=== PATIENT | male | born 1965 | race African-American/Black ===

== ENCOUNTER 2016-10-09 10:42 | Inpatient (IN) | payer OTHER ==
[2016-10-09 11:45] VITALS: BMI 19.5
--- NOTE | 2016-10-09 13:53 | HP ---
CIWA Score - CIWA Score Nausea/Vomitin-No Nausea/No Vomiting Muscle Tremors: 4-Moderate,w/Arms Extend Anxiety: 4-Mod. Anxious/Guarded Agitation: 4-Moderately Restless Paroxysmal Sweats: 3 Orientation: 0-Oriented Tacttile Disturbances: 0-None Auditory Disturbances: 0-None Visual Disturbances: 0-None Headache: 2-Mild CIWA-Ar Total Score: 17 Admission ROS BHS - HPI Chief Complaint: I am here to detox. Allergies/Adverse Reactions: Allergies Allergy/AdvReac Type Severity Reaction Status Date / Time No Known Allergies Allergy Verified 10/09/16 12:02 History of Present Illness: pt is a 50yr old male with a history of alcohol and cocaine dependence seeking detox for treatment. Exam Limitations: No Limitations - Ebola screening Have you traveled outside of the country in the last 21 days: No Have you had contact with anyone from an Ebola affected area: No Have you been sick,other than usual withdrawal symptoms: No Do you have a fever: No - Review of Systems Constitutional: Diaphoresis, Changes in sleep EENT: reports: No Symptoms Reported Respiratory: reports: No Symptoms reported Cardiac: reports: Syncope GI: reports: Poor Appetite, Poor Fluid Intake : reports: No Symptoms Reported Musculoskeletal: reports: Back Pain, Muscle Weakness (siatica) Integumentary: reports: No Symptoms Reported Neuro: reports: Headache, Tingling, Tremors Endocrine: reports: [place] Hematology: reports: No Symptoms Reported Psychiatric: reports: Judgement Intact, Mood/Affect Appropiate, Orientated x3, Agitated, Anxious Other Systems: Reviewed and Negative Patient History - Patient Medical History Hx Anemia: No Hx Asthma: No Hx Chronic Obstructive Pulmonary Disease (COPD): No Hx Cancer: No Hx Cardiac Disorders: No Hx Congestive Heart Failure: No Hx Hypertension: No Hx Hypercholesterolemia: No Hx Pacemaker: No HX Cerebrovascular Accident: No Hx Seizures: No Hx Dementia: No Hx Diabetes: No Hx Gastrointestinal Disorders: No Hx Liver Disease: No Hx Genitourinary Disorders: No Hx Sexually Transmitted Disorders: No Hx Renal Disease (ESRD): No Hx Thyroid Disease: No Hx Human Immunodeficiency Virus (HIV): No (negative) Hx Hepatitis C: No (negative) Hx Depression: Yes Hx Suicide Attempt: No (two years tried to OD with pills. no S/H ideations today. ) Hx Bipolar Disorder: Yes Hx Schizophrenia: No - Patient Surgical History Past Surgical History: No - PPD History Previous Implant?: Yes Documented Results: Negative w/o proof Implanted On Prior R Admission?: No PPD to be Administered?: Yes - Reproductive History Patient is a Female of Child Bearing Age (11 -55 yrs old): No - Smoking Cessation Smoking history: Current every day smoker Have you smoked in the past 12 months: Yes Aproximately how many cigarettes per day: 4 Hx Chewing Tobacco Use: No Initiated information on smoking cessation: Yes 'Breaking Loose' booklet given: 10/09/16 - Substance & Tx. History Hx Alcohol Use: Yes Hx Substance Use: Yes Substance Use Type: Alcohol, Cocaine Hx Substance Use Treatment: Yes - Substances Abused Alcohol Route: Oral Frequency: Daily Amount used: vodka(2 pints) Age of first use: 16 Date of Last Use: 10/08/16 Cocaine Route: Smoking Frequency: Daily Amount used: $50 Age of first use: 28 Date of Last Use: 10/08/16 Family Disease History - Family Disease History Family History: Denies Admission Physical Exam [facility] - Vital Signs Vital Signs: Vital Signs - 24 hr 10/09/16 11:43 Temperature 98 F Pulse Rate 76 Respiratory 20 Rate Blood Pressure 136/89 - Physical General Appearance: Yes: Appropriately Dressed, Moderate Distress, Thin, Tremorous, Irritable, Sweating, Anxious HEENTM: Yes: Normal Voice Respiratory: Yes: Lungs Clear, Normal Breath Sounds, No Respiratory Distress Neck: Yes: No masses,lesions,Nodules Breast: Yes: Within Normal Limits, No Discharge, No masses Cardiology: Yes: Regular Rhythm, Regular Rate, S1, S2 Abdominal: Yes: Normal Bowel Sounds Genitourinary: Yes: Within Normal Limits Back: Yes: Normal Inspection Musculoskeletal: Yes: full range of Motion Extremities: Yes: Normal Capillary Refill, Non-Tender, Tremors Neurological: Yes: Fully Oriented, Alert, Normal Response Integumentary: Yes: Normal Color, Diaphoresis Lymphatic: Yes: Within Normal Limits - Diagnostic (1) Alcohol dependence with uncomplicated withdrawal Current Visit: Yes Status: Chronic (2) Cocaine dependence Current Visit: Yes Status: Chronic Qualifiers: Substance use status: uncomplicated Qualified Code(s): F14.20 - Cocaine dependence, uncomplicated (3) Nicotine dependence Current Visit: Yes Status: Chronic Qualifiers: Nicotine product type: cigarettes Substance use status: uncomplicated Qualified Code(s): F17.210 - Nicotine dependence, cigarettes, uncomplicated (4) Sciatic leg pain Current Visit: No Status: Chronic Cleared for Admission [facility] - Detox or Rehab [facility] Level of Care: Medically Managed Detox Regimen/Protocol: Librium [facility] Breath Alcohol Content Breath Alcohol Content: 0 Urine Drug Screen - Results Drug Screen Negative: No Urine Drug Screen Results: DAVID-Cocaine
[2016-10-09] MEDS ORDERED: chlordiazePOXIDE HCL 25 MG CAPSULE PO ONE (14:00)
[2016-10-09] MEDS ORDERED: MAGNESIUM CITRATE 300 ML BOTTLE PO PRN (14:00)
[2016-10-09] MEDS ORDERED: MENTHOL/PHENOL 1 EACH UD MM PRN (14:00)
[2016-10-09] MEDS ORDERED: LOPERAMIDE HCL 2 MG CAPSULE PO PRN (14:00)
[2016-10-09] MEDS ORDERED: IBUPROFEN 400 MG TABLET (FP) PO PRN (14:00)
[2016-10-09] MEDS ORDERED: diphenhydrAMINE HCL 50 MG CAPSULE PO PRN (14:00)
[2016-10-09] MEDS ORDERED: chlordiazePOXIDE HCL 25 MG CAPSULE PO PRN (14:00)
[2016-10-09] MEDS ORDERED: guaiFENesin/D-METHORPHAN HB 10 ML UNIT-DOSE CUPS PO PRN (14:00)
[2016-10-09] MEDS ORDERED: ACETAMINOPHEN 325 MG TABLET (FP) PO PRN (14:00)
[2016-10-09] MEDS ORDERED: P-EPHED 60MG/TRIPROLIDI 2.5MG TABLET PO PRN (14:00)
[2016-10-09] MEDS ORDERED: MAGNESIUM HYDROX 2400MG/30ML ORAL SUSPENSION 30 ML CUP PO PRN (14:00)
[2016-10-09] MEDS ORDERED: MAG HYDROX/AL HYDROX/SIMETH 30 ML UNIT-DOSE CUP PO PRN (14:00)
[2016-10-09] MEDS ORDERED: hydrOXYzine PAMOATE 50 MG CAPSULE (FP) PO PRN (14:00)
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
--- NOTE | 2016-10-09 15:49 | PN ---
[facility] Progress Note Note: EKG with Normal sinus rhythm T wave abnormality,consider anterolateral ischemia prolonged QT Abnormal EKG Pt is asymtomatic, no hx CAD or HTN. no previous EKG repeat EKG today .
[2016-10-09] MEDS: chlordiazePOXIDE HCL 25 MG CAPSULE PO SCH ×2 (17:39→22:28)
[2016-10-09 21:11] LABS: URINE APPEARANCE CLEAR; URINE BILIRUBIN NEGATIVE (NEGATIVE); URINE BLOOD NEGATIVE (NEGATIVE); URINE COLOR YELLOW; URINE GLUCOSE (UA) NEGATIVE (NEGATIVE); URINE KETONE NEGATIVE (NEGATIVE); URINE LEUK ESTERASE NEGATIVE (NEGATIVE); URINE NITRITE NEGATIVE (NEGATIVE); URINE PROTEIN NEGATIVE (NEGATIVE); URINE UROBILINOGEN NEGATIVE E.U./dl (0.2-1.0)
[2016-10-09] MEDS: THIAMINE HCL 100 MG TABLET (FP) PO SCH (22:28)
[2016-10-09] MEDS: QUEtiapine FUMARATE 200 MG TABLET PO SCH (22:28)
[2016-10-10] MEDS: chlordiazePOXIDE HCL 25 MG CAPSULE PO SCH ×4 (07:18→23:14)
[2016-10-10 10:03] LABS: MCH 22.9 pg (25.7-33.7); MCHC 30.7 g/dl (32.0-35.9); MEAN CELL VOLUME 74.7 fl (80-96); MEAN PLT VOLUME 8.7 fl (7.5-11.1); PLATELET COUNT 233 K/MM3 (134-434); RDW 15.2 % (11.9-15.9); WHITE BLOOD COUNT 3.2 K/mm3 (4.0-10.0)
[2016-10-10] MEDS: PRENATAL VITAMINS W/ FOLIC ACID TABLET (FP) PO SCH (10:30)
[2016-10-10] MEDS: QUEtiapine FUMARATE 200 MG TABLET PO SCH ×2 (10:30→23:14)
--- NOTE | 2016-10-10 11:43 | EKG ---
Test Reason : Blood Pressure : / mmHG Vent. Rate : 074 BPM Atrial Rate : 074 BPM P-R Int : 140 ms QRS Dur : 080 ms QT Int : 424 ms P-R-T Axes : 073 078 095 degrees QTc Int : 470 ms NORMAL SINUS RHYTHM POSSIBLE LEFT ATRIAL ENLARGEMENT T WAVE ABNORMALITY, CONSIDER ANTEROLATERAL ISCHEMIA PROLONGED QT ABNORMAL ECG Confirmed by MORA LU MD ([id number]) on 10/10/2016 11:42:57 AM Referred By: Confirmed By:MORA LU MD
--- NOTE | 2016-10-10 11:45 | EKG ---
Test Reason : Blood Pressure : / mmHG Vent. Rate : 064 BPM Atrial Rate : 064 BPM P-R Int : 144 ms QRS Dur : 110 ms QT Int : 478 ms P-R-T Axes : 060 082 103 degrees QTc Int : 493 ms NORMAL SINUS RHYTHM T WAVE ABNORMALITY, CONSIDER ANTEROLATERAL ISCHEMIA PROLONGED QT ABNORMAL ECG NO PREVIOUS ECGS AVAILABLE Confirmed by MORA LU MD ([id number]) on 10/10/2016 11:45:42 AM Referred By: Confirmed By:MORA LU MD
--- NOTE | 2016-10-10 12:02 | PN ---
[facility] CIWA - CIWA Score Nausea/Vomitin-No Nausea/No Vomiting Muscle Tremors: 4-Moderate,w/Arms Extend Anxiety: 4-Mod. Anxious/Guarded Agitation: 4-Moderately Restless Paroxysmal Sweats: 1-Minimal Palms Moist Orientation: 0-Oriented Tacttile Disturbances: 3-Moderate Itch/Numb/Burn Auditory Disturbances: 0-None Visual Disturbances: 0-None Headache: 0-None Present CIWA-Ar Total Score: 16 S Progress Note (SOAP) Subjective: ANXIETY,IRRITABILITY,RESTLESSNESS, CHILLS,FATIGUE, Objective: 10/10/16 12:01 Vital Signs Temperature 96.9 F L 10/10/16 10:32 Pulse Rate 95 H 10/10/16 10:32 Respiratory Rate 18 10/10/16 10:32 Blood Pressure 138/83 10/10/16 10:32 O2 Sat by Pulse Oximetry (%) Laboratory Last Values WBC 3.2 K/mm3 (4.0-10.0) L 10/10/16 06:00 RBC 5.22 M/mm3 (4.00-5.60) 10/10/16 06:00 Hgb 12.0 GM/dL (11.7-16.9) 10/10/16 06:00 Hct 39.0 % (35.4-49) 10/10/16 06:00 MCV 74.7 fl (80-96) L 10/10/16 06:00 MCHC 30.7 g/dl (32.0-35.9) L 10/10/16 06:00 RDW 15.2 % (11.9-15.9) 10/10/16 06:00 Plt Count 233 K/MM3 (134-434) 10/10/16 06:00 MPV 8.7 fl (7.5-11.1) 10/10/16 06:00 Urine Color Yellow 10/09/16 15:00 Urine Appearance Clear 10/09/16 15:00 Urine pH 5.0 (5.0-8.0) 10/09/16 15:00 Urine Protein Negative (NEGATIVE) 10/09/16 15:00 Urine Glucose (UA) Negative (NEGATIVE) 10/09/16 15:00 Urine Ketones Negative (NEGATIVE) 10/09/16 15:00 Urine Blood Negative (NEGATIVE) 10/09/16 15:00 Urine Nitrite Negative (NEGATIVE) 10/09/16 15:00 Urine Bilirubin Negative (NEGATIVE) 10/09/16 15:00 Urine Urobilinogen Negative E.U./dl (0.2-1.0) 10/09/16 15:00 Ur Leukocyte Esterase Negative (NEGATIVE) 10/09/16 15:00 Assessment: 10/10/16 12:01 WITHDRAWAL SX Plan: CONTINUE DETOX
[2016-10-10 15:05] LABS: ALBUMIN 3.7 g/dl (3.4-5.0); ALK PHOS 72 U/L (45-117); ANION GAP 6 (8-16); BILIRUBIN,TOTAL 0.3 mg/dL (0.2-1.0); CALCIUM 8.9 mg/dL (8.5-10.1); CO2 30 mmol/L (21-32); COCKROFT - GAULT 64.67; CREATININE 1.2 mg/dL (0.7-1.3); GLUCOSE,RANDOM 77 mg/dL (74-106); SGOT/AST 24 U/L (15-37); SGPT/ALT 28 U/L (12-78); TOT PROT 6.7 g/dl (6.4-8.2)
[2016-10-10] MEDS: THIAMINE HCL 100 MG TABLET (FP) PO SCH (23:14)
[2016-10-11] MEDS: chlordiazePOXIDE HCL 25 MG CAPSULE PO SCH ×2 (05:59→10:22)
[2016-10-11] MEDS: QUEtiapine FUMARATE 200 MG TABLET PO SCH (10:22)
[2016-10-11] MEDS: PRENATAL VITAMINS W/ FOLIC ACID TABLET (FP) PO SCH (10:22)
[2016-10-11 10:55] VITALS: BP 139/75; PULSE 104; TEMP 96.4
--- NOTE | 2016-10-11 16:18 | DS ---
[facility] Detox Discharge Summary Admission Date: 10/09/16 Discharge Date: 10/11/16 - History Present History: Alcohol Dependence, Cocaine Dependence Additional Comments: ADVISED PATIENT TO FOLLOW-UP WITH [facility] FOR GENERAL MEDICAL ASSESSMENT. Pertinent Past History: Depression, Bipolar disorder. - Physical Exam Results Vital Signs: Vital Signs Temperature 96.4 F L 10/11/16 10:55 Pulse Rate 104 H 10/11/16 10:55 Respiratory Rate 18 10/11/16 10:55 Blood Pressure 139/75 10/11/16 10:55 O2 Sat by Pulse Oximetry (%) Pertinent Admission Physical Exam Findings: WITHDRAWAL SYMPTOMS. Laboratory Last Values WBC 3.2 K/mm3 (4.0-10.0) L 10/10/16 06:00 RBC 5.22 M/mm3 (4.00-5.60) 10/10/16 06:00 Hgb 12.0 GM/dL (11.7-16.9) 10/10/16 06:00 Hct 39.0 % (35.4-49) 10/10/16 06:00 MCV 74.7 fl (80-96) L 10/10/16 06:00 MCHC 30.7 g/dl (32.0-35.9) L 10/10/16 06:00 RDW 15.2 % (11.9-15.9) 10/10/16 06:00 Plt Count 233 K/MM3 (134-434) 10/10/16 06:00 MPV 8.7 fl (7.5-11.1) 10/10/16 06:00 Sodium 143 mmol/L (136-145) 10/10/16 06:00 Potassium 5.3 mmol/L (3.5-5.1) H 10/10/16 06:00 Chloride 107 mmol/L (98-107) 10/10/16 06:00 Carbon Dioxide 30 mmol/L (21-32) 10/10/16 06:00 Anion Gap 6 (8-16) L 10/10/16 06:00 BUN 17 mg/dL (7-18) 10/10/16 06:00 Creatinine 1.2 mg/dL (0.7-1.3) 10/10/16 06:00 Creat Clearance w eGFR > 60 (>60) 10/10/16 06:00 Random Glucose 77 mg/dL (74-106) 10/10/16 06:00 Calcium 8.9 mg/dL (8.5-10.1) 10/10/16 06:00 Total Bilirubin 0.3 mg/dL (0.2-1.0) 10/10/16 06:00 AST 24 U/L (15-37) 10/10/16 06:00 ALT 28 U/L (12-78) 10/10/16 06:00 Alkaline Phosphatase 72 U/L (45-117) 10/10/16 06:00 Total Protein 6.7 g/dl (6.4-8.2) 10/10/16 06:00 Albumin 3.7 g/dl (3.4-5.0) 10/10/16 06:00 Urine Color Yellow 10/09/16 15:00 Urine Appearance Clear 10/09/16 15:00 Urine pH 5.0 (5.0-8.0) 10/09/16 15:00 Ur Specific Martell 1.025 (1.005-1.025) 10/09/16 15:00 Urine Protein Negative (NEGATIVE) 10/09/16 15:00 Urine Glucose (UA) Negative (NEGATIVE) 10/09/16 15:00 Urine Ketones Negative (NEGATIVE) 10/09/16 15:00 Urine Blood Negative (NEGATIVE) 10/09/16 15:00 Urine Nitrite Negative (NEGATIVE) 10/09/16 15:00 Urine Bilirubin Negative (NEGATIVE) 10/09/16 15:00 Urine Urobilinogen Negative E.U./dl (0.2-1.0) 10/09/16 15:00 Ur Leukocyte Esterase Negative (NEGATIVE) 10/09/16 15:00 RPR Titer Nonreactive (NONREACTIVE) 10/10/16 06:00 LABS NOTED. - Treatment Hospital Course: Detoxed Safely - Medication Discharge Medications: Ambulatory Orders Quetiapine Fumarate [Seroquel -] 200 mg PO BID 10/09/16 Quetiapine Fumarate [Seroquel -] 200 mg PO BID #60 tab 10/09/16 - Diagnosis (1) PTSD (post-traumatic stress disorder) Status: Chronic (2) Paranoid schizophrenia Status: Chronic (3) Alcohol dependence with uncomplicated withdrawal Status: Acute (4) Cocaine dependence Status: Acute Qualifiers: Substance use status: uncomplicated Qualified Code(s): F14.20 - Cocaine dependence, uncomplicated (5) Nicotine dependence Status: Chronic Qualifiers: Nicotine product type: cigarettes Substance use status: uncomplicated Qualified Code(s): F17.210 - Nicotine dependence, cigarettes, uncomplicated (6) Sciatic leg pain Status: Chronic - AMA Did Patient Leave Against Medical Advice: Yes (PATIENT DID NOT WANT TO STAY ON UNIT TO COMPLETE DETOX REGIMEN.)
[2016-10-11] MEDS ORDERED: chlordiazePOXIDE 5 MG CAPSULE PO SCH (17:00)
[2016-10-12] MEDS ORDERED: chlordiazePOXIDE HCL 10 MG CAPSULE PO SCH (17:00)
== END 2016-10-11 11:06 | disposition left against medical advice (07) | DRG 770 ==
LOC: YASAS 10:42 → Y3N 12:37
PROVIDERS: ADMIT Internal Medicine; ATTEND Internal Medicine
PROC: HZ2ZZZZ Detoxification Services for Substance Abuse Treatment (ICD-10-PCS; principal; 2016-10-11)
DX: F10.230 Alcohol dependence with withdrawal, uncomplicated (principal); F14.20 Cocaine dependence, uncomplicated; F17.210 Nicotine dependence, cigarettes, uncomplicated; F25.9 Schizoaffective disorder, unspecified; F43.10 Post-traumatic stress disorder, unspecified; M54.30 Sciatica, unspecified side
CPT/HCPCS: 36415; 80053; 81003; 85027; 86593; 93005; 93010

== ENCOUNTER 2017-11-06 14:48 | Inpatient (IN) | payer OTHER ==
[2017-11-06 15:32] VITALS: BMI 18.3
--- NOTE | 2017-11-06 17:18 | HP ---
CIWA Score - CIWA Score Nausea/Vomitin-Mild Nausea/No Vomiting Muscle Tremors: 1-None Visible, but [place] Anxiety: 3 Agitation: 2 Paroxysmal Sweats: 1-Minimal Palms Moist Orientation: 0-Oriented Tacttile Disturbances: 1-Very Mild Itch/Numbness Auditory Disturbances: 0-None Visual Disturbances: 0-None Headache: 3-Moderate CIWA-Ar Total Score: 12 Admission ROS BHS - HPI Chief Complaint: ETOH WITHDRAWAL SYMPTOMS Allergies/Adverse Reactions: Allergies Allergy/AdvReac Type Severity Reaction Status Date / Time No Known Allergies Allergy Verified 11/06/17 16:07 History of Present Illness: PATIENT PRESENTS WITH ETOH WITHDRAWAL SYMPTOMS. LAST TIME DETOX ATTEMPTED WAS LAST YEAR 10/22 HERE AT [facility]. PATIENT STARTED DRINKING AT AGE 16. DRINKS UP TO 2- 3 PINTS DAILY. LAST DRINK TODAY AT 10AM. DENIES SEIZURES FROM ETOH USE. PATIENT ALSO SMOKES CRACK/COCAINE. LAST TIME USED WAS TODAY. PATIENT SMOKES UP TO 5 BAGS DAILY. HAS HX OF DEPRESSION, PTSD AND BIPLOAR DISORDER. DENIES SI/HI. ATTEMPT SUICIDE 2 YEARS AGO BY OVERDOSING ON PILLS. Exam Limitations: No Limitations - Ebola screening Have you traveled outside of the country in the last 21 days: No Have you had contact with anyone from an Ebola affected area: No Have you been sick,other than usual withdrawal symptoms: No Do you have a fever: No - Review of Systems Constitutional: Changes in sleep, Unintentional Wgt. Loss EENT: reports: Recent change in vision, Nose Congestion Respiratory: reports: Cough Cardiac: reports: No Symptoms Reported GI: reports: Nausea, Poor Appetite, Poor Fluid Intake : reports: No Symptoms Reported Musculoskeletal: reports: Back Pain Integumentary: reports: Sweating Neuro: reports: Headache, Tremors Endocrine: reports: No Symptoms Reported Hematology: reports: No Symptoms Reported Psychiatric: reports: Orientated x3, Anxious, Depressed Patient History - Patient Medical History Hx Anemia: No Hx Asthma: Yes (UNTREATED) Hx Chronic Obstructive Pulmonary Disease (COPD): No Hx Cancer: No Hx Cardiac Disorders: No Hx Congestive Heart Failure: No Hx Hypertension: Yes (UNTREATED) Hx Hypercholesterolemia: No Hx Pacemaker: No HX Cerebrovascular Accident: No Hx Seizures: No Hx Dementia: No Hx Diabetes: No Hx Gastrointestinal Disorders: No Hx Liver Disease: No Hx Genitourinary Disorders: No Hx Sexually Transmitted Disorders: No Hx Renal Disease (ESRD): No Hx Thyroid Disease: No Hx Human Immunodeficiency Virus (HIV): No (negative) Hx Hepatitis C: No (negative) Hx Depression: Yes Hx Suicide Attempt: Yes (pill overdose in 2014) Hx Bipolar Disorder: Yes Hx Schizophrenia: Yes - Patient Surgical History Past Surgical History: No Hx Neurologic Surgery: No Hx Cataract Extraction: No Hx Cardiac Surgery: No Hx Lung Surgery: No Hx Breast Surgery: No Hx Breast Biopsy: No Hx Abdominal Surgery: No Hx Appendectomy: No Hx Cholecystectomy: No Hx Genitourinary Surgery: No Hx Orthopedic Surgery: No Anesthesia Reaction: No - PPD History Previous Implant?: Yes Documented Results: Negative w/proof Implanted On Prior R Admission?: Yes Date: 09/14/17 Results: 0 mm - Smoking Cessation Smoking history: Current every day smoker Have you smoked in the past 12 months: Yes Aproximately how many cigarettes per day: 6 Hx Chewing Tobacco Use: No Initiated information on smoking cessation: Yes 'Breaking Loose' booklet given: 11/06/17 - Substance & Tx. History Hx Alcohol Use: Yes Hx Substance Use: Yes Substance Use Type: Alcohol, Cocaine Hx Substance Use Treatment: Yes - Substances Abused Cocaine Route: Smoking Frequency: Daily Amount used: $200 Age of first use: 42 Date of Last Use: 11/06/17 Alcohol-vodka Route: Oral Frequency: Daily Amount used: 3 pts. Age of first use: 15 Date of Last Use: 11/06/17 Family Disease History - Family Disease History Family History: Denies Admission Physical Exam BHS - Vital Signs Vital Signs: Vital Signs - 24 hr 11/06/17 15:31 Temperature 98.6 F Pulse Rate 113 H Respiratory 20 Rate Blood Pressure 140/59 - Physical General Appearance: Yes: Thin, Tremorous, Sweating, Anxious HEENTM: Yes: EOMI, Hearing grossly Normal, Normal ENT Inspection, Normocephalic , Normal Voice, ERNESTINA, Pharynx Normal Respiratory: Yes: Chest Non-Tender, Lungs Clear, Normal Breath Sounds, No Respiratory Distress, No Accessory Muscle Use Neck: Yes: No masses,lesions,Nodules, Supple, Trachea in good position Breast: Yes: Breast Exam Deferred Cardiology: Yes: Regular Rhythm, Regular Rate, S1, S2 Abdominal: Yes: Normal Bowel Sounds, Non Tender, Flat, Soft Genitourinary: Yes: Within Normal Limits Back: Yes: Muscle Spasm Musculoskeletal: Yes: full range of Motion, Gait Steady, Back pain Extremities: Yes: Normal Range of Motion, Non-Tender, Tremors Neurological: Yes: medical radiation therapist II-XII NML intact, Fully Oriented, Alert, Normal Response , Depressed Affect Integumentary: Yes: Normal Color, Warm, Moist Lymphatic: Yes: Within Normal Limits - Diagnostic (1) Depressed affect Current Visit: Yes Status: Suspected (2) Bipolar disorder Current Visit: Yes Status: Chronic Qualifiers: Active/Remission status: remission status unspecified Qualified Code(s): F31.9 - Bipolar disorder, unspecified (3) Alcohol dependence with uncomplicated withdrawal Current Visit: Yes Status: Acute (4) Cocaine dependence Current Visit: Yes Status: Acute Qualifiers: Substance use status: uncomplicated Qualified Code(s): F14.20 - Cocaine dependence, uncomplicated (5) Nicotine dependence Current Visit: Yes Status: Chronic Qualifiers: Nicotine product type: cigarettes Substance use status: uncomplicated Qualified Code(s): F17.210 - Nicotine dependence, cigarettes, uncomplicated (6) PTSD (post-traumatic stress disorder) Current Visit: Yes Status: Chronic Cleared for Admission [facility] - Detox or Rehab [facility] Level of Care: Medically Managed Detox Regimen/Protocol: Librium [facility] Breath Alcohol Content Breath Alcohol Content: 0.069 Urine Drug Screen - Results Drug Screen Negative: No Urine Drug Screen Results: DAVID-Cocaine
[2017-11-06] MEDS ORDERED: IBUPROFEN 400 MG TABLET (FP) PO PRN (17:27)
[2017-11-06] MEDS ORDERED: hydrOXYzine PAMOATE 50 MG CAPSULE (FP) PO PRN (17:27)
[2017-11-06] MEDS ORDERED: MAG HYDROX/AL HYDROX/SIMETH 30 ML UNIT-DOSE CUP PO PRN (17:27)
[2017-11-06] MEDS ORDERED: LOPERAMIDE HCL 2 MG CAPSULE PO PRN (17:27)
[2017-11-06] MEDS ORDERED: NICOTINE POLACRILEX 2 MG GUM BC PRN (17:27)
[2017-11-06] MEDS ORDERED: MAGNESIUM CITRATE 300 ML BOTTLE PO PRN (17:27)
[2017-11-06] MEDS ORDERED: MAGNESIUM HYDROX 2400MG/30ML ORAL SUSPENSION 30 ML CUP PO PRN (17:27)
[2017-11-06] MEDS ORDERED: ALBUTEROL SO4 18 GM HFA INHALER IH PRN (17:29)
[2017-11-06] MEDS ORDERED: chlordiazePOXIDE HCL 25 MG CAPSULE PO PRN (17:30)
[2017-11-06] MEDS ORDERED: chlordiazePOXIDE HCL 25 MG CAPSULE PO ONE (18:00)
[2017-11-06] MEDS: ACETAMINOPHEN 325 MG TABLET (FP) PO PRN (18:33)
[2017-11-06] MEDS ORDERED: MELATONIN 5 MG TABLETS PO PRN (22:00)
[2017-11-06] MEDS: chlordiazePOXIDE HCL 25 MG CAPSULE PO SCH (22:21)
[2017-11-06] MEDS: THIAMINE HCL 100 MG TABLET (FP) PO SCH (22:21)
[2017-11-07 04:09] LABS: URINE APPEARANCE CLEAR; URINE BILIRUBIN NEGATIVE (<2.0 mg/dL); URINE BLOOD NEGATIVE (NEGATIVE); URINE COLOR LTYELLOW; URINE GLUCOSE (UA) 1+ (NEGATIVE); URINE KETONE NEGATIVE (NEGATIVE); URINE LEUK ESTERASE NEGATIVE (NEGATIVE); URINE NITRITE NEGATIVE (NEGATIVE); URINE PROTEIN NEGATIVE (NEGATIVE); URINE UROBILINOGEN NEGATIVE mg/dL (0.2-1.0)
[2017-11-07] MEDS: chlordiazePOXIDE HCL 25 MG CAPSULE PO SCH ×4 (06:20→22:16)
[2017-11-07 10:18] LABS: HEMOGLOBIN 12.2 GM/dL (11.7-16.9); MCH 22.8 pg (25.7-33.7); MCHC 31.4 g/dl (32.0-35.9); MEAN CELL VOLUME 72.7 fl (80-96); MEAN PLT VOLUME 8.8 fl (7.5-11.1); PLATELET COUNT 243 K/MM3 (134-434); RBC 5.36 M/mm3 (4.00-5.60); WHITE BLOOD COUNT 6.7 K/mm3 (4.0-10.0)
[2017-11-07] MEDS: PRENATAL VITAMINS W/ FOLIC ACID TABLET (FP) PO SCH (10:28)
[2017-11-07] MEDS: MENTHOL/PHENOL 1 EACH UD MM PRN (10:28)
[2017-11-07] MEDS: NICOTINE 21 MG/24 HOURS TOPICAL PATCH TD SCH (10:28)
[2017-11-07] MEDS: ACETAMINOPHEN 325 MG TABLET (FP) PO PRN (10:29)
[2017-11-07] MEDS: P-EPHED 60MG/TRIPROLIDI 2.5MG TABLET PO PRN (10:29)
[2017-11-07 10:50] LABS: CHLORIDE 101 mmol/L (98-107); POTASSIUM 4.5 mmol/L (3.5-5.1); SODIUM 140 mmol/L (136-145)
[2017-11-07 11:02] LABS: ALBUMIN 3.4 g/dl (3.4-5.0); ALK PHOS 74 U/L (45-117); ANION GAP 6 (8-16); BILIRUBIN,TOTAL 0.3 mg/dL (0.2-1.0); BLOOD UREA NITROGEN 7 mg/dL (7-18); CALCIUM 8.6 mg/dL (8.5-10.1); CO2 33 mmol/L (21-32); GLUCOSE,RANDOM 102 mg/dL (74-106); SGOT/AST 55 U/L (15-37); SGPT/ALT 71 U/L (12-78); TOT PROT 6.4 g/dl (6.4-8.2)
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
--- NOTE | 2017-11-07 15:03 | PN ---
[facility] CIWA - CIWA Score Nausea/Vomitin-No Nausea/No Vomiting Muscle Tremors: 3 Anxiety: 3 Agitation: 0-Normal Activity Paroxysmal Sweats: 3 Orientation: 0-Oriented Tacttile Disturbances: 3-Moderate Itch/Numb/Burn Auditory Disturbances: 0-None Visual Disturbances: 3-Moderate Sensitivity Headache: 0-None Present CIWA-Ar Total Score: 15 BHS Progress Note (SOAP) Subjective: Body Aches, Sweating, Tremors, Fatigue. Objective: PATIENT A & O X 3. NO ACUTE DISTRESS. 11/07/17 15:01 Vital Signs Temperature 99 F 11/07/17 13:59 Pulse Rate 94 H 11/07/17 13:59 Respiratory Rate 18 11/07/17 13:59 Blood Pressure 123/80 11/07/17 13:59 O2 Sat by Pulse Oximetry (%) Laboratory Tests 11/06/17 11/07/17 11/07/17 22:30 07:30 07:30 WBC 6.7 D RBC 5.36 Hgb 12.2 Hct 39.0 MCV 72.7 L MCH 22.8 L MCHC 31.4 L RDW 15.0 Plt Count 243 MPV 8.8 Sodium 140 Potassium 4.5 Chloride 101 Carbon Dioxide 33 H Anion Gap 6 L BUN 7 D Creatinine 1.0 Creat Clearance w eGFR > 60 Random Glucose 102 D Calcium 8.6 Total Bilirubin 0.3 AST 55 H D ALT 71 D Alkaline Phosphatase 74 Total Protein 6.4 Albumin 3.4 Urine Color Ltyellow Urine Appearance Clear Urine pH 6.0 Ur Specific [place] 1.008 Urine Protein Negative Urine Glucose (UA) 1+ H Urine Ketones Negative Urine Blood Negative Urine Nitrite Negative Urine Bilirubin Negative Urine Urobilinogen Negative Ur Leukocyte Esterase Negative LABS NOTED. RPR RESULT PENDING. 11/07/17 15:02 Assessment: 11/07/17 15:01 WITHDRAWAL SYMPTOMS. Plan: CONTINUE DETOX. ENCOURAGE AMBULATION.
[2017-11-07] MEDS: THIAMINE HCL 100 MG TABLET (FP) PO SCH (22:16)
[2017-11-07] MEDS: QUEtiapine FUMARATE 200 MG TABLET PO SCH (22:16)
[2017-11-08] MEDS: chlordiazePOXIDE HCL 25 MG CAPSULE PO SCH ×3 (06:16→16:42)
[2017-11-08] MEDS: PRENATAL VITAMINS W/ FOLIC ACID TABLET (FP) PO SCH (10:10)
[2017-11-08] MEDS: NICOTINE 21 MG/24 HOURS TOPICAL PATCH TD SCH (10:10)
[2017-11-08] MEDS: MENTHOL/PHENOL 1 EACH UD MM PRN ×2 (10:14→22:33)
--- NOTE | 2017-11-08 16:13 | PN ---
S CIWA - CIWA Score Nausea/Vomitin-No Nausea/No Vomiting Muscle Tremors: 3 Anxiety: 5 Agitation: 1-Slight > Activity Paroxysmal Sweats: 3 Orientation: 0-Oriented Tacttile Disturbances: 2-Mild Itch/Numbness/Burn Auditory Disturbances: 0-None Visual Disturbances: 0-None Headache: 0-None Present CIWA-Ar Total Score: 14 BHS Progress Note (SOAP) Subjective: Body Aches, Tremors, Fatigue, Interrupted Sleep. Objective: PATIENT A & O X 3, OBSERVED AMBULATING ON UNIT. NO ACUTE DISTRESS. 11/08/17 16:10 Vital Signs Temperature 97.5 F L 11/08/17 13:48 Pulse Rate 104 H 11/08/17 13:32 Respiratory Rate 20 11/08/17 13:32 Blood Pressure 137/79 11/08/17 13:32 O2 Sat by Pulse Oximetry (%) Laboratory Tests 11/06/17 11/07/17 11/07/17 22:30 07:30 07:30 WBC 6.7 D RBC 5.36 Hgb 12.2 Hct 39.0 MCV 72.7 L MCH 22.8 L MCHC 31.4 L RDW 15.0 Plt Count 243 MPV 8.8 Sodium 140 Potassium 4.5 Chloride 101 Carbon Dioxide 33 H Anion Gap 6 L BUN 7 D Creatinine 1.0 Creat Clearance w eGFR > 60 Random Glucose 102 D Calcium 8.6 Total Bilirubin 0.3 AST 55 H D ALT 71 D Alkaline Phosphatase 74 Total Protein 6.4 Albumin 3.4 Urine Color Ltyellow Urine Appearance Clear Urine pH 6.0 Ur Specific [place] 1.008 Urine Protein Negative Urine Glucose (UA) 1+ H Urine Ketones Negative Urine Blood Negative Urine Nitrite Negative Urine Bilirubin Negative Urine Urobilinogen Negative Ur Leukocyte Esterase Negative RPR Titer 11/07/17 07:30 WBC RBC Hgb Hct MCV MCH MCHC RDW Plt Count MPV Sodium Potassium Chloride Carbon Dioxide Anion Gap BUN Creatinine Creat Clearance w eGFR Random Glucose Calcium Total Bilirubin AST ALT Alkaline Phosphatase Total Protein Albumin Urine Color Urine Appearance Urine pH Ur Specific [place] Urine Protein Urine Glucose (UA) Urine Ketones Urine Blood Urine Nitrite Urine Bilirubin Urine Urobilinogen Ur Leukocyte Esterase RPR Titer Nonreactive LABS NOTED. Assessment: 11/08/17 16:10 WITHDRAWAL SYMPTOMS. Plan: CONTINUE DETOX.
[2017-11-08] MEDS: guaiFENesin/D-METHORPHAN HB 10 ML UNIT-DOSE CUPS PO PRN ×2 (16:35→22:33)
[2017-11-08] MEDS: ACETAMINOPHEN 325 MG TABLET (FP) PO PRN (16:35)
[2017-11-08] MEDS: THIAMINE HCL 100 MG TABLET (FP) PO SCH (22:29)
[2017-11-08] MEDS: chlordiazePOXIDE 5 MG CAPSULE PO SCH (22:29)
[2017-11-08] MEDS: QUEtiapine FUMARATE 200 MG TABLET PO SCH (22:30)
--- NOTE | 2017-11-08 22:44 | EKG ---
Test Reason : Blood Pressure : / mmHG Vent. Rate : 092 BPM Atrial Rate : 092 BPM P-R Int : 138 ms QRS Dur : 088 ms QT Int : 384 ms P-R-T Axes : 067 076 092 degrees QTc Int : 474 ms NORMAL SINUS RHYTHM ANTEROSEPTAL INFARCT (CITED ON OR BEFORE 06-NOV-2017) ABNORMAL ECG WHEN COMPARED WITH ECG OF 06-NOV-2017 17:57, NO SIGNIFICANT CHANGE WAS FOUND Confirmed by PARDEEP MCDOWELL MD ([id number]) on 11/08/2017 10:43:57 PM Referred By: Confirmed By:PARDEEP MCDOWELL MD
--- NOTE | 2017-11-08 22:46 | EKG ---
Test Reason : Blood Pressure : / mmHG Vent. Rate : 086 BPM Atrial Rate : 086 BPM P-R Int : 134 ms QRS Dur : 086 ms QT Int : 412 ms P-R-T Axes : 078 082 093 degrees QTc Int : 493 ms NORMAL SINUS RHYTHM RIGHT ATRIAL ENLARGEMENT MINIMAL VOLTAGE CRITERIA FOR LVH, MAY BE NORMAL VARIANT ANTERIOR INFARCT , AGE UNDETERMINED ABNORMAL ECG WHEN COMPARED WITH ECG OF 09-OCT-2016 17:09, COMPARED TO EKG NO SIGNIFICANT CHANGE IS FOUND Confirmed by PARDEEP MCDOWELL MD ([id number]) on 11/08/2017 10:45:45 PM Referred By: Confirmed By:PARDEEP MCDOWELL MD
[2017-11-09] MEDS: MENTHOL/PHENOL 1 EACH UD MM PRN (05:47)
[2017-11-09] MEDS: chlordiazePOXIDE 5 MG CAPSULE PO SCH ×3 (05:47→17:38)
[2017-11-09] MEDS: P-EPHED 60MG/TRIPROLIDI 2.5MG TABLET PO PRN (05:47)
[2017-11-09] MEDS: guaiFENesin/D-METHORPHAN HB 10 ML UNIT-DOSE CUPS PO PRN (05:47)
[2017-11-09] MEDS: PRENATAL VITAMINS W/ FOLIC ACID TABLET (FP) PO SCH (10:18)
[2017-11-09] MEDS: NICOTINE 21 MG/24 HOURS TOPICAL PATCH TD SCH (10:19)
--- NOTE | 2017-11-09 10:29 | PN ---
BHS Progress Note (SOAP) Subjective: C/O PRODUCTIVE COUGH, SWEATS, CHILLS, NASAL CONGESTION, IRRITABILITY, FATIGUE, INTERMITTENT SLEEP. Objective: 11/09/17 10:26 Vital Signs - 24 hr 11/08/17 11/08/17 11/08/17 13:32 13:48 18:21 Temperature 101.0 F H 97.5 F L 101.6 F H Pulse Rate 104 H 109 H Respiratory 20 18 Rate Blood Pressure 137/79 131/73 11/08/17 11/09/17 11/09/17 21:51 00:30 03:30 Temperature 98.0 F Pulse Rate 112 H Respiratory 18 18 20 Rate Blood Pressure 147/80 11/09/17 11/09/17 06:43 09:10 Temperature 96.8 F L 98.6 F Pulse Rate 92 H 95 H Respiratory 18 18 Rate Blood Pressure 104/61 110/66 Laboratory Tests 11/06/17 11/07/17 11/07/17 22:30 07:30 07:30 WBC 6.7 D RBC 5.36 Hgb 12.2 Hct 39.0 MCV 72.7 L MCH 22.8 L MCHC 31.4 L RDW 15.0 Plt Count 243 MPV 8.8 Sodium 140 Potassium 4.5 Chloride 101 Carbon Dioxide 33 H Anion Gap 6 L BUN 7 D Creatinine 1.0 Creat Clearance w eGFR > 60 Random Glucose 102 D Calcium 8.6 Total Bilirubin 0.3 AST 55 H D ALT 71 D Alkaline Phosphatase 74 Total Protein 6.4 Albumin 3.4 Urine Color Ltyellow Urine Appearance Clear Urine pH 6.0 Ur Specific [place] 1.008 Urine Protein Negative Urine Glucose (UA) 1+ H Urine Ketones Negative Urine Blood Negative Urine Nitrite Negative Urine Bilirubin Negative Urine Urobilinogen Negative Ur Leukocyte Esterase Negative RPR Titer 11/07/17 07:30 WBC RBC Hgb Hct MCV MCH MCHC RDW Plt Count MPV Sodium Potassium Chloride Carbon Dioxide Anion Gap BUN Creatinine Creat Clearance w eGFR Random Glucose Calcium Total Bilirubin AST ALT Alkaline Phosphatase Total Protein Albumin Urine Color Urine Appearance Urine pH Ur Specific [place] Urine Protein Urine Glucose (UA) Urine Ketones Urine Blood Urine Nitrite Urine Bilirubin Urine Urobilinogen Ur Leukocyte Esterase RPR Titer Nonreactive LUNGS: DIMINISHED BREATH SOUNDS WITH SCATTERED RHONCHI, BILATERALLY Assessment: 11/09/17 10:27 WITHDRAWAL SX Plan: CONTINUE DETOX CXR R/O PNEUMONIA INCREASE PO FLUIDS
--- NOTE | 2017-11-09 15:30 | PN ---
BHS Progress Note Note: CXR WNL PLAN:CONTINUE WITH ROBITUSSIN AND ACTIFED PRN INCREASE PO FLUIDS.
[2017-11-09] MEDS: chlordiazePOXIDE HCL 10 MG CAPSULE PO SCH (22:06)
[2017-11-09] MEDS: THIAMINE HCL 100 MG TABLET (FP) PO SCH (22:06)
[2017-11-09] MEDS: QUEtiapine FUMARATE 200 MG TABLET PO SCH (22:06)
[2017-11-10] MEDS: chlordiazePOXIDE HCL 10 MG CAPSULE PO SCH (06:07)
[2017-11-10 06:20] VITALS: TEMP 97
[2017-11-10 09:13] VITALS: BP 120/77; PULSE 98
--- NOTE | 2017-11-10 11:32 | PN ---
BHS Progress Note (SOAP) Subjective: DETOX COMPLETED. ALERT O X 3. NAD Objective: 11/10/17 11:23 Vital Signs 11/10/17 11/10/17 11/10/17 03:30 05:50 09:12 Temperature 97 F L Pulse Rate 20 L 98 H Respiratory 18 116 H 20 Rate Blood Pressure 116/80 120/77 Laboratory Tests 11/06/17 11/07/17 11/07/17 22:30 07:30 07:30 WBC 6.7 D RBC 5.36 Hgb 12.2 Hct 39.0 MCV 72.7 L MCH 22.8 L MCHC 31.4 L RDW 15.0 Plt Count 243 MPV 8.8 Sodium 140 Potassium 4.5 Chloride 101 Carbon Dioxide 33 H Anion Gap 6 L BUN 7 D Creatinine 1.0 Creat Clearance w eGFR > 60 Random Glucose 102 D Calcium 8.6 Total Bilirubin 0.3 AST 55 H D ALT 71 D Alkaline Phosphatase 74 Total Protein 6.4 Albumin 3.4 Urine Color Ltyellow Urine Appearance Clear Urine pH 6.0 Ur Specific [place] 1.008 Urine Protein Negative Urine Glucose (UA) 1+ H Urine Ketones Negative Urine Blood Negative Urine Nitrite Negative Urine Bilirubin Negative Urine Urobilinogen Negative Ur Leukocyte Esterase Negative RPR Titer 11/07/17 07:30 WBC RBC Hgb Hct MCV MCH MCHC RDW Plt Count MPV Sodium Potassium Chloride Carbon Dioxide Anion Gap BUN Creatinine Creat Clearance w eGFR Random Glucose Calcium Total Bilirubin AST ALT Alkaline Phosphatase Total Protein Albumin Urine Color Urine Appearance Urine pH Ur Specific [place] Urine Protein Urine Glucose (UA) Urine Ketones Urine Blood Urine Nitrite Urine Bilirubin Urine Urobilinogen Ur Leukocyte Esterase RPR Titer Nonreactive Assessment: 11/10/17 11:32 MEDICALLY STABLE Plan: D/C PT TODAY PT WILL FOLLOW UP WITH REHAB BED IN A.M
--- NOTE | 2017-11-10 11:38 | DS ---
[facility] Detox Discharge Summary Admission Date: 11/06/17 Discharge Date: 11/10/17 - History Present History: Alcohol Dependence, Cocaine Dependence Additional Comments: DETOX COMPLETED. ALERT O X 3. NAD. PT TO RETURN TO THE [facility] TO FOLLOW UP WITH REHAB IN A.M. PT REPORTS HIS [facility] [address] [place] Pertinent Past History: PLEASE SEE DX BELOW. - Physical Exam Results Vital Signs: Vital Signs Temperature 97 F L 11/10/17 05:50 Pulse Rate 98 H 11/10/17 09:12 Respiratory Rate 20 11/10/17 09:12 Blood Pressure 120/77 11/10/17 09:12 O2 Sat by Pulse Oximetry (%) Pertinent Admission Physical Exam Findings: WITHDRAWAL SX Vital Signs 11/10/17 11/10/17 05:50 09:12 Temperature 97 F L Pulse Rate 20 L 98 H Respiratory 116 H 20 Rate Blood Pressure 116/80 120/77 Laboratory Tests 11/06/17 11/07/17 11/07/17 22:30 07:30 07:30 WBC 6.7 D RBC 5.36 Hgb 12.2 Hct 39.0 MCV 72.7 L MCH 22.8 L MCHC 31.4 L RDW 15.0 Plt Count 243 MPV 8.8 Sodium 140 Potassium 4.5 Chloride 101 Carbon Dioxide 33 H Anion Gap 6 L BUN 7 D Creatinine 1.0 Creat Clearance w eGFR > 60 Random Glucose 102 D Calcium 8.6 Total Bilirubin 0.3 AST 55 H D ALT 71 D Alkaline Phosphatase 74 Total Protein 6.4 Albumin 3.4 Urine Color Ltyellow Urine Appearance Clear Urine pH 6.0 Ur Specific [place] 1.008 Urine Protein Negative Urine Glucose (UA) 1+ H Urine Ketones Negative Urine Blood Negative Urine Nitrite Negative Urine Bilirubin Negative Urine Urobilinogen Negative Ur Leukocyte Esterase Negative RPR Titer 11/07/17 07:30 WBC RBC Hgb Hct MCV MCH MCHC RDW Plt Count MPV Sodium Potassium Chloride Carbon Dioxide Anion Gap BUN Creatinine Creat Clearance w eGFR Random Glucose Calcium Total Bilirubin AST ALT Alkaline Phosphatase Total Protein Albumin Urine Color Urine Appearance Urine pH Ur Specific [place] Urine Protein Urine Glucose (UA) Urine Ketones Urine Blood Urine Nitrite Urine Bilirubin Urine Urobilinogen Ur Leukocyte Esterase RPR Titer Nonreactive CXR WNL NO PATHOLOGICAL FINDINGS RECORDED. - Treatment Hospital Course: Detox Protocol Followed, Detoxed Safely, Responded well, Discharged Condition Good, Rehab Referral Accepted Patient has Accepted a Rehab Referral to: [facility] - Medication Discharge Medications: Ambulatory Orders Quetiapine Fumarate [Seroquel -] 200 mg PO BID #60 tab 10/09/16 Albuterol Sulfate Inhaler - [Ventolin HFA Inhaler -] 2 inh PO Q4H PRN 11/06/17 - Diagnosis (1) Alcohol dependence with uncomplicated withdrawal Status: Acute (2) Cocaine dependence Status: Acute Qualifiers: Substance use status: uncomplicated Qualified Code(s): F14.20 - Cocaine dependence, uncomplicated (3) Nicotine dependence Status: Acute Qualifiers: Nicotine product type: cigarettes Substance use status: in withdrawal Qualified Code(s): F17.213 - Nicotine dependence, cigarettes, with withdrawal - AMA Did Patient Leave Against Medical Advice: No
== END 2017-11-10 09:33 | disposition home or self-care (01) | DRG 774 ==
LOC: YASAS 14:48 → Y3N 17:32
PROVIDERS: ADMIT Surgery; ATTEND Surgery
PROC: HZ2ZZZZ Detoxification Services for Substance Abuse Treatment (ICD-10-PCS; principal; 2017-11-06)
DX: F10.230 Alcohol dependence with withdrawal, uncomplicated (principal); F14.20 Cocaine dependence, uncomplicated; F17.213 Nicotine dependence, cigarettes, with withdrawal; F31.9 Bipolar disorder, unspecified; F43.10 Post-traumatic stress disorder, unspecified; F32.9 Major depressive disorder, single episode, unspecified; G47.00 Insomnia, unspecified; Z91.5 Personal history of self-harm
CPT/HCPCS: 36415; 71046-TC-FY; 80053; 81003; 85027; 86593; 93005; 93010

== ENCOUNTER 2018-01-03 22:30 | Emergency (ER) | payer OTHER ==
[2018-01-03 22:43] VITALS: BP 128/81; PULSE 102; TEMP 97.4; BMI 19.5
[2018-01-04] MEDS ORDERED: FOLIC ACID INJECTION - 1 MG, THIAMINE HCL 100 MG, MULTIVIT INJECTION ADULT 10 ML in SOD... IVPB ONE (00:15)
--- NOTE | 2018-01-04 00:16 | PDOC ---
Attending Attestation - Resident Resident Name: Forest Villa - ED Attending Attestation I have performed the following: I have examined & evaluated the patient, The case was reviewed & discussed with the resident, I agree w/resident's findings & plan - HPI HPI: 01/04/18 01:01 Pt has abrasion on head; states he may have fallen. He was being evaluated at detox and sent for a CT to r/o any injury in the brain. - Physicial Exam PE: 01/04/18 01:02 Agree with resident exam. - Medical Decision Making 01/04/18 01:02 Back to [facility] for admission for alcohol and cocaine detox. 01/04/18 01:04 Referring Physician: PHIL GOLD Patient Name: HODAN MACIAS THIS IS A PRELIMINARY REPORT FROM IMAGING FIELD DIRECTOR DATE OF SERVICE: 2018-01-04 00:53:10 IMAGES: 177 EXAM: HEAD CT WITHOUT CONTRAST HISTORY: Status post fall COMPARISON: None. FINDINGS: The ventricular system is midline and nondilated. The sulcal pattern is normal for the patient's age. There is no bleed, mass, extra-axial fluid collection or mass effect. No skull fracture or skull lesion is identified. The visualized paranasal sinuses and mastoid air cells are clear. IMPRESSION: Normal exam.
--- NOTE | 2018-01-04 01:12 | PDOC ---
History of Present Illness - General Chief Complaint: Injury Stated Complaint: Seizure Time Seen by Provider: 01/04/18 00:14 History Source: Patient Exam Limitations: No Limitations - History of Present Illness Initial Comments: 01/04/18 01:06 Patient is a 52M with history of alcohol and cocaine abuse sent here from [facility] for head ct after found to have a scratch on his head. Patient states that he was sitting down when he fell over 2 days ago. He is not sure what happened beyond that, reports that he blacked out. Denies chest pain, shortness of breath , prodromal symptoms. He states that a witness did not describe him as shaking. Last drink was today. Past History - Past Medical History Allergies/Adverse Reactions: Allergies Allergy/AdvReac Type Severity Reaction Status Date / Time No Known Allergies Allergy Verified 01/04/18 01:22 Home Medications: Ambulatory Orders Quetiapine Fumarate [Seroquel -] 200 mg PO BID #60 tab 10/09/16 Albuterol Sulfate Inhaler - [Ventolin HFA Inhaler -] 2 inh PO Q4H PRN 11/06/17 Anemia: No Asthma: Yes Cancer: No Cardiac Disorders: No CVA: No COPD: No CHF: No DVT: No Dementia: No Diabetes: No GI Disorders: No Disorders: No HTN: Yes Hypercholesterolemia: No Kidney Stones: No Liver Disease: No Psychiatric Problems: Yes (Alcohol, cocaine abuse) Seizures: Yes (01/02/18) Thyroid Disease: No - Surgical History Abdominal Surgery: No Appendectomy: No Cardiac Surgery: No Cholecystectomy: No Lung Surgery: No Neurologic Surgery: No Orthopedic Surgery: No - Reproductive History Testicular Surgery: No - Suicide/Smoking/Psychosocial Hx Smoking History: Current every day smoker Have you smoked in the past 12 months: Yes Number of Cigarettes Smoked Daily: 6 Cigars Per Day: 0 Information on smoking cessation initiated: No 'Breaking Loose' booklet given: 01/03/18 Hx Alcohol Use: No Drug/Substance Use Hx: No Substance Use Type: Alcohol, Cocaine Hx Substance Use Treatment: Yes Review of Systems - Review of Systems Comments:: 01/04/18 01:12 GENERAL/CONSTITUTIONAL: No fever or chills. No weakness. HEAD, EYES, EARS, NOSE AND THROAT: No change in vision. No sore throat. CARDIOVASCULAR: No chest pain or shortness of breath RESPIRATORY: No cough, wheezing, or hemoptysis. GASTROINTESTINAL: No nausea, vomiting, diarrhea or constipation. GENITOURINARY: No dysuria, frequency, or change in urination. MUSCULOSKELETAL: No joint or muscle swelling or pain. No neck or back pain. SKIN: No rash NEUROLOGIC: No headache, vertigo, loss of consciousness, or change in strength/ sensation. ENDOCRINE: No increased thirst. No abnormal weight change HEMATOLOGIC/LYMPHATIC: No anemia, easy bleeding, or history of blood clots. ALLERGIC/IMMUNOLOGIC: No hives or skin allergy. *Physical Exam - Vital Signs Last Vital Signs Temp Pulse Resp BP Pulse Ox 97.4 F L 102 H 20 128/81 100 01/03/18 22:39 01/03/18 22:39 01/03/18 22:39 01/03/18 22:39 01/03/18 22:39 - Physical Exam Comments: 01/04/18 01:12 GENERAL: Awake, alert, and fully oriented, in no acute distress HEAD: Normocephalic, small 2x2cm abrasion along left aspect of head. EYES: PERRLA, EOMI, sclera anicteric, conjunctiva clear ENT: Auricles normal inspection, hearing grossly normal, nares patent, oropharynx clear without exudates. Moist mucosa NECK: Normal ROM, supple, no lymphadenopathy, JVD, or masses, no midline tenderness LUNGS: No distress, speaks full sentences, clear to auscultation bilaterally HEART: Regular rate and rhythm, normal S1 and S2, no murmurs, rubs or gallops, peripheral pulses normal and equal bilaterally. ABDOMEN: Soft, nontender, normoactive bowel sounds. No guarding, no rebound. No masses EXTREMITIES: Normal inspection, Normal range of motion, no edema. No clubbing or cyanosis. NEUROLOGICAL: Cranial nerves II through XII grossly intact. Normal speech, no focal sensorimotor deficits SKIN: Warm, Dry, normal turgor, no rashes or lesions noted. ED Treatment Course - RADIOLOGY Radiology Studies Ordered: Category Date Time Status HEAD CT WITHOUT CONTRAST [CT] Stat CT Scan 01/04/18 00:15 Taken - Medications Given in the ED: ED Medications Discontinued Medications Generic Name Dose Route Start Last Admin Trade Name Freq PRN Reason Stop Dose Admin Folic Acid 1 mg/ Thiamine HCl 1,000 mls @ 125 mls/hr 01/04/18 00:15 01/04/18 00:30 100 mg/ Multivitamins/Minerals IVPB 01/04/18 08:14 Not Given 10 ml/ Sodium Chloride ONCE ONE Medical Decision Making - Medical Decision Making 01/04/18 01:13 Patient is a 52M with history of cocaine and alcohol abuse here today for medical clearance. Vital signs stable. Head ct negative. EKG shows normal sinus rhythm with rate of 88. No st elevations/depressions. T wave inversions in V3/V4/V5. Normal intervals. Similar to prior EKG. Patient is medically cleared for detox. LOC is possibly caused by syncope, alcohol use, unlikely to be seizure. Discharged to [facility]. *DC/Admit/Observation/Transfer Diagnosis at time of Disposition: Alcohol abuse - Discharge Dispostion Disposition: [facility] Condition at time of disposition: Fair Decision to Admit order: No - Referrals - Patient Instructions - Post Discharge Activity
--- NOTE | 2018-01-04 10:11 | EKG ---
Test Reason : Blood Pressure : / mmHG Vent. Rate : 088 BPM Atrial Rate : 088 BPM P-R Int : 138 ms QRS Dur : 084 ms QT Int : 408 ms P-R-T Axes : 069 079 098 degrees QTc Int : 493 ms NORMAL SINUS RHYTHM POSSIBLE LEFT ATRIAL ENLARGEMENT T WAVE ABNORMALITY, CONSIDER ANTERIOR ISCHEMIA PROLONGED QT ABNORMAL ECG WHEN COMPARED WITH ECG OF 07-NOV-2017 11:01, T WAVE INVERSION NOW EVIDENT IN ANTERIOR LEADS Confirmed by RJ PEREZ MD ([id number]) on 01/04/2018 10:11:15 AM Referred By: Confirmed By:RJ PEREZ MD
== END 2018-01-04 02:00 | disposition other institution (70) ==
LOC: JER 22:30
DX: S00.01XA Abrasion of scalp, initial encounter (principal); W19.XXXA Unspecified fall, initial encounter; Y93.89 Activity, other specified; Y92.9 Unspecified place or not applicable; Y99.9 Unspecified external cause status; F10.10 Alcohol abuse, uncomplicated; F14.10 Cocaine abuse, uncomplicated; I10 Essential (primary) hypertension; J45.909 Unspecified asthma, uncomplicated; F17.210 Nicotine dependence, cigarettes, uncomplicated
CPT/HCPCS: 70450-TC; 93005; 93010; 99282-25; J7030

== ENCOUNTER 2018-02-06 13:09 | Inpatient (IN) | payer OTHER ==
--- NOTE | 2018-02-06 16:16 | HP ---
CIWA Score - CIWA Score Nausea/Vomitin Muscle Tremors: 4-Moderate,w/Arms Extend Anxiety: 3 Agitation: 1-Slight > Activity Paroxysmal Sweats: 1-Minimal Palms Moist Orientation: 1-Uncertain about Date Tacttile Disturbances: 1-Very Mild Itch/Numbness Auditory Disturbances: 1-Very Mild Visual Disturbances: 1-Very Mild Sensitivity Headache: 1-Very Mild CIWA-Ar Total Score: 16 Admission ROS BHS - HPI Chief Complaint: I want to get out of [place], I keep having black outs Allergies/Adverse Reactions: Allergies Allergy/AdvReac Type Severity Reaction Status Date / Time No Known Allergies Allergy Verified 01/04/18 01:22 History of Present Illness: 52 yo gentleman here for detox from alcohol. History of seizure, black outs. Last time here December 2017, relapsed shortly after. Exam Limitations: Clinical Condition - Ebola screening Have you traveled outside of the country in the last 21 days: No (N) Have you had contact with anyone from an Ebola affected area: No Have you been sick,other than usual withdrawal symptoms: No Do you have a fever: No - Review of Systems Constitutional: Loss of Appetite, Night Sweats, Changes in sleep, Weakness EENT: reports: Blurred Vision Respiratory: reports: No Symptoms reported Cardiac: reports: No Symptoms Reported GI: reports: Poor Appetite, Indigestion, Abdominal cramping : reports: Frequency Musculoskeletal: reports: Back Pain, Muscle Pain Integumentary: reports: Dryness Neuro: reports: Headache Endocrine: reports: No Symptoms Reported Hematology: reports: No Symptoms Reported Psychiatric: reports: Judgement Intact, Mood/Affect Appropiate, Anxious Other Systems: Reviewed and Negative Patient History - Patient Medical History Hx Anemia: No Hx Asthma: Yes (NO MED MGMT) Hx Chronic Obstructive Pulmonary Disease (COPD): No Hx Cancer: No Hx Cardiac Disorders: No Hx Congestive Heart Failure: No Hx Hypertension: Yes (NO MED MGT) Hx Hypercholesterolemia: No Hx Pacemaker: No HX Cerebrovascular Accident: No Hx Seizures: Yes (once ) Hx Dementia: No Hx Diabetes: No Hx Gastrointestinal Disorders: No Hx Liver Disease: No Hx Genitourinary Disorders: No Hx Sexually Transmitted Disorders: No Hx Renal Disease (ESRD): No Hx Thyroid Disease: No Hx Human Immunodeficiency Virus (HIV): No Hx Hepatitis C: No Hx Depression: Yes Hx Suicide Attempt: Yes (pill overdose in 2014) Hx Bipolar Disorder: Yes (hospitalized last month x 2 days at [place]) Hx Schizophrenia: Yes Other Medical History: back pain/sciatica - Patient Surgical History Past Surgical History: No Hx Neurologic Surgery: No Hx Cataract Extraction: No Hx Cardiac Surgery: No Hx Lung Surgery: No Hx Breast Surgery: No Hx Breast Biopsy: No Hx Abdominal Surgery: No Hx Appendectomy: No Hx Cholecystectomy: No Hx Genitourinary Surgery: No Hx Section: No Hx Orthopedic Surgery: No Anesthesia Reaction: No - PPD History Date: 09/14/17 Results: 0 mm - Reproductive History Patient is a Female of Child Bearing Age (11 -55 yrs old): No (male) - Smoking Cessation Smoking history: Current every day smoker Have you smoked in the past 12 months: Yes Aproximately how many cigarettes per day: 6 Cigars Per Day: 0 Hx Chewing Tobacco Use: No Initiated information on smoking cessation: Yes 'Breaking Loose' booklet given: 02/06/18 (give on floor) - Substance & Tx. History Hx Alcohol Use: Yes Hx Substance Use: Yes Substance Use Type: Alcohol, Cocaine Hx Substance Use Treatment: Yes (detox, rehab) - Substances Abused alcohol Route: Oral Frequency: Daily Amount used: 2 pints Age of first use: 16 Date of Last Use: 02/06/18 cocaine Route: Inhalation Frequency: Daily Amount used: $50 Age of first use: 33 Date of Last Use: 02/06/18 Family Disease History - Family Disease History Family Disease History: Other: Father (, drowned, hx etoh), Mother ( living, healthy), Brother (one - healthy), Sister (one - healthy) Admission Physical Exam [facility] - Vital Signs Vital Signs: Vital Signs - 24 hr 02/06/18 14:42 Temperature 97.8 F Pulse Rate 103 H Respiratory 18 Rate Blood Pressure 133/86 - Physical General Appearance: Yes: Nourished, Appropriately Dressed, Moderate Distress, Anxious HEENTM: Yes: Hearing grossly Normal, Normocephalic, Normal Voice, Pharynx Normal Respiratory: Yes: Normal Breath Sounds, No Respiratory Distress Neck: Yes: No masses,lesions,Nodules, Supple Breast: Yes: Breast Exam Deferred Cardiology: Yes: Regular Rhythm, Regular Rate Abdominal: Yes: Non Tender, Flat Genitourinary: Yes: Frequency Back: Yes: Normal Inspection Musculoskeletal: Yes: full range of Motion, Gait Steady Extremities: Yes: Normal Inspection, Non-Tender Neurological: Yes: Fully Oriented, Alert, Normal Mood/Affect, Normal Response Integumentary: Yes: Normal Color, Warm Lymphatic: Yes: Within Normal Limits - Diagnostic (1) Alcohol dependence with uncomplicated withdrawal Current Visit: No Status: Acute (2) Cocaine dependence Current Visit: No Status: Acute Qualifiers: Substance use status: uncomplicated Qualified Code(s): F14.20 - Cocaine dependence, uncomplicated (3) Nicotine dependence Current Visit: No Status: Acute Qualifiers: Nicotine product type: cigarettes Substance use status: in withdrawal Qualified Code(s): F17.213 - Nicotine dependence, cigarettes, with withdrawal (4) History of asthma Current Visit: No Status: Chronic (5) Sciatic leg pain Current Visit: No Status: Chronic Cleared for Admission [facility] - Detox or Rehab [facility] Level of Care: Medically Managed Detox Regimen/Protocol: Librium [facility] Breath Alcohol Content Breath Alcohol Content: 0.048 Urine Drug Screen - Results Drug Screen Negative: No Urine Drug Screen Results: DAVID-Cocaine, MET-Methamphetamine, BZO-Benzodiazepines , TCA-Tricyclic Antidepress
[2018-02-06] MEDS ORDERED: P-EPHED 60MG/TRIPROLIDI 2.5MG TABLET PO PRN (16:19)
[2018-02-06] MEDS ORDERED: MENTHOL/PHENOL 1 EACH UD MM PRN (16:19)
[2018-02-06] MEDS ORDERED: chlordiazePOXIDE HCL 25 MG CAPSULE PO PRN (16:19)
[2018-02-06] MEDS ORDERED: MAG HYDROX/AL HYDROX/SIMETH 30 ML UNIT-DOSE CUP PO PRN (16:19)
[2018-02-06] MEDS ORDERED: MAGNESIUM HYDROX 2400MG/30ML ORAL SUSPENSION 30 ML CUP PO PRN (16:19)
[2018-02-06] MEDS ORDERED: MAGNESIUM CITRATE 300 ML BOTTLE PO PRN (16:19)
[2018-02-06] MEDS ORDERED: ACETAMINOPHEN 325 MG TABLET (FP) PO PRN (16:19)
[2018-02-06] MEDS ORDERED: LOPERAMIDE HCL 2 MG CAPSULE PO PRN (16:19)
[2018-02-06] MEDS ORDERED: guaiFENesin/D-METHORPHAN HB 10 ML UNIT-DOSE CUPS PO PRN (16:19)
[2018-02-06] MEDS ORDERED: IBUPROFEN 400 MG TABLET (FP) PO PRN (16:19)
[2018-02-06] MEDS: THIAMINE HCL 100 MG TABLET (FP) PO SCH (22:34)
[2018-02-06] MEDS: chlordiazePOXIDE HCL 25 MG CAPSULE PO SCH (22:35)
[2018-02-06] MEDS: MELATONIN 5 MG TABLETS PO PRN (22:36)
[2018-02-07] MEDS: chlordiazePOXIDE HCL 25 MG CAPSULE PO SCH ×4 (05:05→22:06)
--- NOTE | 2018-02-07 09:45 | PN ---
S CIWA - CIWA Score Nausea/Vomitin-Mild Nausea/No Vomiting Muscle Tremors: 1-None Visible, but [place] Anxiety: 0-No Anxiety, at Ease Agitation: 0-Normal Activity Paroxysmal Sweats: No Perspiration Orientation: 0-Oriented Tacttile Disturbances: 0-None Auditory Disturbances: 0-None Visual Disturbances: 0-None Headache: 0-None Present CIWA-Ar Total Score: 2 BHS Progress Note (SOAP) Subjective: pt came in yesterday, feeling fine today O: Vital Signs - 24 hr 02/06/18 02/06/18 02/07/18 14:42 22:21 00:30 Temperature 97.8 F 98.5 F Pulse Rate 103 H 108 H Respiratory 18 20 18 Rate Blood Pressure 133/86 135/84 02/07/18 02/07/18 03:30 05:59 Temperature 97.7 F Pulse Rate 73 Respiratory 18 18 Rate Blood Pressure 112/73 a/p: no lab results, continue detox protocol- pt states he is doing fine
[2018-02-07 10:46] LABS: URINE APPEARANCE TURBID; URINE BILIRUBIN NEGATIVE (<2.0 mg/dL); URINE COLOR YELLOW; URINE GLUCOSE (UA) NEGATIVE (NEGATIVE); URINE KETONE NEGATIVE (NEGATIVE); URINE LEUK ESTERASE NEGATIVE (NEGATIVE); URINE NITRITE NEGATIVE (NEGATIVE); URINE PROTEIN NEGATIVE (NEGATIVE); URINE UROBILINOGEN 4.0 E.U/dl mg/dL (0.2-1.0)
[2018-02-07 11:01] LABS: CALCIUM 8.3 mg/dL (8.5-10.1); CHLORIDE 103 mmol/L (98-107); SODIUM 141 mmol/L (136-145)
[2018-02-07 11:07] LABS: ALK PHOS 68 U/L (45-117); BILIRUBIN,TOTAL 0.4 mg/dL (0.2-1.0); BLOOD UREA NITROGEN 8 mg/dL (7-18); CO2 33 mmol/L (21-32); GLUCOSE,RANDOM 83 mg/dL (74-106); SGOT/AST 26 U/L (15-37); SGPT/ALT 27 U/L (12-78); TOT PROT 5.8 g/dl (6.4-8.2)
[2018-02-07 11:32] LABS: HEMATOCRIT 37.1 % (35.4-49); HEMOGLOBIN 11.7 GM/dL (11.7-16.9); MCH 22.8 pg (25.7-33.7); MCHC 31.4 g/dl (32.0-35.9); MEAN CELL VOLUME 72.7 fl (80-96); MEAN PLT VOLUME 8.7 fl (7.5-11.1); PLATELET COUNT 227 K/MM3 (134-434); RBC 5.11 M/mm3 (4.00-5.60); RDW 17.6 % (11.9-15.9); WHITE BLOOD COUNT 2.8 K/mm3 (4.0-10.0)
[2018-02-07] MEDS: PRENATAL VITAMINS W/ FOLIC ACID TABLET (FP) PO SCH (12:03)
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
[2018-02-07] MEDS: THIAMINE HCL 100 MG TABLET (FP) PO SCH (22:06)
[2018-02-07] MEDS: QUEtiapine FUMARATE 200 MG TABLET PO SCH (22:06)
[2018-02-08] MEDS: chlordiazePOXIDE HCL 25 MG CAPSULE PO SCH ×3 (05:24→18:01)
--- NOTE | 2018-02-08 10:05 | PN ---
S CIWA - CIWA Score Nausea/Vomitin-No Nausea/No Vomiting Muscle Tremors: 4-Moderate,w/Arms Extend Anxiety: 4-Mod. Anxious/Guarded Agitation: 4-Moderately Restless Paroxysmal Sweats: 1-Minimal Palms Moist Orientation: 0-Oriented Tacttile Disturbances: 0-None Auditory Disturbances: 0-None Visual Disturbances: 0-None Headache: 0-None Present CIWA-Ar Total Score: 13 BHS Progress Note (SOAP) Subjective: ANXIETY,TREMORS, SWEATS, FATIGUE. Objective: 02/08/18 10:08 Vital Signs 02/08/18 02/08/18 02/08/18 03:30 06:00 06:30 Temperature 97.6 F Pulse Rate 68 Respiratory 18 18 18 Rate Blood Pressure 107/70 02/08/18 09:03 Temperature 97.0 F L Pulse Rate 76 Respiratory 18 Rate Blood Pressure 103/66 Laboratory Tests 02/07/18 02/07/18 02/07/18 07:40 07:40 07:40 WBC 2.8 L RBC 5.11 Hgb 11.7 Hct 37.1 MCV 72.7 L MCH 22.8 L MCHC 31.4 L RDW 17.6 H Plt Count 227 MPV 8.7 Sodium 141 Potassium 4.0 Chloride 103 Carbon Dioxide 33 H Anion Gap No Result Required. BUN 8 Creatinine 1.0 Creat Clearance w eGFR > 60 Random Glucose 83 Calcium 8.3 L Total Bilirubin 0.4 AST 26 ALT 27 Alkaline Phosphatase 68 Total Protein 5.8 L Albumin 3.0 L Urine Color Urine Appearance Urine pH Ur Specific [place] Urine Protein Urine Glucose (UA) Urine Ketones Urine Blood Urine Nitrite Urine Bilirubin Urine Urobilinogen Ur Leukocyte Esterase RPR Titer Nonreactive 02/07/18 08:20 WBC RBC Hgb Hct MCV MCH MCHC RDW Plt Count MPV Sodium Potassium Chloride Carbon Dioxide Anion Gap BUN Creatinine Creat Clearance w eGFR Random Glucose Calcium Total Bilirubin AST ALT Alkaline Phosphatase Total Protein Albumin Urine Color Yellow Urine Appearance Turbid Urine pH 5.0 Ur Specific [place] 1.029 Urine Protein Negative Urine Glucose (UA) Negative Urine Ketones Negative Urine Blood Negative Urine Nitrite Negative Urine Bilirubin Negative Urine Urobilinogen 4.0 e.u/dl Ur Leukocyte Esterase Negative RPR Titer Assessment: 02/08/18 10:08 WITHDRAWAL SX Plan: CONTINUE DETOX
[2018-02-08] MEDS: PRENATAL VITAMINS W/ FOLIC ACID TABLET (FP) PO SCH (10:25)
--- NOTE | 2018-02-08 14:20 | EKG ---
Test Reason : Blood Pressure : / mmHG Vent. Rate : 079 BPM Atrial Rate : 079 BPM P-R Int : 152 ms QRS Dur : 088 ms QT Int : 432 ms P-R-T Axes : 064 077 093 degrees QTc Int : 495 ms NORMAL SINUS RHYTHM MINIMAL VOLTAGE CRITERIA FOR LVH, MAY BE NORMAL VARIANT T WAVE ABNORMALITY, CONSIDER ANTEROLATERAL ISCHEMIA PROLONGED QT ABNORMAL ECG WHEN COMPARED WITH ECG OF 04-JAN-2018 00:43, NO SIGNIFICANT CHANGE WAS FOUND Confirmed by GENE FERNANDEZ MD ([id number]) on 02/08/2018 2:19:51 PM Referred By: Confirmed By:GENE FERNANDEZ MD
[2018-02-08] MEDS: chlordiazePOXIDE 5 MG CAPSULE PO SCH (22:08)
[2018-02-08] MEDS: QUEtiapine FUMARATE 200 MG TABLET PO SCH (22:08)
[2018-02-08] MEDS: THIAMINE HCL 100 MG TABLET (FP) PO SCH (22:08)
[2018-02-08] MEDS: MELATONIN 5 MG TABLETS PO PRN (22:08)
[2018-02-09] MEDS: chlordiazePOXIDE 5 MG CAPSULE PO SCH ×2 (06:00→10:07)
[2018-02-09] MEDS: PRENATAL VITAMINS W/ FOLIC ACID TABLET (FP) PO SCH (10:07)
--- NOTE | 2018-02-09 10:15 | PN ---
BHS Progress Note (SOAP) Subjective: SWEATS,ANXIETY,FATIGUE. Objective: 02/09/18 10:14 Vital Signs 02/09/18 02/09/18 02/09/18 03:30 05:52 06:30 Temperature 97.2 F L Pulse Rate 70 Respiratory 18 18 18 Rate Blood Pressure 101/61 02/09/18 09:35 Temperature 97.6 F Pulse Rate 90 Respiratory 18 Rate Blood Pressure 112/72 Laboratory Tests 02/07/18 02/07/18 02/07/18 07:40 07:40 07:40 WBC 2.8 L RBC 5.11 Hgb 11.7 Hct 37.1 MCV 72.7 L MCH 22.8 L MCHC 31.4 L RDW 17.6 H Plt Count 227 MPV 8.7 Sodium 141 Potassium 4.0 Chloride 103 Carbon Dioxide 33 H Anion Gap No Result Required. BUN 8 Creatinine 1.0 Creat Clearance w eGFR > 60 Random Glucose 83 Calcium 8.3 L Total Bilirubin 0.4 AST 26 ALT 27 Alkaline Phosphatase 68 Total Protein 5.8 L Albumin 3.0 L Urine Color Urine Appearance Urine pH Ur Specific [place] Urine Protein Urine Glucose (UA) Urine Ketones Urine Blood Urine Nitrite Urine Bilirubin Urine Urobilinogen Ur Leukocyte Esterase RPR Titer Nonreactive 02/07/18 08:20 WBC RBC Hgb Hct MCV MCH MCHC RDW Plt Count MPV Sodium Potassium Chloride Carbon Dioxide Anion Gap BUN Creatinine Creat Clearance w eGFR Random Glucose Calcium Total Bilirubin AST ALT Alkaline Phosphatase Total Protein Albumin Urine Color Yellow Urine Appearance Turbid Urine pH 5.0 Ur Specific [place] 1.029 Urine Protein Negative Urine Glucose (UA) Negative Urine Ketones Negative Urine Blood Negative Urine Nitrite Negative Urine Bilirubin Negative Urine Urobilinogen 4.0 e.u/dl Ur Leukocyte Esterase Negative RPR Titer Assessment: 02/09/18 10:14 WITHDRAWAL SX Plan: CONTINUE DETOX
[2018-02-09 12:50] VITALS: BP 104/65; PULSE 78; TEMP 96
--- NOTE | 2018-02-09 16:54 | DS ---
[facility] Detox Discharge Summary Admission Date: 02/06/18 Discharge Date: 02/09/18 - History Present History: Alcohol Dependence, Cocaine Dependence Additional Comments: PT SIGNED OUT AMA FOR PERSONAL REASONS. FOLLOW UP AT [facility] WITH YOUR PRIMARY CARE FOR MEDICAL MANAGEMENT. Pertinent Past History: PLEASE SEE DX BELOW - Physical Exam Results Vital Signs: Vital Signs Temperature 96.0 F L 02/09/18 12:49 Pulse Rate 78 02/09/18 12:49 Respiratory Rate 20 02/09/18 12:49 Blood Pressure 104/65 02/09/18 12:49 O2 Sat by Pulse Oximetry (%) Pertinent Admission Physical Exam Findings: WITHDRAWAL SX - Treatment Hospital Course: Discharged Condition Good - Medication Discharge Medications: Ambulatory Orders Quetiapine Fumarate [Seroquel -] 200 mg PO BID #60 tab 10/09/16 Albuterol Sulfate Inhaler - [Ventolin HFA Inhaler -] 2 inh PO Q4H PRN 11/06/17 - Diagnosis (1) History of asthma Status: Chronic (2) Sciatic leg pain Status: Chronic (3) Alcohol dependence with uncomplicated withdrawal Status: Acute (4) Cocaine dependence Status: Acute Qualifiers: Substance use status: uncomplicated Qualified Code(s): F14.20 - Cocaine dependence, uncomplicated (5) Nicotine dependence Status: Acute Qualifiers: Nicotine product type: cigarettes Substance use status: in withdrawal Qualified Code(s): F17.213 - Nicotine dependence, cigarettes, with withdrawal - AMA Did Patient Leave Against Medical Advice: Yes (AMA)
[2018-02-09] MEDS ORDERED: chlordiazePOXIDE HCL 10 MG CAPSULE PO SCH (23:00)
== END 2018-02-09 15:10 | disposition left against medical advice (07) | DRG 770 ==
LOC: YASAS 13:09 → Y3N 17:06
PROC: HZ2ZZZZ Detoxification Services for Substance Abuse Treatment (ICD-10-PCS; principal; 2018-02-06)
DX: F10.230 Alcohol dependence with withdrawal, uncomplicated (principal); F14.20 Cocaine dependence, uncomplicated; F17.213 Nicotine dependence, cigarettes, with withdrawal; F31.9 Bipolar disorder, unspecified; F43.10 Post-traumatic stress disorder, unspecified; G47.00 Insomnia, unspecified; I10 Essential (primary) hypertension; J45.909 Unspecified asthma, uncomplicated; M54.30 Sciatica, unspecified side; Z86.69 Personal history of other diseases of the nervous system and sense organs; Z91.5 Personal history of self-harm
CPT/HCPCS: 36415; 80053; 81003; 85027; 86593; 93005; 93010

== ENCOUNTER 2018-05-23 15:35 | Inpatient (IN) | payer OTHER ==
[2018-05-23 17:09] VITALS: BMI 20.6
--- NOTE | 2018-05-23 18:00 | HP ---
CIWA Score Nausea/Vomitin-Mild Nausea/No Vomiting Muscle Tremors: 2 Anxiety: 3 Agitation: 2 Paroxysmal Sweats: 3 Orientation: 0-Oriented Tacttile Disturbances: 0-None Auditory Disturbances: 0-None Visual Disturbances: 0-None Headache: 0-None Present CIWA-Ar Total Score: 11 - Admission Criteria [facility]ASAS Guidelines: Admission for Medically Managed Detox: Requires at least one of the followin. CIWA greater than 12 2. Seizures within the past 24 hours 3. Delirium tremens within the past 24 hours 4. Hallucinations within the past 24 hours 5. Acute intervention needed for co occurring medical disorder 6. Acute intervention needed for co occurring psychiatric disorder 7. Severe withdrawal that cannot be handled at a lower level of care (continued vomiting, continued diarrhea, abnormal vital signs) requiring intravenous medication and/or fluids 8. Patient presents the following: Seizures, delirium tremens or hallucinations in the past 12 hours Admission Criteria Met: Admission criteria met Admission ROS S - [facility] Chief Complaint: "I want detox" Allergies/Adverse Reactions: Allergies Allergy/AdvReac Type Severity Reaction Status Date / Time No Known Allergies Allergy Verified 05/23/18 17:16 History of Present Illness: 52 y/o male with a hx of alcohol and cocaine addiction presents for detox. Pt was last here in feb. DEnies alcohol induced seizures but gets blackouts, his last known blackout was in December. Admits to Suicidal attempt in the past ("a couple of yrs back"), denies current SI/HI Hx - PTSD, HTN, sciatica P states he smokes about 6 cig/day, declines NRT Exam Limitations: No Limitations - Ebola screening Have you traveled outside of the country in the last 21 days: No Have you had contact with anyone from an Ebola affected area: No Have you been sick,other than usual withdrawal symptoms: No Do you have a fever: No - Review of Systems Constitutional: Loss of Appetite, Night Sweats, Changes in sleep, Unintentional Wgt. Loss EENT: reports: Blurred Vision, Dental Problems (missing teeth) Respiratory: reports: No Symptoms reported Cardiac: reports: No Symptoms Reported GI: reports: Constipated, Nausea : reports: No Symptoms Reported Musculoskeletal: reports: Back Pain Integumentary: reports: No Symptoms Reported Neuro: reports: Headache Endocrine: reports: No Symptoms Reported Hematology: reports: No Symptoms Reported Psychiatric: reports: Orientated x3, Anxious Other Systems: Reviewed and Negative Patient History - Patient Medical History Hx Anemia: No Hx Asthma: No (DENIES HISTORY OF ASTHMA) Hx Chronic Obstructive Pulmonary Disease (COPD): No Hx Cancer: No Hx Cardiac Disorders: No Hx Congestive Heart Failure: No Hx Hypertension: Yes (NOt on meds) Hx Hypercholesterolemia: No Hx Pacemaker: No HX Cerebrovascular Accident: No Hx Seizures: No (DENIES HISTORY OF SEIZURE) Hx Dementia: No Hx Diabetes: No Hx Gastrointestinal Disorders: No Hx Liver Disease: No Hx Genitourinary Disorders: No Hx Sexually Transmitted Disorders: No Hx Renal Disease (ESRD): No Hx Thyroid Disease: No Hx Human Immunodeficiency Virus (HIV): No Hx Hepatitis C: No Hx Depression: Yes Hx Suicide Attempt: Yes (pill overdose in 2014) Hx Bipolar Disorder: Yes (hospitalized last month x 2 days at [place]) Hx Schizophrenia: No - Patient Surgical History Past Surgical History: No Hx Neurologic Surgery: No Hx Cataract Extraction: No Hx Cardiac Surgery: No Hx Lung Surgery: No Hx Breast Surgery: No Hx Breast Biopsy: No Hx Abdominal Surgery: No Hx Appendectomy: No Hx Cholecystectomy: No Hx Genitourinary Surgery: No Hx Section: No Hx Orthopedic Surgery: No Anesthesia Reaction: No - PPD History Previous Implant?: Yes Documented Results: Negative w/proof Implanted On Prior [facility] Admission?: Yes Date: 02/08/18 Results: NEGATIVE PPD to be Administered?: Yes - Reproductive History Patient is a Female of Child Bearing Age (11 -55 yrs old): No - Smoking Cessation Smoking history: Current every day smoker Have you smoked in the past 12 months: Yes Aproximately how many cigarettes per day: 6 Cigars Per Day: 0 Hx Chewing Tobacco Use: No Initiated information on smoking cessation: Yes 'Breaking Loose' booklet given: 05/23/18 - Substance & Tx. History Hx Alcohol Use: Yes Hx Substance Use: Yes Substance Use Type: Alcohol, Cocaine Hx Substance Use Treatment: Yes - Substances Abused Alcohol Route: Oral Frequency: Daily Amount used: 3 PINTS VODKA Age of first use: 16 Date of Last Use: 05/23/18 Cocaine Route: Smoking Frequency: Daily Amount used: $100-$150 Age of first use: 33 Date of Last Use: 05/22/18 Family Disease History - Family Disease History Family Disease History: Other: Father (, drowned, hx etoh), Mother ( living, healthy), Brother (one - healthy), Sister (one - healthy) Admission Physical Exam [facility] - Vital Signs Vital Signs: Vital Signs - 24 hr 05/23/18 17:07 Temperature 98.4 F Pulse Rate 94 H Respiratory 18 Rate Blood Pressure 135/85 - Physical General Appearance: Yes: Mild Distress, Anxious HEENTM: Yes: Other (missing some upper and lower teeth) Respiratory: Yes: Lungs Clear, No Respiratory Distress, No Accessory Muscle Use Neck: Yes: Trachea in good position Breast: Yes: Breast Exam Deferred Cardiology: Yes: Regular Rhythm Abdominal: Yes: Non Tender, Soft Genitourinary: Yes: Within Normal Limits, Hesitency Back: Yes: Normal Inspection Musculoskeletal: Yes: full range of Motion, Other (gait steady s/p sciatica) Extremities: Yes: Normal Capillary Refill, Normal Inspection, Normal Range of Motion Neurological: Yes: Fully Oriented, Alert Integumentary: Yes: Normal Color, Dry, Warm Lymphatic: Yes: Within Normal Limits - Diagnostic (1) Alcohol dependence with uncomplicated withdrawal Current Visit: Yes Status: Acute (2) Nicotine dependence Current Visit: Yes Status: Chronic Qualifiers: Nicotine product type: cigarettes Substance use status: in withdrawal Qualified Code(s): F17.213 - Nicotine dependence, cigarettes, with withdrawal (3) Cocaine dependence Current Visit: Yes Status: Chronic Qualifiers: Substance use status: uncomplicated Qualified Code(s): F14.20 - Cocaine dependence, uncomplicated (4) Bipolar disorder Current Visit: Yes Status: Chronic Qualifiers: Active/Remission status: remission status unspecified Qualified Code(s): F31.9 - Bipolar disorder, unspecified Comment: As per records and self-report.On medications. (5) History of hypertension Current Visit: Yes Status: Chronic (6) PTSD (post-traumatic stress disorder) Current Visit: Yes Status: Chronic Comment: As per self-report and existing records. (7) Sciatic leg pain Current Visit: Yes Status: Chronic (8) Depressed affect Current Visit: Yes Status: Suspected (9) Anemia Current Visit: Yes Status: Suspected Qualifiers: Anemia type: unspecified type Qualified Code(s): D64.9 - Anemia, unspecified Cleared for Admission [facility] - Detox or Rehab [facility] Level of Care: Medically Managed Detox Regimen/Protocol: Librium [facility] Breath Alcohol Content Breath Alcohol Content: 0.013 Urine Drug Screen - Results Drug Screen Negative: No Urine Drug Screen Results: DAVID-Cocaine, BZO-Benzodiazepines
[2018-05-23] MEDS ORDERED: MENTHOL/PHENOL 1 EACH UD MM PRN (18:16)
[2018-05-23] MEDS ORDERED: P-EPHED 60MG/TRIPROLIDI 2.5MG TABLET PO PRN (18:16)
[2018-05-23] MEDS ORDERED: MAG HYDROX/AL HYDROX/SIMETH 30 ML UNIT-DOSE CUP PO PRN (18:16)
[2018-05-23] MEDS ORDERED: guaiFENesin/D-METHORPHAN HB 10 ML UNIT-DOSE CUPS PO PRN (18:16)
[2018-05-23] MEDS ORDERED: MAGNESIUM CITRATE 300 ML BOTTLE PO PRN (18:16)
[2018-05-23] MEDS ORDERED: chlordiazePOXIDE HCL 25 MG CAPSULE PO PRN (18:16)
[2018-05-23] MEDS ORDERED: IBUPROFEN 400 MG TABLET (FP) PO PRN (18:16)
[2018-05-23] MEDS ORDERED: MAGNESIUM HYDROX 2400MG/30ML ORAL SUSPENSION 30 ML CUP PO PRN (18:16)
[2018-05-23] MEDS ORDERED: LOPERAMIDE HCL 2 MG CAPSULE PO PRN (18:16)
[2018-05-23] MEDS ORDERED: ACETAMINOPHEN 325 MG TABLET (FP) PO PRN (18:16)
[2018-05-23] MEDS ORDERED: chlordiazePOXIDE HCL 25 MG CAPSULE PO ONE (19:00)
[2018-05-23] MEDS ORDERED: MELATONIN 5 MG TABLETS PO PRN (22:00)
[2018-05-23] MEDS: chlordiazePOXIDE HCL 25 MG CAPSULE PO SCH (22:49)
[2018-05-23] MEDS: THIAMINE HCL 100 MG TABLET (FP) PO SCH (22:49)
[2018-05-24] MEDS: chlordiazePOXIDE HCL 25 MG CAPSULE PO SCH ×4 (06:01→22:26)
[2018-05-24 10:11] LABS: HEMATOCRIT 40.1 % (35.4-49); HEMOGLOBIN 12.1 GM/dL (11.7-16.9); MCH 22.1 pg (25.7-33.7); MCHC 30.1 g/dl (32.0-35.9); MEAN CELL VOLUME 73.3 fl (80-96); MEAN PLT VOLUME 8.6 fl (7.5-11.1); PLATELET COUNT 259 K/MM3 (134-434); RBC 5.47 M/mm3 (4.00-5.60); RDW 16.4 % (11.9-15.9); WHITE BLOOD COUNT 3.9 K/mm3 (4.0-10.0)
[2018-05-24 10:16] LABS: ALBUMIN 3.1 g/dl (3.4-5.0); ALK PHOS 65 U/L (45-117); ANION GAP 5 MMOL/L (8-16); BILIRUBIN,TOTAL 0.3 mg/dL (0.2-1); BLOOD UREA NITROGEN 9 mg/dL (7-18); CALCIUM 8.4 mg/dL (8.5-10.1); CHLORIDE 105 mmol/L (98-107); CO2 30 mmol/L (21-32); CREATININE 1.2 mg/dL (0.55-1.3); GLUCOSE,RANDOM 78 mg/dL (74-106); POTASSIUM 4.5 mmol/L (3.5-5.1); SGOT/AST 18 U/L (15-37); SGPT/ALT 19 U/L (13-61); SODIUM 140 mmol/L (136-145); TOT PROT 5.7 g/dl (6.4-8.2)
[2018-05-24] MEDS: PRENATAL VITAMINS W/ FOLIC ACID TABLET (FP) PO SCH (10:28)
--- NOTE | 2018-05-24 13:28 | PN ---
S CIWA - CIWA Score Nausea/Vomitin-Mild Nausea/No Vomiting Muscle Tremors: 4-Moderate,w/Arms Extend Anxiety: 2 Agitation: 3 Paroxysmal Sweats: 1-Minimal Palms Moist Orientation: 0-Oriented Tacttile Disturbances: 0-None Auditory Disturbances: 0-None Visual Disturbances: 0-None Headache: 1-Very Mild CIWA-Ar Total Score: 12 BHS Progress Note (SOAP) Subjective: tremor sweat restlessness anxiety trouble sleep through the night Objective: 05/24/18 13:27 Vital Signs Temperature 96.9 F L 05/24/18 13:06 Pulse Rate 81 05/24/18 13:06 Respiratory Rate 18 05/24/18 13:06 Blood Pressure 95/62 05/24/18 13:06 O2 Sat by Pulse Oximetry (%) Laboratory Last Values WBC 3.9 K/mm3 (4.0-10.0) L 05/24/18 07:00 RBC 5.47 M/mm3 (4.00-5.60) 05/24/18 07:00 Hgb 12.1 GM/dL (11.7-16.9) 05/24/18 07:00 Hct 40.1 % (35.4-49) 05/24/18 07:00 MCV 73.3 fl (80-96) L 05/24/18 07:00 MCH 22.1 pg (25.7-33.7) L 05/24/18 07:00 MCHC 30.1 g/dl (32.0-35.9) L 05/24/18 07:00 RDW 16.4 % (11.9-15.9) H 05/24/18 07:00 Plt Count 259 K/MM3 (134-434) 05/24/18 07:00 MPV 8.6 fl (7.5-11.1) 05/24/18 07:00 Sodium 140 mmol/L (136-145) 05/24/18 07:00 Potassium 4.5 mmol/L (3.5-5.1) 05/24/18 07:00 Chloride 105 mmol/L (98-107) 05/24/18 07:00 Carbon Dioxide 30 mmol/L (21-32) 05/24/18 07:00 Anion Gap 5 MMOL/L (8-16) L 05/24/18 07:00 BUN 9 mg/dL (7-18) 05/24/18 07:00 Creatinine 1.2 mg/dL (0.55-1.3) 05/24/18 07:00 Creat Clearance w eGFR > 60 (>60) 05/24/18 07:00 Random Glucose 78 mg/dL (74-106) 05/24/18 07:00 Calcium 8.4 mg/dL (8.5-10.1) L 05/24/18 07:00 Total Bilirubin 0.3 mg/dL (0.2-1) 05/24/18 07:00 AST 18 U/L (15-37) 05/24/18 07:00 ALT 19 U/L (13-61) 05/24/18 07:00 Alkaline Phosphatase 65 U/L (45-117) 05/24/18 07:00 Total Protein 5.7 g/dl (6.4-8.2) L 05/24/18 07:00 Albumin 3.1 g/dl (3.4-5.0) L 05/24/18 07:00 RPR Titer Nonreactive (NONREACTIVE) 05/24/18 07:00 lab noted Assessment: 05/24/18 13:28 withdrawal sx Plan: continue detox
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
[2018-05-24] MEDS: QUEtiapine FUMARATE 50 MG TABLET PO SCH (22:26)
[2018-05-24] MEDS: THIAMINE HCL 100 MG TABLET (FP) PO SCH (22:26)
[2018-05-25] MEDS: chlordiazePOXIDE HCL 25 MG CAPSULE PO SCH ×3 (06:15→17:12)
[2018-05-25] MEDS: PRENATAL VITAMINS W/ FOLIC ACID TABLET (FP) PO SCH (11:04)
--- NOTE | 2018-05-25 14:22 | PN ---
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 tremor sweat gi distress Objective: 05/25/18 14:28 Vital Signs Temperature 97.0 F L 05/25/18 09:11 Pulse Rate 86 05/25/18 09:11 Respiratory Rate 18 05/25/18 09:11 Blood Pressure 101/62 05/25/18 09:11 O2 Sat by Pulse Oximetry (%) Laboratory Last Values WBC 3.9 K/mm3 (4.0-10.0) L 05/24/18 07:00 RBC 5.47 M/mm3 (4.00-5.60) 05/24/18 07:00 Hgb 12.1 GM/dL (11.7-16.9) 05/24/18 07:00 Hct 40.1 % (35.4-49) 05/24/18 07:00 MCV 73.3 fl (80-96) L 05/24/18 07:00 MCH 22.1 pg (25.7-33.7) L 05/24/18 07:00 MCHC 30.1 g/dl (32.0-35.9) L 05/24/18 07:00 RDW 16.4 % (11.9-15.9) H 05/24/18 07:00 Plt Count 259 K/MM3 (134-434) 05/24/18 07:00 MPV 8.6 fl (7.5-11.1) 05/24/18 07:00 Sodium 140 mmol/L (136-145) 05/24/18 07:00 Potassium 4.5 mmol/L (3.5-5.1) 05/24/18 07:00 Chloride 105 mmol/L (98-107) 05/24/18 07:00 Carbon Dioxide 30 mmol/L (21-32) 05/24/18 07:00 Anion Gap 5 MMOL/L (8-16) L 05/24/18 07:00 BUN 9 mg/dL (7-18) 05/24/18 07:00 Creatinine 1.2 mg/dL (0.55-1.3) 05/24/18 07:00 Creat Clearance w eGFR > 60 (>60) 05/24/18 07:00 Random Glucose 78 mg/dL (74-106) 05/24/18 07:00 Calcium 8.4 mg/dL (8.5-10.1) L 05/24/18 07:00 Total Bilirubin 0.3 mg/dL (0.2-1) 05/24/18 07:00 AST 18 U/L (15-37) 05/24/18 07:00 ALT 19 U/L (13-61) 05/24/18 07:00 Alkaline Phosphatase 65 U/L (45-117) 05/24/18 07:00 Total Protein 5.7 g/dl (6.4-8.2) L 05/24/18 07:00 Albumin 3.1 g/dl (3.4-5.0) L 05/24/18 07:00 RPR Titer Nonreactive (NONREACTIVE) 05/24/18 07:00 lab noted Assessment: 05/25/18 14:30 withdrawal sx Plan: continue detox
[2018-05-25] MEDS: THIAMINE HCL 100 MG TABLET (FP) PO SCH (22:05)
[2018-05-25] MEDS: QUEtiapine FUMARATE 50 MG TABLET PO SCH (22:05)
[2018-05-25] MEDS: chlordiazePOXIDE 5 MG CAPSULE PO SCH (22:05)
[2018-05-26] MEDS: chlordiazePOXIDE 5 MG CAPSULE PO SCH ×2 (05:33→10:13)
[2018-05-26] MEDS: PRENATAL VITAMINS W/ FOLIC ACID TABLET (FP) PO SCH (10:13)
--- NOTE | 2018-05-26 10:58 | PN ---
S Progress Note Note: PATIENT CONTINUES WITH DETOX REGIMEN. STATES HE FEELS BETTER JUST TIRED. Vital Signs Temperature 97.0 F L 05/26/18 06:11 Pulse Rate 73 05/26/18 06:11 Respiratory Rate 18 05/26/18 06:11 Blood Pressure 102/72 05/26/18 06:11 O2 Sat by Pulse Oximetry (%) Laboratory Tests 05/24/18 05/24/18 05/24/18 07:00 07:00 07:00 WBC 3.9 L RBC 5.47 Hgb 12.1 Hct 40.1 MCV 73.3 L MCH 22.1 L MCHC 30.1 L RDW 16.4 H Plt Count 259 MPV 8.6 Sodium 140 Potassium 4.5 Chloride 105 Carbon Dioxide 30 Anion Gap 5 L BUN 9 Creatinine 1.2 Creat Clearance w eGFR > 60 Random Glucose 78 Calcium 8.4 L Total Bilirubin 0.3 AST 18 ALT 19 Alkaline Phosphatase 65 Total Protein 5.7 L Albumin 3.1 L RPR Titer Nonreactive PE: ALERT AND ORIENTED X 3 SKIN WARM AND DRY EXT FULL ROM AMB AD [facility]OTT A/P: WITHDRAWAL SX CONTINUE DETOX FOR D/C IN AM
[2018-05-26 13:21] VITALS: BP 111/71; PULSE 74; TEMP 98.8
--- NOTE | 2018-05-26 14:06 | DS ---
[facility] Detox Discharge Summary Admission Date: 05/23/18 Discharge Date: 05/26/18 - History Present History: Alcohol Dependence - Physical Exam Results Vital Signs: Vital Signs Temperature 98.8 F 05/26/18 13:20 Pulse Rate 74 05/26/18 13:20 Respiratory Rate 18 05/26/18 13:20 Blood Pressure 111/71 05/26/18 13:20 O2 Sat by Pulse Oximetry (%) Pertinent Admission Physical Exam Findings: PATIENT REQUESTED EARLY DISCHARGE HE HAS TO LEAVE TODAY TO [facility]. PATIENT TOLERATED DETOX REGIMEN WITHOUT ADVERSE EVENT. CLINICALLY STABLE. PATIENT DENIES SI/HI. PATIENT ENCOURAGED TO ATTEND GROUP MEETINGS TO PREVENT RELAPSE AND TO SEEK MEDICAL ATTENTION IF WITHDRAWAL SX OCCUR. D/C INSTRUCTIONS PROVIDED TO PATIENT BY STAFF. - Treatment Hospital Course: Detox Protocol Followed, Detoxed Safely, Responded well, Discharged Condition Good - Medication Discharge Medications: Ambulatory Orders Quetiapine Fumarate [Seroquel -] 200 mg PO BID #60 tab 10/09/16 - Diagnosis (1) Alcohol dependence with uncomplicated withdrawal Current Visit: Yes Status: Resolved - AMA Did Patient Leave Against Medical Advice: No
[2018-05-26] MEDS ORDERED: chlordiazePOXIDE HCL 10 MG CAPSULE PO SCH (23:00)
== END 2018-05-26 13:52 | disposition home or self-care (01) | DRG 774 ==
LOC: YASAS 15:35 → Y3N 18:43
PROC: HZ2ZZZZ Detoxification Services for Substance Abuse Treatment (ICD-10-PCS; principal; 2018-05-23)
DX: F10.230 Alcohol dependence with withdrawal, uncomplicated (principal); F14.20 Cocaine dependence, uncomplicated; F17.213 Nicotine dependence, cigarettes, with withdrawal; F43.10 Post-traumatic stress disorder, unspecified; F19.24 Other psychoactive substance dependence with psychoactive substance-induced mood disorder; F31.9 Bipolar disorder, unspecified; G47.00 Insomnia, unspecified; D64.9 Anemia, unspecified; M54.30 Sciatica, unspecified side; Z91.14 Patient's other noncompliance with medication regimen; Z91.5 Personal history of self-harm
CPT/HCPCS: 36415; 80053; 85027; 86593

== ENCOUNTER 2018-09-05 09:14 | Inpatient (IN) | payer OTHER ==
[2018-09-05 10:18] VITALS: BMI 20.2
--- NOTE | 2018-09-05 10:25 | HP ---
CIWA Score Nausea/Vomitin Muscle Tremors: 2 Anxiety: 2 Agitation: 2 Paroxysmal Sweats: 1-Minimal Palms Moist Orientation: 0-Oriented Tacttile Disturbances: 1-Very Mild Itch/Numbness Auditory Disturbances: 1-Very Mild Visual Disturbances: 0-None Headache: 2-Mild CIWA-Ar Total Score: 13 - Admission Criteria [facility] Guidelines: Admission for Medically Managed Detox: Requires at least one of the followin. CIWA greater than 12 2. Seizures within the past 24 hours 3. Delirium tremens within the past 24 hours 4. Hallucinations within the past 24 hours 5. Acute intervention needed for co occurring medical disorder 6. Acute intervention needed for co occurring psychiatric disorder 7. Severe withdrawal that cannot be handled at a lower level of care (continued vomiting, continued diarrhea, abnormal vital signs) requiring intravenous medication and/or fluids 8. Admission ROS [facility] - HPI Chief Complaint: i need help to stop drinking alcohol and cocaine Allergies/Adverse Reactions: Allergies Allergy/AdvReac Type Severity Reaction Status Date / Time No Known Allergies Allergy Verified 09/05/18 11:08 History of Present Illness: this 52 years old male with alcohol and cocaine dependence seeking detox, withdrawal symptom, seen in [place] last night history of asthma on albuterol inhaler multiple admissions in detox,last treatment [facility] 05/23/18 to 05/26/18 stated keep relapsing nicotine dependence 6 cigarette/day,did not want nicotine replacemant weight loss longest period of sobriety 3 years plan for rehab after detox bipolar disorder ,ptsd Exam Limitations: No Limitations - Review of Systems Constitutional: Loss of Appetite, Malaise, Night Sweats, Changes in sleep, Weakness, Unintentional Wgt. Loss EENT: reports: Tearing, Nose Congestion Respiratory: reports: No Symptoms reported, Other (asthma) Cardiac: reports: No Symptoms Reported GI: reports: Nausea, Abdominal cramping : reports: No Symptoms Reported Musculoskeletal: reports: Back Pain, Muscle Pain Integumentary: reports: Dryness Neuro: reports: Headache, Tremors Endocrine: reports: No Symptoms Reported Hematology: reports: No Symptoms Reported Psychiatric: reports: No Sypmtoms Reported, Judgement Intact, Mood/Affect Appropiate, Orientated x3, other (bipolar disorder and ptsd) Patient History - Patient Medical History Hx Anemia: No Hx Asthma: No (DENIES HISTORY OF ASTHMA) Hx Chronic Obstructive Pulmonary Disease (COPD): No Hx Cancer: No Hx Cardiac Disorders: No Hx Congestive Heart Failure: No Hx Hypertension: Yes (NOt on meds) Hx Hypercholesterolemia: No Hx Pacemaker: No HX Cerebrovascular Accident: No Hx Seizures: No Hx Dementia: No Hx Diabetes: No Hx Gastrointestinal Disorders: No Hx Liver Disease: No Hx Genitourinary Disorders: No Hx Sexually Transmitted Disorders: No Hx Renal Disease (ESRD): No Hx Thyroid Disease: No Hx Human Immunodeficiency Virus (HIV): No (07/27 negative) Hx Hepatitis C: No Hx Depression: Yes Hx Suicide Attempt: Yes (pill overdose in 2014) Hx Bipolar Disorder: Yes (hospitalized last month x 2 days at [place]) Hx Schizophrenia: No Other Medical History: no sucidal,no homiidal,low back pain - Patient Surgical History Past Surgical History: No Hx Neurologic Surgery: No Hx Cataract Extraction: No Hx Cardiac Surgery: No Hx Lung Surgery: No Hx Breast Surgery: No Hx Breast Biopsy: No Hx Abdominal Surgery: No Hx Appendectomy: No Hx Cholecystectomy: No Hx Genitourinary Surgery: No Hx Section: No Hx Orthopedic Surgery: No Anesthesia Reaction: No - PPD History Previous Implant?: Yes Documented Results: Negative w/proof Implanted On Prior R Admission?: Yes Date: 02/08/18 Results: NEGATIVE PPD to be Administered?: No - Smoking Cessation Smoking history: Current every day smoker Have you smoked in the past 12 months: Yes Aproximately how many cigarettes per day: 6 Cigars Per Day: 0 Hx Chewing Tobacco Use: No Initiated information on smoking cessation: Yes 'Breaking Loose' booklet given: 09/05/18 - Substance & Tx. History Hx Alcohol Use: Yes Hx Substance Use: Yes Substance Use Type: Alcohol, Cocaine Hx Substance Use Treatment: Yes ([facility] 05/23/18 to 05/26/18) - Substances Abused Alcohol Route: Oral Frequency: Daily Amount used: pints of vodka Age of first use: 16 Date of Last Use: 09/04/18 Cocaine Route: Smoking Frequency: Daily Amount used: 50$ Age of first use: 33 Date of Last Use: 09/04/18 Family Disease History - Family Disease History Family Disease History: Other: Father (, drowned, hx etoh), Mother ( living, healthy), Brother (one - healthy), Sister (one - healthy) Admission Physical Exam [facility] - Vital Signs Vital Signs: Vital Signs Temperature 98.3 F 09/05/18 10:16 Pulse Rate 84 09/05/18 10:16 Respiratory Rate 18 09/05/18 10:16 Blood Pressure 129/84 09/05/18 10:16 O2 Sat by Pulse Oximetry (%) - Physical General Appearance: Yes: Moderate Distress, Tremorous, Irritable, Sweating, Anxious HEENTM: Yes: Normal ENT Inspection, ERNESTINA, Pharynx Normal, Other (poor dental with missing teeth) Respiratory: Yes: Lungs Clear, Normal Breath Sounds, No Respiratory Distress, Other (history of asthma) Neck: Yes: Within Normal Limits, Supple, Trachea in good position Breast: Yes: Within Normal Limits Cardiology: Yes: Within Normal Limits, Regular Rhythm, Regular Rate, S1, S2 Abdominal: Yes: Within Normal Limits, Normal Bowel Sounds, Non Tender, Flat, Soft Genitourinary: Yes: Within Normal Limits Back: Yes: Muscle Spasm Musculoskeletal: Yes: full range of Motion, Back pain, Muscle Pain Extremities: Yes: Tremors Neurological: Yes: surgical supply assistant II-XII NML intact, Fully Oriented, Alert, Motor Strength 5/5 Integumentary: Yes: Dry Lymphatic: Yes: Within Normal Limits - Diagnostic (1) Alcohol dependence with uncomplicated withdrawal Current Visit: No Status: Resolved (2) Cocaine dependence Current Visit: No Status: Chronic Qualifiers: Substance use status: uncomplicated Qualified Code(s): F14.20 - Cocaine dependence, uncomplicated (3) History of hypertension Current Visit: No Status: Chronic (4) Nicotine dependence Current Visit: No Status: Chronic Qualifiers: Nicotine product type: cigarettes Substance use status: in withdrawal Qualified Code(s): F17.213 - Nicotine dependence, cigarettes, with withdrawal (5) Asthma Current Visit: Yes Status: Acute (6) Weight loss Current Visit: Yes Status: Acute (7) Bipolar disorder Current Visit: No Status: Chronic Qualifiers: Active/Remission status: remission status unspecified Qualified Code(s): F31.9 - Bipolar disorder, unspecified Comment: As per records and self-report.On medications. (8) PTSD (post-traumatic stress disorder) Current Visit: No Status: Chronic Comment: As per self-report and existing records. (9) Low back pain Current Visit: Yes Status: Acute (10) Sciatica, right side Current Visit: Yes Status: Acute (11) Poor dental hygiene Current Visit: Yes Status: Acute Cleared for Admission [facility] - Detox or Rehab [facility] Level of Care: Medically Managed Detox Regimen/Protocol: Librium [facility] Breath Alcohol Content Breath Alcohol Content: 0.013 Inpatient Rehab Admission - Rehab Decision to Admit Inpatient rehab admission?: No
[2018-09-05] MEDS ORDERED: MAGNESIUM HYDROX 2400MG/30ML ORAL SUSPENSION 30 ML CUP PO PRN (10:40)
[2018-09-05] MEDS ORDERED: MAGNESIUM CITRATE 300 ML BOTTLE PO PRN (10:40)
[2018-09-05] MEDS ORDERED: ACETAMINOPHEN 325 MG TABLET (FP) PO PRN ×2 (10:40)
[2018-09-05] MEDS ORDERED: IBUPROFEN 400 MG TABLET (FP) PO PRN (10:40)
[2018-09-05] MEDS ORDERED: chlordiazePOXIDE HCL 25 MG CAPSULE PO PRN (10:40)
[2018-09-05] MEDS ORDERED: hydrOXYzine PAMOATE 25 MG CAPSULE (FP) PO PRN (10:40)
[2018-09-05] MEDS ORDERED: MELATONIN 5 MG TABLETS PO PRN (10:40)
[2018-09-05] MEDS ORDERED: MENTHOL/PHENOL 1 EACH UD MM PRN (10:40)
[2018-09-05] MEDS ORDERED: BISMUTH SUBSALICYLATE 524 MG/30 ML UD PO PRN (10:40)
[2018-09-05] MEDS ORDERED: MAG HYDROX/AL HYDROX/SIMETH 30 ML UNIT-DOSE CUP PO PRN (10:40)
[2018-09-05] MEDS: chlordiazePOXIDE HCL 25 MG CAPSULE PO SCH ×2 (17:43→22:26)
[2018-09-05] MEDS: THIAMINE HCL 100 MG TABLET (FP) PO SCH (22:26)
[2018-09-06] MEDS: chlordiazePOXIDE HCL 25 MG CAPSULE PO SCH ×4 (06:39→23:05)
--- NOTE | 2018-09-06 09:55 | PN ---
S CIWA - CIWA Score Nausea/Vomitin-No Nausea/No Vomiting Muscle Tremors: 3 Anxiety: 3 Agitation: 3 Paroxysmal Sweats: 3 Orientation: 0-Oriented Tacttile Disturbances: 0-None Auditory Disturbances: 0-None Visual Disturbances: 0-None Headache: 0-None Present CIWA-Ar Total Score: 12 [facility] Progress Note (SOAP) Subjective: sweats low back pain shakes interrupted sleep Objective: 09/06/18 09:53 Vital Signs Temperature 97.7 F 09/06/18 08:48 Pulse Rate 89 09/06/18 08:48 Respiratory Rate 18 09/06/18 08:48 Blood Pressure 119/59 L 09/06/18 08:48 O2 Sat by Pulse Oximetry (%) labs pending aaox3 ambulating no acute distress Assessment: 09/06/18 09:53 withdrawal sx Plan: continue detox increase fluids lidocaine patch motrin/tylenol prn
[2018-09-06] MEDS: PRENATAL VITAMINS W/ FOLIC ACID TABLET (FP) PO SCH (10:00)
[2018-09-06 10:06] LABS: HEMATOCRIT 38.9 % (35.4-49); HEMOGLOBIN 11.9 GM/dL (11.7-16.9); MCH 22.1 pg (25.7-33.7); MCHC 30.4 g/dl (32.0-35.9); MEAN CELL VOLUME 72.5 fl (80-96); MEAN PLT VOLUME 8.6 fl (7.5-11.1); PLATELET COUNT 267 K/MM3 (134-434); RBC 5.37 M/mm3 (4.00-5.60); RDW 16.9 % (11.9-15.9); WHITE BLOOD COUNT 3.6 K/mm3 (4.0-10.0)
[2018-09-06 10:19] LABS: ALBUMIN 3.4 g/dl (3.4-5.0); ALK PHOS 63 U/L (45-117); ANION GAP 6 MMOL/L (8-16); BILIRUBIN,TOTAL 0.4 mg/dL (0.2-1); BLOOD UREA NITROGEN 18 mg/dL (7-18); CALCIUM 8.5 mg/dL (8.5-10.1); CHLORIDE 104 mmol/L (98-107); CO2 29 mmol/L (21-32); CREATININE 1.1 mg/dL (0.55-1.3); GLUCOSE,RANDOM 101 mg/dL (74-106); POTASSIUM 4.3 mmol/L (3.5-5.1); SGOT/AST 26 U/L (15-37); SGPT/ALT 32 U/L (13-61); SODIUM 139 mmol/L (136-145); TOT PROT 6.2 g/dl (6.4-8.2)
[2018-09-06] MEDS: LIDOCAINE 5% TOPICAL PATCH TP SCH (10:53)
[2018-09-06] MEDS: ALBUTEROL SO4 8 GM HFA INHALER IH SCH (12:25)
--- NOTE | 2018-09-06 14:09 | CONSULT ---
[facility] Psychiatric Consult - Data Date of interview: 09/06/18 Admission source: [facility] ED Identifying data: Mr Daugherty is a 52 years old single Black male, unemployed receiving food stamp, homeless seeking detox treatment for alcohol and cocaine Substance Abuse History: Reports history of alcohol and cocaine use. Refer to addiction counselor's summary for further information Medical History: Significant for bronchial asthma, hypertension and low back pain. Smokes 6 cigarettes daily Psychiatric History: Reports being diagnosed with Bipolar Disorder and PTSD in 2016. Reports multiple psychiatric hospitalizations at various facilities including [facility], [facility], [facility] and most recently in June 2018 at [facility] for depression and Mood swings. Reports a few suicidal attempts by self-mutilation and overdose. Reports non adherence to OPD care but visits [facility] for medication refills. He is currently on Seroquel 200 mg po BID. External medication search shows script for 15 days of Seroquel 200 mg/bid filled at [facility] on 08/28/18. Reports few suicidal attempts by self- mutilation and overdose. Most recent suicidal attempt was in 2017. At present, reports feeling anxious and sleeping poorly Physical/Sexual Abuse/Trauma History: Denies history of emotional, physical or sexual abuse as well as DV relationship Additional Comment: Denies criminal history Mental Status Exam - Mental Status Exam Alert and Oriented to: Time, Place, Person Cognitive Function: Fair Patient Appearance: Disheveled Mood: Anxious Affect: Appropriate Patient Behavior: Cooperative Speech Pattern: Clear Voice Loudness: Normal Thought Process: Intact, Goal Oriented Thought Disorder: Not Present Hallucinations: Denies Suicidal Ideation: Denies Homicidal Ideation: Denies Insight/Judgement: Poor Sleep: Poorly Appetite: Good Muscle strength/Tone: Normal Gait/Station: Normal Psychiatric Findings - Problem List ([place] 1, 2,3) (1) Bipolar disorder Current Visit: No Status: Chronic Qualifiers: Active/Remission status: remission status unspecified Qualified Code(s): F31.9 - Bipolar disorder, unspecified Comment: As per records and self-report.On medications. (2) Paranoid schizophrenia Current Visit: No Status: Ruled-out (3) PTSD (post-traumatic stress disorder) Current Visit: No Status: Chronic Comment: As per self-report and existing records. (4) Substance-induced anxiety disorder Current Visit: Yes Status: Acute (5) Substance-induced sleep disorder Current Visit: Yes Status: Acute (6) Alcohol dependence with uncomplicated withdrawal Current Visit: Yes Status: Acute (7) Cocaine dependence Current Visit: No Status: Acute Qualifiers: Substance use status: uncomplicated Qualified Code(s): F14.20 - Cocaine dependence, uncomplicated (8) Nicotine dependence Current Visit: No Status: Chronic Qualifiers: Nicotine product type: cigarettes Substance use status: in withdrawal Qualified Code(s): F17.213 - Nicotine dependence, cigarettes, with withdrawal (9) Asthma Current Visit: Yes Status: Chronic (10) Low back pain Current Visit: Yes Status: Chronic (11) History of hypertension Current Visit: No Status: Chronic (12) Anemia Current Visit: No Status: Suspected Qualifiers: Anemia type: unspecified type Qualified Code(s): D64.9 - Anemia, unspecified - Initial Treatment Plan Initial Treatment Plan: 1) Start Seroquel 200 mg po HS. 2) Continue inpatient detoxification
[2018-09-06 14:32] LABS: PH,URINE 8.5 (5.0-8.0); URINE APPEARANCE CLEAR; URINE BILIRUBIN NEGATIVE (NEGATIVE); URINE COLOR YELLOW; URINE GLUCOSE (UA) NEGATIVE (NEGATIVE); URINE KETONE NEGATIVE (NEGATIVE); URINE LEUK ESTERASE NEGATIVE (NEGATIVE); URINE NITRITE NEGATIVE (NEGATIVE); URINE PROTEIN NEGATIVE (NEGATIVE); URINE UROBILINOGEN 0.2 mg/dL (0.2-1.0)
[2018-09-06] MEDS: METHOCARBAMOL 500 MG TABLET PO PRN (15:49)
[2018-09-06] MEDS ORDERED: LIDOCAINE PATCH REMOVAL MC SCH (22:00)
[2018-09-06] MEDS: THIAMINE HCL 100 MG TABLET (FP) PO SCH (22:05)
[2018-09-07] MEDS: chlordiazePOXIDE HCL 25 MG CAPSULE PO SCH ×2 (05:46→10:14)
--- NOTE | 2018-09-07 09:55 | PN ---
S CIWA - CIWA Score Nausea/Vomitin Muscle Tremors: 2 Anxiety: 2 Agitation: 2 Paroxysmal Sweats: 1-Minimal Palms Moist Orientation: 0-Oriented Tacttile Disturbances: 1-Very Mild Itch/Numbness Auditory Disturbances: 1-Very Mild Visual Disturbances: 0-None Headache: 2-Mild CIWA-Ar Total Score: 13 [facility] Progress Note (SOAP) Subjective: alert,irritable,anxious,interrupted sleep,tremor Objective: 09/07/18 09:49 Vital Signs Temperature 98.1 F 09/07/18 09:34 Pulse Rate 92 H 09/07/18 09:34 Respiratory Rate 16 09/07/18 09:34 Blood Pressure 102/67 09/07/18 09:34 O2 Sat by Pulse Oximetry (%) Laboratory Last Values WBC 3.6 K/mm3 (4.0-10.0) L 09/06/18 07:00 RBC 5.37 M/mm3 (4.00-5.60) 09/06/18 07:00 Hgb 11.9 GM/dL (11.7-16.9) 09/06/18 07:00 Hct 38.9 % (35.4-49) 09/06/18 07:00 MCV 72.5 fl (80-96) L 09/06/18 07:00 MCH 22.1 pg (25.7-33.7) L 09/06/18 07:00 MCHC 30.4 g/dl (32.0-35.9) L 09/06/18 07:00 RDW 16.9 % (11.9-15.9) H 09/06/18 07:00 Plt Count 267 K/MM3 (134-434) 09/06/18 07:00 MPV 8.6 fl (7.5-11.1) 09/06/18 07:00 Sodium 139 mmol/L (136-145) 09/06/18 07:00 Potassium 4.3 mmol/L (3.5-5.1) 09/06/18 07:00 Chloride 104 mmol/L (98-107) 09/06/18 07:00 Carbon Dioxide 29 mmol/L (21-32) 09/06/18 07:00 Anion Gap 6 MMOL/L (8-16) L 09/06/18 07:00 BUN 18 mg/dL (7-18) 09/06/18 07:00 Creatinine 1.1 mg/dL (0.55-1.3) 09/06/18 07:00 Creat Clearance w eGFR 69.76 (>60) 09/06/18 07:00 Random Glucose 101 mg/dL (74-106) 09/06/18 07:00 Calcium 8.5 mg/dL (8.5-10.1) 09/06/18 07:00 Total Bilirubin 0.4 mg/dL (0.2-1) 09/06/18 07:00 AST 26 U/L (15-37) 09/06/18 07:00 ALT 32 U/L (13-61) 09/06/18 07:00 Alkaline Phosphatase 63 U/L (45-117) 09/06/18 07:00 Total Protein 6.2 g/dl (6.4-8.2) L 09/06/18 07:00 Albumin 3.4 g/dl (3.4-5.0) 09/06/18 07:00 Urine Color Yellow 09/06/18 12:10 Urine Appearance Clear 09/06/18 12:10 Urine pH 8.5 (5.0-8.0) H D 09/06/18 12:10 Ur Specific [place] 1.010 (1.010-1.035) 09/06/18 12:10 Urine Protein Negative (NEGATIVE) 09/06/18 12:10 Urine Glucose (UA) Negative (NEGATIVE) 09/06/18 12:10 Urine Ketones Negative (NEGATIVE) 09/06/18 12:10 Urine Blood Negative (NEGATIVE) 09/06/18 12:10 Urine Nitrite Negative (NEGATIVE) 09/06/18 12:10 Urine Bilirubin Negative (NEGATIVE) 09/06/18 12:10 Urine Urobilinogen 0.2 mg/dL (0.2-1.0) 09/06/18 12:10 Ur Leukocyte Esterase Negative (NEGATIVE) 09/06/18 12:10 RPR Titer Nonreactive (NONREACTIVE) 09/06/18 07:00 Assessment: 09/07/18 09:56 withdrawal symptom Plan: continue detox
[2018-09-07] MEDS: PRENATAL VITAMINS W/ FOLIC ACID TABLET (FP) PO SCH (10:14)
[2018-09-07] MEDS: LIDOCAINE 5% TOPICAL PATCH TP SCH (10:14)
[2018-09-07] MEDS: ALBUTEROL SO4 8 GM HFA INHALER IH SCH (10:17)
[2018-09-07] MEDS: METHOCARBAMOL 500 MG TABLET PO PRN (12:49)
[2018-09-07 14:05] VITALS: BP 117/69; PULSE 81; TEMP 97.1
--- NOTE | 2018-09-07 14:07 | PN ---
[facility] Progress Note Note: patient did not want to complete treatment,all attempts to convince patient to stay with no avail, signed release ama,the risk of relapsing is high,patient aware,advise to go to nearest emergency room if any problem
--- NOTE | 2018-09-07 14:11 | DS ---
[facility] Detox Discharge Summary Admission Date: 09/05/18 Discharge Date: 09/07/18 - History Present History: Alcohol Dependence, Cocaine Dependence Additional Comments: patient signed release ama Pertinent Past History: asthma low back pain hypertension - Physical Exam Results Vital Signs: Vital Signs Temperature 97.1 F L 09/07/18 14:04 Pulse Rate 81 09/07/18 14:04 Respiratory Rate 16 09/07/18 14:04 Blood Pressure 117/69 09/07/18 14:04 O2 Sat by Pulse Oximetry (%) Pertinent Admission Physical Exam Findings: withdrawal signs and symptom Vital Signs Temperature 97.1 F L 09/07/18 14:04 Pulse Rate 81 09/07/18 14:04 Respiratory Rate 16 09/07/18 14:04 Blood Pressure 117/69 09/07/18 14:04 O2 Sat by Pulse Oximetry (%) Laboratory Last Values WBC 3.6 K/mm3 (4.0-10.0) L 09/06/18 07:00 RBC 5.37 M/mm3 (4.00-5.60) 09/06/18 07:00 Hgb 11.9 GM/dL (11.7-16.9) 09/06/18 07:00 Hct 38.9 % (35.4-49) 09/06/18 07:00 MCV 72.5 fl (80-96) L 09/06/18 07:00 MCH 22.1 pg (25.7-33.7) L 09/06/18 07:00 MCHC 30.4 g/dl (32.0-35.9) L 09/06/18 07:00 RDW 16.9 % (11.9-15.9) H 09/06/18 07:00 Plt Count 267 K/MM3 (134-434) 09/06/18 07:00 MPV 8.6 fl (7.5-11.1) 09/06/18 07:00 Sodium 139 mmol/L (136-145) 09/06/18 07:00 Potassium 4.3 mmol/L (3.5-5.1) 09/06/18 07:00 Chloride 104 mmol/L (98-107) 09/06/18 07:00 Carbon Dioxide 29 mmol/L (21-32) 09/06/18 07:00 Anion Gap 6 MMOL/L (8-16) L 09/06/18 07:00 BUN 18 mg/dL (7-18) 09/06/18 07:00 Creatinine 1.1 mg/dL (0.55-1.3) 09/06/18 07:00 Creat Clearance w eGFR 69.76 (>60) 09/06/18 07:00 Random Glucose 101 mg/dL (74-106) 09/06/18 07:00 Calcium 8.5 mg/dL (8.5-10.1) 09/06/18 07:00 Total Bilirubin 0.4 mg/dL (0.2-1) 09/06/18 07:00 AST 26 U/L (15-37) 09/06/18 07:00 ALT 32 U/L (13-61) 09/06/18 07:00 Alkaline Phosphatase 63 U/L (45-117) 09/06/18 07:00 Total Protein 6.2 g/dl (6.4-8.2) L 09/06/18 07:00 Albumin 3.4 g/dl (3.4-5.0) 09/06/18 07:00 Urine Color Yellow 09/06/18 12:10 Urine Appearance Clear 09/06/18 12:10 Urine pH 8.5 (5.0-8.0) H D 09/06/18 12:10 Ur Specific [place] 1.010 (1.010-1.035) 09/06/18 12:10 Urine Protein Negative (NEGATIVE) 09/06/18 12:10 Urine Glucose (UA) Negative (NEGATIVE) 09/06/18 12:10 Urine Ketones Negative (NEGATIVE) 09/06/18 12:10 Urine Blood Negative (NEGATIVE) 09/06/18 12:10 Urine Nitrite Negative (NEGATIVE) 09/06/18 12:10 Urine Bilirubin Negative (NEGATIVE) 09/06/18 12:10 Urine Urobilinogen 0.2 mg/dL (0.2-1.0) 09/06/18 12:10 Ur Leukocyte Esterase Negative (NEGATIVE) 09/06/18 12:10 RPR Titer Nonreactive (NONREACTIVE) 09/06/18 07:00 - Medication Discharge Medications: Ambulatory Orders Quetiapine Fumarate [Seroquel -] 200 mg PO BID #60 tab 10/09/16 Albuterol Sulfate Inhaler - [Ventolin Hfa Inhaler -] 1 puff IH DAILY 09/05/18 - Diagnosis (1) Alcohol dependence with uncomplicated withdrawal Current Visit: No Status: Resolved (2) Cocaine dependence Current Visit: No Status: Acute Qualifiers: Substance use status: uncomplicated Qualified Code(s): F14.20 - Cocaine dependence, uncomplicated (3) History of hypertension Current Visit: No Status: Chronic (4) Nicotine dependence Current Visit: No Status: Chronic Qualifiers: Nicotine product type: cigarettes Substance use status: in withdrawal Qualified Code(s): F17.213 - Nicotine dependence, cigarettes, with withdrawal (5) Asthma Current Visit: Yes Status: Chronic (6) Weight loss Current Visit: Yes Status: Acute (7) Bipolar disorder Current Visit: No Status: Chronic Qualifiers: Active/Remission status: remission status unspecified Qualified Code(s): F31.9 - Bipolar disorder, unspecified (8) PTSD (post-traumatic stress disorder) Current Visit: No Status: Chronic (9) Low back pain Current Visit: Yes Status: Chronic (10) Sciatica, right side Current Visit: Yes Status: Acute (11) Poor dental hygiene Current Visit: Yes Status: Acute - AMA Did Patient Leave Against Medical Advice: Yes
[2018-09-07] MEDS ORDERED: chlordiazePOXIDE HCL 10 MG CAPSULE PO SCH (17:00)
[2018-09-07] MEDS ORDERED: chlordiazePOXIDE HCL 10 MG CAPSULE PO PRN (17:00)
[2018-09-08] MEDS ORDERED: chlordiazePOXIDE HCL 10 MG CAPSULE PO SCH (17:00)
== END 2018-09-07 14:18 | disposition left against medical advice (07) | DRG 770 ==
LOC: YASAS 09:14 → Y6N 11:14
PROVIDERS: ADMIT Surgery; ATTEND Surgery
PROC: HZ2ZZZZ Detoxification Services for Substance Abuse Treatment (ICD-10-PCS; principal; 2018-09-05)
DX: F10.230 Alcohol dependence with withdrawal, uncomplicated (principal); F14.20 Cocaine dependence, uncomplicated; F17.213 Nicotine dependence, cigarettes, with withdrawal; F19.280 Other psychoactive substance dependence with psychoactive substance-induced anxiety disorder; F19.282 Other psychoactive substance dependence with psychoactive substance-induced sleep disorder; F31.9 Bipolar disorder, unspecified; F43.10 Post-traumatic stress disorder, unspecified; I10 Essential (primary) hypertension; J45.909 Unspecified asthma, uncomplicated; M54.41 Lumbago with sciatica, right side; R63.4 Abnormal weight loss; Z68.20 Body mass index [BMI] 20.0-20.9, adult; R46.0 Very low level of personal hygiene
CPT/HCPCS: 36415; 80053; 81003; 85027; 86593

== ENCOUNTER 2018-12-23 08:16 | Inpatient (IN) | payer OTHER ==
[2018-12-23 09:00] VITALS: BMI 21.6
--- NOTE | 2018-12-23 09:43 | HP ---
CIWA Score Nausea/Vomitin-No Nausea/No Vomiting Muscle Tremors: None Anxiety: 4-Mod. Anxious/Guarded Agitation: 1-Slight > Activity Paroxysmal Sweats: No Perspiration Orientation: 0-Oriented Tacttile Disturbances: 0-None Auditory Disturbances: 2-Mild Harshness/Frighten Visual Disturbances: 3-Moderate Sensitivity Headache: 4-Moderately Severe CIWA-Ar Total Score: 14 - Admission Criteria OASAS Guidelines: Admission for Medically Managed Detox: Requires at least one of the followin. CIWA greater than 12 2. Seizures within the past 24 hours 3. Delirium tremens within the past 24 hours 4. Hallucinations within the past 24 hours 5. Acute intervention needed for co occurring medical disorder 6. Acute intervention needed for co occurring psychiatric disorder 7. Severe withdrawal that cannot be handled at a lower level of care (continued vomiting, continued diarrhea, abnormal vital signs) requiring intravenous medication and/or fluids 8. Admission ROS S - HPI Allergies/Adverse Reactions: Allergies Allergy/AdvReac Type Severity Reaction Status Date / Time No Known Allergies Allergy Verified 12/23/18 08:48 History of Present Illness: pt here requesting detox from etoh use , reports 2-3 pints liquor /day since years ago , previous detox @ this facility August 2018 , reports was at [facility] yesterday overnight and was allowed to stay there due to the rain , was not given meds per pt . cocaine : 50 $/day tobacco : 6 cigs/day PMHX : PTSD , bipolar d/o ,asthma pshx : denies Exam Limitations: No Limitations - Ebola screening Have you traveled outside of the country in the last 21 days: No Have you had contact with anyone from an Ebola affected area: No - Review of Systems Constitutional: See HPI, Loss of Appetite EENT: reports: No Symptoms Reported Respiratory: reports: No Symptoms reported Cardiac: reports: No Symptoms Reported GI: reports: See HPI, Poor Appetite : reports: No Symptoms Reported Musculoskeletal: reports: No Symptoms Reported Integumentary: reports: No Symptoms Reported Neuro: reports: No Symptoms reported Endocrine: reports: No Symptoms Reported Psychiatric: reports: Orientated x3 Patient History - Patient Medical History Hx Anemia: No Hx Asthma: No (DENIES HISTORY OF ASTHMA) Hx Chronic Obstructive Pulmonary Disease (COPD): No Hx Cancer: No Hx Cardiac Disorders: No Hx Congestive Heart Failure: No Hx Hypertension: Yes (NOt on meds) Hx Hypercholesterolemia: No Hx Pacemaker: No HX Cerebrovascular Accident: No Hx Seizures: No Hx Dementia: No Hx Diabetes: No Hx Gastrointestinal Disorders: No Hx Liver Disease: No Hx Genitourinary Disorders: No Hx Sexually Transmitted Disorders: No Hx Renal Disease (ESRD): No Hx Thyroid Disease: No Hx Human Immunodeficiency Virus (HIV): No (07/27 negative) Hx Hepatitis C: No Hx Depression: Yes Hx Suicide Attempt: Yes (pill overdose in 2014) Hx Bipolar Disorder: Yes (hospitalized last month x 2 days at [place]) Hx Schizophrenia: No - Patient Surgical History Past Surgical History: No Hx Neurologic Surgery: No Hx Cataract Extraction: No Hx Cardiac Surgery: No Hx Lung Surgery: No Hx Breast Surgery: No Hx Breast Biopsy: No Hx Abdominal Surgery: No Hx Appendectomy: No Hx Cholecystectomy: No Hx Genitourinary Surgery: No Hx Section: No Hx Orthopedic Surgery: No Anesthesia Reaction: No - PPD History Date: 02/08/18 Results: NEGATIVE - Smoking Cessation Smoking history: Current every day smoker Have you smoked in the past 12 months: Yes Aproximately how many cigarettes per day: 6 Cigars Per Day: 0 Hx Chewing Tobacco Use: No Initiated information on smoking cessation: No - Substances abused Cocaine Substance route: Smoking Frequency: Daily Amount used: 50usd Age of first use: 33 Date of last use: 12/21/18 Alcohol Substance route: Oral Frequency: Daily Amount used: 3 pints vodka Age of first use: 16 Date of last use: 12/22/18 Family Disease History - Family Disease History Family Disease History: Other: Father (, drowned, hx etoh), Mother ( living, healthy), Brother (one - healthy), Sister (one - healthy) Admission Physical Exam S - Vital Signs Vital Signs: Vital Signs - 24 hr 12/23/18 08:51 Temperature 97 F L Pulse Rate 80 Respiratory 16 Rate Blood Pressure 117/86 - Physical General Appearance: Yes: No Apparent Distress HEENTM: Yes: Hearing grossly Normal, Normocephalic, Normal Voice Respiratory: Yes: Lungs Clear, Normal Breath Sounds, No Respiratory Distress, No Accessory Muscle Use Neck: Yes: No masses,lesions,Nodules, Trachea in good position Cardiology: Yes: Regular Rhythm, Regular Rate, S1, S2 Abdominal: Yes: Non Tender, Soft Back: Yes: Normal Inspection Extremities: Yes: Normal Range of Motion, Non-Tender Neurological: Yes: Fully Oriented, Alert, Motor Strength 5/5 Integumentary: Yes: Warm - Diagnostic (1) Alcohol dependence with uncomplicated withdrawal Current Visit: Yes Status: Acute (2) Cocaine dependence Current Visit: Yes Status: Acute Qualifiers: Substance use status: uncomplicated Qualified Code(s): F14.20 - Cocaine dependence, uncomplicated Breathalyzer - Breathalyzer Breathalyzer: 0 Urine Drug Screen - Test Device Lot number: [id number] Expiration date: 10/05/20 - Control Is test valid?: Yes - Results Drug screen NEGATIVE: No Urine drug screen results: DAVID-Cocaine, BZO-Benzodiazepines Inpatient Rehab Admission - Rehab Decision to Admit Inpatient rehab admission?: No
[2018-12-23] MEDS ORDERED: NICOTINE POLACRILEX 2 MG GUM BUC PRN (10:19)
[2018-12-23] MEDS ORDERED: MAGNESIUM HYDROX 2400MG/30ML ORAL SUSPENSION 30 ML CUP PO PRN (10:19)
[2018-12-23] MEDS ORDERED: hydrOXYzine HCL 25 MG TABLET (FP) PO PRN (10:19)
[2018-12-23] MEDS ORDERED: MELATONIN 5 MG TABLETS PO PRN (10:19)
[2018-12-23] MEDS ORDERED: BISMUTH SUBSALICYLATE 262 MG/15 ML BTL PO PRN (10:19)
[2018-12-23] MEDS ORDERED: MAGNESIUM CITRATE 300 ML BOTTLE PO PRN (10:19)
[2018-12-23] MEDS ORDERED: MENTHOL/PHENOL 1 EACH UD MM PRN (10:19)
[2018-12-23] MEDS ORDERED: MAG HYDROX/AL HYDROX/SIMETH 30 ML UNIT-DOSE CUP PO PRN (10:19)
[2018-12-23] MEDS ORDERED: IBUPROFEN 400 MG TABLET (FP) PO PRN (10:19)
[2018-12-23] MEDS ORDERED: ACETAMINOPHEN 325 MG TABLET (FP) PO PRN ×2 (10:19)
[2018-12-23] MEDS ORDERED: ALBUTEROL SO4 8 GM HFA INHALER IH PRN (10:21)
[2018-12-23] MEDS: diazePAM 5 MG TABLET PO SCH ×2 (13:25→22:37)
[2018-12-23 14:27] LABS: HEMATOCRIT 41.1 % (35.4-49); HEMOGLOBIN 12.9 GM/dL (11.7-16.9); MCH 22.9 pg (25.7-33.7); MCHC 31.4 g/dl (32.0-35.9); MEAN CELL VOLUME 72.8 fl (80-96); MEAN PLT VOLUME 8.8 fl (7.5-11.1); RBC 5.65 M/mm3 (4.00-5.60); RDW 16.6 % (11.9-15.9); WHITE BLOOD COUNT 4.1 K/mm3 (4.0-10.0)
[2018-12-23 14:41] LABS: BILIRUBIN,TOTAL 0.4 mg/dL (0.2-1); BLOOD UREA NITROGEN 21.7 mg/dL (7-18); CALCIUM 9.4 mg/dL (8.5-10.1); CREATININE 1.5 mg/dL (0.55-1.3); POTASSIUM 4.5 mmol/L (3.5-5.1); TOT PROT 7.6 g/dl (6.4-8.2)
[2018-12-23 14:42] LABS: PLATELET COUNT 349 K/MM3 (134-434)
[2018-12-23] MEDS: THIAMINE HCL 100 MG TABLET (FP) PO SCH (22:37)
[2018-12-24] MEDS: diazePAM 5 MG TABLET PO SCH ×3 (07:05→21:11)
[2018-12-24] MEDS: PRENATAL VITAMINS W/ FOLIC ACID TABLET (FP) PO SCH (09:54)
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
--- NOTE | 2018-12-24 14:53 | PN ---
S CIWA - CIWA Score Nausea/Vomitin-Mild Nausea/No Vomiting Muscle Tremors: 1-None Visible, but [place] Anxiety: 1-Mildly Anxious Agitation: 1-Slight > Activity Paroxysmal Sweats: 3 Orientation: 0-Oriented Tacttile Disturbances: 1-Very Mild Itch/Numbness Auditory Disturbances: 0-None Visual Disturbances: 0-None Headache: 0-None Present CIWA-Ar Total Score: 8 BHS Progress Note (SOAP) Subjective: intwerrupted slepp, sweats Objective: 12/24/18 14:51 Vital Signs Temperature 96.8 F L 12/24/18 13:43 Pulse Rate 68 12/24/18 13:43 Respiratory Rate 18 12/24/18 13:43 Blood Pressure 116/77 12/24/18 13:43 O2 Sat by Pulse Oximetry (%) Laboratory Tests 12/23/18 12/23/18 12/23/18 11:10 11:10 11:10 WBC 4.1 RBC 5.65 H Hgb 12.9 Hct 41.1 MCV 72.8 L MCH 22.9 L MCHC 31.4 L RDW 16.6 H Plt Count 349 D MPV 8.8 Sodium 138 Potassium 4.5 Chloride 100 Carbon Dioxide 34 H Anion Gap 4 L BUN 21.7 H Creatinine 1.5 H Est GFR (CKD-EPI)AfAm 59.88 Est GFR (CKD-EPI)NonAf 51.67 Random Glucose 92 Calcium 9.4 Total Bilirubin 0.4 AST 25 ALT 27 Alkaline Phosphatase 84 Total Protein 7.6 Albumin 4.0 RPR Titer Nonreactive pt aox3 in nad lying in bed . Assessment: 12/24/18 14:52 witthdrawal sx's renal insufficiency 12/24/18 14:55 Plan: cont. detox increase fluids repeat basic metabolic
[2018-12-24] MEDS: THIAMINE HCL 100 MG TABLET (FP) PO SCH (21:11)
[2018-12-24] MEDS: QUEtiapine FUMARATE 200 MG TABLET PO SCH (21:11)
[2018-12-25] MEDS: diazePAM 5 MG TABLET PO SCH ×2 (06:34→18:43)
[2018-12-25] MEDS: PRENATAL VITAMINS W/ FOLIC ACID TABLET (FP) PO SCH (11:04)
--- NOTE | 2018-12-25 15:22 | PN ---
S CIWA - CIWA Score Nausea/Vomitin-No Nausea/No Vomiting Muscle Tremors: None Anxiety: 2 Agitation: 1-Slight > Activity Paroxysmal Sweats: No Perspiration Orientation: 0-Oriented Tacttile Disturbances: 0-None Auditory Disturbances: 0-None Visual Disturbances: 0-None Headache: 0-None Present CIWA-Ar Total Score: 3 BHS Progress Note (SOAP) Subjective: Body Aches. Objective: PATIENT A & O X 3, OBSERVED AMBULATING ON UNIT UNASSISTED. IN NO ACUTE DISTRESS. 12/25/18 15:20 Vital Signs Temperature 95.1 F L 12/25/18 14:08 Pulse Rate 84 12/25/18 14:08 Respiratory Rate 18 12/25/18 14:08 Blood Pressure 132/77 12/25/18 14:08 O2 Sat by Pulse Oximetry (%) Laboratory Tests 12/23/18 12/23/18 12/23/18 11:10 11:10 11:10 WBC 4.1 RBC 5.65 H Hgb 12.9 Hct 41.1 MCV 72.8 L MCH 22.9 L MCHC 31.4 L RDW 16.6 H Plt Count 349 D MPV 8.8 Sodium 138 Potassium 4.5 Chloride 100 Carbon Dioxide 34 H Anion Gap 4 L BUN 21.7 H Creatinine 1.5 H Est GFR (CKD-EPI)AfAm 59.88 Est GFR (CKD-EPI)NonAf 51.67 Random Glucose 92 Calcium 9.4 Total Bilirubin 0.4 AST 25 ALT 27 Alkaline Phosphatase 84 Total Protein 7.6 Albumin 4.0 RPR Titer Nonreactive LABS NOTED. Assessment: 12/25/18 15:21 WITHDRAWAL SYMPTOMS. AZOTEMIA. Plan: CONTINUE DETOX. INCREASE DAILY PO WATER INTAKE. D/C MAGNESIUM-CONTAINING MEDS. FOR ABNORMAL ADMISSION RENAL LAB VALUES. PATIENT SCHEDULED FOR D/C TOMORROW.
[2018-12-25] MEDS: QUEtiapine FUMARATE 200 MG TABLET PO SCH (22:53)
[2018-12-25] MEDS: THIAMINE HCL 100 MG TABLET (FP) PO SCH (22:53)
[2018-12-26] MEDS ORDERED: diazePAM 5 MG TABLET PO ONE (06:00)
[2018-12-26 09:15] VITALS: BP 114/78; PULSE 86; TEMP 97.4
[2018-12-26] MEDS: PRENATAL VITAMINS W/ FOLIC ACID TABLET (FP) PO SCH (09:32)
--- NOTE | 2018-12-26 14:41 | DS ---
[facility] Detox Discharge Summary Admission Date: 12/23/18 Discharge Date: 12/26/18 - History Present History: Alcohol Dependence Additional Comments: 53 years old male admitted on 12/23/18 for acute alcohol withdrawal sx management no complication throughout the detox stay alert oriented x 3 after[facility] cardiac S1S2 no chest pain no shortness of breath no dizziness abdomen soft none tender - Physical Exam Results Vital Signs: Vital Signs Temperature 97.4 F L 12/26/18 09:14 Pulse Rate 86 12/26/18 09:14 Respiratory Rate 18 12/26/18 09:14 Blood Pressure 114/78 12/26/18 09:14 O2 Sat by Pulse Oximetry (%) Pertinent Admission Physical Exam Findings: alcohol withdrawal sx Laboratory Last Values WBC 4.1 K/mm3 (4.0-10.0) 12/23/18 11:10 RBC 5.65 M/mm3 (4.00-5.60) H 12/23/18 11:10 Hgb 12.9 GM/dL (11.7-16.9) 12/23/18 11:10 Hct 41.1 % (35.4-49) 12/23/18 11:10 MCV 72.8 fl (80-96) L 12/23/18 11:10 MCH 22.9 pg (25.7-33.7) L 12/23/18 11:10 MCHC 31.4 g/dl (32.0-35.9) L 12/23/18 11:10 RDW 16.6 % (11.9-15.9) H 12/23/18 11:10 Plt Count 349 K/MM3 (134-434) D 12/23/18 11:10 MPV 8.8 fl (7.5-11.1) 12/23/18 11:10 Sodium 138 mmol/L (136-145) 12/23/18 11:10 Potassium 4.5 mmol/L (3.5-5.1) 12/23/18 11:10 Chloride 100 mmol/L (98-107) 12/23/18 11:10 Carbon Dioxide 34 mmol/L (21-32) H 12/23/18 11:10 Anion Gap 4 MMOL/L (8-16) L 12/23/18 11:10 BUN 21.7 mg/dL (7-18) H 12/23/18 11:10 Creatinine 1.5 mg/dL (0.55-1.3) H 12/23/18 11:10 Est GFR (CKD-EPI)AfAm 59.88 12/23/18 11:10 Est GFR (CKD-EPI)NonAf 51.67 12/23/18 11:10 Random Glucose 92 mg/dL (74-106) 12/23/18 11:10 Calcium 9.4 mg/dL (8.5-10.1) 12/23/18 11:10 Total Bilirubin 0.4 mg/dL (0.2-1) 12/23/18 11:10 AST 25 U/L (15-37) 12/23/18 11:10 ALT 27 U/L (13-61) 12/23/18 11:10 Alkaline Phosphatase 84 U/L (45-117) 12/23/18 11:10 Total Protein 7.6 g/dl (6.4-8.2) 12/23/18 11:10 Albumin 4.0 g/dl (3.4-5.0) 12/23/18 11:10 RPR Titer Nonreactive (NONREACTIVE) 12/23/18 11:10 lab noted - Treatment Hospital Course: Detox Protocol Followed, Detoxed Safely, Responded well, Discharged Condition Good, Rehab Referral Accepted Patient has Accepted a Rehab Referral to: [facility] - Medication Discharge Medications: Ambulatory Orders Quetiapine Fumarate [Seroquel -] 200 mg PO BID #60 tab 10/09/16 Albuterol Sulfate Inhaler - [Ventolin HFA Inhaler -] 2 puff IH Q4H PRN #1 inhaler 12/25/18 - Diagnosis (1) Alcohol dependence with uncomplicated withdrawal Status: Acute (2) Substance induced mood disorder Status: Suspected (3) Asthma Status: Chronic Qualifiers: Asthma severity: mild Asthma persistence: intermittent Asthma complication type: with status asthmaticus Qualified Code(s): J45.22 - Mild intermittent asthma with status asthmaticus (4) Weight loss Status: Acute - AMA Did Patient Leave Against Medical Advice: No
== END 2018-12-26 09:30 | disposition home or self-care (01) | DRG 774 ==
LOC: YASAS 08:16 → Y3N 10:22
PROVIDERS: ADMIT Surgery; ATTEND Surgery
PROC: HZ2ZZZZ Detoxification Services for Substance Abuse Treatment (ICD-10-PCS; principal; 2018-12-23)
DX: F10.230 Alcohol dependence with withdrawal, uncomplicated (principal); F14.20 Cocaine dependence, uncomplicated; F17.210 Nicotine dependence, cigarettes, uncomplicated; F19.24 Other psychoactive substance dependence with psychoactive substance-induced mood disorder; F31.9 Bipolar disorder, unspecified; F43.10 Post-traumatic stress disorder, unspecified; R63.4 Abnormal weight loss; R79.89 Other specified abnormal findings of blood chemistry; N28.9 Disorder of kidney and ureter, unspecified; Z91.5 Personal history of self-harm
CPT/HCPCS: 36415; 80053; 85027; 86593

== ENCOUNTER 2019-03-14 16:10 | Inpatient (IN) | payer OTHER ==
[2019-03-14 20:12] VITALS: BMI 23.3
--- NOTE | 2019-03-14 21:39 | HP ---
CIWA Score Nausea/Vomitin-No Nausea/No Vomiting Muscle Tremors: 4-Moderate,w/Arms Extend Anxiety: 4-Mod. Anxious/Guarded Agitation: 3 Paroxysmal Sweats: No Perspiration Orientation: 0-Oriented Tacttile Disturbances: 0-None Auditory Disturbances: 0-None Visual Disturbances: 1-Very Mild Sensitivity Headache: 0-None Present CIWA-Ar Total Score: 12 - Admission Criteria OASAS Guidelines: Admission for Medically Managed Detox: Requires at least one of the followin. CIWA greater than 12 2. Seizures within the past 24 hours 3. Delirium tremens within the past 24 hours 4. Hallucinations within the past 24 hours 5. Acute intervention needed for co occurring medical disorder 6. Acute intervention needed for co occurring psychiatric disorder 7. Severe withdrawal that cannot be handled at a lower level of care (continued vomiting, continued diarrhea, abnormal vital signs) requiring intravenous medication and/or fluids 8. Patient presents the following: CIWA greater than 12 (ENRRIQUE 0.080) Admission Criteria Met: Admission criteria met Admitting History and Physical - Smoking History Smoking history: Current every day smoker Have you smoked in the past 12 months: Yes Aproximately how many cigarettes per day: 6 - Alcohol/Substance Use Hx Alcohol Use: Yes Admission ROS BHS - HPI Chief Complaint: Here for alcohol detox. Having some anxiety and shakes." Allergies/Adverse Reactions: Allergies Allergy/AdvReac Type Severity Reaction Status Date / Time No Known Allergies Allergy Verified 03/14/19 20:00 History of Present Illness: 53 yo presents w/ alcohol withdrawal symptoms seeking detox. States began drinking the day of discharge (12/26/18) because was unable to get into rehab. Patient denies recent treatment despite [employer] results. ENRRIQUE: 0.080 UTox: DAVID/BZO Alcohol use since age 16. Currently drinking 2+ pints liquor/day. Cocaine use since age 33. Daily use. Nicotine use since age 33. Currently smokes 4-5 cigs/day Denies hx seizures, blackouts, overdoses. PMHx: Asthma - evidenced by SOB: Denies hx HTN EKG - 02/2018: Abn: RPR: 12/24/18: Nonreactive MHHx: PTSD, Bipolar; Depression. Denies thoughts of harming self or others. Does not see a MH Provider. Goes to emergency rooms. SHx: Homeless. Unemployed. Patient Name: Fernando Daugherty Date: 1965 Address: [address] [place] [address] Sex: Male Rx Written Rx Dispensed Drug Quantity Days Supply Prescriber Name 03/04/2019 03/05/2019 chlordiazepoxide 10 mg capsule 6 1 SilviojethronuriaJuancarlos dawkinsa 12/27/2018 12/29/2018 chlordiazepoxide 10 mg capsule 30 10 Tiffanie Paulson) 12/07/2018 12/07/2018 chlordiazepoxide 10 mg capsule 4 3 Tiffanie Paulson MD) 11/12/2018 11/12/2018 chlordiazepoxide 10 mg capsule 4 2 Tiffanie Paulson MD) 11/09/2018 11/09/2018 chlordiazepoxide 10 mg capsule 30 10 Tiffanie Paulson) 06/11/2018 06/17/2018 chlordiazepoxide 10 mg capsule 2 1 Asiya Ann MD 06/09/2018 06/09/2018 chlordiazepoxide 10 mg capsule 20 7 Asiya Ann MD Exam Limitations: Intoxication (ENRRIQUE: 0.080) - Ebola screening Have you traveled outside of the country in the last 21 days: No (N) Have you had contact with anyone from an Ebola affected area: No Have you been sick,other than usual withdrawal symptoms: No Do you have a fever: No - Review of Systems Constitutional: Changes in sleep (Difficulty falling and staying asleep - has taken Trazodone in the past) EENT: reports: Blurred Vision, Dental Problems (issing some teeth. Chews and swallows ok), Other (Light sensitivity) Respiratory: reports: No Symptoms reported Cardiac: reports: No Symptoms Reported GI: reports: Indigestion (Heart burn - r/t alcohol) : reports: No Symptoms Reported Musculoskeletal: reports: Back Pain (Chronic intermittent sharp LBP - sometimes associated w/ sciatica. No pain at this time. Triggered by weather, increased walking. Improves w/ rest.) Integumentary: reports: No Symptoms Reported Neuro: reports: Tremors Endocrine: reports: Increased Thirst Hematology: reports: No Symptoms Reported Psychiatric: reports: Orientated x3, Agitated, Anxious, Depressed (Denies thoughts of harmings self or others) Patient History - Patient Medical History Hx Anemia: No Hx Asthma: No (DENIES HISTORY OF ASTHMA) Hx Chronic Obstructive Pulmonary Disease (COPD): No Hx Cancer: No Hx Cardiac Disorders: No Hx Congestive Heart Failure: No Hx Hypertension: Yes (NOt on meds) Hx Hypercholesterolemia: No Hx Pacemaker: No HX Cerebrovascular Accident: No Hx Seizures: No Hx Dementia: No Hx Diabetes: No Hx Gastrointestinal Disorders: No Hx Liver Disease: No Hx Genitourinary Disorders: No Hx Sexually Transmitted Disorders: No Hx Renal Disease (ESRD): No Hx Thyroid Disease: No Hx Human Immunodeficiency Virus (HIV): No (07/27 negative) Hx Hepatitis C: No Hx Depression: Yes Hx Suicide Attempt: Yes (pill overdose in 2014) Hx Bipolar Disorder: Yes (hospitalized last month x 2 days at [place]) Hx Schizophrenia: No - Patient Surgical History Past Surgical History: No Hx Neurologic Surgery: No Hx Cataract Extraction: No Hx Cardiac Surgery: No Hx Lung Surgery: No Hx Breast Surgery: No Hx Breast Biopsy: No Hx Abdominal Surgery: No Hx Appendectomy: No Hx Cholecystectomy: No Hx Genitourinary Surgery: No Hx Section: No Hx Orthopedic Surgery: No Anesthesia Reaction: No - PPD History Previous Implant?: Yes Documented Results: Negative w/proof Implanted On Prior R Admission?: Yes Date: 02/08/18 Results: NEGATIVE PPD to be Administered?: Yes - Smoking Cessation Smoking history: Current every day smoker Have you smoked in the past 12 months: Yes Aproximately how many cigarettes per day: 5 Cigars Per Day: 0 Hx Chewing Tobacco Use: No Initiated information on smoking cessation: Yes 'Breaking Loose' booklet given: 03/14/19 - Substance & Tx. History Hx Alcohol Use: Yes Hx Substance Use: Yes Substance Use Type: Alcohol, Cocaine, Marijuana Hx Substance Use Treatment: Yes (detox, rehab) - Substances abused Cocaine Substance route: Smoking Frequency: Daily Amount used: 50usd Age of first use: 33 Date of last use: 03/13/19 Alcohol Substance route: Oral Frequency: Daily Amount used: 3 pints vodka Age of first use: 16 Date of last use: 03/14/19 Admission Physical Exam BHS - Vital Signs Vital Signs: Vital Signs - 24 hr 03/14/19 20:03 Temperature 98.7 F Pulse Rate 111 H Respiratory 16 Rate Blood Pressure 184/91 H - Physical General Appearance: Yes: Nourished, Mild Distress, Tremorous, Anxious, Other HEENTM: Yes: EOMI (Jerking movement of eyes upon lateral gaze), Hearing grossly Normal, Normocephalic, Normal Voice, ERNESTINA, Pharynx Normal Respiratory: Yes: Lungs Clear (PUlse Ox = 98 %), Normal Breath Sounds, No Respiratory Distress Neck: Yes: No masses,lesions,Nodules Breast: Yes: Breast Exam Deferred Cardiology: Yes: Regular Rhythm, Regular Rate, S1, S2 Abdominal: Yes: Non Tender, Flat, Soft, Increased Bowel Sounds Genitourinary: Yes: Within Normal Limits Back: Yes: Normal Inspection Musculoskeletal: Yes: full range of Motion, Gait Steady Extremities: Yes: Normal Capillary Refill, Tremors 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 NML intact (Jerking movement of eyes upon lateral gaze), Fully Oriented, Alert, Motor Strength 5/5 Integumentary: Yes: Normal Color, Dry, Warm Lymphatic: Yes: Within Normal Limits - Diagnostic (1) Unspecified nystagmus Current Visit: Yes Status: Acute (2) Dry skin Current Visit: Yes Status: Chronic (3) Blood pressure elevated without history of HTN Current Visit: Yes Status: Acute (4) History of abnormal electrocardiogram Current Visit: Yes Status: Chronic (5) Alcohol dependence with uncomplicated withdrawal Current Visit: Yes Status: Acute (6) Cocaine dependence Current Visit: Yes Status: Chronic Qualifiers: Substance use status: uncomplicated Qualified Code(s): F14.20 - Cocaine dependence, uncomplicated (7) History of asthma Current Visit: Yes Status: Suspected Cleared for Admission [facility] - Detox or Rehab [facility] Level of Care: Medically Managed Detox Regimen/Protocol: Librium Claeared for Rehab Admission: No Breathalyzer - Breathalyzer Breathalyzer: 0.080 Urine Drug Screen - Test Device Lot number: [id number] Expiration date: 11/05/20 - Control Is test valid?: Yes - Results Drug screen NEGATIVE: No Urine drug screen results: DAVID-Cocaine, BZO-Benzodiazepines Inpatient Rehab Admission - Rehab Decision to Admit Inpatient rehab admission?: No
[2019-03-14] MEDS ORDERED: METHOCARBAMOL 500 MG TABLET PO PRN (22:29)
[2019-03-14] MEDS ORDERED: MELATONIN 5 MG TABLETS PO PRN (22:29)
[2019-03-14] MEDS ORDERED: MAG HYDROX/AL HYDROX/SIMETH 30 ML UNIT-DOSE CUP PO PRN (22:29)
[2019-03-14] MEDS ORDERED: MAGNESIUM CITRATE 300 ML BOTTLE PO PRN (22:29)
[2019-03-14] MEDS ORDERED: ACETAMINOPHEN 325 MG TABLET (FP) PO PRN ×2 (22:29)
[2019-03-14] MEDS ORDERED: IBUPROFEN 400 MG TABLET (FP) PO PRN (22:29)
[2019-03-14] MEDS ORDERED: NICOTINE POLACRILEX 2 MG GUM BUC PRN (22:29)
[2019-03-14] MEDS ORDERED: PROCHLORPERAZINE MALEATE 5 MG TABLET PO PRN (22:29)
[2019-03-14] MEDS ORDERED: MENTHOL/PHENOL 1 EACH UD MM PRN (22:29)
[2019-03-14] MEDS ORDERED: chlordiazePOXIDE HCL 25 MG CAPSULE PO PRN (22:29)
[2019-03-14] MEDS ORDERED: MAGNESIUM HYDROX 2400MG/30ML ORAL SUSPENSION 30 ML CUP PO PRN (22:29)
[2019-03-14] MEDS ORDERED: BISMUTH SUBSALICYLATE 524 MG/30 ML UD PO PRN (22:29)
[2019-03-14] MEDS ORDERED: cloNIDine HCL 0.1 MG TABLET PO ONE (22:33)
[2019-03-14] MEDS: chlordiazePOXIDE HCL 25 MG CAPSULE PO SCH (23:04)
[2019-03-15] MEDS: chlordiazePOXIDE HCL 25 MG CAPSULE PO SCH ×4 (05:59→22:34)
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
[2019-03-15 10:14] LABS: ALBUMIN 3.3 g/dl (3.4-5.0); BILIRUBIN,TOTAL 0.5 mg/dL (0.2-1); BLOOD UREA NITROGEN 12.9 mg/dL (7-18); CALCIUM 8.9 mg/dL (8.5-10.1); CREATININE 1.1 mg/dL (0.55-1.3); POTASSIUM 4.2 mmol/L (3.5-5.1); TOT PROT 6.1 g/dl (6.4-8.2)
[2019-03-15] MEDS: PRENATAL VITAMINS W/ FOLIC ACID TABLET (FP) PO SCH (10:21)
[2019-03-15] MEDS: VITAMINS A AND D TOPICAL OINTMENT 60 GM TUBE TP SCH ×2 (10:21→22:33)
[2019-03-15 10:22] LABS: HEMATOCRIT 36.3 % (35.4-49); HEMOGLOBIN 11.5 GM/dL (11.7-16.9); MCH 22.8 pg (25.7-33.7); MCHC 31.8 g/dl (32.0-35.9); MEAN CELL VOLUME 71.8 fl (80-96); MEAN PLT VOLUME 8.5 fl (7.5-11.1); PLATELET COUNT 262 K/MM3 (134-434); RBC 5.06 M/mm3 (4.00-5.60); RDW 16.4 % (11.9-15.9); WHITE BLOOD COUNT 3.9 K/mm3 (4.0-10.0)
--- NOTE | 2019-03-15 12:20 | EKG ---
Test Reason : Blood Pressure : / mmHG Vent. Rate : 087 BPM Atrial Rate : 087 BPM P-R Int : 150 ms QRS Dur : 072 ms QT Int : 382 ms P-R-T Axes : 064 071 102 degrees QTc Int : 459 ms NORMAL SINUS RHYTHM POSSIBLE LEFT ATRIAL ENLARGEMENT SEPTAL INFARCT , AGE UNDETERMINED T WAVE ABNORMALITY, CONSIDER ANTEROLATERAL ISCHEMIA ABNORMAL ECG WHEN COMPARED WITH ECG OF 06-FEB-2018 18:17, NON-SPECIFIC CHANGE IN ST SEGMENT IN ANTERIOR LEADS Confirmed by Robert Rivas ([id number]) on 03/15/2019 12:19:42 PM Referred By: Confirmed By:Robert Rivas
--- NOTE | 2019-03-15 14:40 | PN ---
S CIWA - CIWA Score Nausea/Vomitin-No Nausea/No Vomiting Muscle Tremors: 3 Anxiety: 3 Agitation: 3 Paroxysmal Sweats: 2 Orientation: 0-Oriented Tacttile Disturbances: 0-None Auditory Disturbances: 0-None Visual Disturbances: 0-None Headache: 0-None Present CIWA-Ar Total Score: 11 S Progress Note (SOAP) Subjective: sweats shakes interrupted sleep Objective: 03/15/19 14:39 Vital Signs Temperature 98.1 F 03/15/19 13:43 Pulse Rate 84 03/15/19 13:43 Respiratory Rate 18 03/15/19 13:43 Blood Pressure 116/64 03/15/19 13:43 O2 Sat by Pulse Oximetry (%) Laboratory Tests 03/15/19 03/15/19 03/15/19 08:00 08:00 08:00 WBC 3.9 L RBC 5.06 Hgb 11.5 L Hct 36.3 MCV 71.8 L MCH 22.8 L MCHC 31.8 L RDW 16.4 H Plt Count 262 D MPV 8.5 Sodium 139 Potassium 4.2 Chloride 103 Carbon Dioxide 32 Anion Gap 4 L BUN 12.9 Creatinine 1.1 Est GFR (CKD-EPI)AfAm 87.13 Est GFR (CKD-EPI)NonAf 75.17 Random Glucose 103 Calcium 8.9 Total Bilirubin 0.5 AST 42 H ALT 49 Alkaline Phosphatase 73 Total Protein 6.1 L Albumin 3.3 L RPR Titer Nonreactive labs noted aaox3 ambulating no acute distress Assessment: 03/15/19 14:40 withdrawals Plan: continue detox increase fluids
[2019-03-15] MEDS: QUEtiapine FUMARATE 200 MG TABLET PO SCH (22:33)
[2019-03-15] MEDS: THIAMINE HCL 100 MG TABLET (FP) PO SCH (22:33)
[2019-03-16] MEDS: chlordiazePOXIDE HCL 25 MG CAPSULE PO SCH ×4 (06:17→22:38)
[2019-03-16] MEDS: PRENATAL VITAMINS W/ FOLIC ACID TABLET (FP) PO SCH (10:59)
[2019-03-16] MEDS: QUEtiapine FUMARATE 200 MG TABLET PO SCH ×2 (10:59→22:37)
[2019-03-16] MEDS: VITAMINS A AND D TOPICAL OINTMENT 60 GM TUBE TP SCH ×2 (11:55→22:37)
--- NOTE | 2019-03-16 14:46 | PN ---
S CIWA - CIWA Score Nausea/Vomitin-No Nausea/No Vomiting Muscle Tremors: 2 Anxiety: 2 Agitation: 2 Paroxysmal Sweats: 1-Minimal Palms Moist Orientation: 0-Oriented Tacttile Disturbances: 0-None Auditory Disturbances: 0-None Visual Disturbances: 0-None Headache: 0-None Present CIWA-Ar Total Score: 7 BHS Progress Note (SOAP) Subjective: sweats shakes interrupted sleep Objective: 03/16/19 14:46 Vital Signs Temperature 98.2 F 03/16/19 13:01 Pulse Rate 117 H 03/16/19 13:01 Respiratory Rate 18 03/16/19 13:01 Blood Pressure 127/76 03/16/19 13:01 O2 Sat by Pulse Oximetry (%) Laboratory Tests 03/15/19 03/15/19 03/15/19 08:00 08:00 08:00 WBC 3.9 L RBC 5.06 Hgb 11.5 L Hct 36.3 MCV 71.8 L MCH 22.8 L MCHC 31.8 L RDW 16.4 H Plt Count 262 D MPV 8.5 Sodium 139 Potassium 4.2 Chloride 103 Carbon Dioxide 32 Anion Gap 4 L BUN 12.9 Creatinine 1.1 Est GFR (CKD-EPI)AfAm 87.13 Est GFR (CKD-EPI)NonAf 75.17 Random Glucose 103 Calcium 8.9 Total Bilirubin 0.5 AST 42 H ALT 49 Alkaline Phosphatase 73 Total Protein 6.1 L Albumin 3.3 L RPR Titer Nonreactive aaox3 ambulating no acute distress Assessment: 03/16/19 14:46 withdrawal sx Plan: continue detox increase fluids
[2019-03-16] MEDS: THIAMINE HCL 100 MG TABLET (FP) PO SCH (22:37)
[2019-03-17] MEDS ORDERED: chlordiazePOXIDE HCL 10 MG CAPSULE PO PRN
[2019-03-17] MEDS: chlordiazePOXIDE HCL 10 MG CAPSULE PO SCH ×4 (06:22→23:04)
[2019-03-17] MEDS ORDERED: cloNIDine HCL 0.1 MG TABLET PO ONE (09:44)
[2019-03-17] MEDS ORDERED: QUEtiapine FUMARATE 200 MG TABLET PO ONE (09:58)
[2019-03-17] MEDS: PRENATAL VITAMINS W/ FOLIC ACID TABLET (FP) PO SCH (10:34)
[2019-03-17] MEDS: VITAMINS A AND D TOPICAL OINTMENT 60 GM TUBE TP SCH ×2 (10:35→22:22)
--- NOTE | 2019-03-17 14:23 | PN ---
BHS CIWA - CIWA Score Nausea/Vomitin-No Nausea/No Vomiting Muscle Tremors: 2 Anxiety: 1-Mildly Anxious Agitation: 1-Slight > Activity Paroxysmal Sweats: 1-Minimal Palms Moist Orientation: 0-Oriented Tacttile Disturbances: 0-None Auditory Disturbances: 0-None Visual Disturbances: 0-None Headache: 0-None Present CIWA-Ar Total Score: 5 BHS Progress Note (SOAP) Subjective: irritable agitation i need my seroquel at 7am Objective: 03/17/19 14:21 Vital Signs Temperature 96.8 F L 03/17/19 12:51 Pulse Rate 91 H 03/17/19 12:51 Respiratory Rate 18 03/17/19 12:51 Blood Pressure 127/74 03/17/19 12:51 O2 Sat by Pulse Oximetry (%) aaox3 ambulating no acute distress Assessment: 03/17/19 14:21 withdrawals Plan: continue detox discussed with dr. Zhong psychiatrist that the timing for the will be changed and if it was ok.. he states thats ok because its a BID order. pt was made aware.
[2019-03-17] MEDS: QUEtiapine FUMARATE 200 MG TABLET PO SCH (23:04)
[2019-03-17] MEDS: THIAMINE HCL 100 MG TABLET (FP) PO SCH (23:05)
[2019-03-18] MEDS ORDERED: chlordiazePOXIDE HCL 10 MG CAPSULE PO SCH (05:00)
[2019-03-18] MEDS: QUEtiapine FUMARATE 200 MG TABLET PO SCH (06:38)
[2019-03-18 06:53] VITALS: BP 95/59; PULSE 72; TEMP 97.9
--- NOTE | 2019-03-18 10:17 | DS ---
[facility] Detox Discharge Summary Admission Date: 03/14/19 Discharge Date: 03/18/19 - History Present History: Alcohol Dependence - Physical Exam Results Vital Signs: Vital Signs Temperature 97.9 F 03/18/19 06:00 Pulse Rate 72 03/18/19 06:00 Respiratory Rate 18 03/18/19 06:00 Blood Pressure 95/59 L 03/18/19 06:00 O2 Sat by Pulse Oximetry (%) Pertinent Admission Physical Exam Findings: pt arrived in withdrawals Vital Signs Temperature 97.9 F 03/18/19 06:00 Pulse Rate 72 03/18/19 06:00 Respiratory Rate 18 03/18/19 06:00 Blood Pressure 95/59 L 03/18/19 06:00 O2 Sat by Pulse Oximetry (%) Laboratory Tests 03/15/19 03/15/19 03/15/19 08:00 08:00 08:00 WBC 3.9 L RBC 5.06 Hgb 11.5 L Hct 36.3 MCV 71.8 L MCH 22.8 L MCHC 31.8 L RDW 16.4 H Plt Count 262 D MPV 8.5 Sodium 139 Potassium 4.2 Chloride 103 Carbon Dioxide 32 Anion Gap 4 L BUN 12.9 Creatinine 1.1 Est GFR (CKD-EPI)AfAm 87.13 Est GFR (CKD-EPI)NonAf 75.17 Random Glucose 103 Calcium 8.9 Total Bilirubin 0.5 AST 42 H ALT 49 Alkaline Phosphatase 73 Total Protein 6.1 L Albumin 3.3 L RPR Titer Nonreactive pt is aaox3 ambulating no acute distress no s/s of withdrawals - Treatment Hospital Course: Detox Protocol Followed, Detoxed Safely, Responded well, Discharged Condition Good, Rehab Referral Accepted Patient has Accepted a Rehab Referral to: pt declined rehab; referral provided - Medication Discharge Medications: Ambulatory Orders Quetiapine Fumarate [Seroquel -] 200 mg PO BID #60 tab 10/09/16 Albuterol Sulfate Inhaler - [Ventolin HFA Inhaler -] 2 puff IH Q4H PRN #1 inhaler 12/25/18 - Diagnosis (1) Alcohol dependence with uncomplicated withdrawal Current Visit: Yes Status: Chronic (2) Blood pressure elevated without history of HTN Current Visit: Yes Status: Acute (3) Cocaine dependence Current Visit: Yes Status: Chronic Qualifiers: Substance use status: uncomplicated Qualified Code(s): F14.20 - Cocaine dependence, uncomplicated (4) Substance induced mood disorder Current Visit: Yes Status: Acute (5) Substance-induced sleep disorder Current Visit: Yes Status: Acute (6) History of abnormal electrocardiogram Current Visit: Yes Status: Chronic (7) History of asthma Current Visit: Yes Status: Suspected (8) Alcohol dependence with uncomplicated withdrawal Current Visit: Yes Status: Chronic (9) Poor dental hygiene Current Visit: Yes Status: Chronic (10) Sciatica, right side Current Visit: No Status: Acute (11) Substance-induced anxiety disorder Current Visit: No Status: Acute (12) Substance-induced sleep disorder Current Visit: No Status: Acute (13) Asthma Current Visit: Yes Status: Chronic Qualifiers: Asthma severity: mild Asthma persistence: intermittent Asthma complication type: with status asthmaticus Qualified Code(s): J45.22 - Mild intermittent asthma with status asthmaticus (14) Bipolar disorder Current Visit: No Status: Chronic Qualifiers: Active/Remission status: remission status unspecified Qualified Code(s): F31.9 - Bipolar disorder, unspecified (15) History of hypertension Current Visit: No Status: Chronic (16) Low back pain Current Visit: No Status: Chronic (17) Nicotine dependence Current Visit: No Status: Chronic Qualifiers: Nicotine product type: cigarettes Substance use status: in withdrawal Qualified Code(s): F17.213 - Nicotine dependence, cigarettes, with withdrawal (18) Non-compliant patient Current Visit: No Status: Chronic (19) PTSD (post-traumatic stress disorder) Current Visit: No Status: Chronic (20) Substance induced mood disorder Current Visit: No Status: Suspected - AMA Did Patient Leave Against Medical Advice: No
[2019-03-19] MEDS ORDERED: chlordiazePOXIDE HCL 10 MG CAPSULE PO ONE (05:00)
== END 2019-03-18 09:32 | disposition home or self-care (01) | DRG 774 ==
LOC: YASAS 16:10 → Y6N 22:17
PROVIDERS: ADMIT Allergy & Immunology; ATTEND Allergy & Immunology
PROC: HZ2ZZZZ Detoxification Services for Substance Abuse Treatment (ICD-10-PCS; principal; 2019-03-14)
DX: F10.230 Alcohol dependence with withdrawal, uncomplicated (principal); F14.20 Cocaine dependence, uncomplicated; F17.210 Nicotine dependence, cigarettes, uncomplicated; F19.282 Other psychoactive substance dependence with psychoactive substance-induced sleep disorder; F19.280 Other psychoactive substance dependence with psychoactive substance-induced anxiety disorder; F19.24 Other psychoactive substance dependence with psychoactive substance-induced mood disorder; F31.9 Bipolar disorder, unspecified; F43.10 Post-traumatic stress disorder, unspecified; J45.22 Mild intermittent asthma with status asthmaticus; I10 Essential (primary) hypertension; M54.31 Sciatica, right side; D64.9 Anemia, unspecified; L85.3 Xerosis cutis; H55.00 Unspecified nystagmus; R94.31 Abnormal electrocardiogram [ECG] [EKG]; Z91.19 Patient's noncompliance with other medical treatment and regimen
CPT/HCPCS: 36415; 80053; 85027; 86593; 93005; 93010; J0735

== ENCOUNTER 2019-04-21 14:15 | Inpatient (IN) | payer OTHER ==
[2019-04-21 16:32] VITALS: BMI 22.8
--- NOTE | 2019-04-21 18:16 | HP ---
"CIWA Score Nausea/Vomitin-No Nausea/No Vomiting Muscle Tremors: None Anxiety: 4-Mod. Anxious/Guarded Agitation: 0-Normal Activity Paroxysmal Sweats: 1-Minimal Palms Moist Orientation: 0-Oriented Tacttile Disturbances: 0-None Auditory Disturbances: 2-Mild Harshness/Frighten Visual Disturbances: 2-Mild Sensitivity Headache: 3-Moderate CIWA-Ar Total Score: 12 - Admission Criteria OASAS Guidelines: Admission for Medically Managed Detox: Requires at least one of the followin. CIWA greater than 12 2. Seizures within the past 24 hours 3. Delirium tremens within the past 24 hours 4. Hallucinations within the past 24 hours 5. Acute intervention needed for co occurring medical disorder 6. Acute intervention needed for co occurring psychiatric disorder 7. Severe withdrawal that cannot be handled at a lower level of care (continued vomiting, continued diarrhea, abnormal vital signs) requiring intravenous medication and/or fluids 8. Admitting History and Physical - Smoking History Smoking history: Current every day smoker Have you smoked in the past 12 months: Yes Aproximately how many cigarettes per day: 5 - Alcohol/Substance Use Hx Alcohol Use: Yes Admission ROS [facility] Allergies/Adverse Reactions: Allergies Allergy/AdvReac Type Severity Reaction Status Date / Time No Known Allergies Allergy Verified 03/14/19 20:00 History of Present Illness: This report was requested by: Kyra Sewell | Reference #: [id number] Others' Prescriptions Patient Name: Fernando Daugherty Date: 1965 Address: [address] [place] [address] Sex: Male Rx Written Rx Dispensed Drug Quantity Days Supply Prescriber Name 04/12/2019 04/14/2019 chlordiazepoxide 10 mg capsule 20 7 Tiffanie Paulson) 03/04/2019 03/05/2019 chlordiazepoxide 10 mg capsule 6 1 Kyra Gusman 12/27/2018 12/29/2018 chlordiazepoxide 10 mg capsule 30 10 Tiffanie Paulson) 12/07/2018 12/07/2018 chlordiazepoxide 10 mg capsule 4 3 Tiffanie Paulson) 11/12/2018 11/12/2018 chlordiazepoxide 10 mg capsule 4 2 Tiffanie Paulson) 11/09/2018 11/09/2018 chlordiazepoxide 10 mg capsule 30 10 Tiffanie Paulson () 06/11/2018 06/17/2018 chlordiazepoxide 10 mg capsule 2 1 Asiya Ann MD 06/09/2018 06/09/2018 chlordiazepoxide 10 mg capsule 20 7 Asiya Ann MD pt denies taking meds as above, admits to going to [facility] , claims only taking meds for pt here requesting detox from etoh use , reports 2-3 pints liquor /day , previous detox @ this facility March 2019 claims he had a blackout 1 week ago , cocaine : 50 $/day tobacco : 6 cigs/day PMHX : PTSD , bipolar d/o ,asthma Exam Limitations: No Limitations - Ebola screening Have you traveled outside of the country in the last 21 days: No Have you had contact with anyone from an Ebola affected area: No Do you have a fever: No - Review of Systems Constitutional: Loss of Appetite EENT: reports: Other (no teeth) Respiratory: reports: No Symptoms reported Cardiac: reports: No Symptoms Reported GI: reports: Constipated, Poor Appetite : reports: No Symptoms Reported Musculoskeletal: reports: Other (claims sciatica R LE x 10 yrs) Integumentary: reports: No Symptoms Reported Neuro: reports: Headache Endocrine: reports: No Symptoms Reported Psychiatric: reports: Orientated x3, Agitated, Anxious Patient History - Patient Medical History Hx Anemia: No Hx Asthma: No (DENIES HISTORY OF ASTHMA) Hx Chronic Obstructive Pulmonary Disease (COPD): No Hx Cancer: No Hx Cardiac Disorders: No Hx Congestive Heart Failure: No Hx Hypertension: Yes (NOt on meds) Hx Hypercholesterolemia: No Hx Pacemaker: No HX Cerebrovascular Accident: No Hx Seizures: No Hx Dementia: No Hx Diabetes: No Hx Gastrointestinal Disorders: No Hx Liver Disease: No Hx Genitourinary Disorders: No Hx Sexually Transmitted Disorders: No Hx Renal Disease (ESRD): No Hx Thyroid Disease: No Hx Human Immunodeficiency Virus (HIV): No (07/27 negative) Hx Hepatitis C: No Hx Depression: Yes Hx Suicide Attempt: Yes (pill overdose in 2014) Hx Bipolar Disorder: Yes (hospitalized last month x 2 days at [facility]) Hx Schizophrenia: No - Patient Surgical History Past Surgical History: No Hx Neurologic Surgery: No Hx Cataract Extraction: No Hx Cardiac Surgery: No Hx Lung Surgery: No Hx Breast Surgery: No Hx Breast Biopsy: No Hx Abdominal Surgery: No Hx Appendectomy: No Hx Cholecystectomy: No Hx Genitourinary Surgery: No Hx Section: No Hx Orthopedic Surgery: No Anesthesia Reaction: No - PPD History Date: 03/16/19 Results: NEGATIVE - Smoking Cessation Smoking history: Current every day smoker Have you smoked in the past 12 months: Yes Aproximately how many cigarettes per day: 5 Cigars Per Day: 0 Hx Chewing Tobacco Use: No Initiated information on smoking cessation: Yes 'Breaking Loose' booklet given: 04/21/19 - Substances abused Cocaine Substance route: Smoking Frequency: Daily Amount used: 100 dollars Age of first use: 33 Date of last use: 04/20/19 Alcohol Substance route: Oral Frequency: Daily Amount used: 3 pints vodka Age of first use: 16 Date of last use: 04/20/19 Admission Physical Exam BHS - Vital Signs Vital Signs: Vital Signs - 24 hr 04/21/19 16:14 Temperature 98.3 F Pulse Rate 86 Respiratory 16 Rate Blood Pressure 130/84 - Physical General Appearance: Yes: Mild Distress, Irritable, Anxious HEENTM: Yes: EOMI, Hearing grossly Normal, Normocephalic, Normal Voice, Other ( pooer dentition , most teeth missing) Respiratory: Yes: Chest Non-Tender, Lungs Clear, No Respiratory Distress, No Accessory Muscle Use Neck: Yes: No masses,lesions,Nodules, Trachea in good position Cardiology: Yes: Regular Rhythm, Regular Rate, S1, S2 Abdominal: Yes: Non Tender, Soft Back: Yes: Normal Inspection Musculoskeletal: Yes: Gait Steady Extremities: Yes: Non-Tender Neurological: Yes: Motor Strength 5/5, Depressed Affect Integumentary: Yes: Warm - Diagnostic (1) Alcohol dependence with uncomplicated withdrawal Current Visit: Yes Status: Chronic (2) Cocaine dependence Current Visit: Yes Status: Chronic Qualifiers: Substance use status: uncomplicated Qualified Code(s): F14.20 - Cocaine dependence, uncomplicated (3) Nicotine dependence Current Visit: Yes Status: Chronic Qualifiers: Nicotine product type: cigarettes Breathalyzer - Breathalyzer Breathalyzer: 0 Urine Drug Screen - Test Device Lot number: [id number] Expiration date: 12/05/20 - Control Is test valid?: Yes - Results Drug screen NEGATIVE: No Urine drug screen results: DAVID-Cocaine, BZO-Benzodiazepines Inpatient Rehab Admission - Rehab Decision to Admit Inpatient rehab admission?: No"
[2019-04-21] MEDS ORDERED: METHOCARBAMOL 500 MG TABLET PO PRN (18:28)
[2019-04-21] MEDS ORDERED: hydrOXYzine PAMOATE 25 MG CAPSULE (FP) PO PRN (18:28)
[2019-04-21] MEDS ORDERED: BISMUTH SUBSALICYLATE 524 MG/30 ML UD PO PRN (18:28)
[2019-04-21] MEDS ORDERED: MENTHOL/PHENOL 1 EACH UD MM PRN (18:28)
[2019-04-21] MEDS ORDERED: MAGNESIUM CITRATE 300 ML BOTTLE PO PRN (18:28)
[2019-04-21] MEDS ORDERED: IBUPROFEN 400 MG TABLET (FP) PO PRN (18:28)
[2019-04-21] MEDS ORDERED: MAGNESIUM HYDROX 2400MG/30ML ORAL SUSPENSION 30 ML CUP PO PRN (18:28)
[2019-04-21] MEDS ORDERED: ACETAMINOPHEN 325 MG TABLET (FP) PO PRN ×2 (18:28)
[2019-04-21] MEDS ORDERED: MAG HYDROX/AL HYDROX/SIMETH 30 ML UNIT-DOSE CUP PO PRN (18:28)
[2019-04-21] MEDS ORDERED: chlordiazePOXIDE HCL 25 MG CAPSULE PO PRN (18:29)
[2019-04-21] MEDS ORDERED: ALBUTEROL SO4 8 GM HFA INHALER IH PRN (18:30)
[2019-04-21] MEDS: chlordiazePOXIDE HCL 25 MG CAPSULE PO SCH (23:02)
[2019-04-21] MEDS: THIAMINE HCL 100 MG TABLET (FP) PO SCH (23:03)
[2019-04-21] MEDS: MELATONIN 5 MG TABLETS PO PRN (23:03)
[2019-04-22] MEDS: chlordiazePOXIDE HCL 25 MG CAPSULE PO SCH ×4 (06:26→22:33)
--- NOTE | 2019-04-22 10:24 | CONSULT ---
[facility] Psychiatric Consult - Data Date of interview: 04/22/19 Admission source: Self-referred Identifying data: Mr Daugherty is a 53 years old single Black male, unemployed receiving food stamp, homeless seeking detox treatment for alcohol and cocaine Psychiatric History: Patient was approached at bedside. Told principal technical writer:" I'm already getting my med. I don't want to talk to you" Psychiatric Findings - Problem List ([place] 1, 2,3) (1) Bipolar disorder Current Visit: No Status: Chronic Qualifiers: Active/Remission status: remission status unspecified Qualified Code(s): F31.9 - Bipolar disorder, unspecified Comment: As per records and self-report.On medications. (2) Paranoid schizophrenia Current Visit: Yes Status: Ruled-out (3) PTSD (post-traumatic stress disorder) Current Visit: No Status: Chronic Comment: As per self-report and existing records.
[2019-04-22 10:25] LABS: ALBUMIN 3.4 g/dl (3.4-5.0); BILIRUBIN,TOTAL 0.2 mg/dL (0.2-1); BLOOD UREA NITROGEN 11.9 mg/dL (7-18); CREATININE 1.2 mg/dL (0.55-1.3); POTASSIUM 4.2 mmol/L (3.5-5.1); TOT PROT 6.3 g/dl (6.4-8.2)
[2019-04-22 10:44] LABS: HEMATOCRIT 39.9 % (35.4-49); HEMOGLOBIN 12.4 GM/dL (11.7-16.9); MCH 22.9 pg (25.7-33.7); MEAN PLT VOLUME 8.4 fl (7.5-11.1); PLATELET COUNT 274 K/MM3 (134-434); RDW 17.3 % (11.9-15.9)
[2019-04-22] MEDS: PRENATAL VITAMINS W/ FOLIC ACID TABLET (FP) PO SCH (12:09)
--- NOTE | 2019-04-22 12:47 | PN ---
S CIWA - CIWA Score Nausea/Vomitin-No Nausea/No Vomiting Muscle Tremors: 3 Anxiety: 2 Agitation: 2 Paroxysmal Sweats: 1-Minimal Palms Moist Orientation: 0-Oriented Tacttile Disturbances: 0-None Auditory Disturbances: 0-None Visual Disturbances: 0-None Headache: 0-None Present CIWA-Ar Total Score: 8 BHS Progress Note (SOAP) Subjective: body aches sweats shakes interrupted sleep Objective: 04/22/19 12:33 Vital Signs Temperature 97.6 F 04/22/19 10:00 Pulse Rate 84 04/22/19 10:00 Respiratory Rate 18 04/22/19 10:00 Blood Pressure 108/74 04/22/19 10:00 O2 Sat by Pulse Oximetry (%) Laboratory Tests 04/22/19 04/22/19 04/22/19 07:00 07:00 07:00 WBC 3.0 L RBC 5.40 Hgb 12.4 Hct 39.9 MCV 74.0 L MCH 22.9 L MCHC 31.0 L RDW 17.3 H Plt Count 274 MPV 8.4 Sodium 137 Potassium 4.2 Chloride 100 Carbon Dioxide 31 Anion Gap 6 L BUN 11.9 Creatinine 1.2 Est GFR (CKD-EPI)AfAm 78.43 Est GFR (CKD-EPI)NonAf 67.67 Random Glucose 95 Calcium 9.0 Total Bilirubin 0.2 AST 20 ALT 22 Alkaline Phosphatase 76 Total Protein 6.3 L Albumin 3.4 RPR Titer Nonreactive labs noted aaox3 ambulating no acute distress Assessment: 04/22/19 12:47 withdrawals Plan: continue detox increase fluids
[2019-04-22] MEDS: THIAMINE HCL 100 MG TABLET (FP) PO SCH (22:33)
[2019-04-22] MEDS: MELATONIN 5 MG TABLETS PO PRN (22:33)
[2019-04-23] MEDS: chlordiazePOXIDE HCL 25 MG CAPSULE PO SCH ×2 (05:54→14:19)
[2019-04-23 06:18] VITALS: BP 124/69; PULSE 77; TEMP 98.1
[2019-04-23] MEDS: PRENATAL VITAMINS W/ FOLIC ACID TABLET (FP) PO SCH (14:19)
--- NOTE | 2019-04-23 16:21 | DS ---
[facility] Detox Discharge Summary Admission Date: 04/21/19 Discharge Date: 04/23/19 - History Present History: Alcohol Dependence, Cocaine Dependence Additional Comments: PATIENT REPORTS FAMILY ISSUE THAT HE HAS TO DEAL. PATIENT WALKED OFF DETOX UNIT ON HIS OWN WITHOUT ESCORT BEFORE PRE-DISCHARGE MEDICAL EVALUATION COULD BE DONE. Pertinent Past History: Nicotine Dependence, Bipolar Disorder, Paranoid Schizophrenia, PTSD, Asthma, HTN , Depression. - Physical Exam Results Vital Signs: Vital Signs Temperature 98.1 F 04/23/19 06:16 Pulse Rate 77 04/23/19 06:16 Respiratory Rate 18 04/23/19 06:16 Blood Pressure 124/69 04/23/19 06:16 O2 Sat by Pulse Oximetry (%) Pertinent Admission Physical Exam Findings: WITHDRAWAL SYMPTOMS. Laboratory Tests 04/22/19 04/22/19 04/22/19 07:00 07:00 07:00 WBC 3.0 L RBC 5.40 Hgb 12.4 Hct 39.9 MCV 74.0 L MCH 22.9 L MCHC 31.0 L RDW 17.3 H Plt Count 274 MPV 8.4 Sodium 137 Potassium 4.2 Chloride 100 Carbon Dioxide 31 Anion Gap 6 L BUN 11.9 Creatinine 1.2 Est GFR (CKD-EPI)AfAm 78.43 Est GFR (CKD-EPI)NonAf 67.67 Random Glucose 95 Calcium 9.0 Total Bilirubin 0.2 AST 20 ALT 22 Alkaline Phosphatase 76 Total Protein 6.3 L Albumin 3.4 RPR Titer Nonreactive LABS NOTED. - Medication Discharge Medications: Ambulatory Orders Quetiapine Fumarate [Seroquel -] 200 mg PO BID #60 tab 10/09/16 Albuterol Sulfate Inhaler - [Ventolin HFA Inhaler -] 2 puff IH Q4H PRN #1 inhaler 04/23/19 - Diagnosis (1) Alcohol dependence with uncomplicated withdrawal Status: Acute (2) Bipolar disorder Status: Chronic Qualifiers: Active/Remission status: remission status unspecified Qualified Code(s): F31.9 - Bipolar disorder, unspecified (3) PTSD (post-traumatic stress disorder) Status: Chronic (4) Cocaine dependence Status: Chronic Qualifiers: Substance use status: uncomplicated Qualified Code(s): F14.20 - Cocaine dependence, uncomplicated (5) Nicotine dependence Status: Chronic Qualifiers: Nicotine product type: cigarettes Substance use status: uncomplicated Qualified Code(s): F17.210 - Nicotine dependence, cigarettes, uncomplicated - AMA Did Patient Leave Against Medical Advice: Yes (PATIENT HAD FAMILY ISSUE, WALKED OFF DETOX UNIT WITHOUT ESCORT.)
[2019-04-24] MEDS ORDERED: chlordiazePOXIDE HCL 10 MG CAPSULE PO PRN
[2019-04-24] MEDS ORDERED: chlordiazePOXIDE HCL 10 MG CAPSULE PO SCH (05:00)
[2019-04-25] MEDS ORDERED: chlordiazePOXIDE HCL 10 MG CAPSULE PO ONE (05:00)
== END 2019-04-23 09:22 | disposition left against medical advice (07) | DRG 770 ==
LOC: YASAS 14:15 → Y6N 18:32
PROVIDERS: ADMIT Allergy & Immunology; ATTEND Allergy & Immunology
PROC: HZ2ZZZZ Detoxification Services for Substance Abuse Treatment (ICD-10-PCS; principal; 2019-04-21)
DX: F10.230 Alcohol dependence with withdrawal, uncomplicated (principal); F14.20 Cocaine dependence, uncomplicated; F17.210 Nicotine dependence, cigarettes, uncomplicated; F43.10 Post-traumatic stress disorder, unspecified; F31.9 Bipolar disorder, unspecified; Z91.5 Personal history of self-harm
CPT/HCPCS: 36415; 80053; 85027; 86593

== ENCOUNTER 2019-06-09 15:09 | Inpatient (IN) | payer OTHER ==
[2019-06-09 17:01] VITALS: BMI 24.7
--- NOTE | 2019-06-09 18:04 | HP ---
CIWA Score Nausea/Vomitin-Mild Nausea/No Vomiting Muscle Tremors: 3 Anxiety: 4-Mod. Anxious/Guarded Agitation: 4-Moderately Restless Paroxysmal Sweats: 2 Orientation: 0-Oriented Tacttile Disturbances: 0-None Auditory Disturbances: 0-None Visual Disturbances: 0-None Headache: 3-Moderate CIWA-Ar Total Score: 17 - Admission Criteria OASAS Guidelines: Admission for Medically Managed Detox: Requires at least one of the followin. CIWA greater than 12 2. Seizures within the past 24 hours 3. Delirium tremens within the past 24 hours 4. Hallucinations within the past 24 hours 5. Acute intervention needed for co occurring medical disorder 6. Acute intervention needed for co occurring psychiatric disorder 7. Severe withdrawal that cannot be handled at a lower level of care (continued vomiting, continued diarrhea, abnormal vital signs) requiring intravenous medication and/or fluids 8. Admitting History and Physical - Smoking History Smoking history: Current every day smoker Have you smoked in the past 12 months: Yes Aproximately how many cigarettes per day: 5 - Alcohol/Substance Use Hx Alcohol Use: Yes Admission [facility] Chief Complaint: Alcohol withdrawal symptoms Allergies/Adverse Reactions: Allergies Allergy/AdvReac Type Severity Reaction Status Date / Time No Known Allergies Allergy Verified 06/09/19 16:43 History of Present Illness: 53 years old male with a long history of alcohol withdrawal symptoms is seeking admission to detox. Patient has been in detox multiple times and reports insignificant period of sobriety. Patient has a history of leaving against medical advice and has signed a treatment contract to complete detoxification, abide by scheduled medication regimen, rules and protocol as specified. He has medical history of hypertension, low back pain and psychiatric history of PTSD, bipolar disorder and depression. He reports suicide attempt in 2015 and denies suicidal ideation at this time. Patient is homeless and lives with friends Exam Limitations: No Limitations - Ebola screening Have you traveled outside of the country in the last 21 days: No Have you had contact with anyone from an Ebola affected area: No Do you have a fever: No - Review of Systems Constitutional: Chills, Malaise, Changes in sleep EENT: reports: No Symptoms Reported Respiratory: reports: No Symptoms reported Cardiac: reports: No Symptoms Reported GI: reports: Nausea, Poor Fluid Intake, Abdominal cramping, Other Musculoskeletal: reports: Back Pain Integumentary: reports: Dryness, Flushing Neuro: reports: Headache, Tremors Endocrine: reports: No Symptoms Reported Hematology: reports: No Symptoms Reported Psychiatric: reports: Orientated x3, Anxious Other Systems: Reviewed and Negative Patient History - Patient Medical History Hx Anemia: No Hx Asthma: No (DENIES HISTORY OF ASTHMA) Hx Chronic Obstructive Pulmonary Disease (COPD): No Hx Cancer: No Hx Cardiac Disorders: No Hx Congestive Heart Failure: No Hx Hypertension: Yes (Not on meds) Hx Hypercholesterolemia: No Hx Pacemaker: No HX Cerebrovascular Accident: No Hx Seizures: No Hx Dementia: No Hx Diabetes: No Hx Gastrointestinal Disorders: No Hx Liver Disease: No Hx Genitourinary Disorders: No Hx Sexually Transmitted Disorders: No Hx Renal Disease (ESRD): No Hx Thyroid Disease: No Hx Human Immunodeficiency Virus (HIV): No (07/27 negative) Hx Hepatitis C: No Hx Depression: Yes Hx Suicide Attempt: Yes (Pill overdose in 2014. Denies suicidal ideation at this time) Hx Bipolar Disorder: Yes (hospitalized last month x 2 days at [place]) Hx Schizophrenia: No - Patient Surgical History Past Surgical History: No Hx Neurologic Surgery: No Hx Cataract Extraction: No Hx Cardiac Surgery: No Hx Lung Surgery: No Hx Abdominal Surgery: No Hx Appendectomy: No Hx Cholecystectomy: No Hx Genitourinary Surgery: No Hx Orthopedic Surgery: No Anesthesia Reaction: No - PPD History Previous Implant?: Yes Documented Results: Negative w/proof Implanted On Prior [facility] Admission?: Yes Date: 03/16/19 Results: NEGATIVE PPD to be Administered?: No - Reproductive History Patient is a Female of Child Bearing Age (11 -55 yrs old): No (male) - Smoking Cessation Smoking history: Current every day smoker Have you smoked in the past 12 months: Yes Aproximately how many cigarettes per day: 5 Cigars Per Day: 0 Hx Chewing Tobacco Use: No Initiated information on smoking cessation: Yes 'Breaking Loose' booklet given: 06/09/19 - Substance & Tx. History Hx Alcohol Use: Yes Hx Substance Use: Yes Substance Use Type: Alcohol, Cocaine Hx Substance Use Treatment: Yes ([facility]) - Substances abused Cocaine Substance route: Smoking Frequency: 1-2 times per week Amount used: 50 dollars Age of first use: 33 Date of last use: 06/07/19 Alcohol Substance route: Oral Frequency: Daily Amount used: 2 pints vodka Age of first use: 16 Date of last use: 06/09/19 Admission Physical Exam [facility] - Vital Signs Vital Signs: Vital Signs - 24 hr 06/09/19 16:42 Temperature 97.1 F L Pulse Rate 93 H Respiratory 20 Rate Blood Pressure 161/91 - Physical General Appearance: Yes: Moderate Distress, Tremorous, Sweating, Anxious HEENTM: Yes: Within Normal Limits, EOMI, Normocephalic, Normal Voice, ERNESTINA Respiratory: Yes: Lungs Clear, Normal Breath Sounds, No Respiratory Distress Neck: Yes: Within Normal Limits Breast: Yes: Breast Exam Deferred Cardiology: Yes: Regular Rhythm, Regular Rate Abdominal: Yes: Normal Bowel Sounds, Soft Genitourinary: Yes: Within Normal Limits Back: Yes: Normal Inspection Musculoskeletal: Yes: Back pain Neurological: Yes: Within Normal Limits, Alert, Motor Strength 5/5, Normal Mood/ Affect Integumentary: Yes: Warm Lymphatic: Yes: Within Normal Limits - Diagnostic (1) Alcohol dependence with uncomplicated withdrawal Current Visit: Yes Status: Acute (2) Cocaine dependence Current Visit: Yes Status: Chronic Qualifiers: Substance use status: uncomplicated Qualified Code(s): F14.20 - Cocaine dependence, uncomplicated (3) History of hypertension Current Visit: Yes Status: Chronic (4) Low back pain Current Visit: Yes Status: Chronic Cleared for Admission [facility] - Detox or Rehab [facility] Level of Care: Medically Managed Detox Regimen/Protocol: Librium Claeared for Rehab Admission: No Breathalyzer - Breathalyzer Breathalyzer: 0 Urine Drug Screen - Test Device Lot number: [id number] Expiration date: 01/05/21 - Control Is test valid?: Yes - Results Drug screen NEGATIVE: No Urine drug screen results: DAVID-Cocaine, BZO-Benzodiazepines Inpatient Rehab Admission - Rehab Decision to Admit Inpatient rehab admission?: No
[2019-06-09] MEDS ORDERED: MAG HYDROX/AL HYDROX/SIMETH 30 ML UNIT-DOSE CUP PO PRN (18:14)
[2019-06-09] MEDS ORDERED: MENTHOL/PHENOL 1 EACH UD MM PRN (18:14)
[2019-06-09] MEDS ORDERED: IBUPROFEN 400 MG TABLET (FP) PO PRN (18:14)
[2019-06-09] MEDS ORDERED: BISMUTH SUBSALICYLATE 524 MG/30 ML UD PO PRN (18:14)
[2019-06-09] MEDS ORDERED: hydrOXYzine PAMOATE 25 MG CAPSULE (FP) PO PRN (18:14)
[2019-06-09] MEDS ORDERED: MAGNESIUM HYDROX 2400MG/30ML ORAL SUSPENSION 30 ML CUP PO PRN (18:14)
[2019-06-09] MEDS ORDERED: MAGNESIUM CITRATE 300 ML BOTTLE PO PRN (18:14)
[2019-06-09] MEDS ORDERED: NICOTINE POLACRILEX 2 MG GUM BUC PRN (18:14)
[2019-06-09] MEDS ORDERED: METHOCARBAMOL 500 MG TABLET PO PRN (18:14)
[2019-06-09] MEDS ORDERED: chlordiazePOXIDE HCL 25 MG CAPSULE PO PRN (18:14)
[2019-06-09] MEDS ORDERED: ACETAMINOPHEN 325 MG TABLET (FP) PO PRN ×2 (18:14)
[2019-06-09] MEDS ORDERED: MELATONIN 5 MG TABLETS PO PRN (22:00)
[2019-06-09] MEDS: chlordiazePOXIDE HCL 25 MG CAPSULE PO SCH (22:49)
[2019-06-09] MEDS: THIAMINE HCL 100 MG TABLET (FP) PO SCH (22:51)
[2019-06-10] MEDS: chlordiazePOXIDE HCL 25 MG CAPSULE PO SCH ×4 (06:10→22:47)
[2019-06-10] MEDS: PRENATAL VITAMINS W/ FOLIC ACID TABLET (FP) PO SCH (09:47)
[2019-06-10] MEDS: NICOTINE 14 MG/24 HOURS TOPICAL PATCH TD SCH (09:48)
[2019-06-10 10:17] LABS: ALBUMIN 3.5 g/dl (3.4-5.0); BILIRUBIN,TOTAL 0.3 mg/dL (0.2-1); BLOOD UREA NITROGEN 14.2 mg/dL (7-18); CALCIUM 8.7 mg/dL (8.5-10.1); CREATININE 1.1 mg/dL (0.55-1.3); POTASSIUM 4.1 mmol/L (3.5-5.1); TOT PROT 6.4 g/dl (6.4-8.2)
[2019-06-10 10:18] LABS: HEMATOCRIT 39.6 % (35.4-49); HEMOGLOBIN 12.4 GM/dL (11.7-16.9); MCH 22.4 pg (25.7-33.7); MCHC 31.3 g/dl (32.0-35.9); MEAN CELL VOLUME 71.7 fl (80-96); MEAN PLT VOLUME 8.5 fl (7.5-11.1); PLATELET COUNT 291 K/MM3 (134-434); RBC 5.52 M/mm3 (4.00-5.60); RDW 16.7 % (11.9-15.9); WHITE BLOOD COUNT 3.7 K/mm3 (4.0-10.0)
--- NOTE | 2019-06-10 10:30 | PN ---
[facility] CIWA - CIWA Score Nausea/Vomitin-No Nausea/No Vomiting Muscle Tremors: 2 Anxiety: 3 Agitation: 2 Paroxysmal Sweats: 3 Orientation: 0-Oriented Tacttile Disturbances: 0-None Auditory Disturbances: 0-None Visual Disturbances: 0-None Headache: 2-Mild CIWA-Ar Total Score: 12 S Progress Note (SOAP) Subjective: c/o sweats, anxiety, headache, shakes, and irritability. Objective: 06/10/19 10:28 Vital Signs 06/10/19 06/10/19 06/10/19 03:30 06:31 09:17 Temperature 97.9 F 97.1 F L Pulse Rate 70 84 Respiratory 18 18 18 Rate Blood Pressure 115/75 106/74 Laboratory Last Values Sodium 139 mmol/L (136-145) 06/10/19 07:40 Potassium 4.1 mmol/L (3.5-5.1) 06/10/19 07:40 Chloride 104 mmol/L (98-107) 06/10/19 07:40 Carbon Dioxide 29 mmol/L (21-32) 06/10/19 07:40 Anion Gap 5 MMOL/L (8-16) L 06/10/19 07:40 BUN 14.2 mg/dL (7-18) 06/10/19 07:40 Creatinine 1.1 mg/dL (0.55-1.3) 06/10/19 07:40 Est GFR (CKD-EPI)AfAm 87.13 06/10/19 07:40 Est GFR (CKD-EPI)NonAf 75.17 06/10/19 07:40 Random Glucose 84 mg/dL (74-106) 06/10/19 07:40 Calcium 8.7 mg/dL (8.5-10.1) 06/10/19 07:40 Total Bilirubin 0.3 mg/dL (0.2-1) 06/10/19 07:40 AST 23 U/L (15-37) 06/10/19 07:40 ALT 29 U/L (13-61) 06/10/19 07:40 Alkaline Phosphatase 67 U/L (45-117) 06/10/19 07:40 Total Protein 6.4 g/dl (6.4-8.2) 06/10/19 07:40 Albumin 3.5 g/dl (3.4-5.0) 06/10/19 07:40 Labs noted. Assessment: AOX3, in no acute respiratory distress. Full ROM, ambulating in the unit. Withdrawal symptoms. Plan: continue detox. Increase fluids.
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
--- NOTE | 2019-06-10 13:27 | EKG ---
Test Reason : Blood Pressure : / mmHG Vent. Rate : 078 BPM Atrial Rate : 078 BPM P-R Int : 158 ms QRS Dur : 070 ms QT Int : 406 ms P-R-T Axes : 072 073 093 degrees QTc Int : 462 ms POOR DATA QUALITY, INTERPRETATION MAY BE ADVERSELY AFFECTED NORMAL SINUS RHYTHM NONSPECIFIC T WAVE ABNORMALITY PROLONGED QT ABNORMAL ECG WHEN COMPARED WITH ECG OF 14-MAR-2019 22:40, CRITERIA FOR SEPTAL INFARCT ARE NO LONGER PRESENT T WAVE INVERSION NO LONGER EVIDENT IN ANTERIOR LEADS Confirmed by JENS RODRIGUEZ MD ([id number]) on 06/10/2019 1:26:44 PM Referred By: Confirmed By:JENS RODRIGUEZ MD
[2019-06-10] MEDS: THIAMINE HCL 100 MG TABLET (FP) PO SCH (22:47)
[2019-06-10] MEDS: traZODone HCL 50 MG TABLET (FP) PO SCH (22:47)
[2019-06-10] MEDS: QUEtiapine FUMARATE 200 MG TABLET PO SCH (22:48)
[2019-06-11] MEDS: chlordiazePOXIDE HCL 25 MG CAPSULE PO SCH ×4 (06:11→22:41)
[2019-06-11] MEDS: PRENATAL VITAMINS W/ FOLIC ACID TABLET (FP) PO SCH (10:53)
[2019-06-11] MEDS: NICOTINE 14 MG/24 HOURS TOPICAL PATCH TD SCH (11:19)
--- NOTE | 2019-06-11 11:44 | PN ---
S CIWA - CIWA Score Nausea/Vomitin-No Nausea/No Vomiting Muscle Tremors: 2 Anxiety: 3 Agitation: 0-Normal Activity Paroxysmal Sweats: 3 Orientation: 0-Oriented Tacttile Disturbances: 0-None Auditory Disturbances: 0-None Visual Disturbances: 0-None Headache: 2-Mild CIWA-Ar Total Score: 10 BHS Progress Note (SOAP) Subjective: c/o headache, anxiety, and sweats. Objective: 06/11/19 11:44 Vital Signs 06/11/19 06/11/19 06:18 09:12 Temperature 97.2 F L 97.3 F L Pulse Rate 75 81 Respiratory 18 18 Rate Blood Pressure 108/69 113/67 Lab Results WBC 3.7 K/mm3 (4.0-10.0) L 06/10/19 07:40 RBC 5.52 M/mm3 (4.00-5.60) 06/10/19 07:40 Hgb 12.4 GM/dL (11.7-16.9) 06/10/19 07:40 Hct 39.6 % (35.4-49) 06/10/19 07:40 MCV 71.7 fl (80-96) L 06/10/19 07:40 MCHC 31.3 g/dl (32.0-35.9) L 06/10/19 07:40 RDW 16.7 % (11.9-15.9) H 06/10/19 07:40 Plt Count 291 K/MM3 (134-434) 06/10/19 07:40 Sodium 139 mmol/L (136-145) 06/10/19 07:40 Potassium 4.1 mmol/L (3.5-5.1) 06/10/19 07:40 Chloride 104 mmol/L (98-107) 06/10/19 07:40 Carbon Dioxide 29 mmol/L (21-32) 06/10/19 07:40 Anion Gap 5 MMOL/L (8-16) L 06/10/19 07:40 BUN 14.2 mg/dL (7-18) 06/10/19 07:40 Creatinine 1.1 mg/dL (0.55-1.3) 06/10/19 07:40 Random Glucose 84 mg/dL (74-106) 06/10/19 07:40 Calcium 8.7 mg/dL (8.5-10.1) 06/10/19 07:40 Labs noted. Assessment: 06/11/19 11:44 AOX3, in no acute respiratory distress. Full ROM, ambulating in the unit. Withdrawal symptoms. Plan: continue detox. Increase fluids.
[2019-06-11] MEDS: QUEtiapine FUMARATE 200 MG TABLET PO SCH (22:41)
[2019-06-11] MEDS: THIAMINE HCL 100 MG TABLET (FP) PO SCH (22:41)
[2019-06-11] MEDS: traZODone HCL 50 MG TABLET (FP) PO SCH (22:41)
[2019-06-12] MEDS ORDERED: chlordiazePOXIDE HCL 10 MG CAPSULE PO PRN
[2019-06-12] MEDS: chlordiazePOXIDE HCL 10 MG CAPSULE PO SCH ×4 (07:08→22:01)
[2019-06-12] MEDS: PRENATAL VITAMINS W/ FOLIC ACID TABLET (FP) PO SCH (10:26)
[2019-06-12] MEDS: NICOTINE 14 MG/24 HOURS TOPICAL PATCH TD SCH (10:26)
--- NOTE | 2019-06-12 10:51 | PN ---
[facility] CIWA - CIWA Score Nausea/Vomitin-Mild Nausea/No Vomiting Muscle Tremors: 2 Anxiety: 2 Agitation: 2 Paroxysmal Sweats: 1-Minimal Palms Moist Orientation: 1-Uncertain about Date (day of month) Tacttile Disturbances: 0-None Auditory Disturbances: 0-None Visual Disturbances: 0-None Headache: 0-None Present CIWA-Ar Total Score: 9 BHS Progress Note (SOAP) Subjective: 53 years old male admitted on 06/09/19 for alcohol withdrawal sx management treating with librium detox regimen doing ok today ate breakfast ambulating from bed to bathroom steady gait Objective: 06/12/19 10:50 Vital Signs Temperature 97.6 F 06/12/19 09:23 Pulse Rate 81 06/12/19 09:23 Respiratory Rate 18 06/12/19 09:23 Blood Pressure 123/74 06/12/19 09:23 O2 Sat by Pulse Oximetry (%) Laboratory Last Values WBC 3.7 K/mm3 (4.0-10.0) L 06/10/19 07:40 RBC 5.52 M/mm3 (4.00-5.60) 06/10/19 07:40 Hgb 12.4 GM/dL (11.7-16.9) 06/10/19 07:40 Hct 39.6 % (35.4-49) 06/10/19 07:40 MCV 71.7 fl (80-96) L 06/10/19 07:40 MCH 22.4 pg (25.7-33.7) L 06/10/19 07:40 MCHC 31.3 g/dl (32.0-35.9) L 06/10/19 07:40 RDW 16.7 % (11.9-15.9) H 06/10/19 07:40 Plt Count 291 K/MM3 (134-434) 06/10/19 07:40 MPV 8.5 fl (7.5-11.1) 06/10/19 07:40 Sodium 139 mmol/L (136-145) 06/10/19 07:40 Potassium 4.1 mmol/L (3.5-5.1) 06/10/19 07:40 Chloride 104 mmol/L (98-107) 06/10/19 07:40 Carbon Dioxide 29 mmol/L (21-32) 06/10/19 07:40 Anion Gap 5 MMOL/L (8-16) L 06/10/19 07:40 BUN 14.2 mg/dL (7-18) 06/10/19 07:40 Creatinine 1.1 mg/dL (0.55-1.3) 06/10/19 07:40 Est GFR (CKD-EPI)AfAm 87.13 06/10/19 07:40 Est GFR (CKD-EPI)NonAf 75.17 06/10/19 07:40 Random Glucose 84 mg/dL (74-106) 06/10/19 07:40 Calcium 8.7 mg/dL (8.5-10.1) 06/10/19 07:40 Total Bilirubin 0.3 mg/dL (0.2-1) 06/10/19 07:40 AST 23 U/L (15-37) 06/10/19 07:40 ALT 29 U/L (13-61) 06/10/19 07:40 Alkaline Phosphatase 67 U/L (45-117) 06/10/19 07:40 Total Protein 6.4 g/dl (6.4-8.2) 06/10/19 07:40 Albumin 3.5 g/dl (3.4-5.0) 06/10/19 07:40 RPR Titer Nonreactive (NONREACTIVE) 06/10/19 07:40 lab noted Assessment: 06/12/19 10:56 alcohol withdrawal Plan: librium regimen
[2019-06-12] MEDS: THIAMINE HCL 100 MG TABLET (FP) PO SCH (21:50)
[2019-06-12] MEDS: traZODone HCL 50 MG TABLET (FP) PO SCH (21:50)
[2019-06-12] MEDS: QUEtiapine FUMARATE 200 MG TABLET PO SCH (21:50)
[2019-06-13] MEDS ORDERED: chlordiazePOXIDE HCL 10 MG CAPSULE PO SCH (05:00)
[2019-06-13 06:28] VITALS: BP 111/71; PULSE 69; TEMP 97.7
[2019-06-13] MEDS: PRENATAL VITAMINS W/ FOLIC ACID TABLET (FP) PO SCH (09:13)
[2019-06-13] MEDS: NICOTINE 14 MG/24 HOURS TOPICAL PATCH TD SCH (09:13)
--- NOTE | 2019-06-13 12:14 | DS ---
[facility] Detox Discharge Summary Admission Date: 06/09/19 Discharge Date: 06/13/19 - History Present History: Alcohol Dependence Additional Comments: 53 years old male admitted on 06/09/19 treated with librium detox regimen patient tolerated well alert oriented x 3 cardiac s1s2 regular rate rhythm respiratory clear lungs bilaterally on auscultation skin warm and dry Pertinent Past History: patient prefers to leave the detox unit today one day early as per estimated day of 06/14/19 routine discharge is appropriated - Physical Exam Results Vital Signs: Vital Signs Temperature 97.7 F 06/13/19 06:28 Pulse Rate 69 06/13/19 06:28 Respiratory Rate 18 06/13/19 06:28 Blood Pressure 111/71 06/13/19 06:28 O2 Sat by Pulse Oximetry (%) Pertinent Admission Physical Exam Findings: alcohol withdrawal Laboratory Last Values WBC 3.7 K/mm3 (4.0-10.0) L 06/10/19 07:40 RBC 5.52 M/mm3 (4.00-5.60) 06/10/19 07:40 Hgb 12.4 GM/dL (11.7-16.9) 06/10/19 07:40 Hct 39.6 % (35.4-49) 06/10/19 07:40 MCV 71.7 fl (80-96) L 06/10/19 07:40 MCH 22.4 pg (25.7-33.7) L 06/10/19 07:40 MCHC 31.3 g/dl (32.0-35.9) L 06/10/19 07:40 RDW 16.7 % (11.9-15.9) H 06/10/19 07:40 Plt Count 291 K/MM3 (134-434) 06/10/19 07:40 MPV 8.5 fl (7.5-11.1) 06/10/19 07:40 Sodium 139 mmol/L (136-145) 06/10/19 07:40 Potassium 4.1 mmol/L (3.5-5.1) 06/10/19 07:40 Chloride 104 mmol/L (98-107) 06/10/19 07:40 Carbon Dioxide 29 mmol/L (21-32) 06/10/19 07:40 Anion Gap 5 MMOL/L (8-16) L 06/10/19 07:40 BUN 14.2 mg/dL (7-18) 06/10/19 07:40 Creatinine 1.1 mg/dL (0.55-1.3) 06/10/19 07:40 Est GFR (CKD-EPI)AfAm 87.13 06/10/19 07:40 Est GFR (CKD-EPI)NonAf 75.17 06/10/19 07:40 Random Glucose 84 mg/dL (74-106) 06/10/19 07:40 Calcium 8.7 mg/dL (8.5-10.1) 06/10/19 07:40 Total Bilirubin 0.3 mg/dL (0.2-1) 06/10/19 07:40 AST 23 U/L (15-37) 06/10/19 07:40 ALT 29 U/L (13-61) 06/10/19 07:40 Alkaline Phosphatase 67 U/L (45-117) 06/10/19 07:40 Total Protein 6.4 g/dl (6.4-8.2) 06/10/19 07:40 Albumin 3.5 g/dl (3.4-5.0) 06/10/19 07:40 RPR Titer Nonreactive (NONREACTIVE) 06/10/19 07:40 lab noted - Treatment Hospital Course: Detox Protocol Followed, Detoxed Safely, Responded well, Discharged Condition Good, Rehab Referral Accepted Patient has Accepted a Rehab Referral to: ready willing and able - Medication Discharge Medications: Ambulatory Orders Albuterol Sulfate Inhaler - [Ventolin HFA Inhaler -] 2 puff IH Q4H PRN #1 inhaler 04/23/19 Budesonide/Formeterol Fumarate [SYMBICORT 80/4.5mcg -] 1 inh PO BID 06/09/19 Quetiapine Fumarate [Seroquel -] 200 mg PO TID 06/09/19 traZODone HCL [Trazodone HCl] 100 mg PO HS 06/09/19 - Diagnosis (1) Alcohol dependence with uncomplicated withdrawal Status: Acute (2) Substance induced mood disorder Status: Suspected (3) Asthma Status: Chronic Qualifiers: Asthma severity: mild Asthma persistence: intermittent Asthma complication type: with status asthmaticus Qualified Code(s): J45.22 - Mild intermittent asthma with status asthmaticus (4) History of hypertension Status: Chronic (5) Nicotine dependence Status: Acute Qualifiers: Nicotine product type: cigarettes Substance use status: in withdrawal Qualified Code(s): F17.213 - Nicotine dependence, cigarettes, with withdrawal (6) Substance induced mood disorder Status: Suspected - AMA Did Patient Leave Against Medical Advice: No CIWA Score - CIWA Score Nausea/Vomitin-No Nausea/No Vomiting Muscle Tremors: 1-None Visible, but [place] Anxiety: 1-Mildly Anxious Agitation: 2 Paroxysmal Sweats: 1-Minimal Palms Moist Orientation: 0-Oriented (day of month) Tacttile Disturbances: 0-None Auditory Disturbances: 0-None Visual Disturbances: 0-None Headache: 0-None Present CIWA-Ar Total Score: 5
[2019-06-14] MEDS ORDERED: chlordiazePOXIDE HCL 10 MG CAPSULE PO ONE (05:00)
== END 2019-06-13 09:04 | disposition home or self-care (01) | DRG 774 ==
LOC: YASAS 15:09 → Y3N 18:51
PROVIDERS: ADMIT Allergy & Immunology; ATTEND Allergy & Immunology
PROC: HZ2ZZZZ Detoxification Services for Substance Abuse Treatment (ICD-10-PCS; principal; 2019-06-09)
DX: F10.230 Alcohol dependence with withdrawal, uncomplicated (principal); F14.20 Cocaine dependence, uncomplicated; F17.213 Nicotine dependence, cigarettes, with withdrawal; F19.24 Other psychoactive substance dependence with psychoactive substance-induced mood disorder; I10 Essential (primary) hypertension; G47.00 Insomnia, unspecified; M54.5 Low back pain; G89.29 Other chronic pain; Z86.69 Personal history of other diseases of the nervous system and sense organs; Z91.5 Personal history of self-harm
CPT/HCPCS: 36415; 80053; 85027; 86593; 93005; 93010

== ENCOUNTER 2019-07-28 12:33 | Inpatient (IN) | payer OTHER ==
--- NOTE | 2019-07-28 12:55 | BHS.RME ---
Substance Use & Tx History - Substance Use History Alcohol Substance amount: 2 pints vodka Frequency of use: Daily Date of Last Use: 07/28/19 Cocaine (Crack) Substance amount: $50 Frequency of use: Daily Date of Last Use: 07/27/19 - Last Treatment Date of last treatment: 06/2018 Treatment type: Substance Use Disorder (JORGE A) Where was last treatment: Detox (relapsed immediately after being discharged.) Physical/Psych/Mental Status - Behavior General Behavior: Increased activity (restlessness, agitation) Eye Contact: Normal - Cooperativeness Cooperativeness: Cooperative - Thinking Thought Processes: Tight, Logical Thought content: Future oriented - Physical Health Problems Is patient presently having any pain?: No Does patient presently have any injuries (include location): No Does patient currently have a fever: No Is patient : No CIWA Nausea/Vomitin Muscle Tremors: 4-Moderate,w/Arms Extend Anxiety: 3 Agitation: 2 Paroxysmal Sweats: 3 Orientation: 1-Uncertain about Date Tacttile Disturbances: 0-None Auditory Disturbances: 0-None Visual Disturbances: 0-None Headache: 0-None Present CIWA-Ar Total Score: 15
--- NOTE | 2019-07-28 13:18 | HP ---
CIWA Score Nausea/Vomitin Muscle Tremors: 4-Moderate,w/Arms Extend Anxiety: 3 Agitation: 2 Paroxysmal Sweats: 3 Orientation: 1-Uncertain about Date Tacttile Disturbances: 0-None Auditory Disturbances: 0-None Visual Disturbances: 0-None Headache: 0-None Present CIWA-Ar Total Score: 15 - Admission Criteria OASAS Guidelines: Admission for Medically Managed Detox: Requires at least one of the followin. CIWA greater than 12 2. Seizures within the past 24 hours 3. Delirium tremens within the past 24 hours 4. Hallucinations within the past 24 hours 5. Acute intervention needed for co occurring medical disorder 6. Acute intervention needed for co occurring psychiatric disorder 7. Severe withdrawal that cannot be handled at a lower level of care (continued vomiting, continued diarrhea, abnormal vital signs) requiring intravenous medication and/or fluids 8. Admitting History and Physical - Admission Chief Complaint: Mr. Daugherty is a 53 yo gentleman who presents to [facility] requesting detox for alcohol and cocaine use disorder as he states " I have been spiraling out of control". History of Present Illness: Mr. Daugherty is a 53 yo gentleman who presents to [facility] requesting detox for alcohol and cocaine use disorder as he states " I have been spiraling out of control". he was last her in June from the to the . He had a contract for that admission. PMH: HTN, low back pain Psych: PTSD, bipolar hospitalized May 2019 for 2 days, suicide attempt in 2015: pill over dose. No current SI Substance use history Alcohol: 2 pints Vodka daily, first use age 16y, last use today. Blacked out 2 days ago. No seizures Cocaine/crack: $50. 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 [employer] Education: [facility] Meets criteria for detox admission; homeless, poor judgement - Smoking History Smoking history: Current every day smoker Have you smoked in the past 12 months: Yes Aproximately how many cigarettes per day: 5 - Alcohol/Substance Use Hx Alcohol Use: Yes Admission ROS S - HPI Allergies/Adverse Reactions: Allergies Allergy/AdvReac Type Severity Reaction Status Date / Time No Known Allergies Allergy Verified 06/09/19 16:43 Exam Limitations: No Limitations - Ebola screening Have you traveled outside of the country in the last 21 days: No Have you had contact with anyone from an Ebola affected area: No Have you been sick,other than usual withdrawal symptoms: No Do you have a fever: No - Review of Systems Constitutional: Other (20 lb weight gain in 2 mos) EENT: reports: No Symptoms Reported Respiratory: reports: No Symptoms reported Cardiac: reports: No Symptoms Reported GI: reports: No Symptoms Reported : reports: No Symptoms Reported Musculoskeletal: reports: Back Pain Integumentary: reports: No Symptoms Reported Neuro: reports: Headache Endocrine: reports: No Symptoms Reported Hematology: reports: No Symptoms Reported Psychiatric: reports: Anxious Patient History - Patient Medical History Hx Anemia: No Hx Asthma: No (DENIES HISTORY OF ASTHMA) Hx Chronic Obstructive Pulmonary Disease (COPD): No Hx Cancer: No Hx Cardiac Disorders: No Hx Congestive Heart Failure: No Hx Hypertension: Yes (Not on meds) Hx Hypercholesterolemia: No Hx Pacemaker: No HX Cerebrovascular Accident: No Hx Seizures: No Hx Dementia: No Hx Diabetes: No Hx Gastrointestinal Disorders: No Hx Liver Disease: No Hx Genitourinary Disorders: No Hx Sexually Transmitted Disorders: No Hx Renal Disease (ESRD): No Hx Thyroid Disease: No Hx Human Immunodeficiency Virus (HIV): No (07/27 negative) Hx Hepatitis C: No Hx Depression: Yes Hx Suicide Attempt: Yes (Pill overdose in 2014. Denies suicidal ideation at this time) Hx Bipolar Disorder: Yes (hospitalized last month x 2 days at [facility]) Hx Schizophrenia: No - Patient Surgical History Past Surgical History: No Hx Neurologic Surgery: No Hx Cataract Extraction: No Hx Cardiac Surgery: No Hx Lung Surgery: No Hx Breast Surgery: No Hx Breast Biopsy: No Hx Abdominal Surgery: No Hx Appendectomy: No Hx Cholecystectomy: No Hx Genitourinary Surgery: No Hx Section: No Hx Orthopedic Surgery: No Anesthesia Reaction: No - PPD History Date: 03/16/19 Results: NEGATIVE - Smoking Cessation Smoking history: Current every day smoker Have you smoked in the past 12 months: Yes Aproximately how many cigarettes per day: 5 Cigars Per Day: 0 Hx Chewing Tobacco Use: No Initiated information on smoking cessation: Yes 'Breaking Loose' booklet given: 07/28/19 Admission Physical Exam BHS - Physical General Appearance: Yes: Disheveled HEENTM: Yes: Hearing grossly Normal, Normocephalic, Normal Voice Respiratory: Yes: Lungs Clear, Normal Breath Sounds Neck: Yes: Within Normal Limits Breast: Yes: Breast Exam Deferred Cardiology: Yes: S1, S2, Tachycardia Abdominal: Yes: Non Tender, Flat, Soft, Decreased BS Genitourinary: Yes: Other (deferred) Back: Yes: Normal Inspection Musculoskeletal: Yes: Within Normal Limits Extremities: Yes: Within Normal Limits Neurological: Yes: Alert Integumentary: Yes: Dry - Diagnostic (1) HTN (hypertension) Current Visit: No Status: Chronic (2) Alcohol dependence with uncomplicated withdrawal Current Visit: Yes Status: Acute (3) Cocaine dependence Current Visit: Yes Status: Chronic Qualifiers: Substance use status: uncomplicated Qualified Code(s): F14.20 - Cocaine dependence, uncomplicated (4) History of bipolar disorder Current Visit: No Status: Chronic (5) PTSD (post-traumatic stress disorder) Current Visit: No Status: Chronic Comment: As per self-report and existing records. Cleared for Admission [facility] - Detox or Rehab [facility] Level of Care: Medically Managed Detox Regimen/Protocol: Librium Breathalyzer - Breathalyzer Breathalyzer: 0 Urine Drug Screen - Test Device Lot number: [id number] Expiration date: 01/05/21 - Control Is test valid?: Yes - Results Drug screen NEGATIVE: No Urine drug screen results: DAVID-Cocaine, BZO-Benzodiazepines Inpatient Rehab Admission - Rehab Decision to Admit Inpatient rehab admission?: No
[2019-07-28] MEDS ORDERED: ALBUTEROL SO4 HFA INHALER IH PRN (13:24)
[2019-07-28] MEDS ORDERED: MAGNESIUM HYDROX 2400MG/30ML ORAL SUSPENSION 30 ML CUP PO PRN (13:25)
[2019-07-28] MEDS ORDERED: ACETAMINOPHEN 325 MG TABLET (FP) PO PRN ×2 (13:25)
[2019-07-28] MEDS ORDERED: NICOTINE POLACRILEX 2 MG GUM BUC PRN (13:25)
[2019-07-28] MEDS ORDERED: MAGNESIUM CITRATE 300 ML BOTTLE PO PRN (13:25)
[2019-07-28] MEDS ORDERED: IBUPROFEN 400 MG TABLET (FP) PO PRN (13:25)
[2019-07-28] MEDS ORDERED: METHOCARBAMOL 500 MG TABLET PO PRN (13:25)
[2019-07-28] MEDS ORDERED: hydrOXYzine PAMOATE 25 MG CAPSULE (FP) PO PRN (13:25)
[2019-07-28] MEDS ORDERED: MAG HYDROX/AL HYDROX/SIMETH 30 ML UNIT-DOSE CUP PO PRN (13:25)
[2019-07-28] MEDS ORDERED: MELATONIN 5 MG TABLETS PO PRN (13:25)
[2019-07-28] MEDS ORDERED: chlordiazePOXIDE HCL 25 MG CAPSULE PO PRN (13:25)
[2019-07-28] MEDS ORDERED: MENTHOL/PHENOL 1 EACH UD MM PRN (13:25)
[2019-07-28] MEDS ORDERED: BISMUTH SUBSALICYLATE 262 MG/15 ML BTL PO PRN (13:25)
[2019-07-28] MEDS ORDERED: VITAMINS A AND D TOPICAL OINTMENT 60 GM TUBE TP PRN (13:28)
[2019-07-28 13:58] VITALS: BMI 24.8
[2019-07-28 17:01] LABS: HEMATOCRIT 41.2 % (35.4-49); HEMOGLOBIN 13.2 GM/dL (11.7-16.9); MCH 23.2 pg (25.7-33.7); MEAN CELL VOLUME 72.4 fl (80-96); PLATELET COUNT 241 K/MM3 (134-434); RBC 5.69 M/mm3 (4.00-5.60); RDW 17.4 % (11.9-15.9); WHITE BLOOD COUNT 4.9 K/mm3 (4.0-10.0)
[2019-07-28 17:09] LABS: BILIRUBIN,TOTAL 0.6 mg/dL (0.2-1); BLOOD UREA NITROGEN 14.6 mg/dL (7-18); CALCIUM 9.2 mg/dL (8.5-10.1); CREATININE 1.3 mg/dL (0.55-1.3); POTASSIUM 3.7 mmol/L (3.5-5.1); TOT PROT 7.6 g/dl (6.4-8.2)
[2019-07-28] MEDS: chlordiazePOXIDE HCL 25 MG CAPSULE PO SCH ×2 (17:56→22:40)
[2019-07-28] MEDS: THIAMINE HCL 100 MG TABLET (FP) PO SCH (22:41)
[2019-07-29] MEDS: chlordiazePOXIDE HCL 25 MG CAPSULE PO SCH ×4 (06:08→22:32)
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
--- NOTE | 2019-07-29 08:52 | PN ---
S CIWA - CIWA Score Nausea/Vomitin Muscle Tremors: 2 Anxiety: 2 Agitation: 2 Paroxysmal Sweats: No Perspiration Orientation: 0-Oriented Tacttile Disturbances: 1-Very Mild Itch/Numbness Auditory Disturbances: 0-None Visual Disturbances: 0-None Headache: 2-Mild CIWA-Ar Total Score: 11 S Progress Note (SOAP) Subjective: alert,irritable,anxious,interrupted sleep,tremor Objective: 07/29/19 08:51 Vital Signs Temperature 97.2 F L 07/29/19 06:19 Pulse Rate 71 07/29/19 06:19 Respiratory Rate 16 07/29/19 06:19 Blood Pressure 130/73 07/29/19 06:19 O2 Sat by Pulse Oximetry (%) 07/29/19 08:51 07/28/19 07/28/19 13:50 13:50 WBC 4.9 RBC 5.69 H Hgb 13.2 Hct 41.2 MCV 72.4 L MCHC 32.0 RDW 17.4 H Plt Count 241 Sodium 138 Potassium 3.7 Chloride 103 Carbon Dioxide 26 Anion Gap 10 BUN 14.6 Creatinine 1.3 labs pending Assessment: 07/29/19 08:52 withdrawal symptom Plan: continue detox librium regimen
[2019-07-29] MEDS: PRENATAL VITAMINS W/ FOLIC ACID TABLET (FP) PO SCH (10:06)
[2019-07-29] MEDS: THIAMINE HCL 100 MG TABLET (FP) PO SCH (22:32)
[2019-07-29] MEDS: traZODone HCL 100 MG TABLET (FP) PO SCH (22:32)
[2019-07-29] MEDS: QUEtiapine FUMARATE 200 MG TABLET PO SCH (22:32)
[2019-07-30] MEDS: chlordiazePOXIDE HCL 25 MG CAPSULE PO SCH ×4 (06:04→22:40)
[2019-07-30] MEDS: PRENATAL VITAMINS W/ FOLIC ACID TABLET (FP) PO SCH (10:13)
--- NOTE | 2019-07-30 13:52 | PN ---
S CIWA - CIWA Score Nausea/Vomitin-No Nausea/No Vomiting Muscle Tremors: 2 Anxiety: 3 Agitation: 0-Normal Activity Paroxysmal Sweats: No Perspiration Orientation: 0-Oriented Tacttile Disturbances: 1-Very Mild Itch/Numbness Auditory Disturbances: 0-None Visual Disturbances: 2-Mild Sensitivity Headache: 0-None Present CIWA-Ar Total Score: 8 BHS Progress Note (SOAP) Subjective: Anxious, Interrupted Sleep, Fatigue, Tremors. Objective: PATIENT A & O X 3, OBSERVED AMBULATING ON DETOX UNIT UNASSISTED. IN NO ACUTE DISTRESS. 07/30/19 13:49 Vital Signs Temperature 98.4 F 07/30/19 08:33 Pulse Rate 93 H 07/30/19 08:33 Respiratory Rate 18 07/30/19 08:33 Blood Pressure 143/85 07/30/19 08:33 O2 Sat by Pulse Oximetry (%) Laboratory Tests 07/28/19 07/28/19 07/28/19 13:50 13:50 13:50 WBC 4.9 RBC 5.69 H Hgb 13.2 Hct 41.2 MCV 72.4 L MCH 23.2 L MCHC 32.0 RDW 17.4 H Plt Count 241 MPV 9.0 Sodium 138 Potassium 3.7 Chloride 103 Carbon Dioxide 26 Anion Gap 10 BUN 14.6 Creatinine 1.3 Est GFR (CKD-EPI)AfAm 71.19 Est GFR (CKD-EPI)NonAf 61.43 Random Glucose 152 H Calcium 9.2 Total Bilirubin 0.6 AST 23 ALT 29 Alkaline Phosphatase 86 Total Protein 7.6 Albumin 4.0 RPR Titer Nonreactive LABS NOTED. Assessment: 07/30/19 13:49 WITHDRAWAL SYMPTOMS. HYPERGLYCEMIA. 07/30/19 13:51 Plan: CONTINUE DETOX. INCREASE DAILY ORAL WATER INTAKE. FASTING GLUCOSE LEVEL ORDERED FOR TOMORROW AM FOR ELEVATED RANDOM GLUCOSE LEVEL NOTED ON DETOX ADMISSION LABORATORY ASSESSMENT.
[2019-07-30] MEDS: QUEtiapine FUMARATE 200 MG TABLET PO SCH (22:39)
[2019-07-30] MEDS: THIAMINE HCL 100 MG TABLET (FP) PO SCH (22:40)
[2019-07-30] MEDS: traZODone HCL 100 MG TABLET (FP) PO SCH (22:40)
[2019-07-31] MEDS ORDERED: chlordiazePOXIDE HCL 10 MG CAPSULE PO PRN
[2019-07-31] MEDS: chlordiazePOXIDE HCL 10 MG CAPSULE PO SCH ×4 (06:55→22:12)
[2019-07-31] MEDS: PRENATAL VITAMINS W/ FOLIC ACID TABLET (FP) PO SCH (11:00)
--- NOTE | 2019-07-31 12:12 | PN ---
S CIWA - CIWA Score Nausea/Vomitin-No Nausea/No Vomiting Muscle Tremors: 2 Anxiety: 2 Agitation: 1-Slight > Activity Paroxysmal Sweats: 2 Orientation: 0-Oriented Tacttile Disturbances: 0-None Auditory Disturbances: 0-None Visual Disturbances: 0-None Headache: 0-None Present CIWA-Ar Total Score: 7 BHS Progress Note (SOAP) Subjective: Feels ok Objective: 07/31/19 12:09 Last Vital Signs Temp Pulse Resp BP Pulse Ox 97.9 F 90 18 136/98 07/31/19 09:10 07/31/19 09:10 07/31/19 09:10 07/31/19 09:10 Elevated b/p 136/98, hast htn (not on medication) Laboratory Tests 07/28/19 07/28/19 07/28/19 13:50 13:50 13:50 WBC 4.9 RBC 5.69 H Hgb 13.2 Hct 41.2 MCV 72.4 L MCH 23.2 L MCHC 32.0 RDW 17.4 H Plt Count 241 MPV 9.0 Sodium 138 Potassium 3.7 Chloride 103 Carbon Dioxide 26 Anion Gap 10 BUN 14.6 Creatinine 1.3 Est GFR (CKD-EPI)AfAm 71.19 Est GFR (CKD-EPI)NonAf 61.43 Random Glucose 152 H Fasting Glucose Calcium 9.2 Total Bilirubin 0.6 AST 23 ALT 29 Alkaline Phosphatase 86 Total Protein 7.6 Albumin 4.0 RPR Titer Nonreactive 07/31/19 07:10 WBC RBC Hgb Hct MCV MCH MCHC RDW Plt Count MPV Sodium Potassium Chloride Carbon Dioxide Anion Gap BUN Creatinine Est GFR (CKD-EPI)AfAm Est GFR (CKD-EPI)NonAf Random Glucose Fasting Glucose 94 Calcium Total Bilirubin AST ALT Alkaline Phosphatase Total Protein Albumin RPR Titer Labs reviewed Assessment: 07/31/19 12:11 Withdrawal sxs Noted with HTN, not on medication Plan: Continue detox Encouraged PO water intake HTN: (patient has h/o htn, not on medication), start norvasc 5mg PO daily, follow up with PCP for management
[2019-07-31] MEDS: amLODIPine BESYLATE 5 MG TABLET (FP) PO SCH (13:00)
[2019-07-31] MEDS: QUEtiapine FUMARATE 200 MG TABLET PO SCH (22:11)
[2019-07-31] MEDS: traZODone HCL 100 MG TABLET (FP) PO SCH (22:12)
[2019-07-31] MEDS: THIAMINE HCL 100 MG TABLET (FP) PO SCH (22:12)
[2019-08-01] MEDS ORDERED: chlordiazePOXIDE HCL 10 MG CAPSULE PO SCH (05:00)
--- NOTE | 2019-08-01 08:42 | PN ---
[facility] CIWA - CIWA Score Nausea/Vomitin-No Nausea/No Vomiting Muscle Tremors: 1-None Visible, but [place] Anxiety: 0-No Anxiety, at Ease Agitation: 0-Normal Activity Paroxysmal Sweats: No Perspiration Orientation: 0-Oriented Tacttile Disturbances: 0-None Auditory Disturbances: 0-None Visual Disturbances: 0-None Headache: 0-None Present CIWA-Ar Total Score: 1 BHS Progress Note (SOAP) Subjective: alert,no complaint Objective: 08/01/19 08:41 Vital Signs Temperature 98.1 F 07/31/19 20:46 Pulse Rate 82 07/31/19 20:46 Respiratory Rate 18 08/01/19 03:34 Blood Pressure 116/82 07/31/19 20:46 O2 Sat by Pulse Oximetry (%) Assessment: 08/01/19 08:41 detox completed,no withdrawal symptom Plan: dsicharge ivan sarmiento,follow up with after care program as arrangement
--- NOTE | 2019-08-01 08:48 | DS ---
[facility] Detox Discharge Summary Admission Date: 07/28/19 Discharge Date: 08/01/19 - History Present History: Alcohol Dependence, Cocaine Dependence Additional Comments: alert,oriented x 3 ambulation on the unit heart normal heart sound,s1s2 lung clear,no wheezing no abdominal pain stable for discharge today time spending on discharge 35 minutes Pertinent Past History: asthma hypertension bipolar disorder - Physical Exam Results Vital Signs: Vital Signs Temperature 98.1 F 07/31/19 20:46 Pulse Rate 82 07/31/19 20:46 Respiratory Rate 18 08/01/19 03:34 Blood Pressure 116/82 07/31/19 20:46 O2 Sat by Pulse Oximetry (%) Pertinent Admission Physical Exam Findings: withdrawal signs and symptom - Treatment Hospital Course: Detox Protocol Followed, Detoxed Safely, Responded well, Discharged Condition Good Patient has Accepted a Rehab Referral to: declined - Medication Discharge Medications: Ambulatory Orders Albuterol Sulfate Inhaler - [Ventolin HFA Inhaler -] 2 puff IH Q4H PRN #1 inhaler 04/23/19 Quetiapine Fumarate [Seroquel -] 200 mg PO TID 06/09/19 traZODone HCL [Trazodone HCl] 150 mg PO HS 06/09/19 - Diagnosis (1) Alcohol dependence with uncomplicated withdrawal Current Visit: Yes Status: Acute (2) Cocaine dependence Current Visit: Yes Status: Acute Qualifiers: Substance use status: uncomplicated Qualified Code(s): F14.20 - Cocaine dependence, uncomplicated (3) Asthma Current Visit: No Status: Chronic Qualifiers: Asthma severity: mild Asthma persistence: intermittent Asthma complication type: with status asthmaticus Qualified Code(s): J45.22 - Mild intermittent asthma with status asthmaticus (4) Bipolar disorder Current Visit: No Status: Chronic Qualifiers: Active/Remission status: remission status unspecified Qualified Code(s): F31.9 - Bipolar disorder, unspecified (5) HTN (hypertension) Current Visit: No Status: Chronic - AMA Did Patient Leave Against Medical Advice: No
--- NOTE | 2019-08-01 09:02 | PN ---
[facility] Progress Note Note: Patient is discharged today. Scripts for 30 days supply of medications(Seroquel 200 mg/hs, Trazadone 100 mg/hs) are electronically transmitted to [facility] at [address] [place], [place] [id number]
[2019-08-01 09:28] VITALS: BP 144/90; PULSE 86; TEMP 96.9
[2019-08-01] MEDS: amLODIPine BESYLATE 5 MG TABLET (FP) PO SCH (09:31)
[2019-08-01] MEDS: PRENATAL VITAMINS W/ FOLIC ACID TABLET (FP) PO SCH (09:31)
[2019-08-02] MEDS ORDERED: chlordiazePOXIDE HCL 10 MG CAPSULE PO ONE (05:00)
== END 2019-08-01 09:35 | disposition home or self-care (01) | DRG 774 ==
LOC: YASAS 12:33 → Y6N 14:04
PROVIDERS: ADMIT Allergy & Immunology; ATTEND Allergy & Immunology
PROC: HZ2ZZZZ Detoxification Services for Substance Abuse Treatment (ICD-10-PCS; principal; 2019-07-28)
DX: F10.230 Alcohol dependence with withdrawal, uncomplicated (principal); F14.20 Cocaine dependence, uncomplicated; F17.210 Nicotine dependence, cigarettes, uncomplicated; F19.282 Other psychoactive substance dependence with psychoactive substance-induced sleep disorder; F19.24 Other psychoactive substance dependence with psychoactive substance-induced mood disorder; F31.9 Bipolar disorder, unspecified; F43.10 Post-traumatic stress disorder, unspecified; I10 Essential (primary) hypertension; J45.22 Mild intermittent asthma with status asthmaticus; R73.9 Hyperglycemia, unspecified; M54.31 Sciatica, right side; M54.5 Low back pain; Z91.5 Personal history of self-harm; Z59.0 Homelessness
CPT/HCPCS: 36415; 80053; 82947; 85027; 86593

== ENCOUNTER 2019-11-30 08:12 | Inpatient (IN) | payer OTHER ==
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
[2019-11-30 09:00] VITALS: BMI 25.1
--- NOTE | 2019-11-30 09:29 | HP ---
CIWA Score Nausea/Vomitin Muscle Tremors: 3 Anxiety: 3 Agitation: 2 Paroxysmal Sweats: 2 Orientation: 0-Oriented Tacttile Disturbances: 0-None Auditory Disturbances: 2-Mild Harshness/Frighten Visual Disturbances: 0-None Headache: 5-Severe CIWA-Ar Total Score: 19 - Admission Criteria OASAS Guidelines: Admission for Medically Managed Detox: Requires at least one of the followin. CIWA greater than 12 2. Seizures within the past 24 hours 3. Delirium tremens within the past 24 hours 4. Hallucinations within the past 24 hours 5. Acute intervention needed for co occurring medical disorder 6. Acute intervention needed for co occurring psychiatric disorder 7. Severe withdrawal that cannot be handled at a lower level of care (continued vomiting, continued diarrhea, abnormal vital signs) requiring intravenous medication and/or fluids 8. Admitting History and Physical - Admission Chief Complaint: Mr. Daugherty is a 53 yo gentleman who presents to [facility] stating "since this pandemic, I've picked up a lot of alcohol". He is requesting admission to detox. History of Present Illness: Mr. Daugherty is a 53 yo gentleman who presents to [facility] stating "since this pandemic, I've picked up a lot of alcohol". He is requesting admission to detox. PMH: HTN, ? prior tx with propranolol PSH: none Psych: PTSD on Seroquel SOC: domiciled Legal: none Substance Use History Alcohol Substance amount: 2 pints Vodka Frequency of use: Daily Substance route: Oral Date of Last Use: 11/29/19 (First use age 16y. One seizue in 2019, blackout yesterday. 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) Cocaine-Crack Substance amount: $100 to $150 Frequency of use: Daily Substance route: Smoking Date of Last Use: 11/29/19 (First use age 33y) Nicotine Substance amount: 6 cigs per day Frequency of use: Daily Substance route: Smoking Date of Last Use: 11/29/19 (First use age 33 y) - Last Treatment Date of last treatment: 07/28 to 08/01/2019 Treatment type: Substance Use Disorder (JORGE A) Where was last treatment: Detox Benzo: denies - Smoking History Smoking history: Current every day smoker Have you smoked in the past 12 months: Yes Aproximately how many cigarettes per day: 6 - Alcohol/Substance Use Hx Alcohol Use: Yes Admission ROS BHS - HPI Allergies/Adverse Reactions: Allergies Allergy/AdvReac Type Severity Reaction Status Date / Time No Known Allergies Allergy Verified 11/30/19 08:54 Exam Limitations: No Limitations - Ebola screening Have you traveled outside of the country in the last 21 days: No Have you been sick,other than usual withdrawal symptoms: No Do you have a fever: No - Review of Systems Constitutional: Changes in sleep (poor sleep) EENT: reports: No Symptoms Reported Respiratory: reports: No Symptoms reported Cardiac: reports: No Symptoms Reported GI: reports: No Symptoms Reported : reports: No Symptoms Reported Musculoskeletal: reports: No Symptoms Reported Integumentary: reports: No Symptoms Reported Neuro: reports: Headache Endocrine: reports: No Symptoms Reported Hematology: reports: No Symptoms Reported Psychiatric: reports: Anxious Patient History - Patient Medical History Hx Anemia: No Hx Asthma: Yes Hx Chronic Obstructive Pulmonary Disease (COPD): No Hx Cancer: No Hx Cardiac Disorders: No Hx Congestive Heart Failure: No Hx Hypertension: Yes Hx Hypercholesterolemia: No Hx Pacemaker: No HX Cerebrovascular Accident: No Hx Seizures: No Hx Dementia: No Hx Diabetes: No Hx Gastrointestinal Disorders: No Hx Liver Disease: No Hx Genitourinary Disorders: No Hx Sexually Transmitted Disorders: No Hx Renal Disease (ESRD): No Hx Thyroid Disease: No Hx Human Immunodeficiency Virus (HIV): No (07/27 negative) Hx Hepatitis C: No Hx Depression: Yes Hx Suicide Attempt: No Hx Bipolar Disorder: Yes (hospitalized last month x 2 days at [facility]) Hx Schizophrenia: No - Patient Surgical History Past Surgical History: No Hx Neurologic Surgery: No Hx Cataract Extraction: No Hx Cardiac Surgery: No Hx Lung Surgery: No Hx Breast Surgery: No Hx Breast Biopsy: No Hx Abdominal Surgery: No Hx Appendectomy: No Hx Cholecystectomy: No Hx Genitourinary Surgery: No Hx Section: No Hx Orthopedic Surgery: No Anesthesia Reaction: No - PPD History Previous Implant?: Yes Documented Results: Negative w/proof Implanted On Prior R Admission?: Yes Date: 03/16/19 Results: NEGATIVE - Reproductive History Patient : (n/a) - Smoking Cessation Smoking history: Current every day smoker Have you smoked in the past 12 months: Yes Aproximately how many cigarettes per day: 6 Cigars Per Day: 0 Hx Chewing Tobacco Use: No Initiated information on smoking cessation: Yes 'Breaking Loose' booklet given: 11/30/19 - Substances abused Alcohol Substance route: Oral Frequency: Daily Amount used: 2 pints of vodka Age of first use: 16 Date of last use: 11/29/19 Crack Substance route: Smoking Frequency: Daily Amount used: $100 Age of first use: 33 Date of last use: 11/29/19 Admission Physical Exam [facility] - Vital Signs Vital Signs: Vital Signs - 24 hr 11/30/19 08:56 Temperature 97.1 F L Pulse Rate 105 H Respiratory 16 Rate Blood Pressure 139/95 - Physical General Appearance: Yes: Mild Distress, Thin, Anxious HEENTM: Yes: EOMI, Hearing grossly Normal, Normocephalic, Normal Voice Respiratory: Yes: Lungs Clear, Normal Breath Sounds Neck: Yes: Within Normal Limits, Supple Breast: Yes: Breast Exam Deferred Cardiology: Yes: Regular Rhythm, S1, S2, Tachycardia Abdominal: Yes: Non Tender, Flat, Soft, Increased Bowel Sounds Genitourinary: Yes: Other (deferred) Back: Yes: Normal Inspection Musculoskeletal: Yes: full range of Motion, Gait Steady Extremities: Yes: Normal Inspection, Non-Tender Neurological: Yes: Alert, Normal Mood/Affect, Normal Response Integumentary: Yes: Normal Color, Dry, Warm - Diagnostic (1) Alcohol dependence with uncomplicated withdrawal Current Visit: Yes Status: Acute (2) Cocaine dependence Current Visit: Yes Status: Acute Qualifiers: Substance use status: uncomplicated Qualified Code(s): F14.20 - Cocaine dependence, uncomplicated (3) HTN (hypertension) Current Visit: Yes Status: Chronic (4) Insomnia Current Visit: Yes Status: Chronic (5) Nicotine dependence Current Visit: Yes Status: Acute Qualifiers: Nicotine product type: cigarettes Substance use status: in withdrawal Qualified Code(s): F17.213 - Nicotine dependence, cigarettes, with withdrawal (6) PTSD (post-traumatic stress disorder) Current Visit: Yes Status: Chronic Comment: As per self-report and existing records. Cleared for Admission [facility] - Detox or Rehab [facility] Level of Care: Medically Managed Detox Regimen/Protocol: Librium Breathalyzer - Breathalyzer Breathalyzer: 0 Urine Drug Screen - Test Device Lot number: [id number] Expiration date: 02/05/21 - Control Is test valid?: Yes - Results Drug screen NEGATIVE: No Urine drug screen results: DAVID-Cocaine, BZO-Benzodiazepines Inpatient Rehab Admission - Rehab Decision to Admit Inpatient rehab admission?: No
[2019-11-30] MEDS ORDERED: BISMUTH SUBSALICYLATE 524 MG/30 ML UD PO PRN (09:33)
[2019-11-30] MEDS ORDERED: MAG HYDROX/AL HYDROX/SIMETH 30 ML UNIT-DOSE CUP PO PRN (09:33)
[2019-11-30] MEDS ORDERED: ONDANSETRON *ODT* 4 MG TABLET SL PRN (09:33)
[2019-11-30] MEDS ORDERED: chlordiazePOXIDE HCL 25 MG CAPSULE PO PRN (09:33)
[2019-11-30] MEDS ORDERED: MAGNESIUM CITRATE 300 ML BOTTLE PO PRN (09:33)
[2019-11-30] MEDS ORDERED: IBUPROFEN 400 MG TABLET (FP) PO PRN (09:33)
[2019-11-30] MEDS ORDERED: NICOTINE POLACRILEX 2 MG GUM BUC PRN (09:33)
[2019-11-30] MEDS ORDERED: ACETAMINOPHEN 325 MG TABLET (FP) PO PRN ×2 (09:33)
[2019-11-30] MEDS ORDERED: MENTHOL/PHENOL 1 EACH UD MM PRN (09:33)
[2019-11-30] MEDS ORDERED: MAGNESIUM HYDROX 2400MG/30ML ORAL SUSPENSION 30 ML CUP PO PRN (09:33)
[2019-11-30] MEDS: chlordiazePOXIDE HCL 25 MG CAPSULE PO SCH ×3 (11:18→22:09)
[2019-11-30] MEDS: amLODIPine BESYLATE 5 MG TABLET (FP) PO SCH (11:18)
[2019-11-30] MEDS: NICOTINE 7 MG/24 HOURS TOPICAL PATCH TD SCH (11:18)
[2019-11-30] MEDS: hydrOXYzine PAMOATE 25 MG CAPSULE (FP) PO SCH ×4 (11:19→22:08)
[2019-11-30] MEDS: PRENATAL VITAMINS W/ FOLIC ACID TABLET (FP) PO SCH (11:19)
[2019-11-30] MEDS ORDERED: hydrOXYzine PAMOATE 50 MG CAPSULE (FP) PO ONE (14:22)
[2019-11-30 14:37] LABS: HEMATOCRIT 47.6 % (35.4-49); HEMOGLOBIN 14.8 GM/dL (11.7-16.9); MCH 22.7 pg (25.7-33.7); MCHC 31.2 g/dl (32.0-35.9); MEAN CELL VOLUME 72.8 fl (80-96); MEAN PLT VOLUME 9.7 fl (7.5-11.1); PLATELET COUNT 305 K/MM3 (134-434); RBC 6.53 M/mm3 (4.00-5.60); RDW 15.8 % (11.9-15.9); WHITE BLOOD COUNT 6.1 K/mm3 (4.0-10.0)
[2019-11-30 14:48] LABS: ALBUMIN 4.6 g/dl (3.4-5.0); BILIRUBIN,TOTAL 0.7 mg/dL (0.2-1); BLOOD UREA NITROGEN 18.1 mg/dL (7-18); CALCIUM 10.2 mg/dL (8.5-10.1); CREATININE 1.5 mg/dL (0.55-1.3); POTASSIUM 4.5 mmol/L (3.5-5.1); TOT PROT 8.4 g/dl (6.4-8.2)
[2019-11-30] MEDS: MELATONIN 5 MG TABLETS PO SCH (22:08)
[2019-11-30] MEDS: THIAMINE HCL 100 MG TABLET (FP) PO SCH (22:08)
[2019-12-01] MEDS: hydrOXYzine PAMOATE 25 MG CAPSULE (FP) PO SCH ×5 (07:05→22:27)
[2019-12-01] MEDS: chlordiazePOXIDE HCL 25 MG CAPSULE PO SCH ×4 (07:05→22:43)
[2019-12-01] MEDS: PRENATAL VITAMINS W/ FOLIC ACID TABLET (FP) PO SCH (11:19)
[2019-12-01] MEDS: amLODIPine BESYLATE 5 MG TABLET (FP) PO SCH (11:19)
[2019-12-01] MEDS: NICOTINE 7 MG/24 HOURS TOPICAL PATCH TD SCH (11:22)
--- NOTE | 2019-12-01 12:00 | PN ---
S CIWA - CIWA Score Nausea/Vomitin-No Nausea/No Vomiting Muscle Tremors: 4-Moderate,w/Arms Extend Anxiety: 4-Mod. Anxious/Guarded Agitation: 3 Paroxysmal Sweats: 1-Minimal Palms Moist Orientation: 0-Oriented Tacttile Disturbances: 0-None Auditory Disturbances: 0-None Visual Disturbances: 0-None Headache: 0-None Present CIWA-Ar Total Score: 12 BHS Progress Note (SOAP) Subjective: Pt is a 53 y/o male with a hx of JORG EA-alcohol,cocaine admitted to detox for withdrawal sx, c/o anxiety tremors muscle aches Objective: 12/01/19 11:58 Vital Signs 12/01/19 12/01/19 06:22 09:00 Temperature 97.5 F L 98.0 F Pulse Rate 99 H 89 Respiratory 18 16 Rate Blood Pressure 130/79 103/72 O2 Sat by Pulse 97 95 Oximetry (%) Laboratory Tests 11/30/19 11/30/19 11/30/19 09:50 09:50 09:50 WBC 6.1 RBC 6.53 H Hgb 14.8 Hct 47.6 D MCV 72.8 L MCH 22.7 L MCHC 31.2 L RDW 15.8 Plt Count 305 D MPV 9.7 Sodium 135 L Potassium 4.5 Chloride 98 Carbon Dioxide 28 Anion Gap 9 BUN 18.1 H Creatinine 1.5 H Est GFR (CKD-EPI)AfAm 59.88 Est GFR (CKD-EPI)NonAf 51.67 Random Glucose 131 H Calcium 10.2 H Total Bilirubin 0.7 AST 30 ALT 28 Alkaline Phosphatase 90 Total Protein 8.4 H Albumin 4.6 Syphilis Serology Non-reactive covid-19 result pending Assessment: 12/01/19 11:59 withdrawal sx Plan: cont detox increase po fluids maintain safety
[2019-12-01] MEDS: THIAMINE HCL 100 MG TABLET (FP) PO SCH (22:27)
[2019-12-01] MEDS: METHOCARBAMOL 500 MG TABLET PO PRN (22:27)
[2019-12-01] MEDS: MELATONIN 5 MG TABLETS PO SCH (22:27)
[2019-12-02] MEDS: hydrOXYzine PAMOATE 25 MG CAPSULE (FP) PO SCH ×5 (06:37→21:42)
[2019-12-02] MEDS: chlordiazePOXIDE HCL 25 MG CAPSULE PO SCH ×4 (06:37→22:02)
--- NOTE | 2019-12-02 09:31 | PN ---
S CIWA - CIWA Score Nausea/Vomitin-No Nausea/No Vomiting Muscle Tremors: 3 Anxiety: 5 Agitation: 4-Moderately Restless Paroxysmal Sweats: 1-Minimal Palms Moist Orientation: 0-Oriented Tacttile Disturbances: 0-None Auditory Disturbances: 0-None Visual Disturbances: 0-None Headache: 0-None Present CIWA-Ar Total Score: 13 BHS Progress Note (SOAP) Subjective: c/o Anxiety slight tremors fatigue intermittent sleep(wants to see psych and takes Seroquel for sleep) Objective: 12/02/19 09:25 Vital Signs - 24 hr 12/01/19 12/01/19 12/01/19 12:52 18:30 20:30 Temperature 98.4 F 97.5 F L Pulse Rate 88 96 H Respiratory 18 18 Rate Blood Pressure 107/73 120/87 O2 Sat by Pulse 97 98 Oximetry (%) 12/01/19 12/02/19 12/02/19 21:26 03:30 06:38 Temperature 97.3 F L 97.8 F Pulse Rate 89 80 Respiratory 20 18 18 Rate Blood Pressure 142/88 95/65 O2 Sat by Pulse Oximetry (%) 12/02/19 06:39 Temperature Pulse Rate Respiratory Rate Blood Pressure O2 Sat by Pulse 92 L Oximetry (%) Laboratory Tests 11/30/19 11/30/19 11/30/19 09:50 09:50 09:50 WBC 6.1 RBC 6.53 H Hgb 14.8 Hct 47.6 D MCV 72.8 L MCH 22.7 L MCHC 31.2 L RDW 15.8 Plt Count 305 D MPV 9.7 Sodium 135 L Potassium 4.5 Chloride 98 Carbon Dioxide 28 Anion Gap 9 BUN 18.1 H Creatinine 1.5 H Est GFR (CKD-EPI)AfAm 59.88 Est GFR (CKD-EPI)NonAf 51.67 Random Glucose 131 H Calcium 10.2 H Total Bilirubin 0.7 AST 30 ALT 28 Alkaline Phosphatase 90 Total Protein 8.4 H Albumin 4.6 Syphilis Serology Non-reactive COVID-19 (JOSE ROBERTO) 11/30/19 10:00 WBC RBC Hgb Hct MCV MCH MCHC RDW Plt Count MPV Sodium Potassium Chloride Carbon Dioxide Anion Gap BUN Creatinine Est GFR (CKD-EPI)AfAm Est GFR (CKD-EPI)NonAf Random Glucose Calcium Total Bilirubin AST ALT Alkaline Phosphatase Total Protein Albumin Syphilis Serology COVID-19 (JOSE ROBERTO) Not detected covid-19 not detected labs borderline abnormal Assessment: 12/02/19 10:02 withdrawal sx Plan: cont detox increase po fluids maintain safety Repeat CBC and CMP in A.M f/u with psych consult
[2019-12-02] MEDS: PRENATAL VITAMINS W/ FOLIC ACID TABLET (FP) PO SCH (10:27)
[2019-12-02] MEDS: NICOTINE 7 MG/24 HOURS TOPICAL PATCH TD SCH (10:27)
[2019-12-02] MEDS: amLODIPine BESYLATE 5 MG TABLET (FP) PO SCH (10:27)
[2019-12-02] MEDS: QUEtiapine FUMARATE 100 MG TABLET (FP) PO SCH (10:27)
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
[2019-12-02 14:23] LABS: HEMATOCRIT 39.8 % (35.4-49); HEMOGLOBIN 12.4 GM/dL (11.7-16.9); MCH 22.4 pg (25.7-33.7); MCHC 31.1 g/dl (32.0-35.9); MEAN CELL VOLUME 72.1 fl (80-96); MEAN PLT VOLUME 9.3 fl (7.5-11.1); PLATELET COUNT 250 K/MM3 (134-434); RBC 5.52 M/mm3 (4.00-5.60); RDW 15.8 % (11.9-15.9); WHITE BLOOD COUNT 3.5 K/mm3 (4.0-10.0)
[2019-12-02 14:33] LABS: ALBUMIN 3.7 g/dl (3.4-5.0); BILIRUBIN,TOTAL 0.7 mg/dL (0.2-1); BLOOD UREA NITROGEN 11.9 mg/dL (7-18); CREATININE 1.2 mg/dL (0.55-1.3); POTASSIUM 4.4 mmol/L (3.5-5.1); TOT PROT 6.6 g/dl (6.4-8.2)
[2019-12-02] MEDS: QUEtiapine FUMARATE 200 MG TABLET PO SCH (21:42)
[2019-12-02] MEDS: METHOCARBAMOL 500 MG TABLET PO PRN (21:42)
[2019-12-02] MEDS: MELATONIN 5 MG TABLETS PO SCH (21:42)
[2019-12-02] MEDS: THIAMINE HCL 100 MG TABLET (FP) PO SCH (21:42)
[2019-12-03] MEDS ORDERED: chlordiazePOXIDE HCL 10 MG CAPSULE PO PRN
[2019-12-03] MEDS: hydrOXYzine PAMOATE 25 MG CAPSULE (FP) PO SCH ×5 (06:42→23:25)
[2019-12-03] MEDS: chlordiazePOXIDE HCL 10 MG CAPSULE PO SCH ×4 (06:42→22:22)
[2019-12-03] MEDS: NICOTINE 7 MG/24 HOURS TOPICAL PATCH TD SCH (10:12)
[2019-12-03] MEDS: QUEtiapine FUMARATE 100 MG TABLET (FP) PO SCH (10:12)
[2019-12-03] MEDS: PRENATAL VITAMINS W/ FOLIC ACID TABLET (FP) PO SCH (10:13)
[2019-12-03] MEDS: amLODIPine BESYLATE 5 MG TABLET (FP) PO SCH (10:13)
--- NOTE | 2019-12-03 15:07 | PN ---
S CIWA - CIWA Score Nausea/Vomitin-No Nausea/No Vomiting Muscle Tremors: None Anxiety: 4-Mod. Anxious/Guarded Agitation: 1-Slight > Activity Paroxysmal Sweats: No Perspiration Orientation: 2-Disoriented Date<2 days Tacttile Disturbances: 0-None Auditory Disturbances: 0-None Visual Disturbances: 2-Mild Sensitivity Headache: 0-None Present CIWA-Ar Total Score: 9 BHS Progress Note (SOAP) Subjective: Anxious, Interrupted Sleep, Fatigue. Objective: Patient A & O X 2 (Uncertain About Current Day/Date). 12/03/19 15:05 Vital Signs Temperature 97.9 F 12/03/19 13:15 Pulse Rate 78 12/03/19 13:15 Respiratory Rate 18 12/03/19 13:15 Blood Pressure 132/74 12/03/19 13:15 O2 Sat by Pulse Oximetry (%) 95 12/03/19 13:15 Laboratory Tests 11/30/19 11/30/19 11/30/19 09:50 09:50 09:50 WBC 6.1 RBC 6.53 H Hgb 14.8 Hct 47.6 D MCV 72.8 L MCH 22.7 L MCHC 31.2 L RDW 15.8 Plt Count 305 D MPV 9.7 Sodium 135 L Potassium 4.5 Chloride 98 Carbon Dioxide 28 Anion Gap 9 BUN 18.1 H Creatinine 1.5 H Est GFR (CKD-EPI)AfAm 59.88 Est GFR (CKD-EPI)NonAf 51.67 Random Glucose 131 H Calcium 10.2 H Total Bilirubin 0.7 AST 30 ALT 28 Alkaline Phosphatase 90 Total Protein 8.4 H Albumin 4.6 Syphilis Serology Non-reactive COVID-19 (JOSE ROBERTO) 11/30/19 12/02/19 12/02/19 10:00 10:20 10:50 WBC 3.5 L RBC 5.52 Hgb 12.4 Hct 39.8 D MCV 72.1 L MCH 22.4 L MCHC 31.1 L RDW 15.8 Plt Count 250 MPV 9.3 Sodium 140 Potassium 4.4 Chloride 105 Carbon Dioxide 30 Anion Gap 5 L BUN 11.9 Creatinine 1.2 Est GFR (CKD-EPI)AfAm 78.43 Est GFR (CKD-EPI)NonAf 67.67 Random Glucose 91 Calcium 9.0 Total Bilirubin 0.7 AST 18 ALT 27 Alkaline Phosphatase 64 Total Protein 6.6 Albumin 3.7 Syphilis Serology COVID-19 (JOSE ROBERTO) Not detected Lab Results noted. Assessment: 12/03/19 15:07 WITHDRAWAL SYMPTOMS. Plan: Continue Detox.
[2019-12-03] MEDS ORDERED: hydrOXYzine PAMOATE 25 MG CAPSULE (FP) PO ONE (18:39)
[2019-12-03] MEDS: MELATONIN 5 MG TABLETS PO SCH (22:21)
[2019-12-03] MEDS: METHOCARBAMOL 500 MG TABLET PO PRN (22:21)
[2019-12-03] MEDS: THIAMINE HCL 100 MG TABLET (FP) PO SCH (22:22)
[2019-12-03] MEDS: QUEtiapine FUMARATE 200 MG TABLET PO SCH (22:22)
[2019-12-04] MEDS: hydrOXYzine PAMOATE 25 MG CAPSULE (FP) PO SCH ×3 (06:16→14:33)
[2019-12-04] MEDS: chlordiazePOXIDE HCL 10 MG CAPSULE PO SCH ×2 (06:16→17:21)
[2019-12-04] MEDS: QUEtiapine FUMARATE 100 MG TABLET (FP) PO SCH (09:29)
[2019-12-04] MEDS: NICOTINE 7 MG/24 HOURS TOPICAL PATCH TD SCH (09:29)
[2019-12-04] MEDS: PRENATAL VITAMINS W/ FOLIC ACID TABLET (FP) PO SCH (09:29)
[2019-12-04] MEDS: METHOCARBAMOL 500 MG TABLET PO PRN ×3 (09:30→22:37)
[2019-12-04] MEDS: amLODIPine BESYLATE 5 MG TABLET (FP) PO SCH (10:51)
--- NOTE | 2019-12-04 14:09 | PN ---
S CIWA - CIWA Score Nausea/Vomitin-No Nausea/No Vomiting Muscle Tremors: 2 Anxiety: 2 Agitation: 1-Slight > Activity Paroxysmal Sweats: No Perspiration Orientation: 0-Oriented Tacttile Disturbances: 0-None Auditory Disturbances: 0-None Visual Disturbances: 1-Very Mild Sensitivity Headache: 0-None Present CIWA-Ar Total Score: 6 BHS Progress Note (SOAP) Subjective: 53 years old male admitted on 11/30/19 for alcohol withdrawal sx management treating with librium detox regiment feeling better today less tremor mild anxiety discussing aftercare with staff mr sloan is willing to go to [facility] for alcohol recovery Objective: 12/04/19 14:10 Vital Signs - 24 hr 12/03/19 12/03/19 12/04/19 17:11 20:30 00:30 Temperature 98.2 F 97.8 F Pulse Rate 91 H 92 H Respiratory 18 17 18 Rate Blood Pressure 120/76 115/69 O2 Sat by Pulse 97 Oximetry (%) 12/04/19 12/04/19 12/04/19 03:30 07:00 09:15 Temperature 97.5 F L 97.7 F Pulse Rate 78 93 H Respiratory 18 18 18 Rate Blood Pressure 101/74 113/74 O2 Sat by Pulse Oximetry (%) 12/04/19 11:16 Temperature Pulse Rate Respiratory Rate Blood Pressure O2 Sat by Pulse 96 Oximetry (%) Laboratory Tests 11/30/19 11/30/19 11/30/19 09:50 09:50 09:50 WBC 6.1 RBC 6.53 H Hgb 14.8 Hct 47.6 D MCV 72.8 L MCH 22.7 L MCHC 31.2 L RDW 15.8 Plt Count 305 D MPV 9.7 Sodium 135 L Potassium 4.5 Chloride 98 Carbon Dioxide 28 Anion Gap 9 BUN 18.1 H Creatinine 1.5 H Est GFR (CKD-EPI)AfAm 59.88 Est GFR (CKD-EPI)NonAf 51.67 Random Glucose 131 H Calcium 10.2 H Total Bilirubin 0.7 AST 30 ALT 28 Alkaline Phosphatase 90 Total Protein 8.4 H Albumin 4.6 Syphilis Serology Non-reactive COVID-19 (JOSE ROBERTO) 11/30/19 12/02/19 12/02/19 10:00 10:20 10:50 WBC 3.5 L RBC 5.52 Hgb 12.4 Hct 39.8 D MCV 72.1 L MCH 22.4 L MCHC 31.1 L RDW 15.8 Plt Count 250 MPV 9.3 Sodium 140 Potassium 4.4 Chloride 105 Carbon Dioxide 30 Anion Gap 5 L BUN 11.9 Creatinine 1.2 Est GFR (CKD-EPI)AfAm 78.43 Est GFR (CKD-EPI)NonAf 67.67 Random Glucose 91 Calcium 9.0 Total Bilirubin 0.7 AST 18 ALT 27 Alkaline Phosphatase 64 Total Protein 6.6 Albumin 3.7 Syphilis Serology COVID-19 (JOSE ROBERTO) Not detected 12/04/19 14:11 random glucose within normal Assessment: 12/04/19 14:12 alcohol withdrawal Plan: librium regiment
[2019-12-04] MEDS: hydrOXYzine PAMOATE 25 MG CAPSULE (FP) PO PRN ×2 (17:21→22:37)
[2019-12-04] MEDS: ALBUTEROL SO4 HFA INHALER IH PRN (19:51)
[2019-12-04] MEDS: THIAMINE HCL 100 MG TABLET (FP) PO SCH (22:37)
[2019-12-04] MEDS: QUEtiapine FUMARATE 200 MG TABLET PO SCH (22:37)
[2019-12-04] MEDS: MELATONIN 5 MG TABLETS PO SCH (22:37)
[2019-12-05] MEDS ORDERED: chlordiazePOXIDE HCL 10 MG CAPSULE PO ONE (05:00)
[2019-12-05] MEDS: ALBUTEROL SO4 HFA INHALER IH PRN (06:53)
[2019-12-05 07:10] VITALS: BP 121/85; PULSE 89; TEMP 97.3
--- NOTE | 2019-12-05 09:55 | DS ---
[facility] Detox Discharge Summary Admission Date: 11/30/19 Discharge Date: 12/05/19 - History Present History: Alcohol Dependence, Cocaine Dependence Additional Comments: Pt reports he has own meds and has PCP at [facility] for medical management. Pertinent Past History: HTN Sciatica-Right Poor dental hygiene PTSD Bipolar Disorder Schizophrenia-paranoid - Physical Exam Results Vital Signs: Vital Signs Temperature 97.3 F L 12/05/19 06:27 Pulse Rate 89 12/05/19 06:27 Respiratory Rate 16 12/05/19 06:27 Blood Pressure 121/85 12/05/19 06:27 O2 Sat by Pulse Oximetry (%) 95 12/05/19 06:27 Alert o x 3 nad oob ambulating with steady gait cardiac:s1 s2,rrr lungs:cta,jazmín. abdomen:soft,+bs,nt,nd extremities:no edema,skin intact Pertinent Admission Physical Exam Findings: Laboratory Tests 11/30/19 11/30/19 11/30/19 09:50 09:50 09:50 WBC 6.1 RBC 6.53 H Hgb 14.8 Hct 47.6 D MCV 72.8 L MCH 22.7 L MCHC 31.2 L RDW 15.8 Plt Count 305 D MPV 9.7 Sodium 135 L Potassium 4.5 Chloride 98 Carbon Dioxide 28 Anion Gap 9 BUN 18.1 H Creatinine 1.5 H Est GFR (CKD-EPI)AfAm 59.88 Est GFR (CKD-EPI)NonAf 51.67 Random Glucose 131 H Calcium 10.2 H Total Bilirubin 0.7 AST 30 ALT 28 Alkaline Phosphatase 90 Total Protein 8.4 H Albumin 4.6 Syphilis Serology Non-reactive COVID-19 (JOSE ROBERTO) 11/30/19 12/02/19 12/02/19 10:00 10:20 10:50 WBC 3.5 L RBC 5.52 Hgb 12.4 Hct 39.8 D MCV 72.1 L MCH 22.4 L MCHC 31.1 L RDW 15.8 Plt Count 250 MPV 9.3 Sodium 140 Potassium 4.4 Chloride 105 Carbon Dioxide 30 Anion Gap 5 L BUN 11.9 Creatinine 1.2 Est GFR (CKD-EPI)AfAm 78.43 Est GFR (CKD-EPI)NonAf 67.67 Random Glucose 91 Calcium 9.0 Total Bilirubin 0.7 AST 18 ALT 27 Alkaline Phosphatase 64 Total Protein 6.6 Albumin 3.7 Syphilis Serology COVID-19 (JOSE ROBERTO) Not detected - Treatment Hospital Course: Detox Protocol Followed, Detoxed Safely, Responded well, Discharged Condition Good, Rehab Referral Accepted Patient has Accepted a Rehab Referral to: [facility]/to f/u with [facility] - Medication Discharge Medications: Ambulatory Orders Albuterol Sulfate Inhaler - [Ventolin HFA Inhaler -] 2 puff IH Q4H PRN #1 inhaler 08/01/19 Amlodipine Besylate [Norvasc -] 5 mg PO DAILY #15 tablet 08/01/19 Quetiapine Fumarate [Seroquel -] 200 mg PO TID 11/30/19 - Diagnosis (1) Alcohol dependence with uncomplicated withdrawal Status: Acute (2) Blood pressure elevated without history of HTN Status: Chronic (3) Nicotine dependence Status: Acute Qualifiers: Nicotine product type: cigarettes Substance use status: in withdrawal Qualified Code(s): F17.213 - Nicotine dependence, cigarettes, with withdrawal (4) History of hypertension Status: Chronic (5) Low back pain Status: Chronic Qualifiers: Chronicity: chronic Back pain laterality: unspecified (6) History of asthma Status: Chronic - AMA Did Patient Leave Against Medical Advice: No
== END 2019-12-05 09:14 | disposition home or self-care (01) | DRG 774 ==
LOC: YASAS 08:12 → Y5N DETOX 09:12
PROVIDERS: ADMIT Allergy & Immunology; ATTEND Allergy & Immunology
PROC: HZ2ZZZZ Detoxification Services for Substance Abuse Treatment (ICD-10-PCS; principal; 2019-11-30)
DX: F10.230 Alcohol dependence with withdrawal, uncomplicated (principal); F14.20 Cocaine dependence, uncomplicated; F17.213 Nicotine dependence, cigarettes, with withdrawal; F43.10 Post-traumatic stress disorder, unspecified; F31.9 Bipolar disorder, unspecified; R03.0 Elevated blood-pressure reading, without diagnosis of hypertension; M54.5 Low back pain; G89.29 Other chronic pain; J45.909 Unspecified asthma, uncomplicated; M54.31 Sciatica, right side; R00.0 Tachycardia, unspecified; G47.00 Insomnia, unspecified; Z91.410 Personal history of adult physical and sexual abuse; Z86.69 Personal history of other diseases of the nervous system and sense organs
CPT/HCPCS: 36415; 80053; 85027; 86780; U0003

== ENCOUNTER 2020-02-28 11:21 | Inpatient (IN) | payer OTHER ==
--- NOTE | 2020-02-28 11:29 | BHS.RME ---
Substance Use & Tx History - Substance Use History Alcohol Substance amount: 2-3 pints vodka Frequency of use: Daily Substance route: Oral Date of Last Use: 02/28/20 (started age 16) Cocaine-Crack Substance amount: $50-100 Frequency of use: Daily Substance route: Smoking Date of Last Use: 02/28/20 (started age 33) Marijuana/Hashish Substance amount: 1 joint Frequency of use: Daily Substance route: Smoking Date of Last Use: 02/28/20 (started age 16) Nicotine Substance amount: 6 ciggs Frequency of use: Daily Substance route: Smoking Date of Last Use: 02/28/20 (started age 33) - Last Treatment Date of last treatment: 01/16-01/20/20 Treatment type: Substance Use Disorder (JORGE A) Where was last treatment: Detox Physical/Psych/Mental Status - Behavior General Behavior: Increased activity (restlessness, agitation) Eye Contact: Normal - Cooperativeness Cooperativeness: Cooperative - Thinking Thought Processes: Tight, Logical, Goal Directed - Physical Health Problems Is patient presently having any pain?: No Does patient presently have any injuries (include location): No Does patient currently have a fever: No Is patient : No CIWA Nausea/Vomitin-Cont. Nausea/Vomiting Muscle Tremors: 3 Anxiety: 2 Agitation: 2 Paroxysmal Sweats: 4-Forehead w/Sweat Beads Orientation: 0-Oriented Tacttile Disturbances: 0-None Auditory Disturbances: 0-None Visual Disturbances: 0-None Headache: 5-Severe CIWA-Ar Total Score: 23
[2020-02-28 11:57] VITALS: BMI 25.1
--- NOTE | 2020-02-28 12:16 | HP ---
CIWA Score Nausea/Vomitin-Cont. Nausea/Vomiting Muscle Tremors: 3 Anxiety: 2 Agitation: 2 Paroxysmal Sweats: 4-Forehead w/Sweat Beads Orientation: 0-Oriented Tacttile Disturbances: 0-None Auditory Disturbances: 0-None Visual Disturbances: 0-None Headache: 5-Severe CIWA-Ar Total Score: 23 - Admission Criteria OASAS Guidelines: Admission for Medically Managed Detox: Requires at least one of the followin. CIWA greater than 12 2. Seizures within the past 24 hours 3. Delirium tremens within the past 24 hours 4. Hallucinations within the past 24 hours 5. Acute intervention needed for co occurring medical disorder 6. Acute intervention needed for co occurring psychiatric disorder 7. Severe withdrawal that cannot be handled at a lower level of care (continued vomiting, continued diarrhea, abnormal vital signs) requiring intravenous medication and/or fluids 8. Admitting History and Physical - Admission Chief Complaint: 54 yo M presenting for alcohol detox; "alcohol detox, I want to go to rehab this time." History of Present Illness: 54 yo M presenting for alcohol detox; "alcohol detox, I want to go to rehab this time." Pt was last here 01/16-01/20/20; finished detox last time. Just relapsed yesterday; decided to come today. PMH - HTN (cannot recall antihypertensive he used in the past; not currently taking any antihypertensives), asthma (albuterol inhaler) PSH - none Psych - PTSD and bipolar disorder (seroquel 200 mg bid) Social/Domiciled - Homeless; unemployed; pt reports being "in between housing" Legal - none - Substance Use History Alcohol Substance amount: 2-3 pints vodka Frequency of use: Daily Substance route: Oral Date of Last Use: 02/28/20 (started age 16) Cocaine-Crack Substance amount: $50-100 Frequency of use: Daily Substance route: Smoking Date of Last Use: 02/28/20 (started age 33) Marijuana/Hashish Substance amount: 1 joint Frequency of use: Daily Substance route: Smoking Date of Last Use: 02/28/20 (started age 16) Nicotine Substance amount: 6 ciggs Frequency of use: Daily Substance route: Smoking Date of Last Use: 02/28/20 (started age 33) - Last Treatment Date of last treatment: 01/16-01/20/20 Treatment type: Substance Use Disorder (JORGE A) Where was last treatment: Detox History Source: Patient Limitations to Obtaining History: No Limitations - Smoking History Smoking history: Current every day smoker Have you smoked in the past 12 months: Yes Aproximately how many cigarettes per day: 6 - Alcohol/Substance Use Hx Alcohol Use: Yes Admission [facility] Allergies/Adverse Reactions: Allergies Allergy/AdvReac Type Severity Reaction Status Date / Time No Known Allergies Allergy Verified 02/28/20 11:53 - Ebola screening Have you traveled outside of the country in the last 21 days: No Have you been sick,other than usual withdrawal symptoms: No Do you have a fever: No - Review of Systems Constitutional: Other (weight gain of 30 pounds in 2 months) EENT: reports: No Symptoms Reported Respiratory: reports: No Symptoms reported Cardiac: reports: No Symptoms Reported GI: reports: Nausea, Vomiting : reports: No Symptoms Reported Musculoskeletal: reports: No Symptoms Reported Integumentary: reports: No Symptoms Reported Neuro: reports: Headache, Unsteady Gait (pt has notice a mild unsteady gait but still able to ambulate - cannot recall how long it has been going on) Endocrine: reports: No Symptoms Reported Hematology: reports: No Symptoms Reported Psychiatric: reports: Agitated, Anxious, Depressed (no SI/HI) Patient History - Patient Medical History Hx Anemia: No Hx Asthma: Yes (PUMPS) Hx Chronic Obstructive Pulmonary Disease (COPD): No Hx Cancer: No Hx Cardiac Disorders: No Hx Congestive Heart Failure: No Hx Hypertension: Yes (NONCOMPLIANT WITH MEDS) Hx Hypercholesterolemia: No Hx Pacemaker: No HX Cerebrovascular Accident: No Hx Seizures: No Hx Dementia: No Hx Diabetes: No Hx Gastrointestinal Disorders: Yes (ACIS REFLUX) Hx Liver Disease: No Hx Genitourinary Disorders: No Hx Sexually Transmitted Disorders: No Hx Renal Disease (ESRD): No Hx Thyroid Disease: No Hx Human Immunodeficiency Virus (HIV): No (07/27 negative) Hx Hepatitis C: No Hx Depression: No Hx Suicide Attempt: Yes (5 YRS AGO- PILL OVERDOSE) Hx Bipolar Disorder: Yes (hospitalized last month x 2 days at [place]) Hx Schizophrenia: No - Patient Surgical History Past Surgical History: No Hx Neurologic Surgery: No Hx Cataract Extraction: No Hx Cardiac Surgery: No Hx Lung Surgery: No Hx Breast Surgery: No Hx Breast Biopsy: No Hx Abdominal Surgery: No Hx Appendectomy: No Hx Cholecystectomy: No Hx Genitourinary Surgery: No Hx Section: No Hx Orthopedic Surgery: No Anesthesia Reaction: No - PPD History Previous Implant?: Yes Documented Results: Negative w/proof Implanted On Prior [facility] Admission?: Yes Date: 03/16/19 Results: 0MM - Smoking Cessation Smoking history: Current every day smoker Have you smoked in the past 12 months: Yes Aproximately how many cigarettes per day: 6 Cigars Per Day: 0 Hx Chewing Tobacco Use: No Initiated information on smoking cessation: Yes 'Breaking Loose' booklet given: 02/28/20 - Substances abused Crack Substance route: Smoking Frequency: Daily Amount used: $50-100 Age of first use: 33 Date of last use: 02/27/20 Alcohol Substance route: Oral Frequency: Daily Amount used: 2-3 PTS VODKA Age of first use: 16 Date of last use: 02/28/20 Marijuana/Hashish Substance route: Smoking Frequency: Daily Amount used: 1 JOINT Age of first use: 16 Date of last use: 02/26/20 Admission Physical Exam [facility] - Vital Signs Vital Signs: Vital Signs - 24 hr 02/28/20 02/28/20 11:53 11:56 Temperature 97.3 F L 97.3 F L Pulse Rate 114 H 114 H Respiratory 20 20 Rate Blood Pressure 156/03 L 156/03 L - Physical General Appearance: Yes: No Apparent Distress, Nourished, Appropriately Dressed HEENTM: Yes: EOMI, Hearing grossly Normal, Normocephalic, Normal Voice Respiratory: Yes: Lungs Clear, Normal Breath Sounds, No Respiratory Distress, No Accessory Muscle Use Neck: Yes: Supple, Trachea in good position Breast: Yes: Breast Exam Deferred Cardiology: Yes: Regular Rhythm, Regular Rate Abdominal: Yes: Normal Bowel Sounds, Non Tender, Flat, Soft Genitourinary: Yes: Other (deferred) Back: Yes: Normal Inspection Musculoskeletal: Yes: Gait Steady Extremities: Yes: Normal Inspection, Non-Tender Neurological: Yes: Fully Oriented, Alert Integumentary: Yes: Normal Color, Dry, Warm Cleared for Admission S - Detox or Rehab S Level of Care: Medically Managed Detox Regimen/Protocol: Librium Breathalyzer - Breathalyzer Breathalyzer: 0.017 Urine Drug Screen - Test Device Lot number: [id number] Expiration date: 01/09/22 - Control Is test valid?: Yes - Results Drug screen NEGATIVE: No Urine drug screen results: DAVID-Cocaine, BZO-Benzodiazepines Inpatient Rehab Admission - Rehab Decision to Admit Inpatient rehab admission?: No
[2020-02-28] MEDS ORDERED: ONDANSETRON *ODT* 4 MG TABLET SL PRN (12:31)
[2020-02-28] MEDS ORDERED: NICOTINE POLACRILEX 2 MG GUM BUC PRN (12:31)
[2020-02-28] MEDS ORDERED: MAGNESIUM HYDROX 2400MG/30ML ORAL SUSPENSION 30 ML CUP PO PRN (12:31)
[2020-02-28] MEDS ORDERED: MENTHOL/PHENOL 1 EACH UD MM PRN (12:31)
[2020-02-28] MEDS ORDERED: ACETAMINOPHEN 325 MG TABLET (FP) PO PRN ×2 (12:31)
[2020-02-28] MEDS ORDERED: IBUPROFEN 400 MG TABLET (FP) PO PRN (12:31)
[2020-02-28] MEDS ORDERED: METHOCARBAMOL 500 MG TABLET PO PRN (12:31)
[2020-02-28] MEDS ORDERED: BISMUTH SUBSALICYLATE 262 MG/15 ML BTL PO PRN (12:31)
[2020-02-28] MEDS ORDERED: MAGNESIUM CITRATE 300 ML BOTTLE PO PRN (12:31)
[2020-02-28] MEDS ORDERED: MAG HYDROX/AL HYDROX/SIMETH 30 ML UNIT-DOSE CUP PO PRN (12:31)
[2020-02-28] MEDS ORDERED: ALBUTEROL SO4 HFA INHALER IH PRN (12:33)
--- NOTE | 2020-02-28 12:38 | PN ---
Teaching Attending Note Name of Resident: Nikos Escudero ATTENDING PHYSICIAN STATEMENT I saw and evaluated the patient. I reviewed the resident's note and discussed the case with the resident. I agree with the resident's findings and plan as documented. SUBJECTIVE: OBJECTIVE: ASSESSMENT AND PLAN: 1. Alcohol use disorder, withdrawal, uncomplicated Plan 1. Librium detox regime
--- OUTSIDE RECORDS SUMMARY | 2020-02-28 13:16 | XMS ---
:1965 Author Organization [facility] Support Name Relationship Address Phone UE, UNEMPLOYED Unavailable Unavailable Unavailable UE Unavailable Unavailable Unavailable HODAN MACIAS SELF / SAME PATIENT [address] [phone] [place] [address] HODAN MACIAS [address] [place] [address] Re-disclosure Warning The records that you are about to access may contain information from federally- assisted alcohol or drug abuse programs. If such information is present, then the following federally mandated warning applies: This information has been disclosed to you from records protected by federal confidentiality rules (42 CFR part 2). The federal rules prohibit you from making any further disclosure of this information unless further disclosure is expressly permitted by the written consent of the person to whom it pertains or as otherwise permitted by 42 CFR part 2. A general authorization for the release of medical or other information is NOT sufficient for this purpose. The Federal rules restrict any use of the information to criminally investigate or prosecute any alcohol or drug abuse patient.The records that you are about to access may contain highly sensitive health information, the redisclosure of which is protected by Article 27-F of the [facility] Public Health law. If you continue you may haveaccess to information: Regarding HIV / AIDS; Provided by facilities licensed or operated by the [facility] Office of Mental Health; or Provided by the [facility] Office for People With Developmental Disabilities. If such information is present, then the following [facility] mandated warning applies: This information has been disclosed to you from confidential records which are protected by state law. State law prohibits you from making any further disclosure of this information without the specific written consent of the person to whom it pertains, or as otherwise permitted by law. Any unauthorized further disclosure in violation of state law may result in a fine or mcc sentence or both. A general authorization for the release of medical or other information is NOT sufficient authorization for further disclosure. Insurance Providers Payer name Policy type Policy ID Covered Covered constitution party's Policy P tosin / Coverage constitution party ID relationship to Renee Inf ormation type renee BEACON [id number] SP [id number] [employer] BEACON [id number] SP [id number] [employer] BEACON [id number] SP [id number] METROPLUS Results ID Date Data Source [id number] 01/17/2020 05:30:00 PM EDT [facility] Name Value Range Interpretation Description Data Sup porting Code Source(s) Document(s ) SARS [facility] coronavirus 2 RNA This lab was ordered by [facility] Ac ct Bill Inter and reported by [facility]. ID Date Data Source [id number] 11/30/2019 10:00:00 AM EDT [facility] Name Value Range Interpretation Description Data Sup porting Code Source(s) Document(s ) SARS [facility] CORONAVIRUS 2 RNA This lab was ordered by [facility] Ac ct Bill Inter and reported by [facility]. Procedure
[2020-02-28] MEDS: amLODIPine BESYLATE 5 MG TABLET (FP) PO SCH (13:59)
[2020-02-28] MEDS: hydrOXYzine PAMOATE 25 MG CAPSULE (FP) PO SCH ×3 (13:59→22:40)
[2020-02-28] MEDS: chlordiazePOXIDE HCL 25 MG CAPSULE PO PRN (13:59)
[2020-02-28] MEDS: NICOTINE 14 MG/24 HOURS TOPICAL PATCH TD SCH (14:01)
[2020-02-28 17:35] LABS: ALBUMIN 4.3 g/dl (3.4-5.0); BILIRUBIN,TOTAL 0.9 mg/dL (0.2-1); BLOOD UREA NITROGEN 16.8 mg/dL (7-18); CALCIUM 9.4 mg/dL (8.5-10.1); CREATININE 1.5 mg/dL (0.55-1.3); POTASSIUM 3.9 mmol/L (3.5-5.1)
[2020-02-28] MEDS: chlordiazePOXIDE HCL 25 MG CAPSULE PO SCH ×2 (17:41→22:41)
[2020-02-28 17:47] LABS: HEMATOCRIT 45.5 % (35.4-49); HEMOGLOBIN 14.6 GM/dL (11.7-16.9); MCH 23.4 pg (25.7-33.7); MCHC 32.1 g/dl (32.0-35.9); MEAN CELL VOLUME 72.9 fl (80-96); MEAN PLT VOLUME 9.4 fl (7.5-11.1); PLATELET COUNT 251 K/MM3 (134-434); RBC 6.24 M/mm3 (4.00-5.60); RDW 16.3 % (11.9-15.9); WHITE BLOOD COUNT 6.1 K/mm3 (4.0-10.0)
[2020-02-28] MEDS: MELATONIN 5 MG TABLETS PO SCH (22:40)
[2020-02-28] MEDS: THIAMINE HCL 100 MG TABLET (FP) PO SCH (22:41)
[2020-02-29] MEDS: hydrOXYzine PAMOATE 25 MG CAPSULE (FP) PO SCH ×5 (06:00→22:53)
[2020-02-29] MEDS: chlordiazePOXIDE HCL 25 MG CAPSULE PO SCH ×4 (06:01→22:52)
--- NOTE | 2020-02-29 10:39 | PN ---
[facility] CIWA - CIWA Score Nausea/Vomitin-Mild Nausea/No Vomiting Muscle Tremors: 4-Moderate,w/Arms Extend Anxiety: 4-Mod. Anxious/Guarded Agitation: 3 Paroxysmal Sweats: No Perspiration Orientation: 1-Uncertain about Date (date of week) Tacttile Disturbances: 1-Very Mild Itch/Numbness Auditory Disturbances: 0-None Visual Disturbances: 2-Mild Sensitivity Headache: 2-Mild CIWA-Ar Total Score: 18 BHS Progress Note (SOAP) Subjective: 54 years old male was admitted on 02/28/20 for alcohol withdrawal sx management treating with librium detox regiment received nurse called that covid needs to be reordered due to the lab has the specimen but not order to avoid the specimen been throw away covid order is required discontinue uncollected original order reorder specimen has been collected order mr sloan states that he is ok today but tired prefers to stay in bed today and sleep longer Objective: 02/29/20 10:38 Vital Signs - 24 hr 02/28/20 02/28/20 02/28/20 11:53 11:56 12:59 Temperature 97.3 F L 97.3 F L 97.5 F L Pulse Rate 114 H 114 H 109 H Respiratory 20 20 20 Rate Blood Pressure 156/03 L 156/03 L 129/89 O2 Sat by Pulse 98 Oximetry (%) 02/28/20 02/28/20 02/28/20 17:11 19:11 20:54 Temperature 98.2 F 98.2 F Pulse Rate 106 H 99 H 90 Respiratory 18 17 17 Rate Blood Pressure 148/89 127/84 132/76 O2 Sat by Pulse 95 Oximetry (%) 02/29/20 02/29/20 06:34 09:10 Temperature 97.2 F L 98.2 F Pulse Rate 76 90 Respiratory 18 16 Rate Blood Pressure 120/78 106/75 O2 Sat by Pulse 97 97 Oximetry (%) Laboratory Tests 02/28/20 02/28/20 02/28/20 13:20 14:30 14:30 WBC 6.1 RBC 6.24 H Hgb 14.6 Hct 45.5 MCV 72.9 L MCH 23.4 L MCHC 32.1 RDW 16.3 H Plt Count 251 MPV 9.4 Sodium 138 Potassium 3.9 Chloride 102 Carbon Dioxide 28 Anion Gap 8 BUN 16.8 Creatinine 1.5 H Est GFR (CKD-EPI)AfAm 59.46 Est GFR (CKD-EPI)NonAf 51.30 Random Glucose 84 Calcium 9.4 Total Bilirubin 0.9 AST 28 ALT 33 Alkaline Phosphatase 91 Total Protein 8.0 Albumin 4.3 Syphilis Serology Non-reactive 02/29/20 10:38 covid pending Assessment: 02/29/20 10:38 alcohol withdrawal Plan: librium regiment
[2020-02-29] MEDS: NICOTINE 14 MG/24 HOURS TOPICAL PATCH TD SCH (10:50)
[2020-02-29] MEDS: amLODIPine BESYLATE 5 MG TABLET (FP) PO SCH (10:50)
[2020-02-29] MEDS: PRENATAL VITAMINS W/ FOLIC ACID TABLET (FP) PO SCH (10:51)
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
[2020-02-29] MEDS: QUEtiapine FUMARATE 200 MG TABLET PO SCH (22:53)
[2020-02-29] MEDS: MELATONIN 5 MG TABLETS PO SCH (22:53)
[2020-02-29] MEDS: THIAMINE HCL 100 MG TABLET (FP) PO SCH (22:55)
[2020-03-01] MEDS: hydrOXYzine PAMOATE 25 MG CAPSULE (FP) PO SCH ×5 (06:08→22:28)
[2020-03-01] MEDS: chlordiazePOXIDE HCL 25 MG CAPSULE PO SCH ×4 (06:08→22:28)
[2020-03-01] MEDS: amLODIPine BESYLATE 5 MG TABLET (FP) PO SCH (10:14)
[2020-03-01] MEDS: NICOTINE 14 MG/24 HOURS TOPICAL PATCH TD SCH (10:15)
[2020-03-01] MEDS: PRENATAL VITAMINS W/ FOLIC ACID TABLET (FP) PO SCH (10:15)
--- NOTE | 2020-03-01 11:31 | PN ---
S CIWA - CIWA Score Nausea/Vomitin Muscle Tremors: 2 Anxiety: 2 Agitation: 2 Paroxysmal Sweats: 1-Minimal Palms Moist Orientation: 0-Oriented Tacttile Disturbances: 1-Very Mild Itch/Numbness Auditory Disturbances: 0-None Visual Disturbances: 0-None Headache: 2-Mild CIWA-Ar Total Score: 12 BHS Progress Note (SOAP) Subjective: alert,irritable,anxious,interrupted sleep,tremor,aching pain Objective: 03/01/20 17:44 Laboratory Last Values WBC 6.1 K/mm3 (4.0-10.0) 02/28/20 14:30 RBC 6.24 M/mm3 (4.00-5.60) H 02/28/20 14:30 Hgb 14.6 GM/dL (11.7-16.9) 02/28/20 14:30 Hct 45.5 % (35.4-49) 02/28/20 14:30 MCV 72.9 fl (80-96) L 02/28/20 14:30 MCH 23.4 pg (25.7-33.7) L 02/28/20 14:30 MCHC 32.1 g/dl (32.0-35.9) 02/28/20 14:30 RDW 16.3 % (11.9-15.9) H 02/28/20 14:30 Plt Count 251 K/MM3 (134-434) 02/28/20 14:30 MPV 9.4 fl (7.5-11.1) 02/28/20 14:30 Sodium 138 mmol/L (136-145) 02/28/20 14:30 Potassium 3.9 mmol/L (3.5-5.1) 02/28/20 14:30 Chloride 102 mmol/L (98-107) 02/28/20 14:30 Carbon Dioxide 28 mmol/L (21-32) 02/28/20 14:30 Anion Gap 8 MMOL/L (8-16) 02/28/20 14:30 BUN 16.8 mg/dL (7-18) 02/28/20 14:30 Creatinine 1.5 mg/dL (0.55-1.3) H 02/28/20 14:30 Est GFR (CKD-EPI)AfAm 59.46 02/28/20 14:30 Est GFR (CKD-EPI)NonAf 51.30 02/28/20 14:30 Random Glucose 84 mg/dL (74-106) 02/28/20 14:30 Calcium 9.4 mg/dL (8.5-10.1) 02/28/20 14:30 Total Bilirubin 0.9 mg/dL (0.2-1) 02/28/20 14:30 AST 28 U/L (15-37) 02/28/20 14:30 ALT 33 U/L (13-61) 02/28/20 14:30 Alkaline Phosphatase 91 U/L (45-117) 02/28/20 14:30 Total Protein 8.0 g/dl (6.4-8.2) 02/28/20 14:30 Albumin 4.3 g/dl (3.4-5.0) 02/28/20 14:30 Syphilis Serology Non-reactive (NONREACTIVE) 02/28/20 13:20 Assessment: 03/01/20 17:45 withdrawal symptom Plan: continue detox librium regimen,encourage fluid,repeat creatinine in am
[2020-03-01] MEDS: chlordiazePOXIDE HCL 25 MG CAPSULE PO PRN (14:04)
[2020-03-01] MEDS: THIAMINE HCL 100 MG TABLET (FP) PO SCH (22:28)
[2020-03-01] MEDS: QUEtiapine FUMARATE 200 MG TABLET PO SCH (22:28)
[2020-03-01] MEDS: MELATONIN 5 MG TABLETS PO SCH (22:28)
[2020-03-02] MEDS ORDERED: chlordiazePOXIDE HCL 10 MG CAPSULE PO PRN
[2020-03-02] MEDS: chlordiazePOXIDE HCL 10 MG CAPSULE PO SCH ×2 (05:33→10:24)
[2020-03-02] MEDS: hydrOXYzine PAMOATE 25 MG CAPSULE (FP) PO SCH ×3 (05:33→14:39)
[2020-03-02 10:08] LABS: CREATININE 1.1 mg/dL (0.55-1.3)
[2020-03-02] MEDS: NICOTINE 14 MG/24 HOURS TOPICAL PATCH TD SCH (10:24)
[2020-03-02] MEDS: PRENATAL VITAMINS W/ FOLIC ACID TABLET (FP) PO SCH (10:24)
[2020-03-02] MEDS: amLODIPine BESYLATE 5 MG TABLET (FP) PO SCH (10:24)
--- NOTE | 2020-03-02 17:28 | PN ---
[facility] CIWA - CIWA Score Nausea/Vomitin-Mild Nausea/No Vomiting Muscle Tremors: 2 Anxiety: 2 Agitation: 2 Paroxysmal Sweats: No Perspiration Orientation: 0-Oriented Tacttile Disturbances: 1-Very Mild Itch/Numbness Auditory Disturbances: 0-None Visual Disturbances: 0-None Headache: 1-Very Mild CIWA-Ar Total Score: 9 S Progress Note (SOAP) Subjective: alert,irritable,anxious,interrupted sleep,aching pain Objective: 03/02/20 17:27 Laboratory Last Values WBC 6.1 K/mm3 (4.0-10.0) 02/28/20 14:30 RBC 6.24 M/mm3 (4.00-5.60) H 02/28/20 14:30 Hgb 14.6 GM/dL (11.7-16.9) 02/28/20 14:30 Hct 45.5 % (35.4-49) 02/28/20 14:30 MCV 72.9 fl (80-96) L 02/28/20 14:30 MCH 23.4 pg (25.7-33.7) L 02/28/20 14:30 MCHC 32.1 g/dl (32.0-35.9) 02/28/20 14:30 RDW 16.3 % (11.9-15.9) H 02/28/20 14:30 Plt Count 251 K/MM3 (134-434) 02/28/20 14:30 MPV 9.4 fl (7.5-11.1) 02/28/20 14:30 Sodium 138 mmol/L (136-145) 02/28/20 14:30 Potassium 3.9 mmol/L (3.5-5.1) 02/28/20 14:30 Chloride 102 mmol/L (98-107) 02/28/20 14:30 Carbon Dioxide 28 mmol/L (21-32) 02/28/20 14:30 Anion Gap 8 MMOL/L (8-16) 02/28/20 14:30 BUN 16.8 mg/dL (7-18) 02/28/20 14:30 Creatinine 1.1 mg/dL (0.55-1.3) 03/02/20 08:00 Est GFR (CKD-EPI)AfAm 86.52 03/02/20 08:00 Est GFR (CKD-EPI)NonAf 74.65 03/02/20 08:00 Random Glucose 84 mg/dL (74-106) 02/28/20 14:30 Calcium 9.4 mg/dL (8.5-10.1) 02/28/20 14:30 Total Bilirubin 0.9 mg/dL (0.2-1) 02/28/20 14:30 AST 28 U/L (15-37) 02/28/20 14:30 ALT 33 U/L (13-61) 02/28/20 14:30 Alkaline Phosphatase 91 U/L (45-117) 02/28/20 14:30 Total Protein 8.0 g/dl (6.4-8.2) 02/28/20 14:30 Albumin 4.3 g/dl (3.4-5.0) 02/28/20 14:30 Syphilis Serology Non-reactive (NONREACTIVE) 02/28/20 13:20 COVID-19 (JOSE ROBERTO) Not detected (Not Detected) 02/29/20 10:25 Assessment: 03/02/20 17:27 withdrawal symptom Plan: continue detox librium regimen
[2020-03-02 17:47] VITALS: BP 139/96; PULSE 84; TEMP 97.6
--- NOTE | 2020-03-02 17:48 | DS ---
[facility] Detox Discharge Summary Admission Date: 02/28/20 Discharge Date: 03/02/20 - History Additional Comments: Patient left against medical advice. He reports, " My family is waiting for me" . Patient left prior to exit assessment by a provider Pertinent Past History: Alcohol dependence Cocaine dependence Cannabis dependence Hypertension Asthma Bipolar disorder Low back pain Nicotine dependence PTSD Paranoia schizophrenia - Physical Exam Results Vital Signs: Vital Signs Temperature 97.7 F 03/02/20 12:50 Pulse Rate 98 H 03/02/20 12:50 Respiratory Rate 18 03/02/20 12:50 Blood Pressure 135/90 03/02/20 12:50 O2 Sat by Pulse Oximetry (%) 99 03/02/20 12:50 Laboratory Last Values WBC 6.1 K/mm3 (4.0-10.0) 02/28/20 14:30 RBC 6.24 M/mm3 (4.00-5.60) H 02/28/20 14:30 Hgb 14.6 GM/dL (11.7-16.9) 02/28/20 14:30 Hct 45.5 % (35.4-49) 02/28/20 14:30 MCV 72.9 fl (80-96) L 02/28/20 14:30 MCH 23.4 pg (25.7-33.7) L 02/28/20 14:30 MCHC 32.1 g/dl (32.0-35.9) 02/28/20 14:30 RDW 16.3 % (11.9-15.9) H 02/28/20 14:30 Plt Count 251 K/MM3 (134-434) 02/28/20 14:30 MPV 9.4 fl (7.5-11.1) 02/28/20 14:30 Sodium 138 mmol/L (136-145) 02/28/20 14:30 Potassium 3.9 mmol/L (3.5-5.1) 02/28/20 14:30 Chloride 102 mmol/L (98-107) 02/28/20 14:30 Carbon Dioxide 28 mmol/L (21-32) 02/28/20 14:30 Anion Gap 8 MMOL/L (8-16) 02/28/20 14:30 BUN 16.8 mg/dL (7-18) 02/28/20 14:30 Creatinine 1.1 mg/dL (0.55-1.3) 03/02/20 08:00 Est GFR (CKD-EPI)AfAm 86.52 03/02/20 08:00 Est GFR (CKD-EPI)NonAf 74.65 03/02/20 08:00 Random Glucose 84 mg/dL (74-106) 02/28/20 14:30 Calcium 9.4 mg/dL (8.5-10.1) 02/28/20 14:30 Total Bilirubin 0.9 mg/dL (0.2-1) 02/28/20 14:30 AST 28 U/L (15-37) 02/28/20 14:30 ALT 33 U/L (13-61) 02/28/20 14:30 Alkaline Phosphatase 91 U/L (45-117) 02/28/20 14:30 Total Protein 8.0 g/dl (6.4-8.2) 02/28/20 14:30 Albumin 4.3 g/dl (3.4-5.0) 02/28/20 14:30 Syphilis Serology Non-reactive (NONREACTIVE) 02/28/20 13:20 COVID-19 (JOSE ROBERTO) Not detected (Not Detected) 02/29/20 10:25 Pertinent Admission Physical Exam Findings: Alcohol withdrawal symptoms - Medication Discharge Medications: Ambulatory Orders Albuterol Sulfate Inhaler - [Ventolin HFA Inhaler -] 2 puff IH Q4H PRN #1 inhaler 08/01/19 Amlodipine Besylate [Norvasc -] 5 mg PO DAILY #15 tablet 08/01/19 Quetiapine Fumarate [Seroquel -] 200 mg PO BID 11/30/19 - Diagnosis (1) Asthma Status: Chronic Qualifiers: Asthma severity: mild Asthma persistence: intermittent Asthma complication type: with status asthmaticus Qualified Code(s): J45.22 - Mild intermittent asthma with status asthmaticus (2) Bipolar disorder Status: Chronic Qualifiers: Active/Remission status: remission status unspecified Qualified Code(s): F31.9 - Bipolar disorder, unspecified (3) Cannabis abuse Status: Chronic (4) Cocaine dependence Status: Chronic Qualifiers: Substance use status: uncomplicated Qualified Code(s): F14.20 - Cocaine dependence, uncomplicated (5) HTN (hypertension) Status: Chronic Qualifiers: Hypertension type: essential hypertension Qualified Code(s): I10 - Essential (primary) hypertension (6) History of asthma Status: Chronic (7) Insomnia Status: Chronic (8) Low back pain Status: Chronic Qualifiers: Chronicity: chronic Back pain laterality: unspecified (9) Nicotine dependence Status: Chronic Qualifiers: Nicotine product type: cigarettes Substance use status: uncomplicated Qualified Code(s): F17.210 - Nicotine dependence, cigarettes, uncomplicated (10) PTSD (post-traumatic stress disorder) Status: Chronic (11) Paranoid schizophrenia Status: Chronic - AMA Did Patient Leave Against Medical Advice: Yes
[2020-03-03] MEDS ORDERED: chlordiazePOXIDE HCL 10 MG CAPSULE PO SCH (05:00)
[2020-03-04] MEDS ORDERED: chlordiazePOXIDE HCL 10 MG CAPSULE PO ONE (05:00)
== END 2020-03-02 17:06 | disposition left against medical advice (07) | DRG 770 ==
LOC: YASAS 11:21 → Y3N 11:55
PROVIDERS: ADMIT Allergy & Immunology; ATTEND Allergy & Immunology
PROC: HZ2ZZZZ Detoxification Services for Substance Abuse Treatment (ICD-10-PCS; principal; 2020-02-28)
DX: F10.230 Alcohol dependence with withdrawal, uncomplicated (principal); F14.20 Cocaine dependence, uncomplicated; F12.20 Cannabis dependence, uncomplicated; F17.210 Nicotine dependence, cigarettes, uncomplicated; F19.282 Other psychoactive substance dependence with psychoactive substance-induced sleep disorder; F20.0 Paranoid schizophrenia; F31.9 Bipolar disorder, unspecified; F43.10 Post-traumatic stress disorder, unspecified; I10 Essential (primary) hypertension; J45.909 Unspecified asthma, uncomplicated; K21.9 Gastro-esophageal reflux disease without esophagitis; G47.00 Insomnia, unspecified; M54.5 Low back pain; G89.29 Other chronic pain; M54.30 Sciatica, unspecified side; R26.89 Other abnormalities of gait and mobility; R63.5 Abnormal weight gain; Z68.25 Body mass index [BMI] 25.0-25.9, adult; Z91.5 Personal history of self-harm; Z56.0 Unemployment, unspecified; Z59.0 Homelessness
CPT/HCPCS: 36415; 80053; 82565; 85027; 86780; U0003

== ENCOUNTER 2021-02-07 11:17 | Inpatient (IN) | payer OTHER ==
[2021-02-07 11:59] VITALS: BMI 22.4
[2021-02-07] MEDS ORDERED: MAGNESIUM CITRATE 300 ML BOTTLE PO PRN (12:36)
[2021-02-07] MEDS ORDERED: BISMUTH SUBSALICYLATE 262 MG/15 ML BTL PO PRN (12:36)
[2021-02-07] MEDS ORDERED: ACETAMINOPHEN 325 MG TABLET (FP) PO PRN ×2 (12:36)
[2021-02-07] MEDS ORDERED: MENTHOL/PHENOL 1 EACH UD MM PRN (12:36)
[2021-02-07] MEDS ORDERED: NICOTINE 10 MG CARTRIDGE (INHALER) IH PRN (12:36)
[2021-02-07] MEDS ORDERED: MAGNESIUM HYDROX 2400MG/30ML ORAL SUSPENSION 30 ML CUP PO PRN (12:36)
[2021-02-07] MEDS ORDERED: METHOCARBAMOL 500 MG TABLET PO PRN (12:36)
[2021-02-07] MEDS ORDERED: ONDANSETRON *ODT* 4 MG TABLET SL PRN (12:36)
[2021-02-07] MEDS ORDERED: IBUPROFEN 400 MG TABLET (FP) PO PRN (12:36)
[2021-02-07] MEDS ORDERED: MAG HYDROX/AL HYDROX/SIMETH 30 ML UNIT-DOSE CUP PO PRN (12:36)
[2021-02-07] MEDS ORDERED: diazePAM 5 MG TABLET PO PRN (12:38)
[2021-02-07] MEDS ORDERED: ALBUTEROL SO4 HFA INHALER IH PRN (12:38)
[2021-02-07] MEDS ORDERED: hydrOXYzine PAMOATE 25 MG CAPSULE (FP) PO ONE (13:12)
[2021-02-07] MEDS ORDERED: diazePAM 5 MG TABLET ONE (13:12)
[2021-02-07] MEDS: diazePAM 5 MG TABLET PO SCH ×3 (13:15→22:39)
[2021-02-07] MEDS: hydrOXYzine PAMOATE 25 MG CAPSULE (FP) PO SCH ×3 (13:16→22:39)
[2021-02-07] MEDS: PANTOPRAZOLE 40 MG TABLET PO SCH (14:55)
[2021-02-07] MEDS: PRENATAL VITAMINS W/ FOLIC ACID TABLET (FP) PO SCH (14:55)
[2021-02-07] MEDS: NICOTINE 7 MG/24 HOURS TOPICAL PATCH TD SCH (14:55)
[2021-02-07 16:50] LABS: HEMATOCRIT 40.2 % (35.4-49); HEMOGLOBIN 12.9 GM/dL (11.7-16.9); MCH 23.2 pg (25.7-33.7); MEAN CELL VOLUME 72.5 fl (80-96); MEAN PLT VOLUME 8.7 fl (7.5-11.1); PLATELET COUNT 287 10^3/uL (134-434); RBC 5.55 M/mm3 (4.00-5.60); RDW 16.3 % (11.9-15.9); WHITE BLOOD COUNT 4.4 K/mm3 (4.0-10.0)
[2021-02-07 16:54] LABS: CALCIUM 9.4 mg/dL (8.5-10.1)
[2021-02-07 16:55] LABS: ALBUMIN 3.8 g/dl (3.4-5.0); BLOOD UREA NITROGEN 10.3 mg/dL (7-18)
[2021-02-07 16:57] LABS: CREATININE 1.4 mg/dL (0.55-1.3)
[2021-02-07 16:58] LABS: BILIRUBIN,TOTAL 0.5 mg/dL (0.2-1)
[2021-02-07] MEDS: MELATONIN 5 MG TABLETS PO SCH (22:39)
[2021-02-07] MEDS: QUEtiapine FUMARATE 200 MG TABLET PO SCH (22:39)
[2021-02-07] MEDS: THIAMINE HCL 100 MG TABLET (FP) PO SCH (22:39)
[2021-02-07] MEDS: METOPROLOL TARTRATE 25 MG TABLET (FP) PO SCH (22:39)
[2021-02-07] MEDS: BUDESONIDE/FORMETEROL FUMARATE 80/4.5 mcg INHALER IH SCH (22:52)
[2021-02-08] MEDS: hydrOXYzine PAMOATE 25 MG CAPSULE (FP) PO SCH (06:34)
[2021-02-08] MEDS: diazePAM 5 MG TABLET PO SCH ×4 (06:36→23:34)
[2021-02-08] MEDS ORDERED: hydrOXYzine PAMOATE 25 MG CAPSULE (FP) PO PRN (07:50)
[2021-02-08] MEDS: METOPROLOL TARTRATE 25 MG TABLET (FP) PO SCH ×2 (10:48→23:10)
[2021-02-08] MEDS: NICOTINE 7 MG/24 HOURS TOPICAL PATCH TD SCH (10:48)
[2021-02-08] MEDS: LISINOPRIL 10 MG TABLET PO SCH (10:49)
[2021-02-08] MEDS: amLODIPine BESYLATE 5 MG TABLET (FP) PO SCH (10:49)
[2021-02-08] MEDS: PRENATAL VITAMINS W/ FOLIC ACID TABLET (FP) PO SCH (10:49)
[2021-02-08] MEDS: BUDESONIDE/FORMETEROL FUMARATE 80/4.5 mcg INHALER IH SCH ×2 (10:49→23:31)
[2021-02-08] MEDS: PANTOPRAZOLE 40 MG TABLET PO SCH (10:49)
[2021-02-08] MEDS: THIAMINE HCL 100 MG TABLET (FP) PO SCH (23:09)
[2021-02-08] MEDS: MELATONIN 5 MG TABLETS PO SCH (23:10)
[2021-02-08] MEDS: QUEtiapine FUMARATE 200 MG TABLET PO SCH (23:10)
[2021-02-09] MEDS: diazePAM 5 MG TABLET PO SCH ×3 (06:43→22:30)
[2021-02-09] MEDS: PRENATAL VITAMINS W/ FOLIC ACID TABLET (FP) PO SCH (11:55)
[2021-02-09] MEDS: LISINOPRIL 10 MG TABLET PO SCH ×2 (11:55→13:25)
[2021-02-09] MEDS: PANTOPRAZOLE 40 MG TABLET PO SCH ×2 (11:55→13:25)
[2021-02-09] MEDS: BUDESONIDE/FORMETEROL FUMARATE 80/4.5 mcg INHALER IH SCH ×2 (11:55→22:30)
[2021-02-09] MEDS: METOPROLOL TARTRATE 25 MG TABLET (FP) PO SCH ×2 (11:56→22:29)
[2021-02-09] MEDS: amLODIPine BESYLATE 5 MG TABLET (FP) PO SCH ×2 (11:56→13:25)
[2021-02-09] MEDS: NICOTINE 7 MG/24 HOURS TOPICAL PATCH TD SCH (11:56)
[2021-02-09] MEDS: MELATONIN 5 MG TABLETS PO SCH (22:29)
[2021-02-09] MEDS: THIAMINE HCL 100 MG TABLET (FP) PO SCH (22:29)
[2021-02-09] MEDS: QUEtiapine FUMARATE 200 MG TABLET PO SCH (22:29)
[2021-02-10] MEDS: diazePAM 5 MG TABLET PO SCH ×2 (06:40→17:51)
[2021-02-10] MEDS: BUDESONIDE/FORMETEROL FUMARATE 80/4.5 mcg INHALER IH SCH ×2 (11:49→22:58)
[2021-02-10] MEDS: LISINOPRIL 10 MG TABLET PO SCH (11:50)
[2021-02-10] MEDS: PANTOPRAZOLE 40 MG TABLET PO SCH (11:50)
[2021-02-10] MEDS: PRENATAL VITAMINS W/ FOLIC ACID TABLET (FP) PO SCH (11:50)
[2021-02-10] MEDS: METOPROLOL TARTRATE 25 MG TABLET (FP) PO SCH ×2 (11:50→22:58)
[2021-02-10] MEDS: amLODIPine BESYLATE 5 MG TABLET (FP) PO SCH (11:50)
[2021-02-10] MEDS: NICOTINE 7 MG/24 HOURS TOPICAL PATCH TD SCH (12:20)
[2021-02-10] MEDS: THIAMINE HCL 100 MG TABLET (FP) PO SCH (22:58)
[2021-02-10] MEDS: QUEtiapine FUMARATE 200 MG TABLET PO SCH (22:58)
[2021-02-10] MEDS: MELATONIN 5 MG TABLETS PO SCH (22:58)
[2021-02-11] MEDS ORDERED: diazePAM 5 MG TABLET PO ONE (06:00)
[2021-02-11 06:33] VITALS: BP 112/73; PULSE 82; TEMP 97
[2021-02-11] MEDS: NICOTINE 7 MG/24 HOURS TOPICAL PATCH TD SCH (09:39)
[2021-02-11] MEDS: amLODIPine BESYLATE 5 MG TABLET (FP) PO SCH (09:39)
[2021-02-11] MEDS: LISINOPRIL 10 MG TABLET PO SCH (09:39)
[2021-02-11] MEDS: PRENATAL VITAMINS W/ FOLIC ACID TABLET (FP) PO SCH (09:39)
[2021-02-11] MEDS: METOPROLOL TARTRATE 25 MG TABLET (FP) PO SCH (09:39)
[2021-02-11] MEDS: PANTOPRAZOLE 40 MG TABLET PO SCH (09:40)
[2021-02-11] MEDS: BUDESONIDE/FORMETEROL FUMARATE 80/4.5 mcg INHALER IH SCH (09:40)
== END 2021-02-11 08:57 | disposition home or self-care (01) | DRG 774 ==
LOC: YASAS 11:17 → Y6N 12:39 → Y3N 18:19
PROVIDERS: ADMIT Allergy & Immunology; ATTEND Allergy & Immunology
PROC: HZ2ZZZZ Detoxification Services for Substance Abuse Treatment (ICD-10-PCS; principal; 2021-02-07)
DX: F10.230 Alcohol dependence with withdrawal, uncomplicated (principal); F14.20 Cocaine dependence, uncomplicated; F12.20 Cannabis dependence, uncomplicated; F17.210 Nicotine dependence, cigarettes, uncomplicated; F19.282 Other psychoactive substance dependence with psychoactive substance-induced sleep disorder; F31.9 Bipolar disorder, unspecified; F43.10 Post-traumatic stress disorder, unspecified; I10 Essential (primary) hypertension; J45.909 Unspecified asthma, uncomplicated; M54.41 Lumbago with sciatica, right side; R94.31 Abnormal electrocardiogram [ECG] [EKG]; Z91.19 Patient's noncompliance with other medical treatment and regimen; Z56.0 Unemployment, unspecified; Z59.0 Homelessness
CPT/HCPCS: 36415; 80053; 85027; 86780; C9803; U0003; U0005

== ENCOUNTER 2021-07-03 12:29 | Inpatient (IN) | payer OTHER ==
[2021-07-03] MEDS ORDERED: ONDANSETRON *ODT* 4 MG TABLET SL PRN (13:06)
[2021-07-03] MEDS ORDERED: ACETAMINOPHEN 325 MG TABLET (FP) PO PRN ×2 (13:06)
[2021-07-03] MEDS ORDERED: MENTHOL/PHENOL 1 EACH UD MM PRN (13:06)
[2021-07-03] MEDS ORDERED: IBUPROFEN 400 MG TABLET (FP) PO PRN (13:06)
[2021-07-03] MEDS ORDERED: NICOTINE 10 MG CARTRIDGE (INHALER) IH PRN (13:06)
[2021-07-03] MEDS ORDERED: chlordiazePOXIDE HCL 25 MG CAPSULE PO PRN (13:06)
[2021-07-03] MEDS ORDERED: MAGNESIUM HYDROX 2400MG/30ML ORAL SUSPENSION 30 ML CUP PO PRN (13:06)
[2021-07-03] MEDS ORDERED: METHOCARBAMOL 500 MG TABLET PO PRN (13:06)
[2021-07-03] MEDS ORDERED: BISMUTH SUBSALICYLATE 524 MG/30 ML PO PRN (13:06)
[2021-07-03] MEDS ORDERED: MAGNESIUM CITRATE 300 ML BOTTLE PO PRN (13:06)
[2021-07-03] MEDS ORDERED: MAG HYDROX/AL HYDROX/SIMETH 30 ML UNIT-DOSE CUP PO PRN (13:06)
[2021-07-03 13:17] VITALS: BMI 18.2
[2021-07-03] MEDS ORDERED: hydrOXYzine PAMOATE 25 MG CAPSULE (FP) PO SCH (14:00)
[2021-07-03] MEDS ORDERED: TRIMETHOBENZAMIDE HCL 300 MG CAPSULE PO PRN (16:16)
[2021-07-03 16:51] LABS: HEMATOCRIT 43.9 % (35.4-49); HEMOGLOBIN 13.4 GM/dL (11.7-16.9); MCH 22.4 pg (25.7-33.7); MCHC 30.5 g/dl (32.0-35.9); MEAN CELL VOLUME 73.5 fl (80-96); MEAN PLT VOLUME 8.8 fl (7.5-11.1); PLATELET COUNT 293 10^3/uL (134-434); RBC 5.98 M/mm3 (4.00-5.60); RDW 15.8 % (11.9-15.9); WHITE BLOOD COUNT 3.2 K/mm3 (4.0-10.0)
[2021-07-03 16:56] LABS: CALCIUM 9.8 mg/dL (8.5-10.1)
[2021-07-03 16:57] LABS: ALBUMIN 4.2 g/dl (3.4-5.0); BLOOD UREA NITROGEN 9.4 mg/dL (7-18)
[2021-07-03 17:00] LABS: CREATININE 1.1 mg/dL (0.55-1.3)
[2021-07-03 17:02] LABS: BILIRUBIN,TOTAL 0.5 mg/dL (0.2-1); TOT PROT 7.4 g/dl (6.4-8.2)
[2021-07-03] MEDS: chlordiazePOXIDE HCL 25 MG CAPSULE PO SCH ×2 (17:33→22:29)
[2021-07-03] MEDS ORDERED: QUEtiapine FUMARATE 200 MG TABLET PO SCH (22:00)
[2021-07-03] MEDS: MELATONIN 5 MG TABLETS PO SCH (22:28)
[2021-07-03] MEDS: THIAMINE HCL 100 MG TABLET (FP) PO SCH (22:29)
[2021-07-03] MEDS: QUEtiapine FUMARATE 100 MG TABLET (FP) PO SCH (22:29)
[2021-07-04] MEDS: chlordiazePOXIDE HCL 25 MG CAPSULE PO SCH ×4 (06:42→22:53)
[2021-07-04] MEDS ORDERED: PRENATAL VITAMINS W/ FOLIC ACID TABLET (FP) PO SCH (13:30)
[2021-07-04] MEDS: MELATONIN 5 MG TABLETS PO SCH (22:54)
[2021-07-04] MEDS: THIAMINE HCL 100 MG TABLET (FP) PO SCH (22:54)
[2021-07-04] MEDS: QUEtiapine FUMARATE 100 MG TABLET (FP) PO SCH (22:57)
[2021-07-05] MEDS ORDERED: chlordiazePOXIDE HCL 25 MG CAPSULE PO SCH (05:00)
[2021-07-05 09:08] VITALS: BP 112/66; PULSE 99; TEMP 96.9
[2021-07-06] MEDS ORDERED: chlordiazePOXIDE HCL 10 MG CAPSULE PO PRN
[2021-07-06] MEDS ORDERED: chlordiazePOXIDE HCL 10 MG CAPSULE PO SCH (05:00)
[2021-07-07] MEDS ORDERED: chlordiazePOXIDE HCL 10 MG CAPSULE PO SCH (05:00)
[2021-07-08] MEDS ORDERED: chlordiazePOXIDE HCL 10 MG CAPSULE PO ONE (05:00)
== END 2021-07-05 09:50 | disposition left against medical advice (07) | DRG 770 ==
LOC: YASAS 12:29 → Y3N 13:43
PROVIDERS: ADMIT Allergy & Immunology; ATTEND Allergy & Immunology
PROC: HZ2ZZZZ Detoxification Services for Substance Abuse Treatment (ICD-10-PCS; principal; 2021-07-03)
DX: F10.230 Alcohol dependence with withdrawal, uncomplicated (principal); F14.20 Cocaine dependence, uncomplicated; F17.210 Nicotine dependence, cigarettes, uncomplicated; F19.280 Other psychoactive substance dependence with psychoactive substance-induced anxiety disorder; F19.282 Other psychoactive substance dependence with psychoactive substance-induced sleep disorder; F19.24 Other psychoactive substance dependence with psychoactive substance-induced mood disorder; F20.9 Schizophrenia, unspecified; F31.9 Bipolar disorder, unspecified; F43.10 Post-traumatic stress disorder, unspecified; I10 Essential (primary) hypertension; J45.20 Mild intermittent asthma, uncomplicated; R94.31 Abnormal electrocardiogram [ECG] [EKG]; M54.30 Sciatica, unspecified side; Z86.69 Personal history of other diseases of the nervous system and sense organs; Z91.410 Personal history of adult physical and sexual abuse; Z59.00 Homelessness unspecified; Z56.0 Unemployment, unspecified; Z91.19 Patient's noncompliance with other medical treatment and regimen
CPT/HCPCS: 36415; 80053; 85027; 86780; 93005; 93010; C9803; U0003; U0005

== ENCOUNTER 2021-09-14 15:06 | Inpatient (IN) | payer OTHER ==
[2021-09-14 17:28] VITALS: BMI 23.1
[2021-09-14] MEDS ORDERED: MAGNESIUM HYDROX 2400MG/30ML ORAL SUSPENSION 30 ML CUP PO PRN (19:10)
[2021-09-14] MEDS ORDERED: IBUPROFEN 400 MG TABLET (FP) PO PRN (19:10)
[2021-09-14] MEDS ORDERED: MAG HYDROX/AL HYDROX/SIMETH 30 ML UNIT-DOSE CUP PO PRN (19:10)
[2021-09-14] MEDS ORDERED: DICYCLOMINE HCL 10 MG CAPSULE PO PRN (19:10)
[2021-09-14] MEDS ORDERED: ONDANSETRON *ODT* 4 MG TABLET SL PRN (19:10)
[2021-09-14] MEDS ORDERED: LOPERAMIDE HCL 2 MG CAPSULE PO PRN (19:10)
[2021-09-14] MEDS ORDERED: MAGNESIUM CITRATE 300 ML BOTTLE PO PRN (19:10)
[2021-09-14] MEDS ORDERED: NICOTINE POLACRILEX 2 MG GUM BUC PRN (19:10)
[2021-09-14] MEDS ORDERED: ACETAMINOPHEN 325 MG TABLET (FP) PO PRN ×2 (19:10)
[2021-09-14] MEDS ORDERED: BISMUTH SUBSALICYLATE 524 MG/30 ML PO PRN (19:10)
[2021-09-14] MEDS ORDERED: BENZOCAINE/MENTHOL (CHLORASEPTIC ) LOZENGE MM PRN (19:10)
[2021-09-14] MEDS ORDERED: chlordiazePOXIDE HCL 25 MG CAPSULE PO PRN (19:14)
[2021-09-15] MEDS: chlordiazePOXIDE HCL 25 MG CAPSULE PO SCH ×5 (00:11→22:41)
[2021-09-15] MEDS: THIAMINE HCL 100 MG TABLET (FP) PO SCH ×2 (00:11→22:41)
[2021-09-15] MEDS: MELATONIN 5 MG TABLETS PO SCH ×2 (00:11→22:42)
[2021-09-15] MEDS: PRENATAL VITAMINS W/ FOLIC ACID TABLET (FP) PO SCH (10:29)
[2021-09-15] MEDS: METHOCARBAMOL 500 MG TABLET PO PRN (10:29)
[2021-09-15] MEDS: NICOTINE 14 MG/24 HOURS TOPICAL PATCH TD SCH (10:30)
[2021-09-15 12:59] LABS: HEMATOCRIT 40.4 % (35.4-49); HEMOGLOBIN 12.4 GM/dL (11.7-16.9); MCH 22.8 pg (25.7-33.7); MCHC 30.7 g/dl (32.0-35.9); MEAN CELL VOLUME 74.2 fl (80-96); MEAN PLT VOLUME 8.4 fl (7.5-11.1); PLATELET COUNT 297 10^3/uL (134-434); RBC 5.45 M/mm3 (4.00-5.60); RDW 15.6 % (11.9-15.9); WHITE BLOOD COUNT 3.5 K/mm3 (4.0-10.0)
[2021-09-15 13:04] LABS: ALBUMIN 3.2 g/dl (3.4-5.0); BLOOD UREA NITROGEN 11.2 mg/dL (7-18); CALCIUM 8.7 mg/dL (8.5-10.1)
[2021-09-15 13:06] LABS: CREATININE 1.4 mg/dL (0.55-1.3)
[2021-09-15 13:10] LABS: BILIRUBIN,TOTAL 1.1 mg/dL (0.2-1)
[2021-09-15] MEDS: QUEtiapine FUMARATE 100 MG TABLET (FP) PO SCH (22:41)
[2021-09-16] MEDS: chlordiazePOXIDE HCL 25 MG CAPSULE PO SCH ×4 (07:42→22:23)
[2021-09-16] MEDS: PRENATAL VITAMINS W/ FOLIC ACID TABLET (FP) PO SCH (10:38)
[2021-09-16] MEDS: METHOCARBAMOL 500 MG TABLET PO PRN (10:39)
[2021-09-16] MEDS: NICOTINE 14 MG/24 HOURS TOPICAL PATCH TD SCH (10:39)
[2021-09-16] MEDS: MELATONIN 5 MG TABLETS PO SCH (22:23)
[2021-09-16] MEDS: THIAMINE HCL 100 MG TABLET (FP) PO SCH (22:23)
[2021-09-16] MEDS: QUEtiapine FUMARATE 100 MG TABLET (FP) PO SCH (22:23)
[2021-09-17] MEDS ORDERED: chlordiazePOXIDE HCL 10 MG CAPSULE PO PRN
[2021-09-17] MEDS: chlordiazePOXIDE HCL 10 MG CAPSULE PO SCH ×4 (05:35→22:34)
[2021-09-17] MEDS: METHOCARBAMOL 500 MG TABLET PO PRN (11:09)
[2021-09-17] MEDS: PRENATAL VITAMINS W/ FOLIC ACID TABLET (FP) PO SCH (11:09)
[2021-09-17] MEDS: NICOTINE 14 MG/24 HOURS TOPICAL PATCH TD SCH (11:10)
[2021-09-17] MEDS: THIAMINE HCL 100 MG TABLET (FP) PO SCH (22:33)
[2021-09-17] MEDS: QUEtiapine FUMARATE 100 MG TABLET (FP) PO SCH (22:33)
[2021-09-17] MEDS: MELATONIN 5 MG TABLETS PO SCH (22:35)
[2021-09-18] MEDS: METHOCARBAMOL 500 MG TABLET PO PRN ×2 (06:28→11:51)
[2021-09-18] MEDS: chlordiazePOXIDE HCL 10 MG CAPSULE PO SCH ×2 (06:28→17:25)
[2021-09-18] MEDS: NICOTINE 14 MG/24 HOURS TOPICAL PATCH TD SCH (10:48)
[2021-09-18] MEDS: PRENATAL VITAMINS W/ FOLIC ACID TABLET (FP) PO SCH (10:48)
[2021-09-18] MEDS: THIAMINE HCL 100 MG TABLET (FP) PO SCH (22:28)
[2021-09-18] MEDS: QUEtiapine FUMARATE 100 MG TABLET (FP) PO SCH (22:28)
[2021-09-18] MEDS: MELATONIN 5 MG TABLETS PO SCH (22:29)
[2021-09-19] MEDS ORDERED: chlordiazePOXIDE HCL 10 MG CAPSULE PO ONE (05:00)
[2021-09-19] MEDS: NICOTINE 14 MG/24 HOURS TOPICAL PATCH TD SCH (11:17)
[2021-09-19] MEDS: PRENATAL VITAMINS W/ FOLIC ACID TABLET (FP) PO SCH (11:17)
[2021-09-19 13:17] VITALS: BP 144/65; PULSE 92; TEMP 96.9
[2021-09-19 14:08] LABS: SARS-CoV-2 NAA Not Detected (Not Detected)
== END 2021-09-19 13:58 | disposition home or self-care (01) | DRG 775 ==
LOC: YASAS 15:06 → Y6N 19:55
PROVIDERS: ADMIT Allergy & Immunology; ATTEND Allergy & Immunology
PROC: HZ2ZZZZ Detoxification Services for Substance Abuse Treatment (ICD-10-PCS; principal; 2021-09-14)
DX: F10.230 Alcohol dependence with withdrawal, uncomplicated (principal); F12.10 Cannabis abuse, uncomplicated; F17.213 Nicotine dependence, cigarettes, with withdrawal; F10.24 Alcohol dependence with alcohol-induced mood disorder; F20.0 Paranoid schizophrenia; F31.9 Bipolar disorder, unspecified; F41.9 Anxiety disorder, unspecified; F43.10 Post-traumatic stress disorder, unspecified; I10 Essential (primary) hypertension; J45.20 Mild intermittent asthma, uncomplicated; K21.9 Gastro-esophageal reflux disease without esophagitis; M54.50 Low back pain, unspecified; G89.29 Other chronic pain; Z91.51 Personal history of suicidal behavior; Z59.00 Homelessness unspecified
CPT/HCPCS: 36415; 80053; 82962; 85027; 86780; 93005; 93010; C9803-CS; U0003; U0005

== ENCOUNTER 2021-11-20 14:17 | Inpatient (IN) | payer OTHER ==
[2021-11-20] MEDS ORDERED: MAGNESIUM CITRATE 300 ML BOTTLE PO PRN (15:51)
[2021-11-20] MEDS ORDERED: ACETAMINOPHEN 325 MG TABLET (FP) PO PRN ×2 (15:51)
[2021-11-20] MEDS ORDERED: chlordiazePOXIDE HCL 25 MG CAPSULE PO PRN (15:51)
[2021-11-20] MEDS ORDERED: BISMUTH SUBSALICYLATE 524 MG/30 ML PO PRN (15:51)
[2021-11-20] MEDS ORDERED: NICOTINE 10 MG CARTRIDGE (INHALER) IH PRN (15:51)
[2021-11-20] MEDS ORDERED: ONDANSETRON *ODT* 4 MG TABLET SL PRN (15:51)
[2021-11-20] MEDS ORDERED: METHOCARBAMOL 500 MG TABLET PO PRN (15:51)
[2021-11-20] MEDS ORDERED: DICYCLOMINE HCL 10 MG CAPSULE PO PRN (15:51)
[2021-11-20] MEDS ORDERED: LOPERAMIDE HCL 2 MG CAPSULE PO PRN (15:51)
[2021-11-20] MEDS ORDERED: MAGNESIUM HYDROX 2400MG/30ML ORAL SUSPENSION 30 ML CUP PO PRN (15:51)
[2021-11-20] MEDS ORDERED: MAG HYDROX/AL HYDROX/SIMETH 30 ML UNIT-DOSE CUP PO PRN (15:51)
[2021-11-20] MEDS ORDERED: BENZOCAINE/MENTHOL (CHLORASEPTIC ) LOZENGE MM PRN (15:51)
[2021-11-20] MEDS ORDERED: IBUPROFEN 400 MG TABLET (FP) PO PRN (15:51)
[2021-11-20] MEDS ORDERED: IBUPROFEN 600 MG TABLET (FP) PO PRN (15:51)
[2021-11-20] MEDS ORDERED: NALOXONE HCL (KLOXXADO) 8 MG SPRAY NS PRN (15:51)
[2021-11-20 17:20] VITALS: BMI 22.1
[2021-11-20] MEDS: chlordiazePOXIDE HCL 25 MG CAPSULE PO SCH ×2 (19:22→22:33)
[2021-11-20] MEDS: hydrOXYzine PAMOATE 25 MG CAPSULE (FP) PO SCH ×2 (19:23→22:33)
[2021-11-20] MEDS: THIAMINE HCL 100 MG TABLET (FP) PO SCH (22:33)
[2021-11-20] MEDS: MELATONIN 5 MG TABLETS PO SCH (22:33)
[2021-11-20] MEDS: GABAPENTIN 300 MG CAPSULE PO SCH (22:33)
[2021-11-21] MEDS: chlordiazePOXIDE HCL 25 MG CAPSULE PO SCH ×4 (06:18→22:26)
[2021-11-21] MEDS: hydrOXYzine PAMOATE 25 MG CAPSULE (FP) PO SCH ×5 (06:18→22:26)
[2021-11-21] MEDS: PRENATAL VITAMINS W/ FOLIC ACID TABLET (FP) PO SCH (10:16)
[2021-11-21] MEDS: GABAPENTIN 300 MG CAPSULE PO SCH ×2 (10:16→22:26)
[2021-11-21 12:01] LABS: HEMATOCRIT 40.2 % (35.4-49); HEMOGLOBIN 12.6 GM/dL (11.7-16.9); MCHC 31.4 g/dl (32.0-35.9); MEAN CELL VOLUME 73.3 fl (80-96); MEAN PLT VOLUME 8.6 fl (7.5-11.1); PLATELET COUNT 271 10^3/uL (134-434); RBC 5.49 M/mm3 (4.00-5.60)
[2021-11-21 13:01] LABS: CALCIUM 9.4 mg/dL (8.5-10.1)
[2021-11-21 13:02] LABS: ALBUMIN 3.6 g/dl (3.4-5.0); BLOOD UREA NITROGEN 23.2 mg/dL (7-18)
[2021-11-21 13:05] LABS: CREATININE 1.2 mg/dL (0.55-1.3)
[2021-11-21 13:07] LABS: BILIRUBIN,TOTAL 0.3 mg/dL (0.2-1); TOT PROT 6.2 g/dl (6.4-8.2)
[2021-11-21] MEDS ORDERED: GABAPENTIN 300 MG CAPSULE PO SCH (22:00)
[2021-11-21] MEDS ORDERED: PATIENT'S OWN MEDICATION (NON-FORMULARY) (Trazodone Hcl [Trazodone Hcl] 150 MG Tablet) PO SCH (22:00)
[2021-11-21] MEDS: QUEtiapine FUMARATE 200 MG TABLET PO SCH (22:26)
[2021-11-21] MEDS: THIAMINE HCL 100 MG TABLET (FP) PO SCH (22:26)
[2021-11-21] MEDS: traZODone HCL 50 MG TABLET (FP) PO SCH (22:26)
[2021-11-21] MEDS: MELATONIN 5 MG TABLETS PO SCH (22:26)
[2021-11-22] MEDS: chlordiazePOXIDE HCL 25 MG CAPSULE PO SCH ×4 (06:19→22:46)
[2021-11-22] MEDS: hydrOXYzine PAMOATE 25 MG CAPSULE (FP) PO SCH ×5 (06:20→22:46)
[2021-11-22] MEDS: PRENATAL VITAMINS W/ FOLIC ACID TABLET (FP) PO SCH (11:51)
[2021-11-22] MEDS: GABAPENTIN 300 MG CAPSULE PO SCH ×2 (11:51→22:46)
[2021-11-22] MEDS: QUEtiapine FUMARATE 200 MG TABLET PO SCH (22:46)
[2021-11-22] MEDS: MELATONIN 5 MG TABLETS PO SCH (22:46)
[2021-11-22] MEDS: traZODone HCL 50 MG TABLET (FP) PO SCH (22:46)
[2021-11-22] MEDS: THIAMINE HCL 100 MG TABLET (FP) PO SCH (22:46)
[2021-11-23] MEDS ORDERED: chlordiazePOXIDE HCL 10 MG CAPSULE PO PRN
[2021-11-23] MEDS: chlordiazePOXIDE HCL 10 MG CAPSULE PO SCH ×4 (05:09→22:52)
[2021-11-23] MEDS: hydrOXYzine PAMOATE 25 MG CAPSULE (FP) PO SCH ×5 (05:09→22:50)
[2021-11-23] MEDS: PRENATAL VITAMINS W/ FOLIC ACID TABLET (FP) PO SCH (10:12)
[2021-11-23] MEDS: GABAPENTIN 300 MG CAPSULE PO SCH ×2 (10:12→22:50)
[2021-11-23] MEDS: THIAMINE HCL 100 MG TABLET (FP) PO SCH (22:50)
[2021-11-23] MEDS: traZODone HCL 50 MG TABLET (FP) PO SCH (22:50)
[2021-11-23] MEDS: QUEtiapine FUMARATE 200 MG TABLET PO SCH (22:50)
[2021-11-23] MEDS: MELATONIN 5 MG TABLETS PO SCH (22:50)
[2021-11-24] MEDS: chlordiazePOXIDE HCL 10 MG CAPSULE PO SCH ×2 (05:56→17:10)
[2021-11-24] MEDS: hydrOXYzine PAMOATE 25 MG CAPSULE (FP) PO SCH ×5 (05:57→22:34)
[2021-11-24] MEDS: GABAPENTIN 300 MG CAPSULE PO SCH ×2 (11:43→22:34)
[2021-11-24] MEDS: PRENATAL VITAMINS W/ FOLIC ACID TABLET (FP) PO SCH (11:43)
[2021-11-24] MEDS: QUEtiapine FUMARATE 200 MG TABLET PO SCH (22:34)
[2021-11-24] MEDS: THIAMINE HCL 100 MG TABLET (FP) PO SCH (22:34)
[2021-11-24] MEDS: traZODone HCL 50 MG TABLET (FP) PO SCH (22:34)
[2021-11-24] MEDS: MELATONIN 5 MG TABLETS PO SCH (22:35)
[2021-11-25] MEDS ORDERED: chlordiazePOXIDE HCL 10 MG CAPSULE PO ONE (05:00)
[2021-11-25] MEDS: hydrOXYzine PAMOATE 25 MG CAPSULE (FP) PO SCH ×2 (06:33→10:17)
[2021-11-25 08:49] VITALS: BP 103/63; PULSE 86; TEMP 96.9
[2021-11-25] MEDS: GABAPENTIN 300 MG CAPSULE PO SCH (10:17)
[2021-11-25] MEDS: PRENATAL VITAMINS W/ FOLIC ACID TABLET (FP) PO SCH (10:17)
== END 2021-11-25 11:37 | disposition other institution (70) | DRG 774 ==
LOC: YASAS 14:17 → Y3N 17:55
PROVIDERS: ADMIT Allergy & Immunology; ATTEND Surgery
PROC: HZ2ZZZZ Detoxification Services for Substance Abuse Treatment (ICD-10-PCS; principal; 2021-11-20)
DX: F10.230 Alcohol dependence with withdrawal, uncomplicated (principal); F14.20 Cocaine dependence, uncomplicated; F12.10 Cannabis abuse, uncomplicated; F17.210 Nicotine dependence, cigarettes, uncomplicated; F31.9 Bipolar disorder, unspecified; F43.10 Post-traumatic stress disorder, unspecified; I10 Essential (primary) hypertension; J45.909 Unspecified asthma, uncomplicated; K21.9 Gastro-esophageal reflux disease without esophagitis; Z56.0 Unemployment, unspecified; Z59.00 Homelessness unspecified
CPT/HCPCS: 36415; 80053; 85027; 86780; C9803-CS; U0003; U0005

== ENCOUNTER 2021-11-25 08:49 | Inpatient (IN) | payer OTHER ==
[2021-11-25] MEDS ORDERED: MAGNESIUM HYDROX 2400MG/30ML ORAL SUSPENSION 30 ML CUP PO PRN (13:52)
[2021-11-25] MEDS ORDERED: ACETAMINOPHEN 325 MG TABLET (FP) PO PRN (13:52)
[2021-11-25] MEDS ORDERED: LOPERAMIDE HCL 2 MG CAPSULE PO PRN (13:52)
[2021-11-25] MEDS ORDERED: MAGNESIUM CITRATE 300 ML BOTTLE PO PRN (13:52)
[2021-11-25] MEDS ORDERED: BENZOCAINE/MENTHOL (CHLORASEPTIC ) LOZENGE MM PRN (13:52)
[2021-11-25] MEDS ORDERED: IBUPROFEN 400 MG TABLET (FP) PO PRN (13:52)
[2021-11-25] MEDS ORDERED: MAG HYDROX/AL HYDROX/SIMETH 30 ML UNIT-DOSE CUP PO PRN (13:52)
[2021-11-25] MEDS ORDERED: guaiFENesin 200 MG/10 ML 10 ML UNIT-DOSE CUPS PO PRN (13:52)
[2021-11-25] MEDS ORDERED: P-EPHED 60MG/TRIPROLIDI 2.5MG TABLET PO PRN (13:52)
[2021-11-25] MEDS: NICOTINE 10 MG CARTRIDGE (INHALER) IH PRN (21:15)
[2021-11-25] MEDS: GABAPENTIN 300 MG CAPSULE PO SCH (21:15)
[2021-11-25] MEDS ORDERED: THIAMINE HCL 100 MG TABLET (FP) PO SCH (22:00)
[2021-11-25] MEDS ORDERED: QUEtiapine FUMARATE 200 MG TABLET PO SCH (22:00)
[2021-11-25] MEDS ORDERED: traZODone HCL 100 MG TABLET (FP) PO SCH (22:00)
[2021-11-25] MEDS ORDERED: MELATONIN 5 MG TABLETS PO SCH (22:00)
[2021-11-26] MEDS: NICOTINE 10 MG CARTRIDGE (INHALER) IH PRN ×2 (06:36→11:15)
[2021-11-26] MEDS: hydrOXYzine PAMOATE 25 MG CAPSULE (FP) PO PRN ×3 (06:36→16:55)
[2021-11-26 07:08] VITALS: BP 120/82; PULSE 83; TEMP 97.3
[2021-11-26] MEDS ORDERED: PRENATAL VITAMINS W/ FOLIC ACID TABLET (FP) PO SCH (10:00)
[2021-11-26] MEDS: GABAPENTIN 300 MG CAPSULE PO SCH (10:50)
[2021-11-26] MEDS ORDERED: QUEtiapine FUMARATE 50 MG TABLET PO ONE (11:59)
[2021-11-27] MEDS ORDERED: QUEtiapine FUMARATE 100 MG TABLET (FP) PO SCH (10:00)
== END 2021-11-26 20:10 | disposition left against medical advice (07) | DRG 770 ==
LOC: YASAS 08:49 → Y3W 08:54
PROVIDERS: ADMIT Allergy & Immunology; ATTEND Psychiatry & Neurology Pain Medicine
PROC: HZ42ZZZ Group Counseling for Substance Abuse Treatment, Cognitive-Behavioral (ICD-10-PCS; principal; 2021-11-25)
DX: F10.20 Alcohol dependence, uncomplicated (principal); F14.20 Cocaine dependence, uncomplicated; F12.20 Cannabis dependence, uncomplicated

== ENCOUNTER 2022-02-08 14:32 | Inpatient (IN) | payer OTHER ==
[2022-02-08 15:08] VITALS: BMI 22.3
[2022-02-08] MEDS ORDERED: IBUPROFEN 400 MG TABLET (FP) PO PRN (15:21)
[2022-02-08] MEDS ORDERED: MAGNESIUM HYDROX 2400MG/30ML ORAL SUSPENSION 30 ML CUP PO PRN (15:21)
[2022-02-08] MEDS ORDERED: ONDANSETRON *ODT* 4 MG TABLET SL PRN (15:21)
[2022-02-08] MEDS ORDERED: NICOTINE POLACRILEX 2 MG GUM BUC PRN (15:21)
[2022-02-08] MEDS ORDERED: MAGNESIUM CITRATE 300 ML BOTTLE PO PRN (15:21)
[2022-02-08] MEDS ORDERED: BENZOCAINE/MENTHOL (CHLORASEPTIC ) LOZENGE MM PRN (15:21)
[2022-02-08] MEDS ORDERED: DICYCLOMINE HCL 10 MG CAPSULE PO PRN (15:21)
[2022-02-08] MEDS ORDERED: BISMUTH SUBSALICYLATE 524 MG/30 ML PO PRN (15:21)
[2022-02-08] MEDS ORDERED: IBUPROFEN 600 MG TABLET (FP) PO PRN (15:21)
[2022-02-08] MEDS ORDERED: LOPERAMIDE HCL 2 MG CAPSULE PO PRN (15:21)
[2022-02-08] MEDS ORDERED: guaiFENesin 200 MG/10 ML 10 ML UNIT-DOSE CUPS PO PRN (15:21)
[2022-02-08] MEDS ORDERED: P-EPHED 60MG/TRIPROLIDI 2.5MG TABLET PO PRN (15:21)
[2022-02-08] MEDS ORDERED: ACETAMINOPHEN 325 MG TABLET (FP) PO PRN ×2 (15:21)
[2022-02-08] MEDS ORDERED: MAG HYDROX/AL HYDROX/SIMETH 30 ML UNIT-DOSE CUP PO PRN (15:21)
[2022-02-08] MEDS ORDERED: chlordiazePOXIDE HCL 25 MG CAPSULE PO PRN (15:23)
[2022-02-08] MEDS: chlordiazePOXIDE HCL 25 MG CAPSULE PO SCH ×2 (17:57→23:09)
[2022-02-08] MEDS: THIAMINE HCL 100 MG TABLET (FP) PO SCH (23:09)
[2022-02-08] MEDS: MELATONIN 5 MG TABLETS PO SCH (23:09)
[2022-02-09] MEDS: chlordiazePOXIDE HCL 25 MG CAPSULE PO SCH ×4 (05:27→22:52)
[2022-02-09] MEDS: METHOCARBAMOL 500 MG TABLET PO PRN (05:28)
[2022-02-09] MEDS: PRENATAL VITAMINS W/ FOLIC ACID TABLET (FP) PO SCH (10:34)
[2022-02-09] MEDS: GABAPENTIN 300 MG CAPSULE PO SCH ×2 (10:36→22:53)
[2022-02-09 12:44] LABS: HEMATOCRIT 39.8 % (35.4-49); HEMOGLOBIN 12.3 GM/dL (11.7-16.9); MCH 22.5 pg (25.7-33.7); MEAN CELL VOLUME 72.5 fl (80-96); PLATELET COUNT 249 10^3/uL (134-434); RBC 5.49 M/mm3 (4.00-5.60); RDW 15.8 % (11.9-15.9); WHITE BLOOD COUNT 3.5 K/mm3 (4.0-10.0)
[2022-02-09 12:53] LABS: CALCIUM 9.1 mg/dL (8.5-10.1)
[2022-02-09 12:54] LABS: ALBUMIN 3.4 g/dl (3.4-5.0)
[2022-02-09 12:57] LABS: CREATININE 1.1 mg/dL (0.55-1.3)
[2022-02-09 12:59] LABS: BILIRUBIN,TOTAL 0.6 mg/dL (0.2-1)
[2022-02-09] MEDS: MELATONIN 5 MG TABLETS PO SCH (22:52)
[2022-02-09] MEDS: THIAMINE HCL 100 MG TABLET (FP) PO SCH (22:52)
[2022-02-09] MEDS: hydrOXYzine PAMOATE 25 MG CAPSULE (FP) PO PRN (22:53)
[2022-02-09] MEDS: QUEtiapine FUMARATE 200 MG TABLET PO SCH (22:53)
[2022-02-10] MEDS: chlordiazePOXIDE HCL 25 MG CAPSULE PO SCH ×4 (05:53→23:24)
[2022-02-10] MEDS: PRENATAL VITAMINS W/ FOLIC ACID TABLET (FP) PO SCH (10:33)
[2022-02-10] MEDS: GABAPENTIN 300 MG CAPSULE PO SCH ×2 (10:33→23:25)
[2022-02-10] MEDS: METHOCARBAMOL 500 MG TABLET PO PRN (10:34)
[2022-02-10] MEDS: hydrOXYzine PAMOATE 25 MG CAPSULE (FP) PO PRN (10:34)
[2022-02-10] MEDS: MELATONIN 5 MG TABLETS PO SCH (23:24)
[2022-02-10] MEDS: THIAMINE HCL 100 MG TABLET (FP) PO SCH (23:25)
[2022-02-10] MEDS: QUEtiapine FUMARATE 200 MG TABLET PO SCH (23:25)
[2022-02-11] MEDS ORDERED: chlordiazePOXIDE HCL 10 MG CAPSULE PO PRN
[2022-02-11] MEDS: chlordiazePOXIDE HCL 10 MG CAPSULE PO SCH ×4 (05:25→23:33)
[2022-02-11] MEDS: GABAPENTIN 300 MG CAPSULE PO SCH ×2 (11:08→23:34)
[2022-02-11] MEDS: PRENATAL VITAMINS W/ FOLIC ACID TABLET (FP) PO SCH (11:08)
[2022-02-11] MEDS: QUEtiapine FUMARATE 200 MG TABLET PO SCH (23:34)
[2022-02-11] MEDS: MELATONIN 5 MG TABLETS PO SCH (23:34)
[2022-02-11] MEDS: THIAMINE HCL 100 MG TABLET (FP) PO SCH (23:34)
[2022-02-12] MEDS: chlordiazePOXIDE HCL 10 MG CAPSULE PO SCH ×2 (05:44→18:03)
[2022-02-12] MEDS: hydrOXYzine PAMOATE 25 MG CAPSULE (FP) PO PRN (09:24)
[2022-02-12] MEDS: GABAPENTIN 300 MG CAPSULE PO SCH ×2 (10:25→21:37)
[2022-02-12] MEDS: PRENATAL VITAMINS W/ FOLIC ACID TABLET (FP) PO SCH (10:25)
[2022-02-12] MEDS: QUEtiapine FUMARATE 200 MG TABLET PO SCH (21:37)
[2022-02-12] MEDS: THIAMINE HCL 100 MG TABLET (FP) PO SCH (21:37)
[2022-02-12] MEDS: MELATONIN 5 MG TABLETS PO SCH (21:38)
[2022-02-13] MEDS ORDERED: chlordiazePOXIDE HCL 10 MG CAPSULE PO ONE (05:00)
[2022-02-13] MEDS: GABAPENTIN 300 MG CAPSULE PO SCH (09:11)
[2022-02-13] MEDS: PRENATAL VITAMINS W/ FOLIC ACID TABLET (FP) PO SCH (09:11)
[2022-02-13 09:26] VITALS: BP 122/86; PULSE 98; RESP 16; TEMP 97.3
== END 2022-02-13 10:59 | disposition home or self-care (01) | DRG 774 ==
LOC: YASAS 14:32 → Y6N 16:11
PROVIDERS: ADMIT Allergy & Immunology; ATTEND Surgery
PROC: HZ2ZZZZ Detoxification Services for Substance Abuse Treatment (ICD-10-PCS; principal; 2022-02-08)
DX: F10.230 Alcohol dependence with withdrawal, uncomplicated (principal); F14.20 Cocaine dependence, uncomplicated; F12.20 Cannabis dependence, uncomplicated; F17.210 Nicotine dependence, cigarettes, uncomplicated; F19.280 Other psychoactive substance dependence with psychoactive substance-induced anxiety disorder; F19.282 Other psychoactive substance dependence with psychoactive substance-induced sleep disorder; F31.9 Bipolar disorder, unspecified; F43.10 Post-traumatic stress disorder, unspecified; I10 Essential (primary) hypertension; K21.9 Gastro-esophageal reflux disease without esophagitis; M54.40 Lumbago with sciatica, unspecified side; G89.29 Other chronic pain; Z56.0 Unemployment, unspecified; Z59.00 Homelessness unspecified
CPT/HCPCS: 36415; 80053; 85027; 86780; 87811; C9803-CS; U0003; U0005

== ENCOUNTER 2022-03-02 10:22 | Inpatient (IN) | payer OTHER ==
[2022-03-02 10:46] VITALS: BMI 22.6
[2022-03-02] MEDS ORDERED: ACETAMINOPHEN 325 MG TABLET (FP) PO PRN ×2 (12:24)
[2022-03-02] MEDS ORDERED: MAGNESIUM CITRATE 300 ML BOTTLE PO PRN (12:24)
[2022-03-02] MEDS ORDERED: BENZOCAINE/MENTHOL (CHLORASEPTIC ) LOZENGE MM PRN (12:24)
[2022-03-02] MEDS ORDERED: NICOTINE 10 MG CARTRIDGE (INHALER) IH PRN (12:24)
[2022-03-02] MEDS ORDERED: chlordiazePOXIDE HCL 25 MG CAPSULE PO PRN (12:24)
[2022-03-02] MEDS ORDERED: LOPERAMIDE HCL 2 MG CAPSULE PO PRN (12:24)
[2022-03-02] MEDS ORDERED: MAG HYDROX/AL HYDROX/SIMETH 30 ML UNIT-DOSE CUP PO PRN (12:24)
[2022-03-02] MEDS ORDERED: METHOCARBAMOL 500 MG TABLET PO PRN (12:24)
[2022-03-02] MEDS ORDERED: DICYCLOMINE HCL 10 MG CAPSULE PO PRN (12:24)
[2022-03-02] MEDS ORDERED: ONDANSETRON *ODT* 4 MG TABLET SL PRN (12:24)
[2022-03-02] MEDS ORDERED: MAGNESIUM HYDROX 2400MG/30ML ORAL SUSPENSION 30 ML CUP PO PRN (12:24)
[2022-03-02] MEDS ORDERED: BISMUTH SUBSALICYLATE 524 MG/30 ML PO PRN (12:24)
[2022-03-02] MEDS ORDERED: IBUPROFEN 400 MG TABLET (FP) PO PRN (12:24)
[2022-03-02] MEDS ORDERED: IBUPROFEN 600 MG TABLET (FP) PO PRN (12:24)
[2022-03-02] MEDS: hydrOXYzine PAMOATE 25 MG CAPSULE (FP) PO SCH ×3 (14:52→22:44)
[2022-03-02] MEDS: chlordiazePOXIDE HCL 25 MG CAPSULE PO SCH ×2 (19:01→23:25)
[2022-03-02] MEDS: THIAMINE HCL 100 MG TABLET (FP) PO SCH (22:45)
[2022-03-02] MEDS: GABAPENTIN 300 MG CAPSULE PO SCH (23:21)
[2022-03-02] MEDS: MELATONIN 5 MG TABLETS PO SCH (23:21)
[2022-03-02] MEDS: QUEtiapine FUMARATE 200 MG TABLET PO SCH (23:22)
[2022-03-03] MEDS: chlordiazePOXIDE HCL 25 MG CAPSULE PO SCH ×5 (07:11→23:18)
[2022-03-03] MEDS: hydrOXYzine PAMOATE 25 MG CAPSULE (FP) PO SCH ×6 (07:13→23:17)
[2022-03-03] MEDS: PRENATAL VITAMINS W/ FOLIC ACID TABLET (FP) PO SCH (10:13)
[2022-03-03] MEDS: GABAPENTIN 300 MG CAPSULE PO SCH ×2 (10:13→23:17)
[2022-03-03 10:31] LABS: HEMATOCRIT 38.2 % (35.4-49); HEMOGLOBIN 12.2 GM/dL (11.7-16.9); MCH 23.3 pg (25.7-33.7); MEAN CELL VOLUME 72.9 fl (80-96); PLATELET COUNT 237 10^3/uL (134-434); RBC 5.24 M/mm3 (4.00-5.60); RDW 16.3 % (11.9-15.9); WHITE BLOOD COUNT 3.2 K/mm3 (4.0-10.0)
[2022-03-03 10:36] LABS: CHLORIDE 104 mmol/L (98-107); SODIUM 142 mmol/L (136-145)
[2022-03-03 10:41] LABS: ALBUMIN 3.2 g/dl (3.4-5.0); ANION GAP 6 MMOL/L (8-16); BLOOD UREA NITROGEN 14.6 mg/dL (7-18); CO2 32 mmol/L (21-32); CREATININE 1.3 mg/dL (0.55-1.3); SGPT/ALT 24 U/L (13-61)
[2022-03-03 10:44] LABS: SGOT/AST 22 U/L (15-37)
[2022-03-03 10:45] LABS: BILIRUBIN,TOTAL 0.2 mg/dL (0.2-1); TOT PROT 5.8 g/dl (6.4-8.2)
[2022-03-03 10:47] LABS: ALK PHOS 62 U/L (45-117)
[2022-03-03 10:48] LABS: GLUCOSE,RANDOM 45 mg/dL (74-106)
[2022-03-03 21:09] VITALS: TEMP 97.3
[2022-03-03] MEDS: MELATONIN 5 MG TABLETS PO SCH (23:17)
[2022-03-03] MEDS: QUEtiapine FUMARATE 200 MG TABLET PO SCH (23:17)
[2022-03-03] MEDS: THIAMINE HCL 100 MG TABLET (FP) PO SCH (23:18)
[2022-03-04] MEDS: hydrOXYzine PAMOATE 25 MG CAPSULE (FP) PO SCH ×2 (05:16→10:26)
[2022-03-04] MEDS: chlordiazePOXIDE HCL 25 MG CAPSULE PO SCH ×2 (05:16→10:26)
[2022-03-04 06:19] VITALS: RESP 18
[2022-03-04] MEDS: GABAPENTIN 300 MG CAPSULE PO SCH (10:26)
[2022-03-04] MEDS: PRENATAL VITAMINS W/ FOLIC ACID TABLET (FP) PO SCH (10:26)
[2022-03-04 11:04] VITALS: BP 137/72; PULSE 96
[2022-03-05] MEDS ORDERED: chlordiazePOXIDE HCL 10 MG CAPSULE PO PRN
[2022-03-05] MEDS ORDERED: chlordiazePOXIDE HCL 10 MG CAPSULE PO SCH (05:00)
[2022-03-06] MEDS ORDERED: chlordiazePOXIDE HCL 10 MG CAPSULE PO SCH (05:00)
[2022-03-07] MEDS ORDERED: chlordiazePOXIDE HCL 10 MG CAPSULE PO ONE (05:00)
== END 2022-03-04 11:26 | disposition left against medical advice (07) | DRG 770 ==
LOC: YASAS 10:22 → Y3N 12:34
PROVIDERS: ADMIT Allergy & Immunology; ATTEND Surgery
PROC: HZ2ZZZZ Detoxification Services for Substance Abuse Treatment (ICD-10-PCS; principal; 2022-03-02)
DX: F10.230 Alcohol dependence with withdrawal, uncomplicated (principal); F14.20 Cocaine dependence, uncomplicated; F12.20 Cannabis dependence, uncomplicated; F17.210 Nicotine dependence, cigarettes, uncomplicated; F31.9 Bipolar disorder, unspecified; F20.9 Schizophrenia, unspecified; F43.10 Post-traumatic stress disorder, unspecified; F19.282 Other psychoactive substance dependence with psychoactive substance-induced sleep disorder; J45.909 Unspecified asthma, uncomplicated; K21.9 Gastro-esophageal reflux disease without esophagitis; M54.41 Lumbago with sciatica, right side; G89.29 Other chronic pain; Z56.0 Unemployment, unspecified; Z59.00 Homelessness unspecified
CPT/HCPCS: 36415; 80053; 82962; 85027; 86780; 87811; C9803-CS; U0003; U0005

== ENCOUNTER 2022-04-05 13:23 | Inpatient (IN) | payer OTHER ==
[2022-04-05 14:09] VITALS: BMI 21.6
[2022-04-05] MEDS ORDERED: DICYCLOMINE HCL 10 MG CAPSULE PO PRN (14:35)
[2022-04-05] MEDS ORDERED: BISMUTH SUBSALICYLATE 524 MG/30 ML PO PRN (14:35)
[2022-04-05] MEDS ORDERED: MAGNESIUM CITRATE 300 ML BOTTLE PO PRN (14:35)
[2022-04-05] MEDS ORDERED: chlordiazePOXIDE HCL 25 MG CAPSULE PO ONE (14:35)
[2022-04-05] MEDS ORDERED: IBUPROFEN 600 MG TABLET (FP) PO PRN (14:35)
[2022-04-05] MEDS ORDERED: MAG HYDROX/AL HYDROX/SIMETH 30 ML UNIT-DOSE CUP PO PRN (14:35)
[2022-04-05] MEDS ORDERED: chlordiazePOXIDE HCL 25 MG CAPSULE PO PRN (14:35)
[2022-04-05] MEDS ORDERED: ACETAMINOPHEN 325 MG TABLET (FP) PO PRN ×2 (14:35)
[2022-04-05] MEDS ORDERED: hydrOXYzine PAMOATE 25 MG CAPSULE (FP) PO PRN (14:35)
[2022-04-05] MEDS ORDERED: MAGNESIUM HYDROX 2400MG/30ML ORAL SUSPENSION 30 ML CUP PO PRN (14:35)
[2022-04-05] MEDS ORDERED: METHOCARBAMOL 500 MG TABLET PO PRN (14:35)
[2022-04-05] MEDS ORDERED: LOPERAMIDE HCL 2 MG CAPSULE PO PRN (14:35)
[2022-04-05] MEDS ORDERED: ONDANSETRON *ODT* 4 MG TABLET SL PRN (14:35)
[2022-04-05] MEDS ORDERED: NALOXONE HCL (KLOXXADO) 8 MG SPRAY NS PRN (14:35)
[2022-04-05] MEDS ORDERED: BENZOCAINE/MENTHOL (CHLORASEPTIC ) LOZENGE MM PRN (14:35)
[2022-04-05] MEDS ORDERED: IBUPROFEN 400 MG TABLET (FP) PO PRN (14:35)
[2022-04-05] MEDS ORDERED: chlordiazePOXIDE HCL 25 MG CAPSULE ONE (15:23)
[2022-04-05] MEDS: chlordiazePOXIDE HCL 25 MG CAPSULE PO SCH ×2 (18:35→22:49)
[2022-04-05] MEDS: THIAMINE HCL 100 MG TABLET (FP) PO SCH (22:49)
[2022-04-05] MEDS: MELATONIN 5 MG TABLETS PO SCH (22:49)
[2022-04-06] MEDS: chlordiazePOXIDE HCL 25 MG CAPSULE PO SCH ×4 (05:43→22:37)
[2022-04-06] MEDS: PRENATAL VITAMINS W/ FOLIC ACID TABLET (FP) PO SCH (11:01)
[2022-04-06] MEDS: GABAPENTIN 300 MG CAPSULE PO SCH ×2 (11:55→22:35)
[2022-04-06] MEDS: THIAMINE HCL 100 MG TABLET (FP) PO SCH (22:35)
[2022-04-06] MEDS: QUEtiapine FUMARATE 200 MG TABLET PO SCH (22:35)
[2022-04-06] MEDS: MELATONIN 5 MG TABLETS PO SCH (22:35)
[2022-04-07] MEDS: chlordiazePOXIDE HCL 25 MG CAPSULE PO SCH ×4 (06:25→22:15)
[2022-04-07 10:33] LABS: HEMATOCRIT 42.3 % (35.4-49); HEMOGLOBIN 12.8 GM/dL (11.7-16.9); MCH 22.2 pg (25.7-33.7); MCHC 30.3 g/dl (32.0-35.9); MEAN CELL VOLUME 73.4 fl (80-96); MEAN PLT VOLUME 8.6 fl (7.5-11.1); PLATELET COUNT 319 10^3/uL (134-434); RBC 5.76 M/mm3 (4.00-5.60); RDW 15.2 % (11.9-15.9); WHITE BLOOD COUNT 3.1 K/mm3 (4.0-10.0)
[2022-04-07 10:41] LABS: ALBUMIN 3.2 g/dl (3.4-5.0)
[2022-04-07 10:44] LABS: CREATININE 1.1 mg/dL (0.55-1.3)
[2022-04-07] MEDS: GABAPENTIN 300 MG CAPSULE PO SCH ×2 (10:44→22:16)
[2022-04-07] MEDS: PRENATAL VITAMINS W/ FOLIC ACID TABLET (FP) PO SCH (10:44)
[2022-04-07 10:46] LABS: BILIRUBIN,TOTAL 0.6 mg/dL (0.2-1); TOT PROT 5.9 g/dl (6.4-8.2)
[2022-04-07] MEDS: THIAMINE HCL 100 MG TABLET (FP) PO SCH (22:16)
[2022-04-07] MEDS: QUEtiapine FUMARATE 200 MG TABLET PO SCH (22:16)
[2022-04-07] MEDS: MELATONIN 5 MG TABLETS PO SCH (22:17)
[2022-04-08] MEDS ORDERED: chlordiazePOXIDE HCL 10 MG CAPSULE PO PRN
[2022-04-08] MEDS: chlordiazePOXIDE HCL 10 MG CAPSULE PO SCH ×2 (05:46→10:49)
[2022-04-08 09:00] VITALS: BP 114/69; PULSE 94; RESP 16; TEMP 97.1
[2022-04-08] MEDS: GABAPENTIN 300 MG CAPSULE PO SCH (10:49)
[2022-04-08] MEDS: PRENATAL VITAMINS W/ FOLIC ACID TABLET (FP) PO SCH (10:49)
[2022-04-09] MEDS ORDERED: chlordiazePOXIDE HCL 10 MG CAPSULE PO SCH (05:00)
[2022-04-10] MEDS ORDERED: chlordiazePOXIDE HCL 10 MG CAPSULE PO ONE (05:00)
== END 2022-04-08 12:03 | disposition left against medical advice (07) | DRG 770 ==
LOC: YASAS 13:23 → Y3N 15:02
PROVIDERS: ADMIT Allergy & Immunology; ATTEND Surgery
PROC: HZ2ZZZZ Detoxification Services for Substance Abuse Treatment (ICD-10-PCS; principal; 2022-04-05)
DX: F10.230 Alcohol dependence with withdrawal, uncomplicated (principal); F14.20 Cocaine dependence, uncomplicated; F17.210 Nicotine dependence, cigarettes, uncomplicated; F19.282 Other psychoactive substance dependence with psychoactive substance-induced sleep disorder; F19.24 Other psychoactive substance dependence with psychoactive substance-induced mood disorder; F20.9 Schizophrenia, unspecified; F43.10 Post-traumatic stress disorder, unspecified; G47.00 Insomnia, unspecified; I10 Essential (primary) hypertension; K21.9 Gastro-esophageal reflux disease without esophagitis; M54.50 Low back pain, unspecified; G89.29 Other chronic pain; Z86.59 Personal history of other mental and behavioral disorders
CPT/HCPCS: 36415; 80053; 85027; 86780; 87811; C9803-CS; U0003; U0005

== ENCOUNTER 2022-06-09 12:30 | Inpatient (IN) | payer OTHER ==
[2022-06-09 15:08] VITALS: BMI 21.3
[2022-06-09] MEDS ORDERED: BISMUTH SUBSALICYLATE 524 MG/30 ML PO PRN (17:17)
[2022-06-09] MEDS ORDERED: NALOXONE HCL (KLOXXADO) 8 MG SPRAY NS PRN (17:17)
[2022-06-09] MEDS ORDERED: chlordiazePOXIDE HCL 25 MG CAPSULE PO PRN (17:17)
[2022-06-09] MEDS ORDERED: hydrOXYzine PAMOATE 25 MG CAPSULE (FP) PO PRN (17:17)
[2022-06-09] MEDS ORDERED: POLYETHYLENE GLYCOL (HEALTHYLAX) 3350 17 GM PACKET PO PRN (17:17)
[2022-06-09] MEDS ORDERED: METHOCARBAMOL 500 MG TABLET PO PRN (17:17)
[2022-06-09] MEDS ORDERED: DICYCLOMINE HCL 10 MG CAPSULE PO PRN (17:17)
[2022-06-09] MEDS ORDERED: MAG HYDROX/AL HYDROX/SIMETH 30 ML UNIT-DOSE CUP PO PRN (17:17)
[2022-06-09] MEDS ORDERED: IBUPROFEN 600 MG TABLET (FP) PO PRN (17:17)
[2022-06-09] MEDS ORDERED: IBUPROFEN 400 MG TABLET (FP) PO PRN (17:17)
[2022-06-09] MEDS ORDERED: MAGNESIUM HYDROX 2400MG/30ML ORAL SUSPENSION 30 ML CUP PO PRN (17:17)
[2022-06-09] MEDS ORDERED: BENZOCAINE/MENTHOL (CHLORASEPTIC ) LOZENGE MM PRN (17:17)
[2022-06-09] MEDS ORDERED: ONDANSETRON *ODT* 4 MG TABLET SL PRN (17:17)
[2022-06-09] MEDS ORDERED: LOPERAMIDE HCL 2 MG CAPSULE PO PRN (17:17)
[2022-06-09] MEDS ORDERED: ACETAMINOPHEN 325 MG TABLET (FP) PO PRN ×2 (17:17)
[2022-06-09] MEDS: PRENATAL VITAMINS W/ FOLIC ACID TABLET (FP) PO SCH (18:01)
[2022-06-09] MEDS: chlordiazePOXIDE HCL 25 MG CAPSULE PO SCH ×2 (18:10→22:39)
[2022-06-09] MEDS ORDERED: traZODone HCL 100 MG TABLET (FP) PO ONE (22:00)
[2022-06-09] MEDS ORDERED: QUEtiapine FUMARATE 100 MG TABLET (FP) PO ONE (22:00)
[2022-06-09] MEDS: THIAMINE HCL 100 MG TABLET (FP) PO SCH (22:39)
[2022-06-09] MEDS: MELATONIN 5 MG TABLETS PO SCH (22:42)
[2022-06-10] MEDS: chlordiazePOXIDE HCL 25 MG CAPSULE PO SCH ×4 (05:47→22:28)
[2022-06-10] MEDS: PRENATAL VITAMINS W/ FOLIC ACID TABLET (FP) PO SCH (10:29)
[2022-06-10 11:51] LABS: HEMATOCRIT 35.9 % (35.4-49); MCH 21.6 pg (25.7-33.7); MCHC 30.7 g/dl (32.0-35.9); MEAN CELL VOLUME 70.4 fl (80-96); MEAN PLT VOLUME 8.2 fl (7.5-11.1); PLATELET COUNT 407 10^3/uL (134-434); RDW 15.9 % (11.9-15.9); WHITE BLOOD COUNT 3.1 K/mm3 (4.0-10.0)
[2022-06-10 11:59] LABS: CALCIUM 8.5 mg/dL (8.5-10.1)
[2022-06-10 12:00] LABS: ALBUMIN 2.8 g/dl (3.4-5.0); BLOOD UREA NITROGEN 11.6 mg/dL (7-18)
[2022-06-10 12:03] LABS: CREATININE 0.9 mg/dL (0.55-1.3)
[2022-06-10 12:04] LABS: BILIRUBIN,TOTAL 0.4 mg/dL (0.2-1); TOT PROT 5.2 g/dl (6.4-8.2)
[2022-06-10] MEDS: LACTULOSE 20 GM/30 ML UDC (FOR ORAL USE ONLY) PO SCH ×3 (13:57→22:28)
[2022-06-10] MEDS: THIAMINE HCL 100 MG TABLET (FP) PO SCH (22:28)
[2022-06-10] MEDS: MELATONIN 5 MG TABLETS PO SCH (22:28)
[2022-06-11] MEDS: chlordiazePOXIDE HCL 25 MG CAPSULE PO SCH ×4 (05:46→22:20)
[2022-06-11] MEDS: PRENATAL VITAMINS W/ FOLIC ACID TABLET (FP) PO SCH (10:20)
[2022-06-11] MEDS: LACTULOSE 20 GM/30 ML UDC (FOR ORAL USE ONLY) PO SCH ×4 (10:21→22:23)
[2022-06-11] MEDS: MELATONIN 5 MG TABLETS PO SCH (22:22)
[2022-06-11] MEDS: THIAMINE HCL 100 MG TABLET (FP) PO SCH (22:22)
[2022-06-12] MEDS: chlordiazePOXIDE HCL 10 MG CAPSULE PO SCH ×4 (05:24→22:57)
[2022-06-12] MEDS ORDERED: GABAPENTIN 300 MG CAPSULE PO SCH (10:00)
[2022-06-12] MEDS: PRENATAL VITAMINS W/ FOLIC ACID TABLET (FP) PO SCH (11:01)
[2022-06-12] MEDS: LACTULOSE 20 GM/30 ML UDC (FOR ORAL USE ONLY) PO SCH ×4 (11:01→22:59)
[2022-06-12] MEDS: chlordiazePOXIDE HCL 10 MG CAPSULE PO PRN ×2 (11:32→15:38)
[2022-06-12] MEDS: GABAPENTIN 300 MG CAPSULE PO SCH ×2 (13:24→22:57)
[2022-06-12] MEDS: NICOTINE 10 MG CARTRIDGE (INHALER) IH SCH (19:26)
[2022-06-12] MEDS: traZODone HCL 50 MG TABLET (FP) PO SCH (22:57)
[2022-06-12] MEDS: THIAMINE HCL 100 MG TABLET (FP) PO SCH (22:57)
[2022-06-12] MEDS: QUEtiapine FUMARATE 200 MG TABLET PO SCH (22:59)
[2022-06-13] MEDS: chlordiazePOXIDE HCL 10 MG CAPSULE PO SCH ×2 (06:22→18:24)
[2022-06-13] MEDS: GABAPENTIN 300 MG CAPSULE PO SCH ×3 (06:22→23:15)
[2022-06-13] MEDS: LACTULOSE 20 GM/30 ML UDC (FOR ORAL USE ONLY) PO SCH ×4 (11:40→22:27)
[2022-06-13] MEDS: NICOTINE 10 MG CARTRIDGE (INHALER) IH SCH (11:40)
[2022-06-13] MEDS: PRENATAL VITAMINS W/ FOLIC ACID TABLET (FP) PO SCH (11:41)
[2022-06-13] MEDS: QUEtiapine FUMARATE 200 MG TABLET PO SCH (22:35)
[2022-06-13] MEDS: THIAMINE HCL 100 MG TABLET (FP) PO SCH (23:15)
[2022-06-13] MEDS: traZODone HCL 50 MG TABLET (FP) PO SCH (23:15)
[2022-06-14] MEDS ORDERED: chlordiazePOXIDE HCL 10 MG CAPSULE PO ONE (05:00)
[2022-06-14 10:27] LABS: BLOOD UREA NITROGEN 13.3 mg/dL (7-18); CALCIUM 8.8 mg/dL (8.5-10.1)
[2022-06-14 10:31] LABS: CREATININE 1.1 mg/dL (0.55-1.3)
[2022-06-14 10:32] LABS: BILIRUBIN,TOTAL 0.3 mg/dL (0.2-1); TOT PROT 5.7 g/dl (6.4-8.2)
[2022-06-14 10:37] VITALS: RESP 16
[2022-06-14] MEDS: LACTULOSE 20 GM/30 ML UDC (FOR ORAL USE ONLY) PO SCH ×3 (11:08→17:49)
[2022-06-14] MEDS: NICOTINE 10 MG CARTRIDGE (INHALER) IH SCH (11:09)
[2022-06-14] MEDS: PRENATAL VITAMINS W/ FOLIC ACID TABLET (FP) PO SCH (11:09)
[2022-06-14] MEDS: GABAPENTIN 300 MG CAPSULE PO SCH (11:09)
[2022-06-14 16:11] VITALS: BP 106/53; PULSE 90; TEMP 97.8
== END 2022-06-14 18:54 | disposition other institution (70) | DRG 774 ==
LOC: YASAS 12:30 → Y6N 17:21
PROVIDERS: ADMIT Allergy & Immunology; ATTEND Surgery
PROC: HZ2ZZZZ Detoxification Services for Substance Abuse Treatment (ICD-10-PCS; principal; 2022-06-09)
DX: F10.230 Alcohol dependence with withdrawal, uncomplicated (principal); F14.20 Cocaine dependence, uncomplicated; F17.210 Nicotine dependence, cigarettes, uncomplicated; F31.9 Bipolar disorder, unspecified; F20.9 Schizophrenia, unspecified; F18.2 Inhalant dependence; F19.282 Other psychoactive substance dependence with psychoactive substance-induced sleep disorder; F19.24 Other psychoactive substance dependence with psychoactive substance-induced mood disorder; F41.9 Anxiety disorder, unspecified; F43.10 Post-traumatic stress disorder, unspecified; I10 Essential (primary) hypertension; J45.909 Unspecified asthma, uncomplicated; K21.9 Gastro-esophageal reflux disease without esophagitis; M54.40 Lumbago with sciatica, unspecified side; G89.29 Other chronic pain; G47.00 Insomnia, unspecified; R26.89 Other abnormalities of gait and mobility; R29.6 Repeated falls; W19.XXXA Unspecified fall, initial encounter; Y92.230 Patient room in hospital as the place of occurrence of the external cause; Y93.9 Activity, unspecified
CPT/HCPCS: 36415; 80053; 82140; 85027; 86780; C9803-CS; U0003; U0005

== ENCOUNTER 2022-06-14 19:03 | Inpatient (IN) | payer OTHER ==
[2022-06-14] MEDS ORDERED: BENZOCAINE/MENTHOL (CHLORASEPTIC ) LOZENGE MM PRN (20:24)
[2022-06-14] MEDS ORDERED: POLYETHYLENE GLYCOL (HEALTHYLAX) 3350 17 GM PACKET PO PRN (20:24)
[2022-06-14] MEDS ORDERED: MAG HYDROX/AL HYDROX/SIMETH 30 ML UNIT-DOSE CUP PO PRN (20:24)
[2022-06-14] MEDS ORDERED: MAGNESIUM HYDROX 2400MG/30ML ORAL SUSPENSION 30 ML CUP PO PRN (20:24)
[2022-06-14] MEDS ORDERED: ACETAMINOPHEN 325 MG TABLET (FP) PO PRN (20:24)
[2022-06-14] MEDS ORDERED: LOPERAMIDE HCL 2 MG CAPSULE PO PRN (20:24)
[2022-06-14] MEDS ORDERED: P-EPHED 60MG/TRIPROLIDI 2.5MG TABLET PO PRN (20:24)
[2022-06-14] MEDS ORDERED: guaiFENesin 200 MG/10 ML 10 ML UNIT-DOSE CUPS PO PRN (20:24)
[2022-06-14] MEDS ORDERED: hydrOXYzine PAMOATE 25 MG CAPSULE (FP) PO PRN (20:24)
[2022-06-14] MEDS: THIAMINE HCL 100 MG TABLET (FP) PO SCH (21:29)
[2022-06-14] MEDS: MELATONIN 5 MG TABLETS PO SCH (21:29)
[2022-06-14] MEDS: QUEtiapine FUMARATE 200 MG TABLET PO SCH (21:29)
[2022-06-14] MEDS: GABAPENTIN 300 MG CAPSULE PO SCH (21:30)
[2022-06-15] MEDS: PRENATAL VITAMINS W/ FOLIC ACID TABLET (FP) PO SCH (10:26)
[2022-06-15] MEDS: NICOTINE 7 MG/24 HOURS TOPICAL PATCH TD SCH (10:26)
[2022-06-15] MEDS: GABAPENTIN 300 MG CAPSULE PO SCH ×2 (10:27→21:23)
[2022-06-15] MEDS: MELATONIN 5 MG TABLETS PO SCH (21:23)
[2022-06-15] MEDS: THIAMINE HCL 100 MG TABLET (FP) PO SCH (21:23)
[2022-06-15] MEDS: QUEtiapine FUMARATE 200 MG TABLET PO SCH (21:23)
[2022-06-16] MEDS: GABAPENTIN 300 MG CAPSULE PO SCH ×2 (09:36→21:39)
[2022-06-16] MEDS: NICOTINE 10 MG CARTRIDGE (INHALER) IH PRN ×2 (09:36→16:19)
[2022-06-16] MEDS: PRENATAL VITAMINS W/ FOLIC ACID TABLET (FP) PO SCH (09:36)
[2022-06-16] MEDS: NICOTINE 7 MG/24 HOURS TOPICAL PATCH TD SCH (09:36)
[2022-06-16] MEDS: IBUPROFEN 400 MG TABLET (FP) PO PRN (15:56)
[2022-06-16] MEDS: QUEtiapine FUMARATE 200 MG TABLET PO SCH (21:39)
[2022-06-16] MEDS: THIAMINE HCL 100 MG TABLET (FP) PO SCH (21:39)
[2022-06-16] MEDS: MELATONIN 5 MG TABLETS PO SCH (21:39)
[2022-06-17] MEDS: PRENATAL VITAMINS W/ FOLIC ACID TABLET (FP) PO SCH (09:54)
[2022-06-17] MEDS: NICOTINE 10 MG CARTRIDGE (INHALER) IH PRN (09:54)
[2022-06-17] MEDS: NICOTINE 7 MG/24 HOURS TOPICAL PATCH TD SCH (09:54)
[2022-06-17] MEDS: GABAPENTIN 300 MG CAPSULE PO SCH ×2 (09:55→21:34)
[2022-06-17] MEDS: IBUPROFEN 400 MG TABLET (FP) PO PRN (16:49)
[2022-06-17] MEDS: MELATONIN 5 MG TABLETS PO SCH (21:34)
[2022-06-17] MEDS: THIAMINE HCL 100 MG TABLET (FP) PO SCH (21:34)
[2022-06-17] MEDS: QUEtiapine FUMARATE 200 MG TABLET PO SCH (21:34)
[2022-06-18] MEDS: GABAPENTIN 300 MG CAPSULE PO SCH ×2 (10:15→21:34)
[2022-06-18] MEDS: NICOTINE 10 MG CARTRIDGE (INHALER) IH PRN (10:15)
[2022-06-18] MEDS: NICOTINE 7 MG/24 HOURS TOPICAL PATCH TD SCH (10:15)
[2022-06-18] MEDS: PRENATAL VITAMINS W/ FOLIC ACID TABLET (FP) PO SCH (10:15)
[2022-06-18] MEDS: QUEtiapine FUMARATE 200 MG TABLET PO SCH ×2 (12:31→21:34)
[2022-06-18] MEDS: IBUPROFEN 400 MG TABLET (FP) PO PRN (12:32)
[2022-06-18] MEDS: MELATONIN 5 MG TABLETS PO SCH (21:34)
[2022-06-18] MEDS: THIAMINE HCL 100 MG TABLET (FP) PO SCH (21:34)
[2022-06-19] MEDS: GABAPENTIN 300 MG CAPSULE PO SCH ×2 (09:48→21:19)
[2022-06-19] MEDS: PRENATAL VITAMINS W/ FOLIC ACID TABLET (FP) PO SCH (09:48)
[2022-06-19] MEDS: QUEtiapine FUMARATE 200 MG TABLET PO SCH ×2 (09:49→21:19)
[2022-06-19] MEDS: NICOTINE 7 MG/24 HOURS TOPICAL PATCH TD SCH (09:49)
[2022-06-19] MEDS: NICOTINE 10 MG CARTRIDGE (INHALER) IH PRN (09:49)
[2022-06-19] MEDS: MELATONIN 5 MG TABLETS PO SCH (21:18)
[2022-06-19] MEDS: THIAMINE HCL 100 MG TABLET (FP) PO SCH (21:18)
[2022-06-20] MEDS: QUEtiapine FUMARATE 200 MG TABLET PO SCH ×2 (09:49→21:23)
[2022-06-20] MEDS: NICOTINE 7 MG/24 HOURS TOPICAL PATCH TD SCH (09:50)
[2022-06-20] MEDS: PRENATAL VITAMINS W/ FOLIC ACID TABLET (FP) PO SCH (09:50)
[2022-06-20] MEDS: GABAPENTIN 300 MG CAPSULE PO SCH ×2 (09:50→21:24)
[2022-06-20] MEDS: MELATONIN 5 MG TABLETS PO SCH (21:23)
[2022-06-20] MEDS: THIAMINE HCL 100 MG TABLET (FP) PO SCH (21:24)
[2022-06-21] MEDS: QUEtiapine FUMARATE 200 MG TABLET PO SCH ×2 (10:03→21:46)
[2022-06-21] MEDS: NICOTINE 7 MG/24 HOURS TOPICAL PATCH TD SCH (10:03)
[2022-06-21] MEDS: GABAPENTIN 300 MG CAPSULE PO SCH ×2 (10:03→21:46)
[2022-06-21] MEDS: PRENATAL VITAMINS W/ FOLIC ACID TABLET (FP) PO SCH (10:03)
[2022-06-21] MEDS: NICOTINE 10 MG CARTRIDGE (INHALER) IH PRN (10:03)
[2022-06-21] MEDS: MELATONIN 5 MG TABLETS PO SCH (21:45)
[2022-06-21] MEDS: THIAMINE HCL 100 MG TABLET (FP) PO SCH (21:45)
[2022-06-22] MEDS: NICOTINE 7 MG/24 HOURS TOPICAL PATCH TD SCH (10:10)
[2022-06-22] MEDS: GABAPENTIN 300 MG CAPSULE PO SCH ×2 (10:10→21:31)
[2022-06-22] MEDS: QUEtiapine FUMARATE 200 MG TABLET PO SCH ×2 (10:10→21:31)
[2022-06-22] MEDS: PRENATAL VITAMINS W/ FOLIC ACID TABLET (FP) PO SCH (10:10)
[2022-06-22] MEDS: NICOTINE 10 MG CARTRIDGE (INHALER) IH PRN ×2 (10:13→21:32)
[2022-06-22] MEDS: THIAMINE HCL 100 MG TABLET (FP) PO SCH (21:31)
[2022-06-22] MEDS: traZODone HCL 50 MG TABLET (FP) PO SCH (21:32)
[2022-06-23] MEDS: QUEtiapine FUMARATE 200 MG TABLET PO SCH ×2 (10:14→21:27)
[2022-06-23] MEDS: PRENATAL VITAMINS W/ FOLIC ACID TABLET (FP) PO SCH (10:15)
[2022-06-23] MEDS: NICOTINE 7 MG/24 HOURS TOPICAL PATCH TD SCH (10:15)
[2022-06-23] MEDS: GABAPENTIN 300 MG CAPSULE PO SCH ×2 (10:15→21:27)
[2022-06-23] MEDS: NICOTINE 10 MG CARTRIDGE (INHALER) IH PRN (10:15)
[2022-06-23] MEDS: traZODone HCL 50 MG TABLET (FP) PO SCH (21:27)
[2022-06-23] MEDS: THIAMINE HCL 100 MG TABLET (FP) PO SCH (21:27)
[2022-06-24] MEDS: GABAPENTIN 300 MG CAPSULE PO SCH ×2 (10:06→21:19)
[2022-06-24] MEDS: NICOTINE 7 MG/24 HOURS TOPICAL PATCH TD SCH (10:06)
[2022-06-24] MEDS: PRENATAL VITAMINS W/ FOLIC ACID TABLET (FP) PO SCH (10:06)
[2022-06-24] MEDS: QUEtiapine FUMARATE 200 MG TABLET PO SCH ×2 (10:07→21:19)
[2022-06-24] MEDS: NICOTINE 10 MG CARTRIDGE (INHALER) IH PRN (10:07)
[2022-06-24] MEDS: THIAMINE HCL 100 MG TABLET (FP) PO SCH (21:19)
[2022-06-24] MEDS: traZODone HCL 50 MG TABLET (FP) PO SCH (21:19)
[2022-06-25] MEDS: PRENATAL VITAMINS W/ FOLIC ACID TABLET (FP) PO SCH (10:05)
[2022-06-25] MEDS: NICOTINE 7 MG/24 HOURS TOPICAL PATCH TD SCH (10:05)
[2022-06-25] MEDS: GABAPENTIN 300 MG CAPSULE PO SCH ×2 (10:05→21:27)
[2022-06-25] MEDS: QUEtiapine FUMARATE 200 MG TABLET PO SCH ×2 (10:06→21:27)
[2022-06-25] MEDS: NICOTINE 10 MG CARTRIDGE (INHALER) IH PRN (10:06)
[2022-06-25] MEDS: traZODone HCL 50 MG TABLET (FP) PO SCH (21:27)
[2022-06-25] MEDS: THIAMINE HCL 100 MG TABLET (FP) PO SCH (21:27)
[2022-06-26] MEDS: NICOTINE 7 MG/24 HOURS TOPICAL PATCH TD SCH (09:46)
[2022-06-26] MEDS: PRENATAL VITAMINS W/ FOLIC ACID TABLET (FP) PO SCH (09:46)
[2022-06-26] MEDS: GABAPENTIN 300 MG CAPSULE PO SCH ×2 (09:46→21:37)
[2022-06-26] MEDS: QUEtiapine FUMARATE 200 MG TABLET PO SCH ×2 (09:46→21:37)
[2022-06-26] MEDS: NICOTINE 10 MG CARTRIDGE (INHALER) IH PRN (09:47)
[2022-06-26 14:00] LABS: ALBUMIN 3.4 g/dl (3.4-5.0); CALCIUM 9.4 mg/dL (8.5-10.1)
[2022-06-26 14:01] LABS: BLOOD UREA NITROGEN 22.1 mg/dL (7-18)
[2022-06-26 14:04] LABS: CREATININE 1.1 mg/dL (0.55-1.3)
[2022-06-26 14:06] LABS: BILIRUBIN,TOTAL 0.2 mg/dL (0.2-1); TOT PROT 6.2 g/dl (6.4-8.2)
[2022-06-26] MEDS: traZODone HCL 50 MG TABLET (FP) PO SCH (21:37)
[2022-06-26] MEDS: THIAMINE HCL 100 MG TABLET (FP) PO SCH (21:37)
[2022-06-26] MEDS: RIFAXIMIN 550 MG TABLET PO SCH (21:38)
[2022-06-27] MEDS: PRENATAL VITAMINS W/ FOLIC ACID TABLET (FP) PO SCH (09:50)
[2022-06-27] MEDS: QUEtiapine FUMARATE 200 MG TABLET PO SCH ×2 (09:50→21:24)
[2022-06-27] MEDS: GABAPENTIN 300 MG CAPSULE PO SCH ×2 (09:50→21:24)
[2022-06-27] MEDS: RIFAXIMIN 550 MG TABLET PO SCH ×2 (09:51→21:25)
[2022-06-27] MEDS: NICOTINE 7 MG/24 HOURS TOPICAL PATCH TD SCH (09:51)
[2022-06-27] MEDS: THIAMINE HCL 100 MG TABLET (FP) PO SCH (21:24)
[2022-06-27] MEDS: traZODone HCL 50 MG TABLET (FP) PO SCH (21:24)
[2022-06-28] MEDS: IBUPROFEN 400 MG TABLET (FP) PO PRN (06:06)
[2022-06-28] MEDS: PRENATAL VITAMINS W/ FOLIC ACID TABLET (FP) PO SCH (10:05)
[2022-06-28] MEDS: NICOTINE 7 MG/24 HOURS TOPICAL PATCH TD SCH (10:05)
[2022-06-28] MEDS: GABAPENTIN 300 MG CAPSULE PO SCH ×2 (10:06→21:29)
[2022-06-28] MEDS: QUEtiapine FUMARATE 200 MG TABLET PO SCH ×2 (10:06→21:29)
[2022-06-28] MEDS: RIFAXIMIN 550 MG TABLET PO SCH ×2 (10:06→21:29)
[2022-06-28] MEDS: NICOTINE 10 MG CARTRIDGE (INHALER) IH PRN (16:56)
[2022-06-28] MEDS: THIAMINE HCL 100 MG TABLET (FP) PO SCH (21:29)
[2022-06-28] MEDS: traZODone HCL 50 MG TABLET (FP) PO SCH (21:29)
[2022-06-29] MEDS: NICOTINE 7 MG/24 HOURS TOPICAL PATCH TD SCH (09:51)
[2022-06-29] MEDS: PRENATAL VITAMINS W/ FOLIC ACID TABLET (FP) PO SCH (09:51)
[2022-06-29] MEDS: RIFAXIMIN 550 MG TABLET PO SCH ×2 (09:52→21:23)
[2022-06-29] MEDS: GABAPENTIN 300 MG CAPSULE PO SCH ×2 (09:52→21:23)
[2022-06-29] MEDS: QUEtiapine FUMARATE 200 MG TABLET PO SCH ×2 (09:52→21:24)
[2022-06-29] MEDS: NICOTINE 10 MG CARTRIDGE (INHALER) IH PRN ×2 (09:53→20:02)
[2022-06-29] MEDS: THIAMINE HCL 100 MG TABLET (FP) PO SCH (21:23)
[2022-06-29] MEDS: traZODone HCL 50 MG TABLET (FP) PO SCH (21:23)
[2022-06-30 06:53] VITALS: RESP 18
[2022-06-30] MEDS: QUEtiapine FUMARATE 200 MG TABLET PO SCH ×2 (09:32→21:35)
[2022-06-30] MEDS: PRENATAL VITAMINS W/ FOLIC ACID TABLET (FP) PO SCH (09:32)
[2022-06-30] MEDS: NICOTINE 7 MG/24 HOURS TOPICAL PATCH TD SCH (09:32)
[2022-06-30] MEDS: RIFAXIMIN 550 MG TABLET PO SCH ×2 (09:32→21:35)
[2022-06-30] MEDS: GABAPENTIN 300 MG CAPSULE PO SCH ×2 (09:32→21:35)
[2022-06-30] MEDS: NICOTINE 10 MG CARTRIDGE (INHALER) IH PRN ×2 (09:32→19:03)
[2022-06-30] MEDS: traZODone HCL 50 MG TABLET (FP) PO SCH (21:35)
[2022-06-30] MEDS: THIAMINE HCL 100 MG TABLET (FP) PO SCH (21:35)
[2022-07-01 06:39] VITALS: BP 106/71; PULSE 109; TEMP 97.8
[2022-07-01] MEDS: QUEtiapine FUMARATE 200 MG TABLET PO SCH (09:09)
[2022-07-01] MEDS: RIFAXIMIN 550 MG TABLET PO SCH (09:09)
[2022-07-01] MEDS: GABAPENTIN 300 MG CAPSULE PO SCH (09:09)
[2022-07-01] MEDS: PRENATAL VITAMINS W/ FOLIC ACID TABLET (FP) PO SCH (09:09)
[2022-07-01] MEDS: NICOTINE 7 MG/24 HOURS TOPICAL PATCH TD SCH (09:09)
== END 2022-07-01 11:03 | disposition home or self-care (01) | DRG 772 ==
LOC: YASAS 19:03 → Y3W 19:04
PROVIDERS: ADMIT Allergy & Immunology; ATTEND Psychiatry & Neurology Pain Medicine
PROC: HZ42ZZZ Group Counseling for Substance Abuse Treatment, Cognitive-Behavioral (ICD-10-PCS; principal; 2022-06-14)
DX: F10.20 Alcohol dependence, uncomplicated (principal); F14.20 Cocaine dependence, uncomplicated; F17.210 Nicotine dependence, cigarettes, uncomplicated; F31.9 Bipolar disorder, unspecified; F19.282 Other psychoactive substance dependence with psychoactive substance-induced sleep disorder; F19.280 Other psychoactive substance dependence with psychoactive substance-induced anxiety disorder; F41.9 Anxiety disorder, unspecified; I10 Essential (primary) hypertension; K21.9 Gastro-esophageal reflux disease without esophagitis; M54.50 Low back pain, unspecified; G89.29 Other chronic pain; Z59.01 Sheltered homelessness
CPT/HCPCS: 36415; 80053; 82140

== ENCOUNTER 2022-08-12 10:29 | Inpatient (IN) | payer OTHER ==
[2022-08-12 10:57] VITALS: BMI 20.6
[2022-08-12] MEDS ORDERED: LOPERAMIDE HCL 2 MG CAPSULE PO PRN (11:26)
[2022-08-12] MEDS ORDERED: MAG HYDROX/AL HYDROX/SIMETH 30 ML UNIT-DOSE CUP PO PRN (11:26)
[2022-08-12] MEDS ORDERED: LORazepam 1 MG TABLET PO PRN (11:26)
[2022-08-12] MEDS ORDERED: BISMUTH SUBSALICYLATE 262 MG/15 ML BTL PO PRN (11:26)
[2022-08-12] MEDS ORDERED: NICOTINE 10 MG CARTRIDGE (INHALER) IH PRN (11:26)
[2022-08-12] MEDS ORDERED: DICYCLOMINE HCL 10 MG CAPSULE PO PRN (11:26)
[2022-08-12] MEDS ORDERED: METHOCARBAMOL 500 MG TABLET PO PRN (11:26)
[2022-08-12] MEDS ORDERED: ACETAMINOPHEN 325 MG TABLET (FP) PO PRN ×2 (11:26)
[2022-08-12] MEDS ORDERED: MAGNESIUM HYDROX 2400MG/30ML ORAL SUSPENSION 30 ML CUP PO PRN (11:26)
[2022-08-12] MEDS ORDERED: POLYETHYLENE GLYCOL (HEALTHYLAX) 3350 17 GM PACKET PO PRN (11:26)
[2022-08-12] MEDS ORDERED: ONDANSETRON *ODT* 4 MG TABLET SL PRN (11:26)
[2022-08-12] MEDS ORDERED: IBUPROFEN 400 MG TABLET (FP) PO PRN (11:26)
[2022-08-12] MEDS ORDERED: hydrOXYzine PAMOATE 25 MG CAPSULE (FP) PO PRN (11:26)
[2022-08-12] MEDS ORDERED: IBUPROFEN 600 MG TABLET (FP) PO PRN (11:26)
[2022-08-12] MEDS ORDERED: NALOXONE HCL (KLOXXADO) 8 MG SPRAY NS PRN (11:26)
[2022-08-12] MEDS ORDERED: BENZOCAINE/MENTHOL (CHLORASEPTIC ) LOZENGE MM PRN (11:26)
[2022-08-12] MEDS ORDERED: PRENATAL VITAMINS W/ FOLIC ACID TABLET (FP) PO ONE (13:33)
[2022-08-12] MEDS: PRENATAL VITAMINS W/ FOLIC ACID TABLET (FP) PO SCH (13:36)
[2022-08-12] MEDS: NICOTINE 7 MG/24 HOURS TOPICAL PATCH TD SCH (13:36)
[2022-08-12 16:18] LABS: ALBUMIN 3.9 g/dl (3.4-5.0); CALCIUM 9.5 mg/dL (8.5-10.1)
[2022-08-12 16:23] LABS: CREATININE 1.1 mg/dL (0.55-1.3)
[2022-08-12 16:24] LABS: BILIRUBIN,TOTAL 0.5 mg/dL (0.2-1); TOT PROT 6.7 g/dl (6.4-8.2)
[2022-08-12 16:27] LABS: HEMOGLOBIN 11.9 GM/dL (11.7-16.9); MCH 21.7 pg (25.7-33.7); MCHC 30.6 g/dl (32.0-35.9); MEAN CELL VOLUME 70.8 fl (80-96); MEAN PLT VOLUME 8.4 fl (7.5-11.1); PLATELET COUNT 286 10^3/uL (134-434); RBC 5.51 M/mm3 (4.00-5.60); RDW 17.6 % (11.9-15.9); WHITE BLOOD COUNT 4.4 K/mm3 (4.0-10.0)
[2022-08-12] MEDS: LORazepam 2 MG TABLET PO SCH ×2 (17:54→22:40)
[2022-08-12] MEDS: QUEtiapine FUMARATE 200 MG TABLET PO SCH (22:40)
[2022-08-12] MEDS: THIAMINE HCL 100 MG TABLET (FP) PO SCH (22:40)
[2022-08-12] MEDS: GABAPENTIN 300 MG CAPSULE PO SCH (22:40)
[2022-08-12] MEDS: MELATONIN 5 MG TABLETS PO SCH (22:47)
[2022-08-13] MEDS: GABAPENTIN 300 MG CAPSULE PO SCH ×3 (05:58→22:21)
[2022-08-13] MEDS: LORazepam 2 MG TABLET PO SCH ×4 (05:58→22:21)
[2022-08-13] MEDS: PRENATAL VITAMINS W/ FOLIC ACID TABLET (FP) PO SCH (10:51)
[2022-08-13] MEDS: NICOTINE 7 MG/24 HOURS TOPICAL PATCH TD SCH (10:51)
[2022-08-13] MEDS: LACTULOSE 20 GM/30 ML UDC (FOR ORAL USE ONLY) PO SCH (22:21)
[2022-08-13] MEDS: QUEtiapine FUMARATE 200 MG TABLET PO SCH (22:21)
[2022-08-13] MEDS: THIAMINE HCL 100 MG TABLET (FP) PO SCH (22:21)
[2022-08-13] MEDS: MELATONIN 5 MG TABLETS PO SCH (22:22)
[2022-08-14] MEDS ORDERED: chlordiazePOXIDE HCL 25 MG CAPSULE PO SCH (05:00)
[2022-08-14] MEDS: LORazepam 1 MG TABLET PO SCH ×2 (05:50→10:19)
[2022-08-14] MEDS: GABAPENTIN 300 MG CAPSULE PO SCH ×3 (06:04→22:46)
[2022-08-14] MEDS: LACTULOSE 20 GM/30 ML UDC (FOR ORAL USE ONLY) PO SCH ×2 (10:18→22:47)
[2022-08-14] MEDS: NICOTINE 7 MG/24 HOURS TOPICAL PATCH TD SCH (10:18)
[2022-08-14] MEDS: PRENATAL VITAMINS W/ FOLIC ACID TABLET (FP) PO SCH (10:18)
[2022-08-14] MEDS ORDERED: chlordiazePOXIDE HCL 25 MG CAPSULE PO ONE (12:16)
[2022-08-14] MEDS: chlordiazePOXIDE HCL 25 MG CAPSULE PO SCH ×2 (17:49→22:46)
[2022-08-14] MEDS: THIAMINE HCL 100 MG TABLET (FP) PO SCH (22:46)
[2022-08-14] MEDS: QUEtiapine FUMARATE 200 MG TABLET PO SCH (22:46)
[2022-08-14] MEDS: MELATONIN 5 MG TABLETS PO SCH (22:47)
[2022-08-15] MEDS ORDERED: LORazepam 0.5 MG TABLET PO PRN
[2022-08-15] MEDS ORDERED: LORazepam 0.5 MG TABLET PO SCH (05:00)
[2022-08-15] MEDS: chlordiazePOXIDE HCL 10 MG CAPSULE PO SCH ×4 (05:20→22:22)
[2022-08-15] MEDS: GABAPENTIN 300 MG CAPSULE PO SCH ×3 (06:20→22:23)
[2022-08-15] MEDS: LACTULOSE 20 GM/30 ML UDC (FOR ORAL USE ONLY) PO SCH ×2 (10:43→22:23)
[2022-08-15] MEDS: NICOTINE 7 MG/24 HOURS TOPICAL PATCH TD SCH (10:43)
[2022-08-15] MEDS: PRENATAL VITAMINS W/ FOLIC ACID TABLET (FP) PO SCH (10:44)
[2022-08-15] MEDS: QUEtiapine FUMARATE 200 MG TABLET PO SCH (22:22)
[2022-08-15] MEDS: THIAMINE HCL 100 MG TABLET (FP) PO SCH (22:23)
[2022-08-15] MEDS: MELATONIN 5 MG TABLETS PO SCH (22:23)
[2022-08-16] MEDS ORDERED: LORazepam 0.5 MG TABLET PO ONE (05:00)
[2022-08-16] MEDS: chlordiazePOXIDE HCL 10 MG CAPSULE PO SCH ×2 (06:15→18:29)
[2022-08-16] MEDS: GABAPENTIN 300 MG CAPSULE PO SCH ×3 (06:15→22:29)
[2022-08-16] MEDS: LACTULOSE 20 GM/30 ML UDC (FOR ORAL USE ONLY) PO SCH ×2 (10:34→22:30)
[2022-08-16] MEDS: PRENATAL VITAMINS W/ FOLIC ACID TABLET (FP) PO SCH (10:34)
[2022-08-16] MEDS: NICOTINE 7 MG/24 HOURS TOPICAL PATCH TD SCH (10:34)
[2022-08-16] MEDS: MELATONIN 5 MG TABLETS PO SCH (22:29)
[2022-08-16] MEDS: QUEtiapine FUMARATE 200 MG TABLET PO SCH (22:29)
[2022-08-16] MEDS: THIAMINE HCL 100 MG TABLET (FP) PO SCH (22:30)
[2022-08-17] MEDS ORDERED: chlordiazePOXIDE HCL 10 MG CAPSULE PO ONE (05:00)
[2022-08-17] MEDS: GABAPENTIN 300 MG CAPSULE PO SCH (05:46)
[2022-08-17] MEDS: NICOTINE 7 MG/24 HOURS TOPICAL PATCH TD SCH (10:54)
[2022-08-17] MEDS: LACTULOSE 20 GM/30 ML UDC (FOR ORAL USE ONLY) PO SCH (10:54)
[2022-08-17] MEDS: PRENATAL VITAMINS W/ FOLIC ACID TABLET (FP) PO SCH (10:54)
[2022-08-17 13:07] VITALS: BP 157/78; PULSE 95; RESP 18; TEMP 97.2
== END 2022-08-17 14:15 | disposition other institution (70) | DRG 774 ==
LOC: YASAS 10:29 → Y6N 12:18
PROVIDERS: ADMIT Allergy & Immunology; ATTEND Surgery
PROC: HZ2ZZZZ Detoxification Services for Substance Abuse Treatment (ICD-10-PCS; principal; 2022-08-12)
DX: F10.230 Alcohol dependence with withdrawal, uncomplicated (principal); F14.20 Cocaine dependence, uncomplicated; F12.10 Cannabis abuse, uncomplicated; F17.213 Nicotine dependence, cigarettes, with withdrawal; F25.0 Schizoaffective disorder, bipolar type; F19.282 Other psychoactive substance dependence with psychoactive substance-induced sleep disorder; F19.280 Other psychoactive substance dependence with psychoactive substance-induced anxiety disorder; F19.24 Other psychoactive substance dependence with psychoactive substance-induced mood disorder; I10 Essential (primary) hypertension; J44.9 Chronic obstructive pulmonary disease, unspecified; K21.9 Gastro-esophageal reflux disease without esophagitis; M54.40 Lumbago with sciatica, unspecified side; G89.29 Other chronic pain
CPT/HCPCS: 36415; 80053; 82140; 85027; 86780; 87811; C9803-CS; U0003; U0005

== ENCOUNTER 2022-08-17 14:26 | Inpatient (IN) | payer OTHER ==
[~2022-08-17 14:26] MED LIST: ACETAMINOPHEN 325 MG TABLET (FP) PO PRN; BENZOCAINE/MENTHOL (CHLORASEPTIC ) LOZENGE MM PRN; IBUPROFEN 400 MG TABLET (FP) PO PRN; LOPERAMIDE HCL 2 MG CAPSULE PO PRN; MAG HYDROX/AL HYDROX/SIMETH 30 ML UNIT-DOSE CUP PO PRN; MAGNESIUM HYDROX 2400MG/30ML ORAL SUSPENSION 30 ML CUP PO PRN; NICOTINE POLACRILEX 2 MG GUM BUC PRN; P-EPHED 60MG/TRIPROLIDI 2.5MG TABLET PO PRN; POLYETHYLENE GLYCOL (HEALTHYLAX) 3350 17 GM PACKET PO PRN; guaiFENesin 200 MG/10 ML 10 ML UNIT-DOSE CUPS PO PRN
[2022-08-17] MEDS: PRENATAL VITAMINS W/ FOLIC ACID TABLET (FP) PO SCH (14:42)
[2022-08-17] MEDS: GABAPENTIN 300 MG CAPSULE PO SCH ×2 (15:07→21:42)
[2022-08-17 15:10] VITALS: RESP 18
[2022-08-17] MEDS: QUEtiapine FUMARATE 200 MG TABLET PO SCH (21:42)
[2022-08-17] MEDS: THIAMINE HCL 100 MG TABLET (FP) PO SCH (21:42)
[2022-08-17] MEDS: MELATONIN 5 MG TABLETS PO SCH (21:42)
[2022-08-17] MEDS: hydrOXYzine PAMOATE 25 MG CAPSULE (FP) PO PRN (21:42)
[2022-08-17] MEDS: LACTULOSE 20 GM/30 ML UDC (FOR ORAL USE ONLY) PO SCH (21:42)
[2022-08-17] MEDS: NICOTINE 10 MG CARTRIDGE (INHALER) IH PRN (21:43)
[2022-08-18] MEDS: GABAPENTIN 300 MG CAPSULE PO SCH ×3 (06:33→21:27)
[2022-08-18] MEDS: NICOTINE 10 MG CARTRIDGE (INHALER) IH PRN ×2 (06:34→15:52)
[2022-08-18] MEDS ORDERED: NICOTINE 7 MG/24 HOURS TOPICAL PATCH TD PRN (10:00)
[2022-08-18] MEDS: PRENATAL VITAMINS W/ FOLIC ACID TABLET (FP) PO SCH (10:19)
[2022-08-18] MEDS: LACTULOSE 20 GM/30 ML UDC (FOR ORAL USE ONLY) PO SCH ×2 (10:20→21:28)
[2022-08-18] MEDS ORDERED: QUEtiapine FUMARATE 50 MG TABLET PO ONE (16:28)
[2022-08-18] MEDS: QUEtiapine FUMARATE 200 MG TABLET PO SCH (21:27)
[2022-08-18] MEDS: MELATONIN 5 MG TABLETS PO SCH (21:27)
[2022-08-18] MEDS: THIAMINE HCL 100 MG TABLET (FP) PO SCH (21:27)
[2022-08-19] MEDS: GABAPENTIN 300 MG CAPSULE PO SCH ×3 (06:44→21:24)
[2022-08-19] MEDS: LACTULOSE 20 GM/30 ML UDC (FOR ORAL USE ONLY) PO SCH ×2 (11:01→21:25)
[2022-08-19] MEDS: PRENATAL VITAMINS W/ FOLIC ACID TABLET (FP) PO SCH (11:01)
[2022-08-19] MEDS: QUEtiapine FUMARATE 100 MG TABLET (FP) PO SCH (11:01)
[2022-08-19] MEDS: RIFAXIMIN 550 MG TABLET PO SCH ×2 (13:53→21:24)
[2022-08-19] MEDS: hydrOXYzine PAMOATE 25 MG CAPSULE (FP) PO PRN (16:29)
[2022-08-19] MEDS: NICOTINE 10 MG CARTRIDGE (INHALER) IH PRN (16:30)
[2022-08-19] MEDS: QUEtiapine FUMARATE 200 MG TABLET PO SCH (21:24)
[2022-08-19] MEDS: MELATONIN 5 MG TABLETS PO SCH (21:24)
[2022-08-19] MEDS: THIAMINE HCL 100 MG TABLET (FP) PO SCH (21:24)
[2022-08-20] MEDS: GABAPENTIN 300 MG CAPSULE PO SCH ×3 (06:33→21:23)
[2022-08-20] MEDS: PRENATAL VITAMINS W/ FOLIC ACID TABLET (FP) PO SCH (10:04)
[2022-08-20] MEDS: RIFAXIMIN 550 MG TABLET PO SCH ×2 (10:04→21:23)
[2022-08-20] MEDS: LACTULOSE 20 GM/30 ML UDC (FOR ORAL USE ONLY) PO SCH ×2 (10:04→21:24)
[2022-08-20] MEDS: QUEtiapine FUMARATE 100 MG TABLET (FP) PO SCH (10:04)
[2022-08-20] MEDS: NICOTINE 10 MG CARTRIDGE (INHALER) IH PRN (19:48)
[2022-08-20] MEDS: THIAMINE HCL 100 MG TABLET (FP) PO SCH (21:23)
[2022-08-20] MEDS: QUEtiapine FUMARATE 200 MG TABLET PO SCH (21:23)
[2022-08-20] MEDS: MELATONIN 5 MG TABLETS PO SCH (21:23)
[2022-08-20] MEDS: hydrOXYzine PAMOATE 25 MG CAPSULE (FP) PO PRN (21:24)
[2022-08-21] MEDS: GABAPENTIN 300 MG CAPSULE PO SCH ×3 (06:51→21:12)
[2022-08-21] MEDS: hydrOXYzine PAMOATE 25 MG CAPSULE (FP) PO PRN ×2 (06:53→18:13)
[2022-08-21] MEDS: NICOTINE 10 MG CARTRIDGE (INHALER) IH PRN ×2 (06:54→21:53)
[2022-08-21] MEDS: RIFAXIMIN 550 MG TABLET PO SCH ×2 (10:04→21:12)
[2022-08-21] MEDS: LACTULOSE 20 GM/30 ML UDC (FOR ORAL USE ONLY) PO SCH ×2 (10:04→21:12)
[2022-08-21] MEDS: QUEtiapine FUMARATE 100 MG TABLET (FP) PO SCH (10:04)
[2022-08-21] MEDS: PRENATAL VITAMINS W/ FOLIC ACID TABLET (FP) PO SCH (10:04)
[2022-08-21] MEDS: THIAMINE HCL 100 MG TABLET (FP) PO SCH (21:12)
[2022-08-21] MEDS: MELATONIN 5 MG TABLETS PO SCH (21:12)
[2022-08-21] MEDS: QUEtiapine FUMARATE 200 MG TABLET PO SCH (21:12)
[2022-08-22] MEDS: GABAPENTIN 300 MG CAPSULE PO SCH (06:41)
[2022-08-22 07:12] VITALS: BP 118/66; PULSE 96; TEMP 98.4
== END 2022-08-22 09:01 | disposition home or self-care (01) | DRG 772 ==
LOC: YASAS 14:26 → Y3W 14:28
PROVIDERS: ADMIT Allergy & Immunology; ATTEND Allergy & Immunology
PROC: HZ42ZZZ Group Counseling for Substance Abuse Treatment, Cognitive-Behavioral (ICD-10-PCS; principal; 2022-08-17)
DX: F10.20 Alcohol dependence, uncomplicated (principal); F14.20 Cocaine dependence, uncomplicated; F25.0 Schizoaffective disorder, bipolar type; F31.9 Bipolar disorder, unspecified; F43.10 Post-traumatic stress disorder, unspecified; I10 Essential (primary) hypertension; J44.9 Chronic obstructive pulmonary disease, unspecified; K21.9 Gastro-esophageal reflux disease without esophagitis; M54.50 Low back pain, unspecified; G89.29 Other chronic pain; Z59.00 Homelessness unspecified
CPT/HCPCS: 36415; 82140; 83036; 86803

== ENCOUNTER 2022-10-09 19:28 | Inpatient (IN) | payer OTHER ==
[2022-10-09 10:30] VITALS: BMI 22.6
[~2022-10-09 19:28] MED LIST changes: +BENZONATATE 200 MG CAPSULE PO PRN; +BISMUTH SUBSALICYLATE 524 MG/30 ML PO PRN; +DICYCLOMINE HCL 10 MG CAPSULE PO PRN; +IBUPROFEN 600 MG TABLET (FP) PO PRN; +METHOCARBAMOL 500 MG TABLET PO PRN; +NALOXONE HCL (KLOXXADO) 8 MG SPRAY NS PRN; +NALOXONE HCL 0.4 MG/ML VIAL IM PRN; +NICOTINE 10 MG CARTRIDGE (INHALER) IH PRN; -NICOTINE POLACRILEX 2 MG GUM BUC PRN; +ONDANSETRON *ODT* 4 MG TABLET SL PRN; -P-EPHED 60MG/TRIPROLIDI 2.5MG TABLET PO PRN; +chlordiazePOXIDE HCL 25 MG CAPSULE PO PRN; -guaiFENesin 200 MG/10 ML 10 ML UNIT-DOSE CUPS PO PRN; +guaiFENesin 600 MG TABLET.ER (FP) PO PRN; +hydrOXYzine PAMOATE 25 MG CAPSULE (FP) PO PRN
[2022-10-09] MEDS ORDERED: CLINDAMYCIN HCL 150 MG CAPSULE (FP) PO SCH (19:45)
[2022-10-09] MEDS: chlordiazePOXIDE HCL 25 MG CAPSULE PO SCH ×2 (20:22→22:34)
[2022-10-09] MEDS: PRENATAL VITAMINS W/ FOLIC ACID TABLET (FP) PO SCH (20:22)
[2022-10-09] MEDS: MELATONIN 5 MG TABLETS PO SCH (22:33)
[2022-10-09] MEDS: THIAMINE HCL 100 MG TABLET (FP) PO SCH (22:34)
[2022-10-10] MEDS: chlordiazePOXIDE HCL 25 MG CAPSULE PO SCH ×4 (05:27→22:39)
[2022-10-10] MEDS: CLINDAMYCIN HCL 150 MG CAPSULE (FP) PO SCH ×3 (05:27→22:39)
[2022-10-10] MEDS: PRENATAL VITAMINS W/ FOLIC ACID TABLET (FP) PO SCH (10:39)
[2022-10-10] MEDS: THIAMINE HCL 100 MG TABLET (FP) PO SCH (22:39)
[2022-10-10] MEDS: MELATONIN 5 MG TABLETS PO SCH (22:39)
[2022-10-11] MEDS: chlordiazePOXIDE HCL 25 MG CAPSULE PO SCH ×4 (05:27→22:41)
[2022-10-11] MEDS: CLINDAMYCIN HCL 150 MG CAPSULE (FP) PO SCH ×3 (05:28→22:41)
[2022-10-11] MEDS: PRENATAL VITAMINS W/ FOLIC ACID TABLET (FP) PO SCH (10:33)
[2022-10-11] MEDS: MELATONIN 5 MG TABLETS PO SCH (22:40)
[2022-10-11] MEDS: THIAMINE HCL 100 MG TABLET (FP) PO SCH (22:40)
[2022-10-12] MEDS ORDERED: chlordiazePOXIDE HCL 10 MG CAPSULE PO PRN
[2022-10-12] MEDS: chlordiazePOXIDE HCL 10 MG CAPSULE PO SCH ×4 (06:13→22:00)
[2022-10-12] MEDS: CLINDAMYCIN HCL 150 MG CAPSULE (FP) PO SCH ×2 (06:13→13:12)
[2022-10-12] MEDS: PRENATAL VITAMINS W/ FOLIC ACID TABLET (FP) PO SCH (10:40)
[2022-10-12 17:50] VITALS: RESP 18
[2022-10-12] MEDS: MELATONIN 5 MG TABLETS PO SCH (21:59)
[2022-10-12] MEDS: THIAMINE HCL 100 MG TABLET (FP) PO SCH (22:00)
[2022-10-12] MEDS: SULFAMETHOXAZOLE/TRIMETHOPRIM 800MG/160MG D.S. TABLET PO SCH (22:00)
[2022-10-12] MEDS ORDERED: QUEtiapine FUMARATE 100 MG TABLET (FP) PO SCH (22:00)
[2022-10-13] MEDS ORDERED: chlordiazePOXIDE HCL 10 MG CAPSULE PO SCH (05:00)
[2022-10-13 09:51] VITALS: BP 104/64; PULSE 91; TEMP 98.7
[2022-10-13] MEDS: SULFAMETHOXAZOLE/TRIMETHOPRIM 800MG/160MG D.S. TABLET PO SCH (10:02)
[2022-10-13] MEDS: PRENATAL VITAMINS W/ FOLIC ACID TABLET (FP) PO SCH (10:02)
[2022-10-14] MEDS ORDERED: chlordiazePOXIDE HCL 10 MG CAPSULE PO ONE (05:00)
== END 2022-10-13 10:35 | disposition home or self-care (01) | DRG 774 ==
LOC: YASAS 19:28 → Y3N 19:41
PROVIDERS: ADMIT Allergy & Immunology; ATTEND Surgery
PROC: HZ2ZZZZ Detoxification Services for Substance Abuse Treatment (ICD-10-PCS; principal; 2022-10-09)
DX: F10.230 Alcohol dependence with withdrawal, uncomplicated (principal); F14.20 Cocaine dependence, uncomplicated; F12.20 Cannabis dependence, uncomplicated; F17.213 Nicotine dependence, cigarettes, with withdrawal; F25.0 Schizoaffective disorder, bipolar type; F19.282 Other psychoactive substance dependence with psychoactive substance-induced sleep disorder; I10 Essential (primary) hypertension; J44.9 Chronic obstructive pulmonary disease, unspecified; L03.115 Cellulitis of right lower limb; L02.611 Cutaneous abscess of right foot; M54.40 Lumbago with sciatica, unspecified side; G89.29 Other chronic pain; Z59.02 Unsheltered homelessness
CPT/HCPCS: 0241U-QW; 36415; 73630-TC-RT-FY; 80053; 85025; 85610; 85651; 85730; 86140; 86780; 87040; 87070; 87077; 87186; 87205; 87811; 93005; 93010; 99283-25; C9803-CS; U0003; U0005

== ENCOUNTER 2022-11-10 13:15 | Inpatient (IN) | payer OTHER ==
[2022-11-10 14:24] VITALS: BMI 20.9
[2022-11-10] MEDS ORDERED: BACLOFEN 10 MG TABLET (FP) PO PRN (15:58)
[2022-11-10] MEDS ORDERED: hydrOXYzine PAMOATE 25 MG CAPSULE (FP) PO PRN (15:58)
[2022-11-10] MEDS ORDERED: NALOXONE HCL (KLOXXADO) 8 MG SPRAY NS PRN (15:58)
[2022-11-10] MEDS ORDERED: BISMUTH SUBSALICYLATE 524 MG/30 ML PO PRN (15:58)
[2022-11-10] MEDS ORDERED: NICOTINE 10 MG CARTRIDGE (INHALER) IH PRN (15:58)
[2022-11-10] MEDS ORDERED: POLYETHYLENE GLYCOL (HEALTHYLAX) 3350 17 GM PACKET PO PRN (15:58)
[2022-11-10] MEDS ORDERED: guaiFENesin 600 MG TABLET.ER (FP) PO PRN (15:58)
[2022-11-10] MEDS ORDERED: NICOTINE 7 MG/24 HOURS TOPICAL PATCH TD PRN (15:58)
[2022-11-10] MEDS ORDERED: BENZONATATE 200 MG CAPSULE PO PRN (15:58)
[2022-11-10] MEDS ORDERED: IBUPROFEN 600 MG TABLET (FP) PO PRN (15:58)
[2022-11-10] MEDS ORDERED: MAG HYDROX/AL HYDROX/SIMETH 30 ML UNIT-DOSE CUP PO PRN (15:58)
[2022-11-10] MEDS ORDERED: ONDANSETRON *ODT* 4 MG TABLET SL PRN (15:58)
[2022-11-10] MEDS ORDERED: IBUPROFEN 400 MG TABLET (FP) PO PRN (15:58)
[2022-11-10] MEDS ORDERED: NALOXONE HCL 0.4 MG/ML VIAL IM PRN (15:58)
[2022-11-10] MEDS ORDERED: BENZOCAINE/MENTHOL (CHLORASEPTIC ) LOZENGE MM PRN (15:58)
[2022-11-10] MEDS ORDERED: ACETAMINOPHEN 325 MG TABLET (FP) PO PRN (15:58)
[2022-11-10] MEDS ORDERED: LOPERAMIDE HCL 2 MG CAPSULE PO PRN (15:58)
[2022-11-10] MEDS ORDERED: DICYCLOMINE HCL 10 MG CAPSULE PO PRN (15:58)
[2022-11-10] MEDS ORDERED: MAGNESIUM HYDROX 2400MG/30ML ORAL SUSPENSION 30 ML CUP PO PRN (15:58)
[2022-11-10] MEDS ORDERED: LORazepam 1 MG TABLET PO PRN (16:37)
[2022-11-10] MEDS: PRENATAL VITAMINS W/ FOLIC ACID TABLET (FP) PO SCH (17:19)
[2022-11-10] MEDS: LORazepam 2 MG TABLET PO SCH ×2 (17:19→22:33)
[2022-11-10] MEDS ORDERED: QUEtiapine FUMARATE 50 MG TABLET PO SCH (22:00)
[2022-11-10] MEDS: MELATONIN 5 MG TABLETS PO SCH (22:33)
[2022-11-10] MEDS: THIAMINE HCL 100 MG TABLET (FP) PO SCH (22:33)
[2022-11-11] MEDS: LORazepam 2 MG TABLET PO SCH ×5 (05:55→22:19)
[2022-11-11 09:46] LABS: HEMATOCRIT 41.3 % (35.4-49); HEMOGLOBIN 13.1 GM/dL (11.7-16.9); MCH 22.8 pg (25.7-33.7); MCHC 31.8 g/dl (32.0-35.9); MEAN CELL VOLUME 71.7 fl (80-96); PLATELET COUNT 266 10^3/uL (134-434); RBC 5.75 M/mm3 (4.00-5.60); RDW 16.7 % (11.9-15.9); WHITE BLOOD COUNT 3.3 K/mm3 (4.0-10.0)
[2022-11-11 09:58] LABS: POTASSIUM 4.1 mmol/L (3.5-5.1)
[2022-11-11 10:03] LABS: CALCIUM 8.9 mg/dL (8.5-10.1)
[2022-11-11 10:04] LABS: ALBUMIN 3.1 g/dl (3.4-5.0); BLOOD UREA NITROGEN 9.1 mg/dL (7-18)
[2022-11-11 10:07] LABS: CREATININE 1.2 mg/dL (0.55-1.3)
[2022-11-11 10:08] LABS: BILIRUBIN,TOTAL 1.1 mg/dL (0.2-1); TOT PROT 5.9 g/dl (6.4-8.2)
[2022-11-11] MEDS: PRENATAL VITAMINS W/ FOLIC ACID TABLET (FP) PO SCH (10:38)
[2022-11-11] MEDS: LACTULOSE 20 GM/30 ML UDC (FOR ORAL USE ONLY) PO SCH ×2 (13:50→22:20)
[2022-11-11] MEDS: THIAMINE HCL 100 MG TABLET (FP) PO SCH (22:18)
[2022-11-11] MEDS: GABAPENTIN 100 MG CAPSULE PO SCH (22:18)
[2022-11-11] MEDS: QUEtiapine FUMARATE 100 MG TABLET (FP) PO SCH (22:18)
[2022-11-11] MEDS: MELATONIN 5 MG TABLETS PO SCH (22:18)
[2022-11-12] MEDS: LORazepam 1 MG TABLET PO SCH ×4 (06:00→22:34)
[2022-11-12] MEDS: GABAPENTIN 100 MG CAPSULE PO SCH ×3 (06:19→22:33)
[2022-11-12] MEDS: LACTULOSE 20 GM/30 ML UDC (FOR ORAL USE ONLY) PO SCH ×3 (06:28→22:33)
[2022-11-12] MEDS: PRENATAL VITAMINS W/ FOLIC ACID TABLET (FP) PO SCH (10:26)
[2022-11-12] MEDS: THIAMINE HCL 100 MG TABLET (FP) PO SCH (22:33)
[2022-11-12] MEDS: MELATONIN 5 MG TABLETS PO SCH (22:33)
[2022-11-12] MEDS: QUEtiapine FUMARATE 100 MG TABLET (FP) PO SCH (22:34)
[2022-11-13] MEDS ORDERED: LORazepam 0.5 MG TABLET PO PRN
[2022-11-13] MEDS: LACTULOSE 20 GM/30 ML UDC (FOR ORAL USE ONLY) PO SCH ×2 (05:51→13:49)
[2022-11-13] MEDS: GABAPENTIN 100 MG CAPSULE PO SCH ×2 (05:51→13:49)
[2022-11-13] MEDS: LORazepam 0.5 MG TABLET PO SCH ×2 (05:51→10:15)
[2022-11-13 09:12] VITALS: BP 132/69; PULSE 81; RESP 16; TEMP 98
[2022-11-13] MEDS: PRENATAL VITAMINS W/ FOLIC ACID TABLET (FP) PO SCH (10:15)
[2022-11-14] MEDS ORDERED: LORazepam 0.5 MG TABLET PO ONE (05:00)
== END 2022-11-13 10:35 | disposition home or self-care (01) | DRG 774 ==
LOC: SUATTDRO 13:15 → YASAS 13:15 → Y3N 16:24
PROVIDERS: ADMIT Allergy & Immunology; ATTEND Surgery
PROC: HZ2ZZZZ Detoxification Services for Substance Abuse Treatment (ICD-10-PCS; principal; 2022-11-10)
DX: F10.230 Alcohol dependence with withdrawal, uncomplicated (principal); F14.20 Cocaine dependence, uncomplicated; F17.210 Nicotine dependence, cigarettes, uncomplicated; F31.9 Bipolar disorder, unspecified; E72.20 Disorder of urea cycle metabolism, unspecified; G47.00 Insomnia, unspecified; I10 Essential (primary) hypertension; J41.0 Simple chronic bronchitis; K21.9 Gastro-esophageal reflux disease without esophagitis; M54.50 Low back pain, unspecified; G89.29 Other chronic pain; Z86.59 Personal history of other mental and behavioral disorders; Z91.199 Patient's noncompliance with other medical treatment and regimen due to unspecified reason
CPT/HCPCS: 36415; 80053; 82140; 85027; 86780; 87635

== ENCOUNTER 2022-12-08 13:51 | Inpatient (IN) | payer OTHER ==
[2022-12-08 14:06] VITALS: BMI 20.9
[2022-12-08] MEDS ORDERED: hydrOXYzine PAMOATE 25 MG CAPSULE (FP) PO PRN (17:23)
[2022-12-08] MEDS ORDERED: COLLOIDAL OATMEAL 1 BAR EACH TP PRN (17:23)
[2022-12-08] MEDS ORDERED: MAG HYDROX/AL HYDROX/SIMETH 30 ML UNIT-DOSE CUP PO PRN (17:23)
[2022-12-08] MEDS ORDERED: POLYETHYLENE GLYCOL (HEALTHYLAX) 3350 17 GM PACKET PO PRN (17:23)
[2022-12-08] MEDS ORDERED: AMMONIUM LACTATE 12% LOTION 225 GM BOTTLE TP PRN (17:23)
[2022-12-08] MEDS ORDERED: NALOXONE HCL 0.4 MG/ML VIAL IM PRN (17:23)
[2022-12-08] MEDS ORDERED: MAGNESIUM HYDROX 2400MG/30ML ORAL SUSPENSION 30 ML CUP PO PRN (17:23)
[2022-12-08] MEDS ORDERED: IBUPROFEN 400 MG TABLET (FP) PO PRN (17:23)
[2022-12-08] MEDS ORDERED: IBUPROFEN 600 MG TABLET (FP) PO PRN (17:23)
[2022-12-08] MEDS ORDERED: ACETAMINOPHEN 325 MG TABLET (FP) PO PRN (17:23)
[2022-12-08] MEDS ORDERED: NALOXONE HCL (KLOXXADO) 8 MG SPRAY NS PRN (17:23)
[2022-12-08] MEDS ORDERED: BENZOCAINE/MENTHOL (CHLORASEPTIC ) LOZENGE MM PRN (17:23)
[2022-12-08] MEDS ORDERED: NICOTINE 10 MG CARTRIDGE (INHALER) IH PRN (17:23)
[2022-12-08] MEDS ORDERED: guaiFENesin 600 MG TABLET.ER (FP) PO PRN (17:23)
[2022-12-08] MEDS ORDERED: BENZONATATE 200 MG CAPSULE PO PRN (17:23)
[2022-12-08] MEDS ORDERED: LOPERAMIDE HCL 2 MG CAPSULE PO PRN (17:23)
[2022-12-08 20:05] VITALS: RESP 18
[2022-12-08] MEDS: THIAMINE HCL 100 MG TABLET (FP) PO SCH (21:38)
[2022-12-08] MEDS: MELATONIN 5 MG TABLETS PO SCH (21:38)
[2022-12-09] MEDS: PRENATAL VITAMINS W/ FOLIC ACID TABLET (FP) PO SCH (10:05)
[2022-12-09 11:09] LABS: PH,URINE 5.5 (5.0-8.0); URINE APPEARANCE CLEAR; URINE BILIRUBIN NEGATIVE (NEGATIVE); URINE COLOR YELLOW; URINE GLUCOSE (UA) NEGATIVE (NEGATIVE); URINE KETONE TRACE (NEGATIVE); URINE LEUK ESTERASE NEGATIVE (NEGATIVE); URINE NITRITE NEGATIVE (NEGATIVE); URINE PROTEIN NEGATIVE (NEGATIVE)
[2022-12-09 11:18] LABS: HEMATOCRIT 40.3 % (35.4-49); HEMOGLOBIN 12.6 GM/dL (11.7-16.9); MCH 22.5 pg (25.7-33.7); MCHC 31.3 g/dl (32.0-35.9); MEAN CELL VOLUME 71.9 fl (80-96); MEAN PLT VOLUME 8.6 fl (7.5-11.1); PLATELET COUNT 308 10^3/uL (134-434); RBC 5.61 M/mm3 (4.00-5.60); RDW 16.5 % (11.9-15.9); WHITE BLOOD COUNT 3.5 K/mm3 (4.0-10.0)
[2022-12-09] MEDS: QUEtiapine FUMARATE 100 MG TABLET (FP) PO SCH (21:35)
[2022-12-09] MEDS: THIAMINE HCL 100 MG TABLET (FP) PO SCH (21:35)
[2022-12-09] MEDS: MELATONIN 5 MG TABLETS PO SCH (21:35)
[2022-12-10] MEDS: PRENATAL VITAMINS W/ FOLIC ACID TABLET (FP) PO SCH (10:55)
[2022-12-10] MEDS: MELATONIN 5 MG TABLETS PO SCH (21:38)
[2022-12-10] MEDS: QUEtiapine FUMARATE 100 MG TABLET (FP) PO SCH (21:38)
[2022-12-10] MEDS: THIAMINE HCL 100 MG TABLET (FP) PO SCH (21:38)
[2022-12-11] MEDS: PRENATAL VITAMINS W/ FOLIC ACID TABLET (FP) PO SCH (09:20)
[2022-12-11 12:43] LABS: POTASSIUM 4.4 mmol/L (3.5-5.1)
[2022-12-11 12:53] LABS: CALCIUM 9.5 mg/dL (8.5-10.1)
[2022-12-11 12:54] LABS: ALBUMIN 2.9 g/dl (3.4-5.0); BLOOD UREA NITROGEN 10.3 mg/dL (7-18)
[2022-12-11 12:55] LABS: CREATININE 1.2 mg/dL (0.55-1.3)
[2022-12-11 12:56] LABS: TOT PROT 5.4 g/dl (6.4-8.2)
[2022-12-11 12:57] LABS: BILIRUBIN,TOTAL 0.2 mg/dL (0.2-1)
[2022-12-11] MEDS: GABAPENTIN 300 MG CAPSULE PO SCH ×2 (15:49→21:11)
[2022-12-11] MEDS: MELATONIN 5 MG TABLETS PO SCH (21:11)
[2022-12-11] MEDS: QUEtiapine FUMARATE 100 MG TABLET (FP) PO SCH (21:11)
[2022-12-11] MEDS: THIAMINE HCL 100 MG TABLET (FP) PO SCH (21:11)
[2022-12-11] MEDS ORDERED: QUEtiapine FUMARATE 100 MG TABLET (FP) PO SCH (22:00)
[2022-12-12] MEDS: GABAPENTIN 300 MG CAPSULE PO SCH (06:58)
[2022-12-12 07:04] VITALS: BP 121/75; PULSE 102; TEMP 98.2
[2022-12-12] MEDS: PRENATAL VITAMINS W/ FOLIC ACID TABLET (FP) PO SCH (10:04)
== END 2022-12-12 12:50 | disposition left against medical advice (07) | DRG 770 ==
LOC: YASAS 13:51 → Y5N 18:04 → Y3W 12-09 16:39
PROVIDERS: ADMIT Allergy & Immunology; ATTEND Psychiatry & Neurology Pain Medicine
PROC: HZ42ZZZ Group Counseling for Substance Abuse Treatment, Cognitive-Behavioral (ICD-10-PCS; principal; 2022-12-08)
DX: F14.20 Cocaine dependence, uncomplicated (principal); F10.20 Alcohol dependence, uncomplicated; F12.20 Cannabis dependence, uncomplicated; F17.210 Nicotine dependence, cigarettes, uncomplicated; F19.282 Other psychoactive substance dependence with psychoactive substance-induced sleep disorder; F31.9 Bipolar disorder, unspecified; F43.10 Post-traumatic stress disorder, unspecified; E72.20 Disorder of urea cycle metabolism, unspecified; I10 Essential (primary) hypertension; J41.0 Simple chronic bronchitis; K21.9 Gastro-esophageal reflux disease without esophagitis; M54.50 Low back pain, unspecified; G89.29 Other chronic pain; Z86.59 Personal history of other mental and behavioral disorders
CPT/HCPCS: 36415; 80053; 81003; 82140; 85027; 86780; 87635; 87811

== ENCOUNTER 2023-01-07 13:05 | Inpatient (IN) | payer OTHER ==
[2023-01-07 13:28] VITALS: BMI 21.2
[2023-01-07] MEDS ORDERED: BENZOCAINE/MENTHOL (CHLORASEPTIC ) LOZENGE MM PRN (15:22)
[2023-01-07] MEDS ORDERED: IBUPROFEN 600 MG TABLET (FP) PO PRN (15:22)
[2023-01-07] MEDS ORDERED: BISMUTH SUBSALICYLATE 262 MG/15 ML BTL PO PRN (15:22)
[2023-01-07] MEDS ORDERED: POLYETHYLENE GLYCOL (HEALTHYLAX) 3350 17 GM PACKET PO PRN (15:22)
[2023-01-07] MEDS ORDERED: BENZONATATE 200 MG CAPSULE PO PRN (15:22)
[2023-01-07] MEDS ORDERED: METHOCARBAMOL 500 MG TABLET PO PRN (15:22)
[2023-01-07] MEDS ORDERED: ACETAMINOPHEN 325 MG TABLET (FP) PO PRN (15:22)
[2023-01-07] MEDS ORDERED: MAGNESIUM HYDROX 2400MG/30ML ORAL SUSPENSION 30 ML CUP PO PRN (15:22)
[2023-01-07] MEDS ORDERED: NALOXONE HCL 0.4 MG/ML VIAL IM PRN (15:22)
[2023-01-07] MEDS ORDERED: DICYCLOMINE HCL 10 MG CAPSULE PO PRN (15:22)
[2023-01-07] MEDS ORDERED: guaiFENesin 600 MG TABLET.ER (FP) PO PRN (15:22)
[2023-01-07] MEDS ORDERED: MAG HYDROX/AL HYDROX/SIMETH 30 ML UNIT-DOSE CUP PO PRN (15:22)
[2023-01-07] MEDS ORDERED: IBUPROFEN 400 MG TABLET (FP) PO PRN (15:22)
[2023-01-07] MEDS ORDERED: LOPERAMIDE HCL 2 MG CAPSULE PO PRN (15:22)
[2023-01-07] MEDS ORDERED: ONDANSETRON *ODT* 4 MG TABLET SL PRN (15:22)
[2023-01-07] MEDS ORDERED: NALOXONE HCL (KLOXXADO) 8 MG SPRAY NS PRN (15:22)
[2023-01-07] MEDS ORDERED: THIAMINE HCL 100 MG TABLET (FP) PO SCH (22:00)
[2023-01-07] MEDS ORDERED: MELATONIN 5 MG TABLETS PO SCH (22:00)
[2023-01-07] MEDS ORDERED: QUEtiapine FUMARATE 100 MG TABLET (FP) PO SCH (22:00)
[2023-01-07] MEDS ORDERED: QUEtiapine FUMARATE 300 MG TABLET PO SCH (22:00)
[2023-01-07] MEDS ORDERED: PATIENT'S OWN MEDICATION (NON-FORMULARY) (Trazodone Hcl [Trazodone Hcl] 150 MG Tablet) PO SCH (22:00)
[2023-01-07] MEDS: hydrOXYzine PAMOATE 25 MG CAPSULE (FP) PO PRN (22:58)
[2023-01-08 09:40] VITALS: RESP 18
[2023-01-08] MEDS ORDERED: PRENATAL VITAMINS W/ FOLIC ACID TABLET (FP) PO SCH (10:00)
[2023-01-08 11:34] LABS: POTASSIUM 4.5 mmol/L (3.5-5.1)
[2023-01-08] MEDS: hydrOXYzine PAMOATE 25 MG CAPSULE (FP) PO PRN (11:43)
[2023-01-08 11:48] LABS: BLOOD UREA NITROGEN 15.3 mg/dL (7-18); CALCIUM 9.4 mg/dL (8.5-10.1)
[2023-01-08 11:49] LABS: ALBUMIN 3.3 g/dl (3.4-5.0)
[2023-01-08 11:52] LABS: CREATININE 1.1 mg/dL (0.55-1.3)
[2023-01-08 11:53] LABS: BILIRUBIN,TOTAL 0.7 mg/dL (0.2-1); TOT PROT 6.2 g/dl (6.4-8.2)
[2023-01-08 12:12] LABS: HEMATOCRIT 40.4 % (35.4-49); HEMOGLOBIN 12.5 GM/dL (11.7-16.9); MCH 22.2 pg (25.7-33.7); MCHC 30.9 g/dl (32.0-35.9); MEAN CELL VOLUME 71.7 fl (80-96); MEAN PLT VOLUME 8.2 fl (7.5-11.1); PLATELET COUNT 283 10^3/uL (134-434); RBC 5.64 M/mm3 (4.00-5.60); RDW 16.6 % (11.9-15.9); WHITE BLOOD COUNT 3.8 K/mm3 (4.0-10.0)
[2023-01-08 13:27] VITALS: BP 124/79; PULSE 71; TEMP 97.6
== END 2023-01-08 14:06 | disposition home or self-care (01) | DRG 774 ==
LOC: YASAS 13:05 → Y6N 17:18
PROVIDERS: ADMIT Allergy & Immunology; ATTEND Surgery
PROC: HZ2ZZZZ Detoxification Services for Substance Abuse Treatment (ICD-10-PCS; principal; 2023-01-07)
DX: F10.230 Alcohol dependence with withdrawal, uncomplicated (principal); F14.20 Cocaine dependence, uncomplicated; F17.210 Nicotine dependence, cigarettes, uncomplicated; F25.1 Schizoaffective disorder, depressive type; F32.A Depression, unspecified
CPT/HCPCS: 36415; 80053; 80305; 85027; 86780; 87635

== ENCOUNTER 2023-02-07 18:26 | Inpatient (IN) | payer OTHER ==
[2023-02-07 20:12] VITALS: BMI 20.9
[2023-02-07] MEDS ORDERED: NALOXONE HCL 0.4 MG/ML VIAL IM PRN (20:37)
[2023-02-07] MEDS ORDERED: BISMUTH SUBSALICYLATE 524 MG/30 ML PO PRN (20:37)
[2023-02-07] MEDS ORDERED: MAGNESIUM HYDROX 2400MG/30ML ORAL SUSPENSION 30 ML CUP PO PRN (20:37)
[2023-02-07] MEDS ORDERED: IBUPROFEN 400 MG TABLET (FP) PO PRN (20:37)
[2023-02-07] MEDS ORDERED: BENZOCAINE/MENTHOL (CHLORASEPTIC ) LOZENGE MM PRN (20:37)
[2023-02-07] MEDS ORDERED: LOPERAMIDE HCL 2 MG CAPSULE PO PRN (20:37)
[2023-02-07] MEDS ORDERED: IBUPROFEN 600 MG TABLET (FP) PO PRN (20:37)
[2023-02-07] MEDS ORDERED: MAG HYDROX/AL HYDROX/SIMETH 30 ML UNIT-DOSE CUP PO PRN (20:37)
[2023-02-07] MEDS ORDERED: ONDANSETRON *ODT* 4 MG TABLET SL PRN (20:37)
[2023-02-07] MEDS ORDERED: NALOXONE HCL (KLOXXADO) 8 MG SPRAY NS PRN (20:37)
[2023-02-07] MEDS ORDERED: POLYETHYLENE GLYCOL (HEALTHYLAX) 3350 17 GM PACKET PO PRN (20:37)
[2023-02-07] MEDS ORDERED: ACETAMINOPHEN 325 MG TABLET (FP) PO PRN (20:37)
[2023-02-07] MEDS ORDERED: guaiFENesin 600 MG TABLET.ER (FP) PO PRN (20:37)
[2023-02-07] MEDS ORDERED: DICYCLOMINE HCL 10 MG CAPSULE PO PRN (20:37)
[2023-02-07] MEDS ORDERED: NICOTINE POLACRILEX 2 MG GUM BUC PRN (20:37)
[2023-02-07] MEDS ORDERED: BENZONATATE 200 MG CAPSULE PO PRN (20:37)
[2023-02-07] MEDS ORDERED: LORazepam 1 MG TABLET PO PRN (20:46)
[2023-02-07] MEDS: MELATONIN 5 MG TABLETS PO SCH (23:24)
[2023-02-07] MEDS: THIAMINE HCL 100 MG TABLET (FP) PO SCH (23:25)
[2023-02-07] MEDS: hydrOXYzine PAMOATE 25 MG CAPSULE (FP) PO PRN (23:25)
[2023-02-08] MEDS: LORazepam 2 MG TABLET PO SCH ×4 (05:46→22:20)
[2023-02-08] MEDS: PRENATAL VITAMINS W/ FOLIC ACID TABLET (FP) PO SCH (10:32)
[2023-02-08] MEDS: NICOTINE 14 MG/24 HOURS TOPICAL PATCH TD SCH (10:35)
[2023-02-08 11:17] LABS: HEMATOCRIT 39.8 % (35.4-49); HEMOGLOBIN 12.3 GM/dL (11.7-16.9); MCH 22.5 pg (25.7-33.7); MEAN CELL VOLUME 72.7 fl (80-96); MEAN PLT VOLUME 8.7 fl (7.5-11.1); PLATELET COUNT 273 10^3/uL (134-434); RBC 5.48 M/mm3 (4.00-5.60); RDW 15.9 % (11.9-15.9); WHITE BLOOD COUNT 3.6 K/mm3 (4.0-10.0)
[2023-02-08 11:21] LABS: POTASSIUM 4.2 mmol/L (3.5-5.1)
[2023-02-08 11:23] LABS: CALCIUM 9.1 mg/dL (8.5-10.1)
[2023-02-08 11:24] LABS: ALBUMIN 3.4 g/dl (3.4-5.0); BLOOD UREA NITROGEN 10.2 mg/dL (7-18)
[2023-02-08 11:26] LABS: CREATININE 1.1 mg/dL (0.55-1.3)
[2023-02-08 11:28] LABS: BILIRUBIN,TOTAL 0.5 mg/dL (0.2-1); TOT PROT 6.1 g/dl (6.4-8.2)
[2023-02-08] MEDS: THIAMINE HCL 100 MG TABLET (FP) PO SCH (22:18)
[2023-02-08] MEDS: QUEtiapine FUMARATE 100 MG TABLET (FP) PO SCH (22:18)
[2023-02-08] MEDS: MELATONIN 5 MG TABLETS PO SCH (22:18)
[2023-02-09] MEDS: LORazepam 1 MG TABLET PO SCH ×3 (05:41→17:30)
[2023-02-09] MEDS: PRENATAL VITAMINS W/ FOLIC ACID TABLET (FP) PO SCH (10:02)
[2023-02-09] MEDS: NICOTINE 14 MG/24 HOURS TOPICAL PATCH TD SCH (10:02)
[2023-02-09] MEDS ORDERED: diazePAM 5 MG TABLET PO PRN (19:17)
[2023-02-09] MEDS ORDERED: diazePAM 5 MG TABLET PO SCH (22:00)
[2023-02-09] MEDS: QUEtiapine FUMARATE 100 MG TABLET (FP) PO SCH (22:34)
[2023-02-09] MEDS: THIAMINE HCL 100 MG TABLET (FP) PO SCH (22:34)
[2023-02-09] MEDS: MELATONIN 5 MG TABLETS PO SCH (22:34)
[2023-02-10] MEDS ORDERED: LORazepam 0.5 MG TABLET PO PRN
[2023-02-10] MEDS ORDERED: LORazepam 0.5 MG TABLET PO SCH (05:00)
[2023-02-10] MEDS: diazePAM 5 MG TABLET PO SCH ×3 (05:57→22:17)
[2023-02-10] MEDS: NICOTINE 14 MG/24 HOURS TOPICAL PATCH TD SCH (09:21)
[2023-02-10] MEDS: PRENATAL VITAMINS W/ FOLIC ACID TABLET (FP) PO SCH (09:21)
[2023-02-10] MEDS: QUEtiapine FUMARATE 100 MG TABLET (FP) PO SCH (22:17)
[2023-02-10] MEDS: MELATONIN 5 MG TABLETS PO SCH (22:17)
[2023-02-10] MEDS: THIAMINE HCL 100 MG TABLET (FP) PO SCH (22:17)
[2023-02-11] MEDS ORDERED: LORazepam 0.5 MG TABLET PO ONE (05:00)
[2023-02-11] MEDS: diazePAM 5 MG TABLET PO SCH ×2 (06:11→17:26)
[2023-02-11] MEDS: PRENATAL VITAMINS W/ FOLIC ACID TABLET (FP) PO SCH (10:37)
[2023-02-11] MEDS: NICOTINE 14 MG/24 HOURS TOPICAL PATCH TD SCH (10:37)
[2023-02-11] MEDS: hydrOXYzine PAMOATE 25 MG CAPSULE (FP) PO PRN (19:00)
[2023-02-11] MEDS: MELATONIN 5 MG TABLETS PO SCH (22:03)
[2023-02-11] MEDS: THIAMINE HCL 100 MG TABLET (FP) PO SCH (22:03)
[2023-02-11] MEDS: QUEtiapine FUMARATE 100 MG TABLET (FP) PO SCH (22:04)
[2023-02-12] MEDS: diazePAM 5 MG TABLET PO ONE ×2 (05:58)
[2023-02-12 09:05] VITALS: BP 121/73; PULSE 64; RESP 18; TEMP 97.5
== END 2023-02-12 09:21 | disposition other institution (70) | DRG 774 ==
LOC: YASAS 18:26 → Y3N 21:06
PROVIDERS: ADMIT Allergy & Immunology; ATTEND Surgery
PROC: HZ2ZZZZ Detoxification Services for Substance Abuse Treatment (ICD-10-PCS; principal; 2023-02-07)
DX: F10.230 Alcohol dependence with withdrawal, uncomplicated (principal); F14.20 Cocaine dependence, uncomplicated; F12.10 Cannabis abuse, uncomplicated; F17.210 Nicotine dependence, cigarettes, uncomplicated; F19.282 Other psychoactive substance dependence with psychoactive substance-induced sleep disorder; I10 Essential (primary) hypertension; J41.0 Simple chronic bronchitis; K21.9 Gastro-esophageal reflux disease without esophagitis; M16.11 Unilateral primary osteoarthritis, right hip; M54.40 Lumbago with sciatica, unspecified side; G89.29 Other chronic pain; Z56.0 Unemployment, unspecified; Z59.00 Homelessness unspecified
CPT/HCPCS: 36415; 80053; 85027; 86780; 87635

== ENCOUNTER 2023-04-22 14:03 | Inpatient (IN) | payer OTHER ==
[2023-04-22 14:46] VITALS: BMI 21.4
[2023-04-22] MEDS ORDERED: MAG HYDROX/AL HYDROX/SIMETH 30 ML UNIT-DOSE CUP PO PRN (17:54)
[2023-04-22] MEDS ORDERED: IBUPROFEN 600 MG TABLET (FP) PO PRN (21:57)
[2023-04-22] MEDS ORDERED: IBUPROFEN 400 MG TABLET (FP) PO PRN (21:57)
[2023-04-22] MEDS ORDERED: POLYETHYLENE GLYCOL (HEALTHYLAX) 3350 17 GM PACKET PO PRN (21:57)
[2023-04-22] MEDS ORDERED: BENZOCAINE/MENTHOL (CHLORASEPTIC ) LOZENGE MM PRN (21:57)
[2023-04-22] MEDS ORDERED: LOPERAMIDE HCL 2 MG CAPSULE PO PRN (21:57)
[2023-04-22] MEDS ORDERED: COLLOIDAL OATMEAL 1 BAR EACH TP PRN (21:57)
[2023-04-22] MEDS ORDERED: guaiFENesin 600 MG TABLET.ER (FP) PO PRN (21:57)
[2023-04-22] MEDS ORDERED: ACETAMINOPHEN 325 MG TABLET (FP) PO PRN (21:57)
[2023-04-22] MEDS ORDERED: MAGNESIUM HYDROX 2400MG/30ML ORAL SUSPENSION 30 ML CUP PO PRN (21:57)
[2023-04-22] MEDS ORDERED: P-EPHED 60MG/TRIPROLIDI 2.5MG TABLET PO PRN (21:57)
[2023-04-22] MEDS ORDERED: hydrOXYzine PAMOATE 25 MG CAPSULE (FP) PO PRN (21:57)
[2023-04-22] MEDS ORDERED: BENZONATATE 200 MG CAPSULE PO PRN (21:57)
[2023-04-23] MEDS: THIAMINE HCL 100 MG TABLET (FP) PO SCH ×2 (03:44→22:25)
[2023-04-23] MEDS: MELATONIN 5 MG TABLETS PO SCH ×2 (03:44→22:25)
[2023-04-23] MEDS: PANTOPRAZOLE 20 MG TABLET PO SCH ×3 (03:44→22:25)
[2023-04-23] MEDS: PRENATAL VITAMINS W/ FOLIC ACID TABLET (FP) PO SCH (10:10)
[2023-04-23 10:29] LABS: HEMOGLOBIN 12.3 GM/dL (11.7-16.9); MCH 22.4 pg (25.7-33.7); MCHC 31.6 g/dl (32.0-35.9); MEAN PLT VOLUME 8.1 fl (7.5-11.1); PLATELET COUNT 358 10^3/uL (134-434); RBC 5.49 M/mm3 (4.00-5.60); RDW 16.1 % (11.9-15.9); WHITE BLOOD COUNT 3.9 K/mm3 (4.0-10.0)
[2023-04-23 10:29] LABS: PH,URINE 7.5 (5.0-8.0); URINE APPEARANCE CLEAR; URINE BILIRUBIN NEGATIVE (NEGATIVE); URINE COLOR YELLOW; URINE GLUCOSE (UA) NEGATIVE (NEGATIVE); URINE KETONE NEGATIVE (NEGATIVE); URINE LEUK ESTERASE NEGATIVE (NEGATIVE); URINE NITRITE NEGATIVE (NEGATIVE); URINE PROTEIN NEGATIVE (NEGATIVE)
[2023-04-23 11:11] LABS: SYPHILIS W/ RPR CONF NON-REACTIVE (NONREACTIVE)
[2023-04-23 12:24] LABS: POTASSIUM 4.8 mmol/L (3.5-5.1)
[2023-04-23 12:36] LABS: CALCIUM 9.6 mg/dL (8.5-10.1)
[2023-04-23 12:37] LABS: ALBUMIN 3.5 g/dl (3.4-5.0); BLOOD UREA NITROGEN 10.7 mg/dL (7-18)
[2023-04-23 12:40] LABS: CREATININE 1.4 mg/dL (0.55-1.3)
[2023-04-23 12:41] LABS: BILIRUBIN,TOTAL 0.3 mg/dL (0.2-1)
[2023-04-23] MEDS ORDERED: TUBERCULIN PPD 5 TU/0.1ML VIAL ID ONE (14:27)
[2023-04-23] MEDS ORDERED: traZODone HCL 100 MG TABLET (FP) PO ONE (22:00)
[2023-04-23] MEDS: QUEtiapine FUMARATE 100 MG TABLET (FP) PO SCH (22:25)
[2023-04-24] MEDS: PANTOPRAZOLE 20 MG TABLET PO SCH ×2 (10:38→21:26)
[2023-04-24] MEDS: PRENATAL VITAMINS W/ FOLIC ACID TABLET (FP) PO SCH (10:38)
[2023-04-24] MEDS: QUEtiapine FUMARATE 100 MG TABLET (FP) PO SCH (21:26)
[2023-04-24] MEDS: MELATONIN 5 MG TABLETS PO SCH (21:27)
[2023-04-24] MEDS: THIAMINE HCL 100 MG TABLET (FP) PO SCH (21:27)
[2023-04-25] MEDS: PANTOPRAZOLE 20 MG TABLET PO SCH ×2 (10:27→21:35)
[2023-04-25] MEDS: PRENATAL VITAMINS W/ FOLIC ACID TABLET (FP) PO SCH (10:27)
[2023-04-25] MEDS: MELATONIN 5 MG TABLETS PO SCH (21:35)
[2023-04-25] MEDS: THIAMINE HCL 100 MG TABLET (FP) PO SCH (21:35)
[2023-04-25] MEDS: QUEtiapine FUMARATE 100 MG TABLET (FP) PO SCH (21:35)
[2023-04-26] MEDS: PRENATAL VITAMINS W/ FOLIC ACID TABLET (FP) PO SCH (10:03)
[2023-04-26] MEDS: PANTOPRAZOLE 20 MG TABLET PO SCH ×2 (10:03→21:42)
[2023-04-26] MEDS: THIAMINE HCL 100 MG TABLET (FP) PO SCH (21:42)
[2023-04-26] MEDS: QUEtiapine FUMARATE 100 MG TABLET (FP) PO SCH (21:42)
[2023-04-26] MEDS: MELATONIN 5 MG TABLETS PO SCH (21:43)
[2023-04-27 06:42] VITALS: BP 115/91; PULSE 87; RESP 17; TEMP 96.9
[2023-04-27] MEDS: PRENATAL VITAMINS W/ FOLIC ACID TABLET (FP) PO SCH (10:15)
[2023-04-27] MEDS: PANTOPRAZOLE 20 MG TABLET PO SCH (10:15)
== END 2023-04-27 13:13 | disposition left against medical advice (07) | DRG 770 ==
LOC: YASAS 14:03 → Y3W 23:05
PROVIDERS: ADMIT Allergy & Immunology; ATTEND Psychiatry & Neurology Pain Medicine
PROC: HZ42ZZZ Group Counseling for Substance Abuse Treatment, Cognitive-Behavioral (ICD-10-PCS; principal; 2023-04-22)
DX: F10.20 Alcohol dependence, uncomplicated (principal); F14.20 Cocaine dependence, uncomplicated; F17.210 Nicotine dependence, cigarettes, uncomplicated; F31.9 Bipolar disorder, unspecified; F25.9 Schizoaffective disorder, unspecified; F43.10 Post-traumatic stress disorder, unspecified; I10 Essential (primary) hypertension; J44.9 Chronic obstructive pulmonary disease, unspecified; K21.9 Gastro-esophageal reflux disease without esophagitis; M16.11 Unilateral primary osteoarthritis, right hip; Z91.199 Patient's noncompliance with other medical treatment and regimen due to unspecified reason
CPT/HCPCS: 36415; 80053; 81003; 85027; 86780; 86803; 87635; 93005; 93010

== ENCOUNTER 2023-06-07 15:34 | Inpatient (IN) | payer OTHER ==
[2023-06-07 17:01] VITALS: BMI 20.9
[2023-06-07] MEDS ORDERED: BENZOCAINE/MENTHOL (CHLORASEPTIC ) LOZENGE MM PRN (17:55)
[2023-06-07] MEDS ORDERED: NALOXONE HCL (KLOXXADO) 8 MG SPRAY NS PRN (17:55)
[2023-06-07] MEDS ORDERED: chlordiazePOXIDE HCL 25 MG CAPSULE PO PRN (17:55)
[2023-06-07] MEDS ORDERED: ONDANSETRON *ODT* 4 MG TABLET SL PRN (17:55)
[2023-06-07] MEDS ORDERED: BISMUTH SUBSALICYLATE 524 MG/30 ML PO PRN (17:55)
[2023-06-07] MEDS ORDERED: DICYCLOMINE HCL 10 MG CAPSULE PO PRN (17:55)
[2023-06-07] MEDS ORDERED: LOPERAMIDE HCL 2 MG CAPSULE PO PRN (17:55)
[2023-06-07] MEDS ORDERED: hydrOXYzine PAMOATE 25 MG CAPSULE (FP) PO PRN (17:55)
[2023-06-07] MEDS ORDERED: NALOXONE HCL 0.4 MG/ML VIAL IM PRN (17:55)
[2023-06-07] MEDS ORDERED: POLYETHYLENE GLYCOL (HEALTHYLAX) 3350 17 GM PACKET PO PRN (17:55)
[2023-06-07] MEDS ORDERED: METHOCARBAMOL 500 MG TABLET PO PRN (17:55)
[2023-06-07] MEDS ORDERED: BENZONATATE 200 MG CAPSULE PO PRN (17:55)
[2023-06-07] MEDS ORDERED: MAGNESIUM HYDROX 2400MG/30ML ORAL SUSPENSION 30 ML CUP PO PRN (17:55)
[2023-06-07] MEDS ORDERED: guaiFENesin 600 MG TABLET.ER (FP) PO PRN (17:55)
[2023-06-07] MEDS ORDERED: ACETAMINOPHEN 325 MG TABLET (FP) PO PRN (17:55)
[2023-06-07] MEDS ORDERED: MAG HYDROX/AL HYDROX/SIMETH 30 ML UNIT-DOSE CUP PO PRN (17:55)
[2023-06-07] MEDS ORDERED: IBUPROFEN 400 MG TABLET (FP) PO PRN (17:55)
[2023-06-07] MEDS ORDERED: IBUPROFEN 600 MG TABLET (FP) PO PRN (17:55)
[2023-06-07] MEDS: MELATONIN 5 MG TABLETS PO SCH (23:29)
[2023-06-07] MEDS: THIAMINE HCL 100 MG TABLET (FP) PO SCH (23:29)
[2023-06-07] MEDS: chlordiazePOXIDE HCL 25 MG CAPSULE PO SCH (23:30)
[2023-06-08] MEDS: PRENATAL VITAMINS W/ FOLIC ACID TABLET (FP) PO SCH (10:27)
[2023-06-08 13:17] LABS: HEMATOCRIT 40.3 % (35.4-49); HEMOGLOBIN 12.3 GM/dL (11.7-16.9); MCH 22.1 pg (25.7-33.7); MCHC 30.5 g/dl (32.0-35.9); MEAN CELL VOLUME 72.4 fl (80-96); MEAN PLT VOLUME 8.5 fl (7.5-11.1); PLATELET COUNT 270 10^3/uL (134-434); RBC 5.57 M/mm3 (4.00-5.60); RDW 16.9 % (11.9-15.9); WHITE BLOOD COUNT 3.5 K/mm3 (4.0-10.0)
[2023-06-08 13:19] LABS: CHLORIDE 104 mmol/L (98-107); POTASSIUM 4.8 mmol/L (3.5-5.1); SODIUM 139 mmol/L (136-145)
[2023-06-08 13:21] LABS: CALCIUM 8.8 mg/dL (8.5-10.1)
[2023-06-08 13:22] LABS: ANION GAP 6 mmol/L (4-13); BLOOD UREA NITROGEN 8.2 mg/dL (7-18); CO2 29 mmol/L (21-32); GLUCOSE,RANDOM 73 mg/dL (74-106)
[2023-06-08 13:23] LABS: SGPT/ALT 21 U/L (13-61)
[2023-06-08 13:25] LABS: CREATININE 1.1 mg/dL (0.55-1.3); SGOT/AST 17 U/L (15-37)
[2023-06-08 13:27] LABS: BILIRUBIN,TOTAL 0.2 mg/dL (0.2-1); TOT PROT 5.7 g/dl (6.4-8.2)
[2023-06-08 13:28] LABS: ALK PHOS 70 U/L (45-117)
[2023-06-08] MEDS: GABAPENTIN 300 MG CAPSULE PO SCH (14:28)
[2023-06-08] MEDS: QUEtiapine FUMARATE 100 MG TABLET (FP) PO SCH (22:41)
[2023-06-09] MEDS: chlordiazePOXIDE HCL 25 MG CAPSULE PO SCH (05:33)
[2023-06-10] MEDS: chlordiazePOXIDE HCL 10 MG CAPSULE PO SCH (05:39)
[2023-06-10] MEDS: chlordiazePOXIDE HCL 10 MG CAPSULE PO PRN (13:04)
[2023-06-10 17:28] VITALS: BP 128/74; PULSE 77; RESP 16; TEMP 97.8
[2023-06-11] MEDS ORDERED: chlordiazePOXIDE HCL 10 MG CAPSULE PO SCH (05:00)
[2023-06-12] MEDS ORDERED: chlordiazePOXIDE HCL 10 MG CAPSULE PO ONE (05:00)
== END 2023-06-10 18:07 | disposition left against medical advice (07) | DRG 770 ==
LOC: SUATTDRO 15:34 → YASAS 15:34 → Y6N 19:06
PROVIDERS: ADMIT Allergy & Immunology; ATTEND Surgery
PROC: HZ2ZZZZ Detoxification Services for Substance Abuse Treatment (ICD-10-PCS; principal; 2023-06-07)
DX: F10.230 Alcohol dependence with withdrawal, uncomplicated (principal); F14.20 Cocaine dependence, uncomplicated; F17.210 Nicotine dependence, cigarettes, uncomplicated; F31.9 Bipolar disorder, unspecified; F19.282 Other psychoactive substance dependence with psychoactive substance-induced sleep disorder; F25.1 Schizoaffective disorder, depressive type; F43.10 Post-traumatic stress disorder, unspecified; I10 Essential (primary) hypertension; K21.9 Gastro-esophageal reflux disease without esophagitis; M54.41 Lumbago with sciatica, right side; G89.29 Other chronic pain; M16.11 Unilateral primary osteoarthritis, right hip
CPT/HCPCS: 36415; 80053; 80307; 85027; 86780; 87635

== ENCOUNTER 2023-07-19 10:25 | Inpatient (IN) | payer OTHER ==
[2023-07-19 11:03] VITALS: BMI 20.6
[2023-07-19] MEDS ORDERED: diazePAM 5 MG TABLET PO PRN (11:50)
[2023-07-19] MEDS ORDERED: chlordiazePOXIDE HCL 25 MG CAPSULE PO PRN (11:54)
[2023-07-19] MEDS ORDERED: METHOCARBAMOL 500 MG TABLET PO PRN (11:55)
[2023-07-19] MEDS ORDERED: MAG HYDROX/AL HYDROX/SIMETH 30 ML UNIT-DOSE CUP PO PRN (11:55)
[2023-07-19] MEDS ORDERED: IBUPROFEN 600 MG TABLET (FP) PO PRN (11:55)
[2023-07-19] MEDS ORDERED: ACETAMINOPHEN 325 MG TABLET (FP) PO PRN (11:55)
[2023-07-19] MEDS ORDERED: guaiFENesin 600 MG TABLET.ER (FP) PO PRN (11:55)
[2023-07-19] MEDS ORDERED: P-EPHED 60MG/TRIPROLIDI 2.5MG TABLET PO PRN (11:55)
[2023-07-19] MEDS ORDERED: ONDANSETRON *ODT* 4 MG TABLET SL PRN (11:55)
[2023-07-19] MEDS ORDERED: DICYCLOMINE HCL 10 MG CAPSULE PO PRN (11:55)
[2023-07-19] MEDS ORDERED: BENZONATATE 200 MG CAPSULE PO PRN (11:55)
[2023-07-19] MEDS ORDERED: MAGNESIUM HYDROX 2400MG/30ML ORAL SUSPENSION 30 ML CUP PO PRN (11:55)
[2023-07-19] MEDS ORDERED: hydrOXYzine PAMOATE 25 MG CAPSULE (FP) PO PRN (11:55)
[2023-07-19] MEDS ORDERED: IBUPROFEN 400 MG TABLET (FP) PO PRN (11:55)
[2023-07-19] MEDS ORDERED: POLYETHYLENE GLYCOL (HEALTHYLAX) 3350 17 GM PACKET PO PRN (11:55)
[2023-07-19] MEDS ORDERED: LOPERAMIDE HCL 2 MG CAPSULE PO PRN (11:55)
[2023-07-19] MEDS ORDERED: BENZOCAINE/MENTHOL (CHLORASEPTIC ) LOZENGE MM PRN (11:55)
[2023-07-19] MEDS ORDERED: BISMUTH SUBSALICYLATE 524 MG/30 ML PO PRN (11:55)
[2023-07-19] MEDS: diazePAM 5 MG TABLET PO ONE (12:18)
[2023-07-19] MEDS ORDERED: diazePAM 5 MG TABLET PO SCH (17:00)
[2023-07-19] MEDS: chlordiazePOXIDE HCL 25 MG CAPSULE PO SCH (17:05)
[2023-07-19] MEDS: MELATONIN 5 MG TABLETS PO SCH (22:17)
[2023-07-19] MEDS: THIAMINE HCL 100 MG TABLET (FP) PO SCH (22:18)
[2023-07-20] MEDS: PRENATAL VITAMINS W/ FOLIC ACID TABLET (FP) PO SCH (10:33)
[2023-07-20 11:18] LABS: POTASSIUM 4.4 mmol/L (3.5-5.1)
[2023-07-20 11:19] LABS: HEMATOCRIT 37.6 % (35.4-49); HEMOGLOBIN 11.6 GM/dL (11.7-16.9); MCH 22.4 pg (25.7-33.7); MCHC 30.9 g/dl (32.0-35.9); MEAN CELL VOLUME 72.3 fl (80-96); MEAN PLT VOLUME 8.5 fl (7.5-11.1); PLATELET COUNT 287 10^3/uL (134-434); RDW 16.7 % (11.9-15.9); WHITE BLOOD COUNT 4.1 K/mm3 (4.0-10.0)
[2023-07-20 11:29] LABS: CALCIUM 9.1 mg/dL (8.5-10.1)
[2023-07-20 11:30] LABS: ALBUMIN 3.2 g/dl (3.4-5.0); BLOOD UREA NITROGEN 8.2 mg/dL (7-18)
[2023-07-20 11:33] LABS: CREATININE 1.1 mg/dL (0.55-1.3)
[2023-07-20 11:34] LABS: BILIRUBIN,TOTAL 0.2 mg/dL (0.2-1); TOT PROT 5.7 g/dl (6.4-8.2)
[2023-07-21] MEDS: chlordiazePOXIDE HCL 10 MG CAPSULE PO SCH (06:00)
[2023-07-21] MEDS ORDERED: diazePAM 5 MG TABLET PO SCH (06:00)
[2023-07-21 06:35] VITALS: RESP 16
[2023-07-21 09:12] VITALS: BP 110/62; PULSE 76; TEMP 98.4
[2023-07-22] MEDS ORDERED: chlordiazePOXIDE HCL 10 MG CAPSULE PO PRN
[2023-07-22] MEDS ORDERED: chlordiazePOXIDE HCL 10 MG CAPSULE PO SCH (05:00)
[2023-07-22] MEDS ORDERED: diazePAM 5 MG TABLET PO SCH (06:00)
[2023-07-23] MEDS ORDERED: chlordiazePOXIDE HCL 10 MG CAPSULE PO ONE (05:00)
[2023-07-23] MEDS ORDERED: diazePAM 5 MG TABLET PO ONE (06:00)
== END 2023-07-21 11:57 | disposition left against medical advice (07) | DRG 770 ==
LOC: YASAS 10:25 → Y3N 12:17
PROVIDERS: ADMIT Allergy & Immunology; ATTEND Surgery
PROC: HZ2ZZZZ Detoxification Services for Substance Abuse Treatment (ICD-10-PCS; principal; 2023-07-19)
DX: F10.230 Alcohol dependence with withdrawal, uncomplicated (principal); F14.20 Cocaine dependence, uncomplicated; F17.210 Nicotine dependence, cigarettes, uncomplicated; M54.41 Lumbago with sciatica, right side; G89.29 Other chronic pain
CPT/HCPCS: 36415; 80053; 85027; 86780; 87635; 87811; 93005; 93010

== ENCOUNTER 2023-08-28 13:12 | Inpatient (IN) | payer OTHER ==
[2023-08-28 14:47] VITALS: BMI 21.2
[2023-08-28] MEDS ORDERED: DICYCLOMINE HCL 10 MG CAPSULE PO PRN (16:06)
[2023-08-28] MEDS ORDERED: BISMUTH SUBSALICYLATE 524 MG/30 ML PO PRN (16:06)
[2023-08-28] MEDS ORDERED: MAG HYDROX/AL HYDROX/SIMETH 30 ML UNIT-DOSE CUP PO PRN (16:06)
[2023-08-28] MEDS ORDERED: chlordiazePOXIDE HCL 25 MG CAPSULE PO PRN (16:06)
[2023-08-28] MEDS ORDERED: POLYETHYLENE GLYCOL (HEALTHYLAX) 3350 17 GM PACKET PO PRN (16:06)
[2023-08-28] MEDS ORDERED: MAGNESIUM HYDROX 2400MG/30ML ORAL SUSPENSION 30 ML CUP PO PRN (16:06)
[2023-08-28] MEDS ORDERED: NALOXONE HCL 0.4 MG/ML VIAL IM PRN (16:06)
[2023-08-28] MEDS ORDERED: BENZONATATE 200 MG CAPSULE PO PRN (16:06)
[2023-08-28] MEDS ORDERED: ACETAMINOPHEN 325 MG TABLET (FP) PO PRN (16:06)
[2023-08-28] MEDS ORDERED: guaiFENesin 600 MG TABLET.ER (FP) PO PRN (16:06)
[2023-08-28] MEDS ORDERED: IBUPROFEN 400 MG TABLET (FP) PO PRN (16:06)
[2023-08-28] MEDS ORDERED: ONDANSETRON *ODT* 4 MG TABLET SL PRN (16:06)
[2023-08-28] MEDS ORDERED: NALOXONE HCL (KLOXXADO) 8 MG SPRAY NS PRN (16:06)
[2023-08-28] MEDS ORDERED: BENZOCAINE/MENTHOL (CHLORASEPTIC ) LOZENGE MM PRN (16:06)
[2023-08-28] MEDS ORDERED: LOPERAMIDE HCL 2 MG CAPSULE PO PRN (16:06)
[2023-08-28] MEDS ORDERED: chlordiazePOXIDE HCL 25 MG CAPSULE ONE (16:57)
[2023-08-28] MEDS: chlordiazePOXIDE HCL 25 MG CAPSULE PO SCH (17:10)
[2023-08-28] MEDS: PRENATAL VITAMINS W/ FOLIC ACID TABLET (FP) PO SCH (18:00)
[2023-08-28] MEDS: NICOTINE 14 MG/24 HOURS TOPICAL PATCH TD SCH (18:00)
[2023-08-28] MEDS: GABAPENTIN 300 MG CAPSULE PO SCH (22:32)
[2023-08-28] MEDS: THIAMINE HCL 100 MG TABLET (FP) PO SCH (22:33)
[2023-08-28] MEDS: MELATONIN 5 MG TABLETS PO SCH (22:33)
[2023-08-29] MEDS: IBUPROFEN 600 MG TABLET (FP) PO PRN (10:30)
[2023-08-29] MEDS: METHOCARBAMOL 500 MG TABLET PO PRN (10:30)
[2023-08-29] MEDS: hydrOXYzine PAMOATE 25 MG CAPSULE (FP) PO PRN (18:39)
[2023-08-29] MEDS: QUEtiapine FUMARATE 100 MG TABLET (FP) PO SCH (22:02)
[2023-08-30] MEDS: chlordiazePOXIDE HCL 25 MG CAPSULE PO SCH (06:00)
[2023-08-30 09:17] VITALS: BP 119/70; PULSE 77; RESP 18; TEMP 97.5
[2023-08-30] MEDS ORDERED: NICOTINE POLACRILEX 2 MG GUM BUC PRN (12:14)
[2023-08-31] MEDS ORDERED: chlordiazePOXIDE HCL 10 MG CAPSULE PO PRN
[2023-08-31] MEDS ORDERED: chlordiazePOXIDE HCL 10 MG CAPSULE PO SCH (05:00)
[2023-09-01] MEDS ORDERED: chlordiazePOXIDE HCL 10 MG CAPSULE PO SCH (05:00)
[2023-09-02] MEDS ORDERED: chlordiazePOXIDE HCL 10 MG CAPSULE PO ONE (05:00)
== END 2023-08-30 11:54 | disposition left against medical advice (07) | DRG 770 ==
LOC: YASAS 13:12 → Y6N 16:38
PROVIDERS: ADMIT Allergy & Immunology; ATTEND Surgery
PROC: HZ2ZZZZ Detoxification Services for Substance Abuse Treatment (ICD-10-PCS; principal; 2023-08-28)
DX: F13.230 Sedative, hypnotic or anxiolytic dependence with withdrawal, uncomplicated (principal); F14.20 Cocaine dependence, uncomplicated; F12.20 Cannabis dependence, uncomplicated; F17.213 Nicotine dependence, cigarettes, with withdrawal; F19.282 Other psychoactive substance dependence with psychoactive substance-induced sleep disorder; F25.0 Schizoaffective disorder, bipolar type; G47.00 Insomnia, unspecified; I10 Essential (primary) hypertension; K21.9 Gastro-esophageal reflux disease without esophagitis; M16.11 Unilateral primary osteoarthritis, right hip
CPT/HCPCS: 93005; 93010

== ENCOUNTER 2023-10-04 11:57 | Inpatient (IN) | payer OTHER ==
[2023-10-04 12:17] VITALS: BMI 21.6
[2023-10-04] MEDS ORDERED: ONDANSETRON *ODT* 4 MG TABLET SL PRN (13:09)
[2023-10-04] MEDS ORDERED: guaiFENesin 600 MG TABLET.ER (FP) PO PRN (13:09)
[2023-10-04] MEDS ORDERED: chlordiazePOXIDE HCL 25 MG CAPSULE PO PRN (13:09)
[2023-10-04] MEDS ORDERED: DICYCLOMINE HCL 10 MG CAPSULE PO PRN (13:09)
[2023-10-04] MEDS ORDERED: NALOXONE HCL 0.4 MG/ML VIAL IM PRN (13:09)
[2023-10-04] MEDS ORDERED: POLYETHYLENE GLYCOL (HEALTHYLAX) 3350 17 GM PACKET PO PRN (13:09)
[2023-10-04] MEDS ORDERED: MAGNESIUM HYDROX 2400MG/30ML ORAL SUSPENSION 30 ML CUP PO PRN (13:09)
[2023-10-04] MEDS ORDERED: BENZONATATE 200 MG CAPSULE PO PRN (13:09)
[2023-10-04] MEDS ORDERED: IBUPROFEN 600 MG TABLET (FP) PO PRN (13:09)
[2023-10-04] MEDS ORDERED: hydrOXYzine PAMOATE 25 MG CAPSULE (FP) PO PRN (13:09)
[2023-10-04] MEDS ORDERED: ACETAMINOPHEN 325 MG TABLET (FP) PO PRN (13:09)
[2023-10-04] MEDS ORDERED: BENZOCAINE/MENTHOL (CHLORASEPTIC ) LOZENGE MM PRN (13:09)
[2023-10-04] MEDS ORDERED: NALOXONE HCL (KLOXXADO) 8 MG SPRAY NS PRN (13:09)
[2023-10-04] MEDS ORDERED: LOPERAMIDE HCL 2 MG CAPSULE PO PRN (13:09)
[2023-10-04] MEDS ORDERED: MAG HYDROX/AL HYDROX/SIMETH 30 ML UNIT-DOSE CUP PO PRN (13:09)
[2023-10-04] MEDS ORDERED: METHOCARBAMOL 500 MG TABLET PO PRN (13:09)
[2023-10-04] MEDS ORDERED: BISMUTH SUBSALICYLATE 524 MG/30 ML PO PRN (13:09)
[2023-10-04] MEDS ORDERED: IBUPROFEN 400 MG TABLET (FP) PO PRN (13:09)
[2023-10-04] MEDS: PANTOPRAZOLE 20 MG TABLET PO SCH (17:16)
[2023-10-04] MEDS: chlordiazePOXIDE HCL 25 MG CAPSULE PO SCH (17:17)
[2023-10-04] MEDS: MELATONIN 5 MG TABLETS PO SCH (22:21)
[2023-10-04] MEDS: THIAMINE 100 MG TABLET PO SCH (22:21)
[2023-10-05 09:09] VITALS: BP 95/62; PULSE 75; RESP 20; TEMP 97.5
[2023-10-05] MEDS: PRENATAL VITAMINS W/ FOLIC ACID TABLET (FP) PO SCH (10:12)
[2023-10-06] MEDS ORDERED: chlordiazePOXIDE HCL 25 MG CAPSULE PO SCH (05:00)
[2023-10-07] MEDS ORDERED: chlordiazePOXIDE HCL 10 MG CAPSULE PO PRN
[2023-10-07] MEDS ORDERED: chlordiazePOXIDE HCL 10 MG CAPSULE PO SCH (05:00)
[2023-10-08] MEDS ORDERED: chlordiazePOXIDE HCL 10 MG CAPSULE PO SCH (05:00)
[2023-10-09] MEDS ORDERED: chlordiazePOXIDE HCL 10 MG CAPSULE PO ONE (05:00)
== END 2023-10-05 12:29 | disposition left against medical advice (07) | DRG 770 ==
LOC: YASAS 11:57 → Y3N 14:18
PROVIDERS: ADMIT Allergy & Immunology; ATTEND Surgery
PROC: HZ2ZZZZ Detoxification Services for Substance Abuse Treatment (ICD-10-PCS; principal; 2023-10-04)
DX: F10.230 Alcohol dependence with withdrawal, uncomplicated (principal); F14.20 Cocaine dependence, uncomplicated; F17.210 Nicotine dependence, cigarettes, uncomplicated; F25.9 Schizoaffective disorder, unspecified; F31.9 Bipolar disorder, unspecified; F19.24 Other psychoactive substance dependence with psychoactive substance-induced mood disorder; F43.10 Post-traumatic stress disorder, unspecified; I10 Essential (primary) hypertension; M16.11 Unilateral primary osteoarthritis, right hip; M54.31 Sciatica, right side; Z56.0 Unemployment, unspecified; Z59.00 Homelessness unspecified
CPT/HCPCS: 80305; 93005; 93010

== ENCOUNTER 2023-11-21 09:57 | Inpatient (IN) | payer OTHER ==
[2023-11-21 10:21] VITALS: BMI 21.2
[2023-11-21] MEDS ORDERED: MAG HYDROX/AL HYDROX/SIMETH 30 ML UNIT-DOSE CUP PO PRN (11:09)
[2023-11-21] MEDS ORDERED: METHOCARBAMOL 500 MG TABLET PO PRN (11:09)
[2023-11-21] MEDS ORDERED: BENZONATATE 200 MG CAPSULE PO PRN (11:09)
[2023-11-21] MEDS ORDERED: guaiFENesin 600 MG TABLET.ER (FP) PO PRN (11:09)
[2023-11-21] MEDS ORDERED: NALOXONE HCL 0.4 MG/ML VIAL IM PRN (11:09)
[2023-11-21] MEDS ORDERED: POLYETHYLENE GLYCOL (HEALTHYLAX) 3350 17 GM PACKET PO PRN (11:09)
[2023-11-21] MEDS ORDERED: DICYCLOMINE HCL 10 MG CAPSULE PO PRN (11:09)
[2023-11-21] MEDS ORDERED: ACETAMINOPHEN 325 MG TABLET (FP) PO PRN (11:09)
[2023-11-21] MEDS ORDERED: BISMUTH SUBSALICYLATE 524 MG/30 ML PO PRN (11:09)
[2023-11-21] MEDS ORDERED: NICOTINE POLACRILEX 2 MG GUM BUC PRN (11:09)
[2023-11-21] MEDS ORDERED: BENZOCAINE/MENTHOL (CHLORASEPTIC ) LOZENGE MM PRN (11:09)
[2023-11-21] MEDS ORDERED: MAGNESIUM HYDROX 2400MG/30ML ORAL SUSPENSION 30 ML CUP PO PRN (11:09)
[2023-11-21] MEDS ORDERED: LOPERAMIDE HCL 2 MG CAPSULE PO PRN (11:09)
[2023-11-21] MEDS ORDERED: ONDANSETRON *ODT* 4 MG TABLET SL PRN (11:09)
[2023-11-21] MEDS ORDERED: IBUPROFEN 600 MG TABLET (FP) PO PRN (11:09)
[2023-11-21] MEDS ORDERED: NALOXONE (NARCAN) HCL 4 MG/0.1 ML SPRAY NS PRN (11:09)
[2023-11-21] MEDS: TOLNAFTATE 1% CREAM 15 GM TUBE TP SCH (13:48)
[2023-11-21] MEDS: GABAPENTIN 100 MG CAPSULE PO SCH (13:50)
[2023-11-21] MEDS: PANTOPRAZOLE 40 MG TABLET PO SCH (13:50)
[2023-11-21] MEDS: chlordiazePOXIDE HCL 25 MG CAPSULE PO SCH (17:41)
[2023-11-21] MEDS ORDERED: MELATONIN 5 MG TABLETS PO SCH (22:00)
[2023-11-21] MEDS: QUEtiapine FUMARATE 100 MG TABLET (FP) PO SCH (22:51)
[2023-11-21] MEDS: THIAMINE 100 MG TABLET PO SCH (22:52)
[2023-11-22] MEDS: IBUPROFEN 400 MG TABLET (FP) PO PRN (10:11)
[2023-11-22] MEDS: PRENATAL VITAMINS W/ FOLIC ACID TABLET (FP) PO SCH (10:20)
[2023-11-22] MEDS: chlordiazePOXIDE HCL 25 MG CAPSULE PO PRN (13:44)
[2023-11-23] MEDS: chlordiazePOXIDE HCL 25 MG CAPSULE PO SCH (05:55)
[2023-11-24] MEDS ORDERED: chlordiazePOXIDE HCL 10 MG CAPSULE PO PRN
[2023-11-24] MEDS: chlordiazePOXIDE HCL 10 MG CAPSULE PO SCH (05:40)
[2023-11-24 08:53] VITALS: TEMP 98.2
[2023-11-24 12:14] VITALS: BP 142/88; PULSE 71; RESP 16
[2023-11-25] MEDS ORDERED: chlordiazePOXIDE HCL 10 MG CAPSULE PO SCH (05:00)
[2023-11-26] MEDS ORDERED: chlordiazePOXIDE HCL 10 MG CAPSULE PO ONE (05:00)
== END 2023-11-24 16:40 | disposition home or self-care (01) | DRG 774 ==
LOC: YASAS 09:57 → Y3N 11:28
PROVIDERS: ADMIT Allergy & Immunology; ATTEND Surgery
PROC: HZ2ZZZZ Detoxification Services for Substance Abuse Treatment (ICD-10-PCS; principal; 2023-11-21)
DX: F10.230 Alcohol dependence with withdrawal, uncomplicated (principal); F14.20 Cocaine dependence, uncomplicated; F12.20 Cannabis dependence, uncomplicated; F17.210 Nicotine dependence, cigarettes, uncomplicated; F19.282 Other psychoactive substance dependence with psychoactive substance-induced sleep disorder; F19.24 Other psychoactive substance dependence with psychoactive substance-induced mood disorder; F31.9 Bipolar disorder, unspecified; F25.9 Schizoaffective disorder, unspecified; E72.20 Disorder of urea cycle metabolism, unspecified; J44.9 Chronic obstructive pulmonary disease, unspecified; K21.9 Gastro-esophageal reflux disease without esophagitis; M16.11 Unilateral primary osteoarthritis, right hip; M54.50 Low back pain, unspecified; G89.29 Other chronic pain; Z56.0 Unemployment, unspecified; Z59.01 Sheltered homelessness
CPT/HCPCS: 80305; 80307; 93005; 93010

== ENCOUNTER 2024-01-01 13:28 | Inpatient (IN) | payer OTHER ==
[2024-01-01 14:57] VITALS: BMI 23.0
[2024-01-01] MEDS ORDERED: MAG HYDROX/AL HYDROX/SIMETH 30 ML UNIT-DOSE CUP PO PRN (15:21)
[2024-01-01] MEDS ORDERED: NICOTINE POLACRILEX 2 MG LOZENGE BC PRN (15:21)
[2024-01-01] MEDS ORDERED: P-EPHED 60MG/TRIPROLIDI 2.5MG TABLET PO PRN (15:21)
[2024-01-01] MEDS ORDERED: NALOXONE HCL 0.4 MG/ML VIAL IM PRN (15:21)
[2024-01-01] MEDS ORDERED: DICYCLOMINE HCL 10 MG CAPSULE PO PRN (15:21)
[2024-01-01] MEDS ORDERED: BISMUTH SUBSALICYLATE 262 MG/15 ML BTL PO PRN (15:21)
[2024-01-01] MEDS ORDERED: ONDANSETRON *ODT* 4 MG TABLET SL PRN (15:21)
[2024-01-01] MEDS ORDERED: NALOXONE (NARCAN) HCL 4 MG/0.1 ML SPRAY NS PRN (15:21)
[2024-01-01] MEDS ORDERED: IBUPROFEN 400 MG TABLET (FP) PO PRN (15:21)
[2024-01-01] MEDS ORDERED: LOPERAMIDE HCL 2 MG CAPSULE PO PRN (15:21)
[2024-01-01] MEDS ORDERED: NICOTINE POLACRILEX 2 MG GUM BUC PRN (15:21)
[2024-01-01] MEDS ORDERED: guaiFENesin 600 MG TABLET.ER (FP) PO PRN (15:21)
[2024-01-01] MEDS ORDERED: ACETAMINOPHEN 325 MG TABLET (FP) PO PRN (15:21)
[2024-01-01] MEDS ORDERED: BENZOCAINE/MENTHOL (CHLORASEPTIC ) LOZENGE MM PRN (15:21)
[2024-01-01] MEDS ORDERED: POLYETHYLENE GLYCOL (HEALTHYLAX) 3350 17 GM PACKET PO PRN (15:21)
[2024-01-01] MEDS ORDERED: MAGNESIUM HYDROX 2400MG/30ML ORAL SUSPENSION 30 ML CUP PO PRN (15:21)
[2024-01-01] MEDS ORDERED: IBUPROFEN 600 MG TABLET (FP) PO PRN (15:21)
[2024-01-01] MEDS ORDERED: BENZONATATE 200 MG CAPSULE PO PRN (15:21)
[2024-01-01] MEDS: THIAMINE 100 MG TABLET PO SCH (22:37)
[2024-01-01] MEDS: MELATONIN 5 MG TABLETS PO SCH (22:37)
[2024-01-01] MEDS: METHOCARBAMOL 500 MG TABLET PO PRN (22:39)
[2024-01-01] MEDS: hydrOXYzine PAMOATE 25 MG CAPSULE (FP) PO PRN (22:39)
[2024-01-02] MEDS: PRENATAL VITAMINS W/ FOLIC ACID TABLET (FP) PO SCH (10:44)
[2024-01-02] MEDS: PANTOPRAZOLE 20 MG TABLET PO SCH (10:44)
[2024-01-02 10:48] LABS: HEMATOCRIT 39.2 % (35.4-49); HEMOGLOBIN 12.5 GM/dL (11.7-16.9); MCH 23.1 pg (25.7-33.7); MEAN CELL VOLUME 72.2 fl (80-96); MEAN PLT VOLUME 8.5 fl (7.5-11.1); PLATELET COUNT 262 10^3/uL (134-434); RBC 5.43 M/mm3 (4.00-5.60); RDW 15.3 % (11.9-15.9)
[2024-01-02 10:58] LABS: CHLORIDE 104 mmol/L (98-107); POTASSIUM 4.2 mmol/L (3.5-5.1); SODIUM 139 mmol/L (136-145)
[2024-01-02 11:02] LABS: ALBUMIN 3.1 g/dl (3.4-5.0)
[2024-01-02 11:03] LABS: ANION GAP 3 mmol/L (4-13); CO2 32 mmol/L (21-32); GLUCOSE,RANDOM 84 mg/dL (74-106)
[2024-01-02 11:04] LABS: BLOOD UREA NITROGEN 7.6 mg/dL (7-18)
[2024-01-02 11:05] LABS: CREATININE 1.1 mg/dL (0.55-1.3)
[2024-01-02 11:06] LABS: SGOT/AST 20 U/L (15-37); SGPT/ALT 24 U/L (13-61)
[2024-01-02 11:07] LABS: BILIRUBIN,TOTAL 0.5 mg/dL (0.2-1); TOT PROT 5.9 g/dl (6.4-8.2)
[2024-01-02 11:08] LABS: ALK PHOS 70 U/L (45-117)
[2024-01-02] MEDS: GABAPENTIN 300 MG CAPSULE PO SCH (13:25)
[2024-01-02] MEDS ORDERED: QUEtiapine FUMARATE 300 MG TABLET PO SCH (22:00)
[2024-01-02] MEDS: QUEtiapine FUMARATE 200 MG TABLET PO SCH (22:42)
[2024-01-03] MEDS: NALTREXONE HCL 50 MG TABLET PO SCH (16:02)
[2024-01-04 09:07] VITALS: BP 116/81; PULSE 85; RESP 17; TEMP 97.1
== END 2024-01-04 09:20 | disposition home or self-care (01) | DRG 774 ==
LOC: YASAS 13:28 → Y6N 16:41
PROVIDERS: ADMIT Allergy & Immunology; ATTEND Surgery
PROC: HZ2ZZZZ Detoxification Services for Substance Abuse Treatment (ICD-10-PCS; principal; 2024-01-01)
DX: F10.20 Alcohol dependence, uncomplicated (principal); F14.20 Cocaine dependence, uncomplicated; F12.20 Cannabis dependence, uncomplicated; F17.213 Nicotine dependence, cigarettes, with withdrawal; F25.0 Schizoaffective disorder, bipolar type; F31.9 Bipolar disorder, unspecified; F19.282 Other psychoactive substance dependence with psychoactive substance-induced sleep disorder; F19.24 Other psychoactive substance dependence with psychoactive substance-induced mood disorder; F43.10 Post-traumatic stress disorder, unspecified; K21.9 Gastro-esophageal reflux disease without esophagitis; I10 Essential (primary) hypertension; J44.9 Chronic obstructive pulmonary disease, unspecified; M16.11 Unilateral primary osteoarthritis, right hip; M54.40 Lumbago with sciatica, unspecified side; G89.29 Other chronic pain
CPT/HCPCS: 36415; 80053; 80305; 80307; 85027; 86780

== ENCOUNTER 2024-02-12 10:43 | Inpatient (IN) | payer OTHER ==
[2024-02-12 11:16] VITALS: BMI 22.0
[2024-02-12] MEDS ORDERED: MAGNESIUM HYDROX 2400MG/30ML ORAL SUSPENSION 30 ML CUP PO PRN (11:42)
[2024-02-12] MEDS ORDERED: BENZOCAINE/MENTHOL (CHLORASEPTIC ) LOZENGE MM PRN (11:42)
[2024-02-12] MEDS ORDERED: BENZONATATE 200 MG CAPSULE PO PRN (11:42)
[2024-02-12] MEDS ORDERED: POLYETHYLENE GLYCOL (HEALTHYLAX) 3350 17 GM PACKET PO PRN (11:42)
[2024-02-12] MEDS ORDERED: LOPERAMIDE HCL 2 MG CAPSULE PO PRN (11:42)
[2024-02-12] MEDS ORDERED: NICOTINE POLACRILEX 2 MG LOZENGE BC PRN (11:42)
[2024-02-12] MEDS ORDERED: MAG HYDROX/AL HYDROX/SIMETH 30 ML UNIT-DOSE CUP PO PRN (11:42)
[2024-02-12] MEDS ORDERED: NICOTINE POLACRILEX 2 MG GUM BUC PRN (11:42)
[2024-02-12] MEDS ORDERED: guaiFENesin 600 MG TABLET.ER (FP) PO PRN (11:42)
[2024-02-12] MEDS: PANTOPRAZOLE 40 MG TABLET PO ONE (13:08)
[2024-02-12] MEDS: FAMOTIDINE 20 MG TABLET PO SCH (13:08)
[2024-02-12] MEDS: THIAMINE 100 MG TABLET PO SCH (21:09)
[2024-02-12] MEDS: MELATONIN 5 MG TABLETS PO SCH (21:09)
[2024-02-12] MEDS: QUEtiapine FUMARATE 200 MG TABLET PO SCH (21:10)
[2024-02-13] MEDS: PANTOPRAZOLE 40 MG TABLET PO SCH (06:29)
[2024-02-13] MEDS: PRENATAL VITAMINS W/ FOLIC ACID TABLET (FP) PO SCH (09:32)
[2024-02-13] MEDS: ACETAMINOPHEN 325 MG TABLET (FP) PO PRN (09:33)
[2024-02-13 11:15] LABS: POTASSIUM 4.1 mmol/L (3.5-5.1)
[2024-02-13 11:20] LABS: HEMOGLOBIN 11.9 GM/dL (11.7-16.9); MCH 22.6 pg (25.7-33.7); MCHC 31.3 g/dl (32.0-35.9); MEAN CELL VOLUME 72.1 fl (80-96); MEAN PLT VOLUME 8.9 fl (7.5-11.1); PLATELET COUNT 233 10^3/uL (134-434); RBC 5.27 M/mm3 (4.00-5.60); RDW 15.8 % (11.9-15.9); WHITE BLOOD COUNT 3.1 K/mm3 (4.0-10.0)
[2024-02-13 11:21] LABS: CALCIUM 8.9 mg/dL (8.5-10.1)
[2024-02-13 11:22] LABS: ALBUMIN 3.2 g/dl (3.4-5.0); BLOOD UREA NITROGEN 13.9 mg/dL (7-18)
[2024-02-13 11:25] LABS: CREATININE 1.1 mg/dL (0.55-1.3)
[2024-02-13 11:27] LABS: BILIRUBIN,TOTAL 0.9 mg/dL (0.2-1); TOT PROT 5.9 g/dl (6.4-8.2)
[2024-02-13] MEDS: cloNIDine HCL 0.1 MG TABLET PO ONE (21:38)
[2024-02-15] MEDS: GABAPENTIN 300 MG CAPSULE PO SCH (15:05)
[2024-02-15] MEDS: METHYL SALICYLATE/MENTHOL 30 GM TUBE TP SCH (15:05)
[2024-02-15 16:34] LABS: PH,URINE 7.5 (5.0-8.0); URINE APPEARANCE CLEAR; URINE BILIRUBIN NEGATIVE (NEGATIVE); URINE COLOR YELLOW; URINE GLUCOSE (UA) NEGATIVE (NEGATIVE); URINE KETONE NEGATIVE (NEGATIVE); URINE LEUK ESTERASE NEGATIVE (NEGATIVE); URINE NITRITE NEGATIVE (NEGATIVE); URINE PROTEIN NEGATIVE (NEGATIVE); URINE UROBILINOGEN 0.2 mg/dL (0.2-1.0)
[2024-02-15] MEDS: hydrOXYzine PAMOATE 25 MG CAPSULE (FP) PO PRN (21:40)
[2024-02-15] MEDS ORDERED: INSULIN (LEVEMIR) 100 UNITS/ML UNITS SQ ONE (21:49)
[2024-02-19 06:34] VITALS: RESP 20; TEMP 97.1
[2024-02-19 09:06] VITALS: BP 122/82; PULSE 110
== END 2024-02-19 12:32 | disposition home or self-care (01) | DRG 772 ==
LOC: YASAS 10:43 → Y3E 12:26
PROVIDERS: ADMIT Psychiatry & Neurology Pain Medicine; ATTEND Psychiatry & Neurology Pain Medicine
PROC: HZ42ZZZ Group Counseling for Substance Abuse Treatment, Cognitive-Behavioral (ICD-10-PCS; principal; 2024-02-12)
DX: F14.20 Cocaine dependence, uncomplicated (principal); F10.20 Alcohol dependence, uncomplicated; F13.20 Sedative, hypnotic or anxiolytic dependence, uncomplicated; F17.210 Nicotine dependence, cigarettes, uncomplicated; F25.0 Schizoaffective disorder, bipolar type; F43.10 Post-traumatic stress disorder, unspecified; I10 Essential (primary) hypertension; J44.9 Chronic obstructive pulmonary disease, unspecified; K21.9 Gastro-esophageal reflux disease without esophagitis; L30.9 Dermatitis, unspecified; M16.11 Unilateral primary osteoarthritis, right hip; M54.50 Low back pain, unspecified; G89.29 Other chronic pain; Z56.0 Unemployment, unspecified; Z59.00 Homelessness unspecified
CPT/HCPCS: 36415; 80053; 80305; 81003; 85027; 87811

== ENCOUNTER 2024-05-27 11:17 | Inpatient (IN) | payer OTHER ==
[2024-05-27 11:41] VITALS: BMI 21.2
[2024-05-27] MEDS ORDERED: BISMUTH SUBSALICYLATE 524 MG/30 ML PO PRN (13:38)
[2024-05-27] MEDS ORDERED: NICOTINE POLACRILEX 2 MG GUM BUC PRN (13:38)
[2024-05-27] MEDS ORDERED: METHOCARBAMOL 500 MG TABLET PO PRN (13:38)
[2024-05-27] MEDS ORDERED: POLYETHYLENE GLYCOL (HEALTHYLAX) 3350 17 GM PACKET PO PRN (13:38)
[2024-05-27] MEDS ORDERED: ACETAMINOPHEN 325 MG TABLET (FP) PO PRN (13:38)
[2024-05-27] MEDS ORDERED: BENZONATATE 200 MG CAPSULE PO PRN (13:38)
[2024-05-27] MEDS ORDERED: IBUPROFEN 400 MG TABLET (FP) PO PRN (13:38)
[2024-05-27] MEDS ORDERED: LOPERAMIDE HCL 2 MG CAPSULE PO PRN (13:38)
[2024-05-27] MEDS ORDERED: MAG HYDROX/AL HYDROX/SIMETH 30 ML UNIT-DOSE CUP PO PRN (13:38)
[2024-05-27] MEDS ORDERED: NALOXONE (NARCAN) HCL 4 MG/0.1 ML SPRAY NS PRN (13:38)
[2024-05-27] MEDS ORDERED: chlordiazePOXIDE HCL 25 MG CAPSULE PO PRN (13:38)
[2024-05-27] MEDS ORDERED: DICYCLOMINE HCL 10 MG CAPSULE PO PRN (13:38)
[2024-05-27] MEDS ORDERED: ONDANSETRON *ODT* 4 MG TABLET SL PRN (13:38)
[2024-05-27] MEDS ORDERED: hydrOXYzine PAMOATE 25 MG CAPSULE (FP) PO PRN (13:38)
[2024-05-27] MEDS ORDERED: guaiFENesin 600 MG TABLET.ER (FP) PO PRN (13:38)
[2024-05-27] MEDS ORDERED: IBUPROFEN 600 MG TABLET (FP) PO PRN (13:38)
[2024-05-27] MEDS ORDERED: MAGNESIUM HYDROX 2400MG/30ML ORAL SUSPENSION 30 ML CUP PO PRN (13:38)
[2024-05-27] MEDS: PRENATAL VITAMINS W/ FOLIC ACID TABLET (FP) PO SCH (15:14)
[2024-05-27] MEDS: NICOTINE 7 MG/24 HOURS TOPICAL PATCH TD SCH (15:27)
[2024-05-27] MEDS: chlordiazePOXIDE HCL 25 MG CAPSULE PO SCH (17:15)
[2024-05-27] MEDS: BENZOCAINE/MENTHOL (CHLORASEPTIC ) LOZENGE MM PRN (17:15)
[2024-05-27] MEDS: MELATONIN 5 MG TABLETS PO SCH (22:30)
[2024-05-27] MEDS: THIAMINE 100 MG TABLET PO SCH (22:30)
[2024-05-28] MEDS: PANTOPRAZOLE 20 MG TABLET PO SCH (10:30)
[2024-05-28] MEDS: NALTREXONE HCL 50 MG TABLET PO SCH (10:30)
[2024-05-28] MEDS: QUEtiapine FUMARATE 200 MG TABLET PO SCH (22:12)
[2024-05-29] MEDS: chlordiazePOXIDE HCL 25 MG CAPSULE PO SCH (06:00)
[2024-05-30] MEDS ORDERED: chlordiazePOXIDE HCL 10 MG CAPSULE PO PRN
[2024-05-30] MEDS: chlordiazePOXIDE HCL 10 MG CAPSULE PO SCH (06:34)
[2024-05-30 11:34] LABS: HEMATOCRIT 39.2 % (35.4-49); HEMOGLOBIN 12.4 GM/dL (11.7-16.9); MCH 23.2 pg (25.7-33.7); MCHC 31.7 g/dl (32.0-35.9); MEAN PLT VOLUME 9.1 fl (7.5-11.1); PLATELET COUNT 196 10^3/uL (134-434); RBC 5.37 M/mm3 (4.00-5.60); WHITE BLOOD COUNT 2.5 K/mm3 (4.0-10.0)
[2024-05-30 12:24] LABS: POTASSIUM 4.4 mmol/L (3.5-5.1)
[2024-05-30 12:32] LABS: CALCIUM 8.9 mg/dL (8.5-10.1)
[2024-05-30 12:33] LABS: ALBUMIN 3.2 g/dl (3.4-5.0); BLOOD UREA NITROGEN 13.2 mg/dL (7-18)
[2024-05-30 12:37] LABS: BILIRUBIN,TOTAL 0.2 mg/dL (0.2-1)
[2024-05-31] MEDS: chlordiazePOXIDE HCL 10 MG CAPSULE PO SCH (06:17)
[2024-06-01] MEDS: chlordiazePOXIDE HCL 10 MG CAPSULE PO ONE (06:00)
[2024-06-02 09:16] VITALS: BP 110/74; PULSE 74; RESP 18; TEMP 97.8
[2024-06-02] MEDS: NALOXONE (NYS OPIOID OVERDOSE PROGRAM) 4 MG/0.1 ML SPRAY NS SCH (11:05)
== END 2024-06-02 12:50 | disposition other institution (70) | DRG 774 ==
LOC: YASAS 11:17 → Y6N 15:19
PROVIDERS: ADMIT Allergy & Immunology; ATTEND Surgery
PROC: HZ2ZZZZ Detoxification Services for Substance Abuse Treatment (ICD-10-PCS; principal; 2024-05-27)
DX: F10.230 Alcohol dependence with withdrawal, uncomplicated (principal); F14.20 Cocaine dependence, uncomplicated; F12.20 Cannabis dependence, uncomplicated; F17.213 Nicotine dependence, cigarettes, with withdrawal; F25.9 Schizoaffective disorder, unspecified; F31.9 Bipolar disorder, unspecified; F43.10 Post-traumatic stress disorder, unspecified; D70.9 Neutropenia, unspecified; I10 Essential (primary) hypertension; K21.9 Gastro-esophageal reflux disease without esophagitis; M16.11 Unilateral primary osteoarthritis, right hip; M54.50 Low back pain, unspecified; G89.29 Other chronic pain
CPT/HCPCS: 36415; 80053; 80307; 85027; 86780; 87811; 93005; 93010

== ENCOUNTER 2024-06-02 12:25 | Inpatient (IN) | payer OTHER ==
[2024-06-02] MEDS ORDERED: IBUPROFEN 400 MG TABLET (FP) PO PRN (12:26)
[2024-06-02] MEDS ORDERED: ACETAMINOPHEN 325 MG TABLET (FP) PO PRN (12:26)
[2024-06-02] MEDS ORDERED: hydrOXYzine PAMOATE 25 MG CAPSULE (FP) PO PRN (12:26)
[2024-06-02] MEDS ORDERED: guaiFENesin 600 MG TABLET.ER (FP) PO PRN (12:26)
[2024-06-02] MEDS ORDERED: NICOTINE POLACRILEX 2 MG GUM BUC PRN (12:26)
[2024-06-02] MEDS ORDERED: MAGNESIUM HYDROX 2400MG/30ML ORAL SUSPENSION 30 ML CUP PO PRN (12:26)
[2024-06-02] MEDS ORDERED: BENZONATATE 200 MG CAPSULE PO PRN (12:26)
[2024-06-02] MEDS ORDERED: IBUPROFEN 600 MG TABLET (FP) PO PRN (12:26)
[2024-06-02] MEDS ORDERED: POLYETHYLENE GLYCOL (HEALTHYLAX) 3350 17 GM PACKET PO PRN (12:26)
[2024-06-02] MEDS ORDERED: NICOTINE POLACRILEX 2 MG LOZENGE BC PRN (12:26)
[2024-06-02] MEDS ORDERED: MAG HYDROX/AL HYDROX/SIMETH 30 ML UNIT-DOSE CUP PO PRN (12:26)
[2024-06-02] MEDS ORDERED: LOPERAMIDE HCL 2 MG CAPSULE PO PRN (12:26)
[2024-06-02] MEDS: QUEtiapine FUMARATE 200 MG TABLET PO ONE (23:27)
[2024-06-02] MEDS: THIAMINE 100 MG TABLET PO SCH (23:28)
[2024-06-02] MEDS: MELATONIN 5 MG TABLETS PO SCH (23:28)
[2024-06-03] MEDS: PRENATAL VITAMINS W/ FOLIC ACID TABLET (FP) PO SCH (09:54)
[2024-06-03] MEDS: NALTREXONE HCL 50 MG TABLET PO SCH (09:54)
[2024-06-03] MEDS: NICOTINE 7 MG/24 HOURS TOPICAL PATCH TD SCH (09:54)
[2024-06-03] MEDS: BENZOCAINE/MENTHOL (CHLORASEPTIC ) LOZENGE MM PRN (21:33)
[2024-06-04] MEDS: PANTOPRAZOLE 40 MG TABLET PO SCH (17:10)
[2024-06-04] MEDS: QUEtiapine FUMARATE 200 MG TABLET PO SCH (21:10)
[2024-06-04] MEDS: GABAPENTIN 300 MG CAPSULE PO SCH (21:10)
[2024-06-06 06:13] VITALS: RESP 17; TEMP 97.5
[2024-06-06 09:12] VITALS: BP 116/78; PULSE 90
[2024-06-06] MEDS: NALOXONE (NYS OPIOID OVERDOSE PROGRAM) 4 MG/0.1 ML SPRAY NS SCH (10:36)
== END 2024-06-06 10:53 | disposition left against medical advice (07) | DRG 770 ==
LOC: YASAS 12:25 → Y3NR 12:26 → Y3W 06-03 10:52
PROVIDERS: ADMIT Psychiatry & Neurology Pain Medicine; ATTEND Psychiatry & Neurology Pain Medicine
PROC: HZ42ZZZ Group Counseling for Substance Abuse Treatment, Cognitive-Behavioral (ICD-10-PCS; principal; 2024-06-02)
DX: F10.20 Alcohol dependence, uncomplicated (principal); F14.20 Cocaine dependence, uncomplicated; F17.210 Nicotine dependence, cigarettes, uncomplicated; F31.9 Bipolar disorder, unspecified; F25.9 Schizoaffective disorder, unspecified; F43.10 Post-traumatic stress disorder, unspecified; I10 Essential (primary) hypertension; J44.9 Chronic obstructive pulmonary disease, unspecified; K21.9 Gastro-esophageal reflux disease without esophagitis; M16.11 Unilateral primary osteoarthritis, right hip; M54.31 Sciatica, right side; G89.29 Other chronic pain; Z86.2 Personal history of diseases of the blood and blood-forming organs and certain disorders involving the immune mechanism; Z59.01 Sheltered homelessness